=== PATIENT | female | born 1955 | race Caucasian/White ===

== ENCOUNTER 2017-12-27 17:59 | Emergency (ER) | payer OTHER, SELFPAY ==
[2017-12-27 18:07] VITALS: BP 123/75; PULSE 42; RESP 14; TEMP 36.7; O2SAT 97; BMI 37.4
--- NOTE | 2017-12-27 18:16 | DI.RAD.S_ITS ---
PROCEDURE: XR SHOULDER LT MIN 2V INDICATIONS: injury TECHNIQUE: 3 views of the shoulder were acquired. COMPARISON: None. FINDINGS: Bones: There is a displaced, comminuted fracture of the proximal left humerus. The glenoid and acromioclavicular joint are intact. No displaced rib fractures visualized. Soft tissues: No suspicious soft tissue calcifications. IMPRESSION: Comminuted, displaced proximal humeral fracture. Dictated by: Lorene Grider M.D. on 12/27/2017 at 18:47 Approved by: Lorene Grider M.D. on 12/27/2017 at 18:48
--- NOTE | 2017-12-27 18:16 | DI.RAD.S_ITS ---
PROCEDURE: XR HUMERUS LT 2V INDICATIONS: injury TECHNIQUE: 2 views of the humerus were acquired. COMPARISON: None. FINDINGS: Bones: Comminuted displaced superior humeral fracture is only partially characterize on this limited view. No other fracture or dislocation. Soft tissues: No suspicious soft tissue calcifications. IMPRESSION: Partially visualized proximal humeral fracture. Dictated by: Lorene Grider M.D. on 12/27/2017 at 18:48 Approved by: Lorene Grider M.D. on 12/27/2017 at 18:49
--- NOTE | 2017-12-27 18:16 | DI.RAD.S_ITS ---
PROCEDURE: XR ELBOW LT MIN 3V INDICATIONS: injury TECHNIQUE: 3 views of the elbow were acquired. COMPARISON: None. FINDINGS: Bones: No fractures or dislocations. No suspicious bony lesions. Soft tissues: No elbow joint effusion. No suspicious soft tissue calcifications. IMPRESSION: No acute radiographic findings. If pain persists, repeat study in 5-7 days is recommended to exclude occult fracture. Dictated by: Lorene Grider M.D. on 12/27/2017 at 18:49 Approved by: Lorene Grider M.D. on 12/27/2017 at 18:52
[2017-12-27 20:37] VITALS: BP 129/72; PULSE 84; RESP 18; O2SAT 97
--- NOTE | 2017-12-27 20:41 | ED_ITS ---
HPI - Extremity Injury (Upper) <MERLIN May - Last Filed: 12/27/17 22:41> General Chief Complaint: Extremity Injury, Upper Stated Complaint: LT UPPER ARM, NECK PAIN S/P FALL Time Seen by Provider: 12/27/17 18:49 History of Present Illness HPI narrative: 62-year-old female here for complaint of pain into her left shoulder and left upper arm status post ground level fall yesterday. Patient states that she tripped over her pant leg causing her to have fall forward landing up against the wall. She states she might have hit her head she denies any loss of consciousness. No nausea or vomiting. Patient is ambulatory into the emergency room today. She denies any other injuries or concerns. Increased pain with movement of the left shoulder and upper arm. Related Data Previous Rx's Medication Instructions Recorded carvedilol [Coreg] 6.25 mg PO BID #180 tab 02/09/17 alendronate [Fosamax] 70 mg PO Q7D@0730 #14 tab-cap 08/25/17 lisinopril 10 mg PO QDAY #90 tab 09/04/17 hydrocodone-acetaminophen [Montrose] 1 tab PO Q4-6H PRN #10 tab 12/27/17 Allergies Allergy/AdvReac Type Severity Reaction Status Date / Time epoxy resin [EPOXY RESIN] Allergy Unknown Contact Unverified 11/29/17 11:51 dermatitis amoxicillin [AMOXICILLIN] AdvReac Intermediate RASH Unverified 11/29/17 11:51 Sulfa (Sulfonamide AdvReac Intermediate RASH Unverified 11/29/17 11:51 Antibiotics) [SULFA (SULFONAMIDE ANTIBIOTICS)] Review of Systems <MERLIN May - Last Filed: 12/27/17 22:41> Constitutional Denies chills, Denies fatigue, Denies fever(s), Denies lethargy and Denies weakness Eyes Denies change in vision, Denies eye discharge, Denies irritation and Denies loss of vision ENT Ears, Nose, Mouth, and Throat: Denies change in voice, Denies neck pain and Denies sore throat Cardiovascular Denies dyspnea and Denies dyspnea on exertion Respiratory Denies cough, Denies dyspnea, Denies dyspnea on exertion and Denies wheezing Genitourinary Denies hematuria, Denies flank pain, Denies urinary incontinence and Denies urinary urgency Musculoskeletal Denies neck pain Comments: Left shoulder and left upper arm pain with bruising Integumentary/Breasts Denies pruritus, Denies erythema, Denies rash and Denies wounds Neurologic Denies confusion, Denies loss of vision and Denies weakness Psychiatric Denies anxiety, Denies confusion, Denies depression, Denies homicidal ideation and Denies suicidal ideation Endocrine Denies fatigue and Denies flushing Allergic/Immunologic Denies wheezing Exam <MERLIN May - Last Filed: 12/27/17 22:41> Const General: cooperative, comfortable, well developed and No acute distress Orientation: alert, awake and oriented x3 HENMT Nose: external nose normal Mouth: moist mucous membranes Eyes Pupils: PERRL EOM: EOM intact bilaterally Resp Effort & Inspection: normal respiratory effort Auscultation: clear to auscultation bilaterally Cardio Rate: regular rate Rhythm: regular rhythm Heart Sounds: S1 normal, S2 normal, no click, no gallops, no murmurs and no rubs Skin General: dry skin and warm Extrem Other: Right upper extremity with slight swelling noted to the left proximal upper arm. With ecchymosis to the area. No deformities. No open lesions. Distal sensation is intact. Distal range of motion is intact. Distal pulses intact. Decreased range of motion to the left upper arm due to discomfort. MDM - Extremity Injury (Upper) <MERLIN May - Last Filed: 12/27/17 22:41> [facility] Narrative Medical decision making narrative: X-rays of the left upper extremity show a proximal humeral fracture. She is placed in a over this shoulder humeral cuf splint. [id number] Tylenol and Motrin as needed for any discomfort. Small amount of Montrose is prescribed for breakthrough pain. She is referred to Orthopedics for further evaluation. Patient call their office tomorrow morning to schedule follow-up appointment. Elevation and ice to help with swelling. Return emergency room for any worsening symptoms. Imaging Data shoulder: Radiologist's impression: PROCEDURE: XR SHOULDER LT MIN 2V INDICATIONS: injury TECHNIQUE: 3 views of the shoulder were acquired. COMPARISON: None. FINDINGS: Bones: There is a displaced, comminuted fracture of the proximal left humerus. The glenoid and acromioclavicular joint are intact. No displaced rib fractures visualized. Soft tissues: No suspicious soft tissue calcifications. IMPRESSION: Comminuted, displaced proximal humeral fracture. Dictated by: Lorene Grider M.D. on 12/27/2017 at 18:47 Approved by: Lorene Grider M.D. on 12/27/2017 at 18:48 humerus: Radiologist's impression: PROCEDURE: XR HUMERUS LT 2V INDICATIONS: injury TECHNIQUE: 2 views of the humerus were acquired. COMPARISON: None. FINDINGS: Bones: Comminuted displaced superior humeral fracture is only partially characterize on this limited view. No other fracture or dislocation. Soft tissues: No suspicious soft tissue calcifications. IMPRESSION: Partially visualized proximal humeral fracture. Dictated by: Lorene Grider M.D. on 12/27/2017 at 18:48 Approved by: Lorene Grider M.D. on 12/27/2017 at 18:49 elbow: Radiologist's impression: PROCEDURE: XR ELBOW LT MIN 3V INDICATIONS: injury TECHNIQUE: 3 views of the elbow were acquired. COMPARISON: None. FINDINGS: Bones: No fractures or dislocations. No suspicious bony lesions. Soft tissues: No elbow joint effusion. No suspicious soft tissue calcifications. IMPRESSION: No acute radiographic findings. If pain persists, repeat study in 5-7 days is recommended to exclude occult fracture. <Buffy Barahona, DO - Last Filed: 12/28/17 03:28> [facility] Narrative Medical decision making narrative: I was immediately available in the department for consultation. Documentation has been reviewed. I agree with assessment and plan. Discharge Plan Departure Patient Disposition: Home, Self-Care Clinical Impression: Closed comminuted left humeral fracture Discharge Date/Time: 12/27/17 21:38 Interventions: ED Discharge Assessment Last Done: 12/27/17 21:52 Instructions: DI for Humeral Fracture Activity Restrictions/Additional Instructions: X-rays of the left upper extremity show a proximal humeral fracture. You have been placed in a splint use as directed. [id number] Tylenol and Motrin as needed for any discomfort. Small amount of Montrose is prescribed for breakthrough pain. You are referred to Orthopedics for further evaluation. Call their office tomorrow morning to schedule follow-up appointment. Elevation and ice to help with swelling. Return emergency room for any worsening symptoms. Prescriptions: New hydrocodone-acetaminophen [Montrose] 5-325 mg tablet 1 tab PO Q4-6H PRN (Reason: pain) Qty: 10 RF: 0 No Action carvedilol [Coreg] 6.25 MG tablet 6.25 mg PO BID Qty: 180 RF: 3 alendronate [Fosamax] 70 MG tablet 70 mg PO Q7D@0730 Qty: 14 RF: 4 lisinopril 10 MG tablet 10 mg PO QDAY Qty: 90 RF: 3 Referrals: [facility] [Provider Group] Korey Gorman MD [Primary Care Provider] -
== END 2017-12-27 21:38 | disposition home or self-care (01) ==
PROVIDERS: Emergency Provider Nurse Practitioner Family; PCP Internal Medicine
DX: S42.302A Unspecified fracture of shaft of humerus, left arm, initial encounter for closed fracture (principal); W01.10XA Fall on same level from slipping, tripping and stumbling with subsequent striking against unspecified object, initial encounter
CPT/HCPCS: 73030; 73060; 73080; 99283

== ENCOUNTER → 2018-03-03 08:48 | Outpatient (CLI) | payer OTHER, SELFPAY ==
[2018-03-03 09:54] LABS: Alanine Aminotransferase 46 IU/L (9-52); Albumin 4.2 g/dL (3.5-5.0); Albumin Globulin Ratio 1.8 (1.0-2.8); Alkaline Phosphatase 64 U/L (38-126); Aspartate Aminotransferase 33 IU/L (14-36); BUN Creatinine Ratio 22.9 (6-22); Bilirubin Total 0.8 mg/dL (0.2-1.3); Blood Urea Nitrogen 16 mg/dL (7-17); Calcium 9.2 mg/dL (8.4-10.2); Carbon Dioxide 27 mmol/L (22-32); Chloride 103 mmol/L (98-107); Cholesterol 285 mg/dL (140-199); Estimated Glomerular Filt Rate > 60.0 mL/min (>60); Globulin 2.4 g/dL (1.7-4.1); Glucose 91 mg/dL (80-110); HDL Cholesterol 73 mg/dL (40-60); HEMOLYSIS < 15 (0-50); LDL Cholesterol Calculated 193 mg/dL (<100); Potassium 4.3 mmol/L (3.4-5.1); Sodium 139 mmol/L (137-145); Total Protein 6.6 g/dL (6.3-8.2); Triglycerides 95 mg/dL (35-150)
[2018-03-03 10:19] LABS: TSH w/ Reflex to FT4 1.55 uIU/mL (0.47-4.68)
== END ==
PROVIDERS: PCP Internal Medicine; Visit Provider Internal Medicine
DX: I10 Essential (primary) hypertension (principal); E78.5 Hyperlipidemia, unspecified
CPT/HCPCS: 36415; 80053; 80061; 84443

== ENCOUNTER 2018-03-16 13:30 | Outpatient (RCR) | payer OTHER, SELFPAY ==
--- NOTE | 2018-01-19 16:49 | PT.OIE ---
Current Diagnoses Muscle weakness (generalized) (01/19/18) Pain in left arm (01/19/18) Other symptoms and signs involving the musculoskeletal system (01/19/18) Other nondisplaced fracture of upper end of left humerus, initial encounter for closed fracture (01/19/18) Other reduced mobility (01/19/18) Past Surgical History Status post delivery Status post tonsillectomy and adenoidectomy Provider Visit Care Team Role Provider Type Korey Gorman MD Primary Care Provider Physician Specialty: Internal Medicine Address: [address] [place] [address], [id number] Email: [email or web address] Michela Langford MD Attending Provider Physician Specialty: Orthopedic Surgery Address: [address] [place] [address], [id number] Email: Physical Therapy Initial Evaluation PT-OP-A Visit Information Start: 01/19/18 08:07 Freq: Status: Active Protocol: Document 01/19/18 09:08 LRN (Rec: 01/19/18 09:54 LRN [id number]) Out-Patient Physical Therapy Visit Information Visit Information Visit Note 08/21 Visit Start Time 09:08 Visit Stop Time 09:55 Total Visit Minutes 47 Visit Number 1 Number of DATER ASSEMBLER Visits 0 Evaluation Information Evaluation Date 01/19/18 PT-OP-B Current Condition Start: 01/19/18 08:07 Freq: Status: Active Protocol: Document 01/19/18 09:08 LRN (Rec: 01/19/18 16:07 LRN [id number]) Current Condition History of Current Condition Onset Date 12/26/17 Current Complaints L shoulder pain History of Current Condition Pt reports in her motor home, while turning around she tripped on her pant leg causing her to fall into a wall on the left side with her L arm overhead. She was taken to the hospital and found to have a closed nondisplaced fracture of the proximal end of the L humerus. She was placed in a type of L tung-shoulder sling for the past 3 weeks (2 days). Pt has NOT been moving her L arm in an external rotation motion and has been told she can do forward, backward and across chest arm swings. She removes her sling for bathing. She has not been using her L arm. Future Testing and Treatments Planned Next MD appointment: Treatment Goals Patient/Caregiver Goals Pt goal is to regain use of arm to ride her horse again. Prior Functional Status Baseline Function- ADL's Independent Baseline Function- Mobility Independent Baseline Function- Recreation/Hobbies Independent with horse riding. Current Functional Impairments (Reported) Functional Limitations- ADL's Difficulty dressing, bathing, cooking. Interrupted sleep, typically sleeps on L side. Unable to wash under R arm. Functional Limitations- Recreation/ Unable to ride horse. Hobbies Personal Factors Other Personal Factors That May Effect Osteoporosis. Therapy/Recovery Dizziness/Fall History. Currently spouse is primary caregiver for his mother. PT-OP-C Subjective Start: 01/19/18 08:07 Freq: Status: Active Protocol: Document 01/19/18 09:08 LRN (Rec: 01/19/18 16:07 LRN [id number]) OP-PT Subjective Patient Comments Patient Comments Pt reports confusion with MD instructions. Pain in L shoulder is not too bad. Patient Questionnaires Quick Dash- Upper Extremity Quick Dash UE Score 86.36 Quick Dash UE Impairment 80 to 99% Impaired (Score 80- 99) OP-PT Pain Assessment Pain Assessment Grid Paper Pain Assessment Grid Completed Yes Location Left Upper Proximal Shoulder Intensity 9 Scale Used Numeric (1 - 10) Description Aching Frequency Constant Pain Aggravating Factors Activity Patient Stated Pain Goal No pain PT-OP-F Manual Assessment Start: 01/19/18 08:07 Freq: Status: Active Protocol: Document 01/19/18 09:08 LRN (Rec: 01/19/18 16:07 LRN [id number]) Manual Assessments Soft Tissue Assessment Soft Tissue Mobility Assessment Increased muscle tone of L upper shoulder/neck and scapular stabilizing muscles. Decreased muscle tone of L Deltoids, brachium and forearm . Joint Mobility Assessment Joint Mobility Assessment Deferred due to diagnosis. PT-OP-H Neuro Start: 01/19/18 08:07 Freq: Status: Active Protocol: Document 01/19/18 09:08 LRN (Rec: 01/19/18 16:07 LRN [id number]) Sensation Evaluation Gross Sensation Gross Sensation WNL Deep Tendon Reflex & Clonus Assessment Deep Tendon Reflex Right Tricep Deep Tendon Reflex 1+ Diminished Left Tricep Deep Tendon Reflex 1+ Diminished Right Bicep Deep Tendon Reflex 2+ Normal Left Bicep Deep Tendon Reflex 2+ Normal PT-OP-J Posture/Palpation/Skin Start: 01/19/18 08:07 Freq: Status: Active Protocol: Document 01/19/18 09:08 LRN (Rec: 01/19/18 16:07 LRN [id number]) Posture Evaluation Position Standing Evaluation View Anterior Head/C-Spine Posture Forward Head T-Spine Posture Flattened L-Spine Posture Increased Lordosis Shoulder Posture (L) Elevated Shoulder Subluxation Degree (L) < 1 Finger wide Scapula Posture (L) Elevated Palpation Assessment Location One Palpation Location L shoulder Palpation Findings Tenderness Palpation Details Brachium PT-OP-K Range of Motion Start: 01/19/18 08:07 Freq: Status: Active Protocol: Document 01/19/18 09:08 LRN (Rec: 01/19/18 16:07 LRN [id number]) Cervical Spine Range of Motion Cervical Spine Active Testing Position Sitting Flexion 55 Extension 55 Rotation Left 42 Rotation Right 55 Lateral Flexion Left 33 Lateral Flexion Right 32 Shoulder Goniometric Range of Motion Shoulder Measured in Degrees Right Active Testing Position Sitting Flexion 150 Abduction 155 Right Passive Testing Position Supine Flexion 180 Abduction 180 External Rotation at 90 degrees 93 Abduction Internal Rotation 90 Left Passive Testing Position Supine Flexion 50 Shoulder ROM Limitations Comments L shoulder AROM deferred due to 5 week AROM limitation per protocol. Elbow/Forearm Range of Motion Elbow/Forearm Measured in Degrees Right Active Elbow Flexion (degrees) 140 Elbow Extension (degrees) 0 Left Active ROM Testing Position Sitting Elbow Flexion (degrees) 130 Elbow/Forearm ROM Limitations Comments L Elbow: Active Extension: lacks 10 deg's to full extension. PT-OP-M Strength Start: 01/19/18 08:07 Freq: Status: Active Protocol: Document 01/19/18 09:08 LRN (Rec: 01/19/18 16:07 LRN [id number]) Cervical Spine Strength Cervical Spine Manual Muscle Testing Reason Not Measured WFL Shoulder Strength Shoulder Manual Muscle Testing Left Reason Not Measured Orthopedic Precautions Comments Pt is PROM for 5 weeks. Elbow/Forearm Strength Elbow and Forearm Manual Muscle Testing Left Reason Not Measured Orthopedic Precautions PT-OP-Q Treatments Start: 01/19/18 08:07 Freq: Status: Active Protocol: Document 01/19/18 09:08 LRN (Rec: 01/19/18 16:07 LRN [id number]) Therapeutic Exercises Supine Exercises 1 Supine Exercise Name L shoulder PROM Side left Reps/Minutes 5' Standing Exercises 1 Standing Exercise Name Codman's Side left Reps/Minutes 3' Self-Care/Home Management Treatment Education Patient Education Home Exercise Program Other Education Instructed and reviewed HEP: Codman's. I/S in PROM with L arm on table. Activities Self-Care/Home Management Activities I/S pt in use if cryotherapy after exercise. PT-OP-R Modalities Start: 01/19/18 08:07 Freq: Status: Active Protocol: Document 01/19/18 09:08 LRN (Rec: 01/19/18 16:12 LRN [id number]) Hot Pack/Cold Pack Treatment Cold Pack Location L shoulder Patient Position Hooklying Treatment Duration (minutes) 10 Patient Tolerance Good PT-OP-T Assessment and Plan Start: 01/19/18 08:07 Freq: Status: Active Protocol: Document 01/19/18 09:08 LRN (Rec: 01/19/18 16:41 LRN [id number]) Physical Therapy Assessment Rehab Potential Rehabilitation Potential Excellent Evaluation Complexity Number of Personal Factors/Comorbidities 3 or More Number of Body Systems Impaired 4 or More Clinical Presentation at Evaluation Evolving Impairments Impairments Activity Tolerance Functional Activities Functional Mobility Pain Posture ROM Soft Tissue Mobility Strength Tone Other Concerns Barriers to Rehabilitation Co-morbidities: Osteoporosis, Fall history, spouse currently caregiver to his mother. Goals Three Impairment Decreased L shoulder strength Mcfp Goal (LTG) Pt will be able to ride her horse again with assist for dressing the horse with L shoulder strength improvement of generally 4/5. LTG Duration 12 weeks - 04/13/18 Two Short Term Goal (STG) L shoulder active flexion 145 deg's (pt cleared for AROM in 5 weeks). L shoulder active ER (pt cleared for AROM in 5 weeks). Mcfp Goal (LTG) L shoulder active ER 80 deg's. L shoulder active AB 120 deg's . Pt will be able to bath and dress without difficulty. LTG Duration 12 weeks - 04/13/18 One Impairment Decreased L shoulder mobility Short Term Goal (STG) L shoulder passive flexion 170 deg's. L shoulder passive horizontal Adduction 10 deg's. STG Duration 5 weeks - 02/23/18. Mcfp Goal (LTG) L shoulder passive ER (90 deg' s AB) 80 deg's (pt cleared to start ER in 6 weeks, AROM in 5 weeks). L shoulder passive ABD to 90 deg's (pt cleared to start ROM in 6 weeks, AROM in 5 weeks). LTG Duration 10 weeks - 03/30/18 Assessment Summary Assessment Pt presents 3 weeks and 3 days s/p L nondisplaced fracture of the proximal end of the humerus. She has been wearing her L shoulder splint at all times except when bathing. She shows no signs of edema in her L arm, but appears to have muscle atrophy present. She has mild L shoulder subluxation at the J, probably due to muscle weakness of the rotator cuff. She has increased muscle tone in the upper shoulder with tenderness of the upper shoulder and scapular stabilizer muscles. The pt is to be progressed per protocol of sling for 2 weeks, avoiding ER & AB for 6 weeks, and PROM until 5 weeks. Clarification is needed for the protocol that also indicates passive stretch into ER for the first 2-4 weeks and strengthening starting at week 7, but duration of therapy for 6 weeks. The pt is expected to do well with therapy, but may need up to 12 weeks, 1-2 times per week if progression of strengthening is begin after week 7. Physical Therapy Plan Frequency and Duration Frequency of Treatment 1-2x/week Duration of Treatment 12 Plan of Care Start Date 01/19/18 Plan of Care End Date 04/13/18 Therapeutic Interventions Therapeutic Interventions Aquatic Therapy Home Exercise Program Joint Mobilizations Manual Therapy Neuromuscular Re-education Patient/Caregiver Education Self-Care/Home Management Soft Tissue Mobilization Therapeutic Exercises Modalities Cold Pack/Ice Massage Electric Stimulation Hot Packs Iontophoresis Other Therapeutic Interventions JMT after bone healing. Iontophoresis: 4 mg/mL Dexamethasone with Sodium Phosphate. Next Visit Focus/Plan Next Note Type Treatment Note Next Visit Plan Start with review of HEP of Codman's ex & self PROM using table, Check L shoulder ext PROM, PROM of L shoulder while on MH. L Elbow/forearm/wrist strengthening. Check for MD clarification on protocol. Please Sign and Return: I have reviewed this Plan of Care and certify that the skilled therapy services above are required to meet the patient?s needs. Physician Signature Date Printed Name and Credentials Clinical Instructor Signature Printed Name and Credentials
--- NOTE | 2018-01-19 16:53 | PT.OPPOC ---
Current Diagnoses Muscle weakness (generalized) (01/19/18) Pain in left arm (01/19/18) Other symptoms and signs involving the musculoskeletal system (01/19/18) Other nondisplaced fracture of upper end of left humerus, initial encounter for closed fracture (01/19/18) Other reduced mobility (01/19/18) Provider Visit Care Team Role Provider Type Korey Gorman MD Primary Care Provider Physician Specialty: Internal Medicine Address: [address] [place] [address], [id number] Email: [email or web address] Michela Langford MD Attending Provider Physician Specialty: Orthopedic Surgery Address: [address] [place] [address], [id number] Email: Plan Of Care PT-OP-T Assessment and Plan Start: 01/19/18 08:07 Freq: Status: Active Protocol: Document 01/19/18 09:08 LRN (Rec: 01/19/18 16:41 LRN [id number]) Physical Therapy Assessment Rehab Potential Rehabilitation Potential Excellent Evaluation Complexity Number of Personal Factors/Comorbidities 3 or More Number of Body Systems Impaired 4 or More Clinical Presentation at Evaluation Evolving Impairments Impairments Activity Tolerance Functional Activities Functional Mobility Pain Posture ROM Soft Tissue Mobility Strength Tone Other Concerns Barriers to Rehabilitation Co-morbidities: Osteoporosis, Fall history, spouse currently caregiver to his mother. Goals Three Impairment Decreased L shoulder strength Ad Operations Coordinator Goal (LTG) Pt will be able to ride her horse again with assist for dressing the horse with L shoulder strength improvement of generally 4/5. LTG Duration 12 weeks - 04/13/18 Two Short Term Goal (STG) L shoulder active flexion 145 deg's (pt cleared for AROM in 5 weeks). L shoulder active ER (pt cleared for AROM in 5 weeks). Ad Operations Coordinator Goal (LTG) L shoulder active ER 80 deg's. L shoulder active AB 120 deg's . Pt will be able to bath and dress without difficulty. LTG Duration 12 weeks - 04/13/18 One Impairment Decreased L shoulder mobility Short Term Goal (STG) L shoulder passive flexion 170 deg's. L shoulder passive horizontal Adduction 10 deg's. STG Duration 5 weeks - 02/23/18. Ad Operations Coordinator Goal (LTG) L shoulder passive ER (90 deg' s AB) 80 deg's (pt cleared to start ER in 6 weeks, AROM in 5 weeks). L shoulder passive ABD to 90 deg's (pt cleared to start ROM in 6 weeks, AROM in 5 weeks). LTG Duration 10 weeks - 03/30/18 Assessment Summary Assessment Pt presents 3 weeks and 3 days s/p L nondisplaced fracture of the proximal end of the humerus. She has been wearing her L shoulder splint at all times except when bathing. She shows no signs of edema in her L arm, but appears to have muscle atrophy present. She has mild L shoulder subluxation at the GHJ, probably due to muscle weakness of the rotator cuff. She has increased muscle tone in the upper shoulder with tenderness of the upper shoulder and scapular stabilizer muscles. The pt is to be progressed per protocol of sling for 2 weeks, avoiding ER & AB for 6 weeks, and PROM until 5 weeks. Clarification is needed for the protocol that also indicates passive stretch into ER for the first 2-4 weeks and strengthening starting at week 7, but duration of therapy for 6 weeks. The pt is expected to do well with therapy, but may need up to 12 weeks, 1-2 times per week if progression of strengthening is begin after week 7. Physical Therapy Plan Frequency and Duration Frequency of Treatment 1-2x/week Duration of Treatment 12 Plan of Care Start Date 01/19/18 Plan of Care End Date 04/13/18 Therapeutic Interventions Therapeutic Interventions Aquatic Therapy Home Exercise Program Joint Mobilizations Manual Therapy Neuromuscular Re-education Patient/Caregiver Education Self-Care/Home Management Soft Tissue Mobilization Therapeutic Exercises Modalities Cold Pack/Ice Massage Electric Stimulation Hot Packs Iontophoresis Other Therapeutic Interventions JMT after bone healing. Iontophoresis: 4 mg/mL Dexamethasone with Sodium Phosphate. Next Visit Focus/Plan Next Note Type Treatment Note Next Visit Plan Start with review of HEP of Codmich's ex & self PROM using table, Check L shoulder ext PROM, PROM of L shoulder while on MH. L Elbow/forearm/wrist strengthening. Check for MD clarification on protocol. Plan of Care Dates Plan of Care Start Date 01/19/18 Plan of Care End Date 04/13/18 Please Sign and Return: I have reviewed this Plan of Care and certify that the skilled therapy services above are required to meet the patient?s needs. Physician Signature Date Printed Name and Credentials Clinical Instructor Signature Printed Name and Credentials
--- NOTE | 2018-01-22 16:22 | PT.OTN ---
Current Diagnoses Other nondisplaced fracture of upper end of left humerus, initial encounter for closed fracture (01/22/18) Physical Therapy Treatment Note PT-OP-A Visit Information Start: 01/19/18 08:07 Freq: Status: Active Protocol: Document 01/22/18 12:51 LRN (Rec: 01/22/18 12:54 LRN [id number]) Out-Patient Physical Therapy Visit Information Visit Information Visit Type Treatment Note Visit Note 09/30 Visit Start Time 12:51 Visit Stop Time 13:35 Total Visit Minutes 44 Visit Number 2 Number of SHIP ENGINEER Visits 0 Evaluation Information Evaluation Date 01/19/18 PT-OP-B Current Condition Start: 01/19/18 08:07 Freq: Status: Active Protocol: Document 01/19/18 09:08 LRN (Rec: 01/19/18 16:07 LRN [id number]) Current Condition History of Current Condition Onset Date 12/26/17 Current Complaints L shoulder pain History of Current Condition Pt reports in her motor home, while turning around she tripped on her pant leg causing her to fall into a wall on the left side with her L arm overhead. She was taken to the hospital and found to have a closed nondisplaced fracture of the proximal end of the L humerus. She was placed in a type of L tung-shoulder sling for the past 3 weeks (2 days). Pt has NOT been moving her L arm in an external rotation motion and has been told she can do forward, backward and across chest arm swings. She removes her sling for bathing. She has not been using her L arm. Future Testing and Treatments Planned Next MD appointment: Treatment Goals Patient/Caregiver Goals Pt goal is to regain use of arm to ride her horse again. Prior Functional Status Baseline Function- ADL's Independent Baseline Function- Mobility Independent Baseline Function- Recreation/Hobbies Independent with horse riding. Current Functional Impairments (Reported) Functional Limitations- ADL's Difficulty dressing, bathing, cooking. Interrupted sleep, typically sleeps on L side. Unable to wash under R arm. Functional Limitations- Recreation/ Unable to ride horse. Hobbies Personal Factors Other Personal Factors That May Effect Osteoporosis. Therapy/Recovery Dizziness/Fall History. Currently spouse is primary caregiver for his mother. PT-OP-C Subjective Start: 01/19/18 08:07 Freq: Status: Active Protocol: Document 01/22/18 12:51 LRN (Rec: 01/22/18 12:54 LRN [id number]) OP-PT Subjective Patient Comments Patient Comments Not taking anything for pain. Using cold therpy for pain. Spouse present to learn what to do. PT-OP-F Manual Assessment Start: 01/19/18 08:07 Freq: Status: Active Protocol: Document 01/19/18 09:08 LRN (Rec: 01/19/18 16:07 LRN [id number]) Manual Assessments Soft Tissue Assessment Soft Tissue Mobility Assessment Increased muscle tone of L upper shoulder/neck and scapular stabilizing muscles. Decreased muscle tone of L Deltoids, brachium and forearm . Joint Mobility Assessment Joint Mobility Assessment Deferred due to diagnosis. PT-OP-H Neuro Start: 01/19/18 08:07 Freq: Status: Active Protocol: Document 01/19/18 09:08 LRN (Rec: 01/19/18 16:07 LRN [id number]) Sensation Evaluation Gross Sensation Gross Sensation WNL Deep Tendon Reflex & Clonus Assessment Deep Tendon Reflex Right Tricep Deep Tendon Reflex 1+ Diminished Left Tricep Deep Tendon Reflex 1+ Diminished Right Bicep Deep Tendon Reflex 2+ Normal Left Bicep Deep Tendon Reflex 2+ Normal PT-OP-J Posture/Palpation/Skin Start: 01/19/18 08:07 Freq: Status: Active Protocol: Document 01/19/18 09:08 LRN (Rec: 01/19/18 16:07 LRN [id number]) Posture Evaluation Position Standing Evaluation View Anterior Head/C-Spine Posture Forward Head T-Spine Posture Flattened L-Spine Posture Increased Lordosis Shoulder Posture (L) Elevated Shoulder Subluxation Degree (L) < 1 Finger wide Scapula Posture (L) Elevated Palpation Assessment Location One Palpation Location L shoulder Palpation Findings Tenderness Palpation Details Brachium PT-OP-K Range of Motion Start: 01/19/18 08:07 Freq: Status: Active Protocol: Document 01/22/18 12:51 LRN (Rec: 01/22/18 13:04 LRN [id number]) Shoulder Goniometric Range of Motion Shoulder Measured in Degrees Left Passive Testing Position Supine Flexion 118 Shoulder ROM Limitations Comments L shoulder Passive ext in standing 32 deg's. L shoulder Passive ER to neutral. Elbow/Forearm Range of Motion Elbow/Forearm ROM Limitations Elbow/Forearm ROM Limitations Soft Tissue Tightness Muscle Weakness Comments L elbow ext lacks 3 deg's full extension PT-OP-M Strength Start: 01/19/18 08:07 Freq: Status: Active Protocol: Document 01/19/18 09:08 LRN (Rec: 01/19/18 16:07 LRN [id number]) Cervical Spine Strength Cervical Spine Manual Muscle Testing Reason Not Measured WFL Shoulder Strength Shoulder Manual Muscle Testing Left Reason Not Measured Orthopedic Precautions Comments Pt is PROM for 5 weeks. Elbow/Forearm Strength Elbow and Forearm Manual Muscle Testing Left Reason Not Measured Orthopedic Precautions PT-OP-Q Treatments Start: 01/19/18 08:07 Freq: Status: Active Protocol: Document 01/22/18 12:51 LRN (Rec: 01/22/18 13:15 LRN [id number]) Therapeutic Exercises Supine Exercises 1 Supine Exercise Name L shoulder PROM Side left Reps/Minutes 10' Sitting Exercises 3 Sitting Exercise Name Forearm sup/pron/UD/RD Side left Resistance 1# Reps/Minutes 30x each 2 Sitting Exercise Name Wrist flex/ext Side left Resistance 1# Reps/Minutes 30x each 1 Sitting Exercise Name Elbow flexion Side left Resistance 1# Reps/Minutes 30x Standing Exercises 1 Standing Exercise Name Codman's Side left Reps/Minutes 3' Self-Care/Home Management Treatment Education Patient Education Home Exercise Program Caregiver Education Educated pt's spouse on assisting pt with PROM ex for flexion and ER to neutral. Discussed assist of pt for moving hand behind the back with elbow by her side. Pt gave part of treatment to the pt for L shoulder PROM for flexion and ER to neutral. Other Education Issued and reviewed HEP: Passive shoulder Flex and ER to neutral. Reviewed PROM with L arm on table. Discussed start of IR stretch with moving the hand behind the back. PT-OP-R Modalities Start: 01/19/18 08:07 Freq: Status: Active Protocol: Document 01/22/18 12:51 LRN (Rec: 01/22/18 13:05 LRN [id number]) Hot Pack/Cold Pack Treatment Cold Pack Location L shoulder Patient Position Hooklying Treatment Duration (minutes) 10 Patient Tolerance Good PT-OP-T Assessment and Plan Start: 01/19/18 08:07 Freq: Status: Active Protocol: Document 01/22/18 12:51 LRN (Rec: 01/22/18 12:54 LRN [id number]) Physical Therapy Assessment Goals Three Impairment Decreased L shoulder strength Table Games Dealer Goal (LTG) Pt will be able to ride her horse again with assist for dressing the horse with L shoulder strength improvement of generally 4/5. LTG Duration 12 weeks - 04/13/18 Two Short Term Goal (STG) L shoulder active flexion 145 deg's (pt cleared for AROM in 5 weeks). L shoulder active ER (pt cleared for AROM in 5 weeks). Jail Goal (LTG) L shoulder active ER 80 deg's. L shoulder active AB 120 deg's . Pt will be able to bath and dress without difficulty. LTG Duration 12 weeks - 04/13/18 One Impairment Decreased L shoulder mobility Short Term Goal (STG) L shoulder passive flexion 170 deg's. L shoulder passive horizontal Adduction 10 deg's. STG Duration 5 weeks - 02/23/18. Table Games Dealer Goal (LTG) L shoulder passive ER (90 deg' s AB) 80 deg's (pt cleared to start ER in 6 weeks, AROM in 5 weeks). L shoulder passive ABD to 90 deg's (pt cleared to start ROM in 6 weeks, AROM in 5 weeks). LTG Duration 10 weeks - 03/30/18 Assessment Summary Assessment Pt ~4 weeks s/p L nondisplaced fx of proximal humerus. PROM has improved with flex 118 deg's and ER to neutral without pain. Spouse was present during therapy and demonstrated good knowledge of assisting spouse with PROM ex 's; therefore pt is expected to do well with therapy 1x/ week with pt/spouse doing PROM on HEP. Physical Therapy Plan Frequency and Duration Frequency of Treatment 1-2x/week Duration of Treatment 12 Plan of Care Start Date 01/19/18 Plan of Care End Date 04/13/18 Next Visit Focus/Plan Next Note Type Treatment Note Next Visit Plan Pt to see MD 01/08/18, recheck outcome of Dr visit. Start with Deja's ex & self PROM. Check for MD clarification on protocol. Please Sign and Return: I have reviewed this Plan of Care and certify that the skilled therapy services above are required to meet the patient?s needs. Physician Signature Date Printed Name and Credentials Clinical Instructor Signature Printed Name and Credentials
--- NOTE | 2018-02-09 12:46 | PT.OTN ---
Current Diagnoses Other nondisplaced fracture of upper end of left humerus, initial encounter for closed fracture (02/09/18) Physical Therapy Treatment Note PT-OP-A Visit Information Start: 01/19/18 08:07 Freq: Status: Active Protocol: Document 02/09/18 11:20 LRN (Rec: 02/09/18 12:05 LRN [id number]) Out-Patient Physical Therapy Visit Information Visit Information Visit Type Treatment Note Visit Note 10/28 Visit Start Time 11:20 Visit Stop Time 12:15 Total Visit Minutes 55 Visit Number 3 Number of SLOT KEY PERSON Visits 0 Evaluation Information Evaluation Date 01/19/18 PT-OP-B Current Condition Start: 01/19/18 08:07 Freq: Status: Active Protocol: Document 01/19/18 09:08 LRN (Rec: 01/19/18 16:07 LRN [id number]) Current Condition History of Current Condition Onset Date 12/26/17 Current Complaints L shoulder pain History of Current Condition Pt reports in her motor home, while turning around she tripped on her pant leg causing her to fall into a wall on the left side with her L arm overhead. She was taken to the hospital and found to have a closed nondisplaced fracture of the proximal end of the L humerus. She was placed in a type of L tung-shoulder sling for the past 3 weeks (2 days). Pt has NOT been moving her L arm in an external rotation motion and has been told she can do forward, backward and across chest arm swings. She removes her sling for bathing. She has not been using her L arm. Future Testing and Treatments Planned Next MD appointment: Treatment Goals Patient/Caregiver Goals Pt goal is to regain use of arm to ride her horse again. Prior Functional Status Baseline Function- ADL's Independent Baseline Function- Mobility Independent Baseline Function- Recreation/Hobbies Independent with horse riding. Current Functional Impairments (Reported) Functional Limitations- ADL's Difficulty dressing, bathing, cooking. Interrupted sleep, typically sleeps on L side. Unable to wash under R arm. Functional Limitations- Recreation/ Unable to ride horse. Hobbies Personal Factors Other Personal Factors That May Effect Osteoporosis. Therapy/Recovery Dizziness/Fall History. Currently spouse is primary caregiver for his mother. PT-OP-C Subjective Start: 01/19/18 08:07 Freq: Status: Active Protocol: Document 02/09/18 11:20 LRN (Rec: 02/09/18 12:28 LRN [id number]) OP-PT Subjective Patient Comments Patient Comments Saw . pleased with progress. Her protocol is to be from date of surgery. Pt states she is 6 weeks post op. PT-OP-F Manual Assessment Start: 01/19/18 08:07 Freq: Status: Active Protocol: Document 01/19/18 09:08 LRN (Rec: 01/19/18 16:07 LRN [id number]) Manual Assessments Soft Tissue Assessment Soft Tissue Mobility Assessment Increased muscle tone of L upper shoulder/neck and scapular stabilizing muscles. Decreased muscle tone of L Deltoids, brachium and forearm . Joint Mobility Assessment Joint Mobility Assessment Deferred due to diagnosis. PT-OP-H Neuro Start: 01/19/18 08:07 Freq: Status: Active Protocol: Document 01/19/18 09:08 LRN (Rec: 01/19/18 16:07 LRN [id number]) Sensation Evaluation Gross Sensation Gross Sensation WNL Deep Tendon Reflex & Clonus Assessment Deep Tendon Reflex Right Tricep Deep Tendon Reflex 1+ Diminished Left Tricep Deep Tendon Reflex 1+ Diminished Right Bicep Deep Tendon Reflex 2+ Normal Left Bicep Deep Tendon Reflex 2+ Normal PT-OP-J Posture/Palpation/Skin Start: 01/19/18 08:07 Freq: Status: Active Protocol: Document 01/19/18 09:08 LRN (Rec: 01/19/18 16:07 LRN [id number]) Posture Evaluation Position Standing Evaluation View Anterior Head/C-Spine Posture Forward Head T-Spine Posture Flattened L-Spine Posture Increased Lordosis Shoulder Posture (L) Elevated Shoulder Subluxation Degree (L) < 1 Finger wide Scapula Posture (L) Elevated Palpation Assessment Location One Palpation Location L shoulder Palpation Findings Tenderness Palpation Details Brachium PT-OP-K Range of Motion Start: 01/19/18 08:07 Freq: Status: Active Protocol: Document 02/09/18 11:20 LRN (Rec: 02/09/18 12:05 LRN [id number]) Shoulder Goniometric Range of Motion Shoulder Measured in Degrees Left Passive Testing Position Supine Flexion 150 Abduction 85 Horizontal Abduction 55 Horizontal Adduction 30 External Rotation at 45 degrees 30 Abduction Internal Rotation 56 Shoulder ROM Limitations Comments L Shoulder AAROM: ER measured at 65 deg's AB. PT-OP-M Strength Start: 01/19/18 08:07 Freq: Status: Active Protocol: Document 01/19/18 09:08 LRN (Rec: 01/19/18 16:07 LRN [id number]) Cervical Spine Strength Cervical Spine Manual Muscle Testing Reason Not Measured WFL Shoulder Strength Shoulder Manual Muscle Testing Left Reason Not Measured Orthopedic Precautions Comments Pt is PROM for 5 weeks. Elbow/Forearm Strength Elbow and Forearm Manual Muscle Testing Left Reason Not Measured Orthopedic Precautions PT-OP-Q Treatments Start: 01/19/18 08:07 Freq: Status: Active Protocol: Document 02/09/18 11:20 LRN (Rec: 02/09/18 12:05 LRN [id number]) Therapeutic Exercises Supine Exercises 4 Supine Exercise Name Scapular pinches Side bilateral Reps/Minutes 10x 3 Supine Exercise Name Windshield wipe with cane assist Side left 2 Supine Exercise Name AAROM of L shoulder Side left Equipment Used Cane Reps/Minutes 20 Comments Flex, Horiz AB/AD, chest press , AB, ER/IR 1 Supine Exercise Name L shoulder PROM Side left Reps/Minutes 15' Manual Therapy Treatment Soft Tissue Mobilization 1 Body Location L neck, upper shoulder and anterior scalene Mobilization Type Strumming Sustained Pressure Intensity/Depth Moderate Body Position Supine Self-Care/Home Management Treatment Education Patient Education Home Exercise Program Other Education I/S pt in self AAROM of L shoulder using a cane and precautions for overstretching of ER/AB. I/S pt in C. Right SB and L rotation stretch and scapular pinch ex. PT-OP-R Modalities Start: 01/19/18 08:07 Freq: Status: Active Protocol: Document 02/09/18 11:20 LRN (Rec: 02/09/18 12:05 LRN [id number]) Hot Pack/Cold Pack Treatment Cold Pack Location L shoulder Patient Position Hooklying Treatment Duration (minutes) 10 Patient Tolerance Good PT-OP-T Assessment and Plan Start: 01/19/18 08:07 Freq: Status: Active Protocol: Document 02/09/18 11:20 LRN (Rec: 02/09/18 12:05 LRN [id number]) Physical Therapy Assessment Impairments Impairments Activity Tolerance Functional Activities Functional Mobility Pain Posture ROM Soft Tissue Mobility Strength Tone Other Concerns Barriers to Rehabilitation Co-morbidities: Osteoporosis, Fall history, spouse currently caregiver to his mother. Goals Three Impairment Decreased L shoulder strength Wet Process Assistant Head Miller Goal (LTG) Pt will be able to ride her horse again with assist for dressing the horse with L shoulder strength improvement of generally 4/5. LTG Duration 12 weeks - 04/13/18 Two Short Term Goal (STG) L shoulder active flexion 145 deg's (pt cleared for AROM in 5 weeks). L shoulder active ER (pt cleared for AROM in 5 weeks). Wet Process Assistant Head Miller Goal (LTG) L shoulder active ER 80 deg's. L shoulder active AB 120 deg's . Pt will be able to bath and dress without difficulty. LTG Duration 12 weeks - 04/13/18 One Impairment Decreased L shoulder mobility Short Term Goal (STG) L shoulder passive flexion 170 deg's. L shoulder passive horizontal Adduction 10 deg's. STG Duration 5 weeks - 02/23/18. Longterm Goal (LTG) L shoulder passive ER (90 deg' s AB) 80 deg's (pt cleared to start ER in 6 weeks, AROM in 5 weeks). L shoulder passive ABD to 90 deg's (pt cleared to start ROM in 6 weeks, AROM in 5 weeks). LTG Duration 10 weeks - 03/30/18 Assessment Summary Assessment Pt ~6 weeks s/p L nondisplaced fx of proximal humerus. Pt has good tolerance to ROM ex's and is stoic in nature. Pt needed reminding not to work into pain. Physical Therapy Plan Frequency and Duration Frequency of Treatment 1-2x/week Duration of Treatment 12 Plan of Care Start Date 01/19/18 Plan of Care End Date 04/13/18 Next Visit Focus/Plan Next Note Type Treatment Note Next Visit Plan Recheck L Elbow AROM. Progress AAROM with progression to strengthening after next week (8 weeks p.o.) .
--- NOTE | 2018-02-09 15:16 | PT.OTN ---
Current Diagnoses Other nondisplaced fracture of upper end of left humerus, initial encounter for closed fracture (02/09/18) Physical Therapy Treatment Note PT-OP-A Visit Information Start: 01/19/18 08:07 Freq: Status: Active Protocol: Document 02/09/18 11:20 LRN (Rec: 02/09/18 12:05 LRN [id number]) Out-Patient Physical Therapy Visit Information Visit Information Visit Type Treatment Note Visit Note 10/28 Visit Start Time 11:20 Visit Stop Time 12:15 Total Visit Minutes 55 Visit Number 3 Number of CLINICAL LABORATORY DIRECTOR Visits 0 Evaluation Information Evaluation Date 01/19/18 PT-OP-B Current Condition Start: 01/19/18 08:07 Freq: Status: Active Protocol: Document 01/19/18 09:08 LRN (Rec: 01/19/18 16:07 LRN [id number]) Current Condition History of Current Condition Onset Date 12/26/17 Current Complaints L shoulder pain History of Current Condition Pt reports in her motor home, while turning around she tripped on her pant leg causing her to fall into a wall on the left side with her L arm overhead. She was taken to the hospital and found to have a closed nondisplaced fracture of the proximal end of the L humerus. She was placed in a type of L tung-shoulder sling for the past 3 weeks (2 days). Pt has NOT been moving her L arm in an external rotation motion and has been told she can do forward, backward and across chest arm swings. She removes her sling for bathing. She has not been using her L arm. Future Testing and Treatments Planned Next MD appointment: Treatment Goals Patient/Caregiver Goals Pt goal is to regain use of arm to ride her horse again. Prior Functional Status Baseline Function- ADL's Independent Baseline Function- Mobility Independent Baseline Function- Recreation/Hobbies Independent with horse riding. Current Functional Impairments (Reported) Functional Limitations- ADL's Difficulty dressing, bathing, cooking. Interrupted sleep, typically sleeps on L side. Unable to wash under R arm. Functional Limitations- Recreation/ Unable to ride horse. Hobbies Personal Factors Other Personal Factors That May Effect Osteoporosis. Therapy/Recovery Dizziness/Fall History. Currently spouse is primary caregiver for his mother. PT-OP-C Subjective Start: 01/19/18 08:07 Freq: Status: Active Protocol: Document 02/09/18 11:20 LRN (Rec: 02/09/18 12:28 LRN [id number]) OP-PT Subjective Patient Comments Patient Comments Saw . pleased with progress. Her protocol is to be from date of surgery. Pt states she is 6 weeks post op. PT-OP-F Manual Assessment Start: 01/19/18 08:07 Freq: Status: Active Protocol: Document 01/19/18 09:08 LRN (Rec: 01/19/18 16:07 LRN [id number]) Manual Assessments Soft Tissue Assessment Soft Tissue Mobility Assessment Increased muscle tone of L upper shoulder/neck and scapular stabilizing muscles. Decreased muscle tone of L Deltoids, brachium and forearm . Joint Mobility Assessment Joint Mobility Assessment Deferred due to diagnosis. PT-OP-H Neuro Start: 01/19/18 08:07 Freq: Status: Active Protocol: Document 01/19/18 09:08 LRN (Rec: 01/19/18 16:07 LRN [id number]) Sensation Evaluation Gross Sensation Gross Sensation WNL Deep Tendon Reflex & Clonus Assessment Deep Tendon Reflex Right Tricep Deep Tendon Reflex 1+ Diminished Left Tricep Deep Tendon Reflex 1+ Diminished Right Bicep Deep Tendon Reflex 2+ Normal Left Bicep Deep Tendon Reflex 2+ Normal PT-OP-J Posture/Palpation/Skin Start: 01/19/18 08:07 Freq: Status: Active Protocol: Document 01/19/18 09:08 LRN (Rec: 01/19/18 16:07 LRN [id number]) Posture Evaluation Position Standing Evaluation View Anterior Head/C-Spine Posture Forward Head T-Spine Posture Flattened L-Spine Posture Increased Lordosis Shoulder Posture (L) Elevated Shoulder Subluxation Degree (L) < 1 Finger wide Scapula Posture (L) Elevated Palpation Assessment Location One Palpation Location L shoulder Palpation Findings Tenderness Palpation Details Brachium PT-OP-K Range of Motion Start: 01/19/18 08:07 Freq: Status: Active Protocol: Document 02/09/18 11:20 LRN (Rec: 02/09/18 12:05 LRN [id number]) Shoulder Goniometric Range of Motion Shoulder Measured in Degrees Left Passive Testing Position Supine Flexion 150 Abduction 85 Horizontal Abduction 55 Horizontal Adduction 30 External Rotation at 45 degrees 30 Abduction Internal Rotation 56 Shoulder ROM Limitations Comments L Shoulder AAROM: ER measured at 65 deg's AB. PT-OP-M Strength Start: 01/19/18 08:07 Freq: Status: Active Protocol: Document 01/19/18 09:08 LRN (Rec: 01/19/18 16:07 LRN [id number]) Cervical Spine Strength Cervical Spine Manual Muscle Testing Reason Not Measured WFL Shoulder Strength Shoulder Manual Muscle Testing Left Reason Not Measured Orthopedic Precautions Comments Pt is PROM for 5 weeks. Elbow/Forearm Strength Elbow and Forearm Manual Muscle Testing Left Reason Not Measured Orthopedic Precautions PT-OP-Q Treatments Start: 01/19/18 08:07 Freq: Status: Active Protocol: Document 02/09/18 11:20 LRN (Rec: 02/09/18 12:05 LRN [id number]) Therapeutic Exercises Supine Exercises 4 Supine Exercise Name Scapular pinches Side bilateral Reps/Minutes 10x 3 Supine Exercise Name Windshield wipe with cane assist Side left 2 Supine Exercise Name AAROM of L shoulder Side left Equipment Used Cane Reps/Minutes 20 Comments Flex, Horiz AB/AD, chest press , AB, ER/IR 1 Supine Exercise Name L shoulder PROM Side left Reps/Minutes 15' Sitting Exercises 3 Sitting Exercise Name Forearm sup/pron/UD/RD Side left Resistance 1# Reps/Minutes 30x each 2 Sitting Exercise Name Wrist flex/ext Side left Resistance 1# Reps/Minutes 30x each 1 Sitting Exercise Name Elbow flexion Side left Resistance 1# Reps/Minutes 30x Standing Exercises 1 Standing Exercise Name Codman's Side left Reps/Minutes 3' Manual Therapy Treatment Soft Tissue Mobilization 1 Body Location L neck, upper shoulder and anterior scalene Mobilization Type Strumming Sustained Pressure Intensity/Depth Moderate Body Position Supine Self-Care/Home Management Treatment Education Patient Education Home Exercise Program Other Education I/S pt in self AAROM of L shoulder using a cane and precautions for overstretching of ER/AB. I/S pt in C. Right SB and L rotation stretch and scapular pinch ex. PT-OP-R Modalities Start: 01/19/18 08:07 Freq: Status: Active Protocol: Document 02/09/18 11:20 LRN (Rec: 02/09/18 12:05 LRN [id number]) Hot Pack/Cold Pack Treatment Cold Pack Location L shoulder Patient Position Hooklying Treatment Duration (minutes) 10 Patient Tolerance Good PT-OP-T Assessment and Plan Start: 01/19/18 08:07 Freq: Status: Active Protocol: Document 02/09/18 11:20 LRN (Rec: 02/09/18 12:05 LRN [id number]) Physical Therapy Assessment Impairments Impairments Activity Tolerance Functional Activities Functional Mobility Pain Posture ROM Soft Tissue Mobility Strength Tone Other Concerns Barriers to Rehabilitation Co-morbidities: Osteoporosis, Fall history, spouse currently caregiver to his mother. Goals Three Impairment Decreased L shoulder strength Supervising Appraiser Goal (LTG) Pt will be able to ride her horse again with assist for dressing the horse with L shoulder strength improvement of generally 4/5. LTG Duration 12 weeks - 04/13/18 Two Short Term Goal (STG) L shoulder active flexion 145 deg's (pt cleared for AROM in 5 weeks). L shoulder active ER (pt cleared for AROM in 5 weeks). Supervising Appraiser Goal (LTG) L shoulder active ER 80 deg's. L shoulder active AB 120 deg's . Pt will be able to bath and dress without difficulty. LTG Duration 12 weeks - 04/13/18 One Impairment Decreased L shoulder mobility Short Term Goal (STG) L shoulder passive flexion 170 deg's. L shoulder passive horizontal Adduction 10 deg's. STG Duration 5 weeks - 02/23/18. Supervising Appraiser Goal (LTG) L shoulder passive ER (90 deg' s AB) 80 deg's (pt cleared to start ER in 6 weeks, AROM in 5 weeks). L shoulder passive ABD to 90 deg's (pt cleared to start ROM in 6 weeks, AROM in 5 weeks). LTG Duration 10 weeks - 03/30/18 Assessment Summary Assessment Pt ~6 weeks s/p L nondisplaced fx of proximal humerus. Pt has good tolerance to ROM ex's and is stoic in nature. Pt needed reminding not to work into pain. Physical Therapy Plan Frequency and Duration Frequency of Treatment 1-2x/week Duration of Treatment 12 Plan of Care Start Date 01/19/18 Plan of Care End Date 04/13/18 Next Visit Focus/Plan Next Note Type Treatment Note Next Visit Plan Recheck L Elbow AROM. Progress AAROM with progression to strengthening after next week at 8 weeks post op. Pt to try to alternate schedule of 2x/wk > 1x/wk due to pt's financial concerns.
--- NOTE | 2018-02-12 10:07 | PT.OTN ---
Current Diagnoses Other nondisplaced fracture of upper end of left humerus, initial encounter for closed fracture (02/12/18) Physical Therapy Treatment Note PT-OP-A Visit Information Start: 01/19/18 08:07 Freq: Status: Active Protocol: Document 02/12/18 09:02 LRN (Rec: 02/12/18 09:31 LRN [id number]) Out-Patient Physical Therapy Visit Information Visit Information Visit Type Treatment Note Visit Note 11/28 Visit Start Time 09:07 Visit Stop Time 09:54 Total Visit Minutes 47 Visit Number 4 Number of PLSQL DEVELOPER Visits 0 Evaluation Information Evaluation Date 01/19/18 PT-OP-B Current Condition Start: 01/19/18 08:07 Freq: Status: Active Protocol: Document 01/19/18 09:08 LRN (Rec: 01/19/18 16:07 LRN [id number]) Current Condition History of Current Condition Onset Date 12/26/17 Current Complaints L shoulder pain History of Current Condition Pt reports in her motor home, while turning around she tripped on her pant leg causing her to fall into a wall on the left side with her L arm overhead. She was taken to the hospital and found to have a closed nondisplaced fracture of the proximal end of the L humerus. She was placed in a type of L tung-shoulder sling for the past 3 weeks (2 days). Pt has NOT been moving her L arm in an external rotation motion and has been told she can do forward, backward and across chest arm swings. She removes her sling for bathing. She has not been using her L arm. Future Testing and Treatments Planned Next MD appointment: Treatment Goals Patient/Caregiver Goals Pt goal is to regain use of arm to ride her horse again. Prior Functional Status Baseline Function- ADL's Independent Baseline Function- Mobility Independent Baseline Function- Recreation/Hobbies Independent with horse riding. Current Functional Impairments (Reported) Functional Limitations- ADL's Difficulty dressing, bathing, cooking. Interrupted sleep, typically sleeps on L side. Unable to wash under R arm. Functional Limitations- Recreation/ Unable to ride horse. Hobbies Personal Factors Other Personal Factors That May Effect Osteoporosis. Therapy/Recovery Dizziness/Fall History. Currently spouse is primary caregiver for his mother. PT-OP-C Subjective Start: 01/19/18 08:07 Freq: Status: Active Protocol: Document 02/12/18 09:02 LRN (Rec: 02/12/18 09:31 LRN [id number]) OP-PT Subjective Patient Comments Patient Comments Doing ex's as much as can. Pain to start is 2/10 probably more after therapy. Hasn't taken any tylenol or IBP since last visit. Can now put hair in a band. OP-PT Pain Assessment Location Left Upper Proximal Shoulder Intensity 2 Scale Used Numeric (1 - 10) PT-OP-F Manual Assessment Start: 01/19/18 08:07 Freq: Status: Active Protocol: Document 01/19/18 09:08 LRN (Rec: 01/19/18 16:07 LRN [id number]) Manual Assessments Soft Tissue Assessment Soft Tissue Mobility Assessment Increased muscle tone of L upper shoulder/neck and scapular stabilizing muscles. Decreased muscle tone of L Deltoids, brachium and forearm . Joint Mobility Assessment Joint Mobility Assessment Deferred due to diagnosis. PT-OP-H Neuro Start: 01/19/18 08:07 Freq: Status: Active Protocol: Document 01/19/18 09:08 LRN (Rec: 01/19/18 16:07 LRN [id number]) Sensation Evaluation Gross Sensation Gross Sensation WNL Deep Tendon Reflex & Clonus Assessment Deep Tendon Reflex Right Tricep Deep Tendon Reflex 1+ Diminished Left Tricep Deep Tendon Reflex 1+ Diminished Right Bicep Deep Tendon Reflex 2+ Normal Left Bicep Deep Tendon Reflex 2+ Normal PT-OP-J Posture/Palpation/Skin Start: 01/19/18 08:07 Freq: Status: Active Protocol: Document 01/19/18 09:08 LRN (Rec: 01/19/18 16:07 LRN [id number]) Posture Evaluation Position Standing Evaluation View Anterior Head/C-Spine Posture Forward Head T-Spine Posture Flattened L-Spine Posture Increased Lordosis Shoulder Posture (L) Elevated Shoulder Subluxation Degree (L) < 1 Finger wide Scapula Posture (L) Elevated Palpation Assessment Location One Palpation Location L shoulder Palpation Findings Tenderness Palpation Details Brachium PT-OP-K Range of Motion Start: 01/19/18 08:07 Freq: Status: Active Protocol: Document 02/12/18 09:02 LRN (Rec: 02/12/18 09:31 LRN [id number]) Shoulder Goniometric Range of Motion Shoulder Measured in Degrees Left Passive Testing Position Supine Flexion 153 Abduction 80 External Rotation at 45 degrees 50 Abduction Internal Rotation 80 Elbow/Forearm Range of Motion Elbow/Forearm Measured in Degrees Left Active Elbow/Forearm ROM WFL Yes Elbow Flexion (degrees) 142 Elbow Extension (degrees) 0 PT-OP-M Strength Start: 01/19/18 08:07 Freq: Status: Active Protocol: Document 01/19/18 09:08 LRN (Rec: 01/19/18 16:07 LRN [id number]) Cervical Spine Strength Cervical Spine Manual Muscle Testing Reason Not Measured WFL Shoulder Strength Shoulder Manual Muscle Testing Left Reason Not Measured Orthopedic Precautions Comments Pt is PROM for 5 weeks. Elbow/Forearm Strength Elbow and Forearm Manual Muscle Testing Left Reason Not Measured Orthopedic Precautions PT-OP-Q Treatments Start: 01/19/18 08:07 Freq: Status: Active Protocol: Document 02/12/18 09:02 LRN (Rec: 02/12/18 09:31 LRN [id number]) Therapeutic Exercises Supine Exercises 5 Supine Exercise Name Chest press Side bilateral Reps/Minutes 15 3 Supine Exercise Name Windshield wipe with cane assist Side left 2 Supine Exercise Name AAROM of L shoulder Side left Equipment Used Cane Reps/Minutes 20 Comments Flex, Horiz AB/AD, chest press , AB, ER/IR 1 Supine Exercise Name L shoulder PROM Side left Reps/Minutes 8' Sitting Exercises 4 Sitting Exercise Name Overhead heather: Flex, AB Side left Reps/Minutes 15 reps each holding 30 sec's 2 Sitting Exercise Name Wrist flex/ext/UD/RD Side left Resistance 2# Reps/Minutes 30x each 1 Sitting Exercise Name Elbow flexion Side left Resistance 2# Reps/Minutes 30x PT-OP-R Modalities Start: 01/19/18 08:07 Freq: Status: Active Protocol: Document 02/12/18 09:02 LRN (Rec: 02/12/18 09:31 LRN [id number]) Hot Pack/Cold Pack Treatment Cold Pack Location L shoulder Patient Position Hooklying Treatment Duration (minutes) 10 Patient Tolerance Good PT-OP-T Assessment and Plan Start: 01/19/18 08:07 Freq: Status: Active Protocol: Document 02/12/18 09:02 LRN (Rec: 02/12/18 09:31 LRN [id number]) Physical Therapy Assessment Goals Three Impairment Decreased L shoulder strength Automotive Welder Goal (LTG) Pt will be able to ride her horse again with assist for dressing the horse with L shoulder strength improvement of generally 4/5. LTG Duration 12 weeks - 04/13/18 Two Short Term Goal (STG) L shoulder active flexion 145 deg's (pt cleared for AROM in 5 weeks). L shoulder active ER (pt cleared for AROM in 5 weeks). Automotive Welder Goal (LTG) L shoulder active ER 80 deg's. L shoulder active AB 120 deg's . Pt will be able to bath and dress without difficulty. LTG Duration 12 weeks - 04/13/18 One Impairment Decreased L shoulder mobility Short Term Goal (STG) L shoulder passive flexion 170 deg's. L shoulder passive horizontal Adduction 10 deg's. STG Duration 5 weeks - 02/23/18. Nursing Home Goal (LTG) L shoulder passive ER (90 deg' s AB) 80 deg's (pt cleared to start ER in 6 weeks, AROM in 5 weeks). L shoulder passive ABD to 90 deg's (pt cleared to start ROM in 6 weeks, AROM in 5 weeks). LTG Duration 10 weeks - 03/30/18 Assessment Summary Assessment Good tolerance to pain and AAROM ex's. Physical Therapy Plan Frequency and Duration Frequency of Treatment 1-2x/week Duration of Treatment 12 Plan of Care Start Date 01/19/18 Plan of Care End Date 04/13/18 Next Visit Focus/Plan Next Note Type Treatment Note Next Visit Plan Progress AAROM with progression to strengthening next week at 8 weeks post op. Pt to try to alternate schedule of 2x/wk > 1x/wk due to pt's financial concerns.
--- NOTE | 2018-02-16 11:54 | PT.OTN ---
Current Diagnoses Other nondisplaced fracture of upper end of left humerus, initial encounter for closed fracture (02/16/18) Physical Therapy Treatment Note PT-OP-A Visit Information Start: 01/19/18 08:07 Freq: Status: Active Protocol: Document 02/16/18 10:40 LRN (Rec: 02/16/18 10:51 LRN [id number]) Out-Patient Physical Therapy Visit Information Visit Information Visit Type Treatment Note Visit Note 12/28 Visit Start Time 10:40 Visit Stop Time 11:30 Total Visit Minutes 50 Visit Number 5 Number of TOWER AIR TRAFFIC CONTROL SPECIALIST Visits 0 Evaluation Information Evaluation Date 01/19/18 PT-OP-B Current Condition Start: 01/19/18 08:07 Freq: Status: Active Protocol: Document 01/19/18 09:08 LRN (Rec: 01/19/18 16:07 LRN [id number]) Current Condition History of Current Condition Onset Date 12/26/17 Current Complaints L shoulder pain History of Current Condition Pt reports in her motor home, while turning around she tripped on her pant leg causing her to fall into a wall on the left side with her L arm overhead. She was taken to the hospital and found to have a closed nondisplaced fracture of the proximal end of the L humerus. She was placed in a type of L tung-shoulder sling for the past 3 weeks (2 days). Pt has NOT been moving her L arm in an external rotation motion and has been told she can do forward, backward and across chest arm swings. She removes her sling for bathing. She has not been using her L arm. Future Testing and Treatments Planned Next MD appointment: Treatment Goals Patient/Caregiver Goals Pt goal is to regain use of arm to ride her horse again. Prior Functional Status Baseline Function- ADL's Independent Baseline Function- Mobility Independent Baseline Function- Recreation/Hobbies Independent with horse riding. Current Functional Impairments (Reported) Functional Limitations- ADL's Difficulty dressing, bathing, cooking. Interrupted sleep, typically sleeps on L side. Unable to wash under R arm. Functional Limitations- Recreation/ Unable to ride horse. Hobbies Personal Factors Other Personal Factors That May Effect Osteoporosis. Therapy/Recovery Dizziness/Fall History. Currently spouse is primary caregiver for his mother. PT-OP-C Subjective Start: 01/19/18 08:07 Freq: Status: Active Protocol: Document 02/16/18 10:40 LRN (Rec: 02/16/18 10:51 LRN [id number]) OP-PT Subjective Patient Comments Patient Comments L shoulder feels loose. PT-OP-F Manual Assessment Start: 01/19/18 08:07 Freq: Status: Active Protocol: Document 01/19/18 09:08 LRN (Rec: 01/19/18 16:07 LRN [id number]) Manual Assessments Soft Tissue Assessment Soft Tissue Mobility Assessment Increased muscle tone of L upper shoulder/neck and scapular stabilizing muscles. Decreased muscle tone of L Deltoids, brachium and forearm . Joint Mobility Assessment Joint Mobility Assessment Deferred due to diagnosis. PT-OP-H Neuro Start: 01/19/18 08:07 Freq: Status: Active Protocol: Document 01/19/18 09:08 LRN (Rec: 01/19/18 16:07 LRN [id number]) Sensation Evaluation Gross Sensation Gross Sensation WNL Deep Tendon Reflex & Clonus Assessment Deep Tendon Reflex Right Tricep Deep Tendon Reflex 1+ Diminished Left Tricep Deep Tendon Reflex 1+ Diminished Right Bicep Deep Tendon Reflex 2+ Normal Left Bicep Deep Tendon Reflex 2+ Normal PT-OP-J Posture/Palpation/Skin Start: 01/19/18 08:07 Freq: Status: Active Protocol: Document 01/19/18 09:08 LRN (Rec: 01/19/18 16:07 LRN [id number]) Posture Evaluation Position Standing Evaluation View Anterior Head/C-Spine Posture Forward Head T-Spine Posture Flattened L-Spine Posture Increased Lordosis Shoulder Posture (L) Elevated Shoulder Subluxation Degree (L) < 1 Finger wide Scapula Posture (L) Elevated Palpation Assessment Location One Palpation Location L shoulder Palpation Findings Tenderness Palpation Details Brachium PT-OP-K Range of Motion Start: 01/19/18 08:07 Freq: Status: Active Protocol: Document 02/16/18 10:40 LRN (Rec: 02/16/18 10:51 LRN [id number]) Shoulder Goniometric Range of Motion Shoulder Measured in Degrees Left Passive Testing Position Supine PT-OP-M Strength Start: 01/19/18 08:07 Freq: Status: Active Protocol: Document 01/19/18 09:08 LRN (Rec: 06/01/18 16:07 LRN [id number]) Cervical Spine Strength Cervical Spine Manual Muscle Testing Reason Not Measured WFL Shoulder Strength Shoulder Manual Muscle Testing Left Reason Not Measured Orthopedic Precautions Comments Pt is PROM for 5 weeks. Elbow/Forearm Strength Elbow and Forearm Manual Muscle Testing Left Reason Not Measured Orthopedic Precautions PT-OP-Q Treatments Start: 01/19/18 08:07 Freq: Status: Active Protocol: Document 02/16/18 10:40 LRN (Rec: 02/16/18 11:16 LRN [id number]) Therapeutic Exercises Supine Exercises 6 Supine Exercise Name Lat pull down Side bilateral Resistance 1# & Lev 2 T-Band wrapped in towel Reps/Minutes 15x Comments Latex allergy-prevent skin contact or inhalation 5 Supine Exercise Name Chest press Side bilateral Resistance 0, 10# Reps/Minutes 10 x, 10x2 respectively 2 Supine Exercise Name AAROM of L shoulder Side left Equipment Used Cane Reps/Minutes 20 Comments Flex, Horiz AB/AD, chest press , AB, ER/IR 1 Supine Exercise Name L shoulder PROM Side left Reps/Minutes 8' Sidelying Exercises 1 Sidelying Exercise Name L shoulder ER Side left Resistance 0 Reps/Minutes 15x2 Sitting Exercises 5 Sitting Exercise Name Elbow ext without shoulder ext Side bilateral Equipment Used 2 Reps/Minutes 3 4 Sitting Exercise Name Overhead heather: Flex, AB Side left Reps/Minutes 30 reps each holding 30 sec's 3 Sitting Exercise Name Forearm sup/pron/UD/RD Side left Resistance 3# Reps/Minutes 30x each 2 Sitting Exercise Name Wrist flex/ext Side left Resistance 3# Reps/Minutes 20-30x 1 Sitting Exercise Name Elbow flexion Side left Resistance 4# Reps/Minutes 20x Standing Exercises 1 Standing Exercise Name Shoulder ER/IR Side left Resistance Wrapped by towel: Lev 1 T-Band Equipment Used Latex free or T-Band wrapped in towel to prevent skin contact Reps/Minutes 10 each Comments Latex Allergy Self-Care/Home Management Treatment Education Patient Education Home Exercise Program Activities Self-Care/Home Management Activities I/S pt in shoulder ER/IR with Latex free, Lev 1, T-Band issued. PT-OP-R Modalities Start: 01/19/18 08:07 Freq: Status: Active Protocol: Document 02/16/18 10:40 LRN (Rec: 02/16/18 10:51 LRN [id number]) Hot Pack/Cold Pack Treatment Cold Pack Location L shoulder Patient Position Hooklying Treatment Duration (minutes) 10 Patient Tolerance Good PT-OP-T Assessment and Plan Start: 01/19/18 08:07 Freq: Status: Active Protocol: Document 02/16/18 10:40 LRN (Rec: 02/16/18 10:51 LRN [id number]) Physical Therapy Assessment Impairments Impairments Activity Tolerance Functional Activities Functional Mobility Pain Posture ROM Soft Tissue Mobility Strength Tone Goals Three Impairment Decreased L shoulder strength Instructional Coach Goal (LTG) Pt will be able to ride her horse again with assist for dressing the horse with L shoulder strength improvement of generally 4/5. LTG Duration 12 weeks - 04/13/18 Two Short Term Goal (STG) L shoulder active flexion 145 deg's (pt cleared for AROM in 5 weeks). L shoulder active ER (pt cleared for AROM in 5 weeks). Custodial Goal (LTG) L shoulder active ER 80 deg's. L shoulder active AB 120 deg's . Pt will be able to bath and dress without difficulty. LTG Duration 12 weeks - 04/13/18 One Impairment Decreased L shoulder mobility Short Term Goal (STG) L shoulder passive flexion 170 deg's. L shoulder passive horizontal Adduction 10 deg's. STG Duration 5 weeks - 02/23/18. Instructional Coach Goal (LTG) L shoulder passive ER (90 deg' s AB) 80 deg's (pt cleared to start ER in 6 weeks, AROM in 5 weeks). L shoulder passive ABD to 90 deg's (pt cleared to start ROM in 6 weeks, AROM in 5 weeks). LTG Duration 10 weeks - 03/30/18 Progress Towards Goals Progress Comments .......... Assessment Summary Assessment Pt is ~7 weeks s/p L nondisplaced fx of proximal humerus; therefore pt showed very good tolerance to elastic resistance ex's of rotation. Held strengthening with elastic for scap shrugs/rows, flex & Bicep curls. Did isotonic strengthening for flex and Bicep curls due to pt allergy to elastic bands. Physical Therapy Plan Next Visit Focus/Plan Next Note Type Treatment Note Next Visit Plan Per protocol of 7 weeks s/p closed traumatic nondisplaced fracture of proximal end of L humerus. Progression of L shoulder ROM, may be more aggressive. Progression of strengthening. Pt to try to alternate schedule of 2x/wk > 1x/wk due to pt's financial concerns. Add scapular strengthening (row) and try shoulder flexion.
--- NOTE | 2018-02-28 09:23 | PT.OTN ---
Current Diagnoses Other nondisplaced fracture of upper end of left humerus, initial encounter for closed fracture (02/28/18) Physical Therapy Treatment Note PT-OP-A Visit Information Start: 01/19/18 08:07 Freq: Status: Active Protocol: Document 02/28/18 08:17 LRN (Rec: 02/28/18 09:20 LRN [id number]) Out-Patient Physical Therapy Visit Information Visit Information Visit Type Treatment Note Visit Note 01/28 Visit Start Time 08:17 Visit Stop Time 09:12 Total Visit Minutes 55 Visit Number 6 Number of SYSTEMS TESTER Visits 0 Evaluation Information Evaluation Date 01/19/18 PT-OP-B Current Condition Start: 01/19/18 08:07 Freq: Status: Active Protocol: Document 01/19/18 09:08 LRN (Rec: 01/19/18 16:07 LRN [id number]) Current Condition History of Current Condition Onset Date 12/26/17 Current Complaints L shoulder pain History of Current Condition Pt reports in her motor home, while turning around she tripped on her pant leg causing her to fall into a wall on the left side with her L arm overhead. She was taken to the hospital and found to have a closed nondisplaced fracture of the proximal end of the L humerus. She was placed in a type of L tung-shoulder sling for the past 3 weeks (2 days). Pt has NOT been moving her L arm in an external rotation motion and has been told she can do forward, backward and across chest arm swings. She removes her sling for bathing. She has not been using her L arm. Future Testing and Treatments Planned Next MD appointment: Treatment Goals Patient/Caregiver Goals Pt goal is to regain use of arm to ride her horse again. Prior Functional Status Baseline Function- ADL's Independent Baseline Function- Mobility Independent Baseline Function- Recreation/Hobbies Independent with horse riding. Current Functional Impairments (Reported) Functional Limitations- ADL's Difficulty dressing, bathing, cooking. Interrupted sleep, typically sleeps on L side. Unable to wash under R arm. Functional Limitations- Recreation/ Unable to ride horse. Hobbies Personal Factors Other Personal Factors That May Effect Osteoporosis. Therapy/Recovery Dizziness/Fall History. Currently spouse is primary caregiver for his mother. PT-OP-C Subjective Start: 01/19/18 08:07 Freq: Status: Active Protocol: Document 02/28/18 08:17 LRN (Rec: 02/28/18 09:20 LRN [id number]) OP-PT Subjective Patient Comments Patient Comments Using Bowflex daily. Doing chest press rows, IR/ER, and stretching into flexion. Hasn 't rode horse. Pain generally is 2/10, 4/10 after carrying things. Today now is 3/10 in L shoulder. C/O tightness in the L upper shoulder and not able to wear bra due to pressure of bra strap. Patient Reported Progress Improving PT-OP-F Manual Assessment Start: 01/19/18 08:07 Freq: Status: Active Protocol: Document 01/19/18 09:08 LRN (Rec: 01/19/18 16:07 LRN [id number]) Manual Assessments Soft Tissue Assessment Soft Tissue Mobility Assessment Increased muscle tone of L upper shoulder/neck and scapular stabilizing muscles. Decreased muscle tone of L Deltoids, brachium and forearm . Joint Mobility Assessment Joint Mobility Assessment Deferred due to diagnosis. PT-OP-H Neuro Start: 01/19/18 08:07 Freq: Status: Active Protocol: Document 01/19/18 09:08 LRN (Rec: 01/19/18 16:07 LRN [id number]) Sensation Evaluation Gross Sensation Gross Sensation WNL Deep Tendon Reflex & Clonus Assessment Deep Tendon Reflex Right Tricep Deep Tendon Reflex 1+ Diminished Left Tricep Deep Tendon Reflex 1+ Diminished Right Bicep Deep Tendon Reflex 2+ Normal Left Bicep Deep Tendon Reflex 2+ Normal PT-OP-J Posture/Palpation/Skin Start: 01/19/18 08:07 Freq: Status: Active Protocol: Document 01/19/18 09:08 LRN (Rec: 01/19/18 16:07 LRN [id number]) Posture Evaluation Position Standing Evaluation View Anterior Head/C-Spine Posture Forward Head T-Spine Posture Flattened L-Spine Posture Increased Lordosis Shoulder Posture (L) Elevated Shoulder Subluxation Degree (L) < 1 Finger wide Scapula Posture (L) Elevated Palpation Assessment Location One Palpation Location L shoulder Palpation Findings Tenderness Palpation Details Brachium PT-OP-K Range of Motion Start: 01/19/18 08:07 Freq: Status: Active Protocol: Document 02/16/18 10:40 LRN (Rec: 02/16/18 10:51 LRN [id number]) Shoulder Goniometric Range of Motion Shoulder Measured in Degrees Left Passive Testing Position Supine PT-OP-M Strength Start: 01/19/18 08:07 Freq: Status: Active Protocol: Document 01/19/18 09:08 LRN (Rec: 01/19/18 16:07 LRN [id number]) Cervical Spine Strength Cervical Spine Manual Muscle Testing Reason Not Measured WFL Shoulder Strength Shoulder Manual Muscle Testing Left Reason Not Measured Orthopedic Precautions Comments Pt is PROM for 5 weeks. Elbow/Forearm Strength Elbow and Forearm Manual Muscle Testing Left Reason Not Measured Orthopedic Precautions PT-OP-Q Treatments Start: 01/19/18 08:07 Freq: Status: Active Protocol: Document 02/28/18 08:17 LRN (Rec: 02/28/18 09:20 LRN [id number]) Cardio Equipment Upper Body Ergometer (UBE) Duration (Minutes) 8 RPM 60 Height 3 Therapeutic Exercises Supine Exercises 2 Supine Exercise Name AAROM of L shoulder Side left Equipment Used Cane Reps/Minutes 20 Comments Flex, Horiz AB/AD, chest press , AB, ER/IR 1 Supine Exercise Name L shoulder PROM f/b 10 rep AROM Side left Reps/Minutes 8' Standing Exercises 1 Standing Exercise Name Shoulder press Side left Resistance 2#, 3# Reps/Minutes 10, 6 respectively Comments DC'd T-Band due to Latex Allergy Manual Therapy Treatment Soft Tissue Mobilization 1 Body Location L [place] Mobilization Type Cross-Friction Trigger Point Release Body Position Hooklying Self-Care/Home Management Treatment Activities Self-Care/Home Management Activities Reviewed and discussed pt's HEP and the manual of her Bowflex for appropriate home ex's. PT-OP-R Modalities Start: 01/19/18 08:07 Freq: Status: Active Protocol: Document 02/28/18 08:17 LRN (Rec: 02/28/18 09:21 LRN [id number]) Hot Pack/Cold Pack Treatment Cold Pack Location L shoulder Patient Position Hooklying Treatment Duration (minutes) 10 Patient Tolerance Good PT-OP-T Assessment and Plan Start: 01/19/18 08:07 Freq: Status: Active Protocol: Document 02/28/18 08:17 LRN (Rec: 02/28/18 09:20 LRN [id number]) Physical Therapy Assessment Goals Three Impairment Decreased L shoulder strength Halfway Goal (LTG) Pt will be able to ride her horse again with assist for dressing the horse with L shoulder strength improvement of generally 4/5. LTG Duration 12 weeks - 04/13/18 Two Short Term Goal (STG) L shoulder active flexion 145 deg's (pt cleared for AROM in 5 weeks). L shoulder active ER (pt cleared for AROM in 5 weeks). STG Duration GOAL MET Halfway Goal (LTG) L shoulder active ER 80 deg's. L shoulder active AB 120 deg's . Pt will be able to bath and dress without difficulty. LTG Duration 12 weeks - 04/13/18 One Impairment Decreased L shoulder mobility Short Term Goal (STG) L shoulder passive flexion 170 deg's. L shoulder passive horizontal Adduction 10 deg's. STG Duration 8 weeks - 03/09/18. Halfway Goal (LTG) L shoulder passive ER (90 deg' s AB) 80 deg's (pt cleared to start ER in 6 weeks, AROM in 5 weeks). L shoulder passive ABD to 90 deg's (pt cleared to start ROM in 6 weeks, AROM in 5 weeks). LTG Duration 10 weeks - 03/30/18 Progress Towards Goals Progress Towards Goals Progressing Toward Goals Progress Comments #ROM improved, pt on a strengthening program at home using her Bowflex machine & ~5 # resistance. Assessment Summary Assessment L shoulder passive flexion is 160 deg's, AB 100 deg's, 75 deg's ER. 78 deg's IR. Physical Therapy Plan Frequency and Duration Frequency of Treatment 1x/Week Duration of Treatment 12 Plan of Care Start Date 01/19/18 Plan of Care End Date 04/13/18 Next Visit Focus/Plan Next Note Type Treatment Note Next Visit Plan Per protocol of 9 weeks s/p closed traumatic nondisplaced fracture of proximal end of L humerus. Progression of L shoulder ROM, more aggressive with ROM. Progression of strengthening. Pt choosing 1x/wk due to pt's financial concerns. Try strengthening in manner of her putting a seat on her horse. Assess ex' s for scapular ex.
--- NOTE | 2018-03-06 09:15 | PT.OTN ---
Current Diagnoses Other nondisplaced fracture of upper end of left humerus, initial encounter for closed fracture (03/06/18) Physical Therapy Treatment Note PT-OP-A Visit Information Start: 01/19/18 08:07 Freq: Status: Active Protocol: Document 03/06/18 08:17 LRN (Rec: 03/06/18 08:24 LRN [id number]) Out-Patient Physical Therapy Visit Information Visit Information Visit Type Treatment Note Visit Note 02/27 Visit Start Time 08: Visit Stop Time 09:10 Total Visit Minutes 53 Visit Number 7 Number of COMPUTING CONSULTANT Visits 0 Evaluation Information Evaluation Date 01/19/18 PT-OP-B Current Condition Start: 01/19/18 08:07 Freq: Status: Active Protocol: Document 01/19/18 09:08 LRN (Rec: 01/19/18 16:07 LRN [id number]) Current Condition History of Current Condition Onset Date 12/26/17 Current Complaints L shoulder pain History of Current Condition Pt reports in her motor home, while turning around she tripped on her pant leg causing her to fall into a wall on the left side with her L arm overhead. She was taken to the hospital and found to have a closed nondisplaced fracture of the proximal end of the L humerus. She was placed in a type of L tung-shoulder sling for the past 3 weeks (2 days). Pt has NOT been moving her L arm in an external rotation motion and has been told she can do forward, backward and across chest arm swings. She removes her sling for bathing. She has not been using her L arm. Future Testing and Treatments Planned Next MD appointment: Treatment Goals Patient/Caregiver Goals Pt goal is to regain use of arm to ride her horse again. Prior Functional Status Baseline Function- ADL's Independent Baseline Function- Mobility Independent Baseline Function- Recreation/Hobbies Independent with horse riding. Current Functional Impairments (Reported) Functional Limitations- ADL's Difficulty dressing, bathing, cooking. Interrupted sleep, typically sleeps on L side. Unable to wash under R arm. Functional Limitations- Recreation/ Unable to ride horse. Hobbies Personal Factors Other Personal Factors That May Effect Osteoporosis. Therapy/Recovery Dizziness/Fall History. Currently spouse is primary caregiver for his mother. PT-OP-C Subjective Start: 01/19/18 08:07 Freq: Status: Active Protocol: Document 03/06/18 08:17 LRN (Rec: 03/06/18 08:24 LRN [id number]) OP-PT Subjective Patient Comments Patient Comments Exercising as instructed using the Bowflex. PT-OP-F Manual Assessment Start: 01/19/18 08:07 Freq: Status: Active Protocol: Document 01/19/18 09:08 LRN (Rec: 01/19/18 16:07 LRN [id number]) Manual Assessments Soft Tissue Assessment Soft Tissue Mobility Assessment Increased muscle tone of L upper shoulder/neck and scapular stabilizing muscles. Decreased muscle tone of L Deltoids, brachium and forearm . Joint Mobility Assessment Joint Mobility Assessment Deferred due to diagnosis. PT-OP-H Neuro Start: 01/19/18 08:07 Freq: Status: Active Protocol: Document 01/19/18 09:08 LRN (Rec: 01/19/18 16:07 LRN [id number]) Sensation Evaluation Gross Sensation Gross Sensation WNL Deep Tendon Reflex & Clonus Assessment Deep Tendon Reflex Right Tricep Deep Tendon Reflex 1+ Diminished Left Tricep Deep Tendon Reflex 1+ Diminished Right Bicep Deep Tendon Reflex 2+ Normal Left Bicep Deep Tendon Reflex 2+ Normal PT-OP-J Posture/Palpation/Skin Start: 01/19/18 08:07 Freq: Status: Active Protocol: Document 01/19/18 09:08 LRN (Rec: 01/19/18 16:07 LRN [id number]) Posture Evaluation Position Standing Evaluation View Anterior Head/C-Spine Posture Forward Head T-Spine Posture Flattened L-Spine Posture Increased Lordosis Shoulder Posture (L) Elevated Shoulder Subluxation Degree (L) < 1 Finger wide Scapula Posture (L) Elevated Palpation Assessment Location One Palpation Location L shoulder Palpation Findings Tenderness Palpation Details Brachium PT-OP-K Range of Motion Start: 01/19/18 08:07 Freq: Status: Active Protocol: Document 02/16/18 10:40 LRN (Rec: 02/16/18 10:51 LRN [id number]) Shoulder Goniometric Range of Motion Shoulder Measured in Degrees Left Passive Testing Position Supine PT-OP-M Strength Start: 01/19/18 08:07 Freq: Status: Active Protocol: Document 01/19/18 09:08 LRN (Rec: 01/19/18 16:07 LRN [id number]) Cervical Spine Strength Cervical Spine Manual Muscle Testing Reason Not Measured WFL Shoulder Strength Shoulder Manual Muscle Testing Left Reason Not Measured Orthopedic Precautions Comments Pt is PROM for 5 weeks. Elbow/Forearm Strength Elbow and Forearm Manual Muscle Testing Left Reason Not Measured Orthopedic Precautions PT-OP-Q Treatments Start: 01/19/18 08:07 Freq: Status: Active Protocol: Document 03/06/18 08:17 LRN (Rec: 03/06/18 08:24 LRN [id number]) Cardio Equipment Upper Body Ergometer (UBE) Duration (Minutes) 9 RPM 60 Height 3 Therapeutic Exercises Supine Exercises 6 Supine Exercise Name Lat pull down Side bilateral Resistance 1# & Lev 2 T-Band wrapped in towel Reps/Minutes 15x Comments Latex allergy-prevent skin contact or inhalation 3 Supine Exercise Name Shoulder ER/IR Side left Resistance Lev 2 T-Band Reps/Minutes 10x3 each Comments LATEX ALLERGY: Used Material handle 2 Supine Exercise Name AAROM of L shoulder Side left Equipment Used Cane Reps/Minutes 20 Comments Flex, Horiz AB/AD, chest press , AB, ER/IR 1 Supine Exercise Name L shoulder PROM f/b 10 rep AROM Side left Reps/Minutes 8' Sitting Exercises 4 Sitting Exercise Name Overhead heather: Flex, AB Side left Reps/Minutes 30 reps each holding 30 sec's Standing Exercises 1 Standing Exercise Name Shoulder press Side left Resistance 4# Reps/Minutes 10 x Comments DC'd T-Band due to Latex Allergy Manual Therapy Treatment Soft Tissue Mobilization 1 Body Location L UT Mobilization Type Strumming Body Position Hooklying Self-Care/Home Management Treatment Activities Self-Care/Home Management Activities Reviewed and discussed pt's HEP and progression for strengthening. PT-OP-R Modalities Start: 01/19/18 08:07 Freq: Status: Active Protocol: Document 03/06/18 08:17 LRN (Rec: 03/06/18 08:24 LRN [id number]) Hot Pack/Cold Pack Treatment Cold Pack Location L shoulder Patient Position Hooklying Treatment Duration (minutes) 10 Patient Tolerance Good PT-OP-T Assessment and Plan Start: 01/19/18 08:07 Freq: Status: Active Protocol: Document 03/06/18 08:17 LRN (Rec: 03/06/18 08:24 LRN [id number]) Physical Therapy Assessment Impairments Impairments Activity Tolerance Functional Activities Functional Mobility Pain Posture ROM Soft Tissue Mobility Strength Tone Other Concerns Barriers to Rehabilitation Co-morbidities: Osteoporosis, Fall history, spouse currently caregiver to his mother. Goals Three Impairment Decreased L shoulder strength Public Relations Representative Goal (LTG) Pt will be able to ride her horse again with assist for dressing the horse with L shoulder strength improvement of generally 4/5. LTG Duration 12 weeks - 04/13/18 Two Short Term Goal (STG) L shoulder active flexion 145 deg's (pt cleared for AROM in 5 weeks). L shoulder active ER (pt cleared for AROM in 5 weeks). STG Duration GOAL MET Fdc Goal (LTG) L shoulder active ER 80 deg's. L shoulder active AB 120 deg's . Pt will be able to bath and dress without difficulty. LTG Duration 12 weeks - 04/13/18 One Impairment Decreased L shoulder mobility Short Term Goal (STG) L shoulder passive flexion 170 deg's. L shoulder passive horizontal Adduction 10 deg's. STG Duration 8 weeks - 03/09/18. Fdc Goal (LTG) L shoulder passive ER (90 deg' s AB) 80 deg's (pt cleared to start ER in 6 weeks, AROM in 5 weeks). L shoulder passive ABD to 90 deg's (pt cleared to start ROM in 6 weeks, AROM in 5 weeks). LTG Duration 10 weeks - 03/30/18 Assessment Summary Assessment Good progress with strengthening. Scapular mobility is good, stabilization appear good. Physical Therapy Plan Frequency and Duration Frequency of Treatment 1x/Week Duration of Treatment 12 Plan of Care Start Date 01/19/18 Plan of Care End Date 04/13/18 Next Visit Focus/Plan Next Note Type Treatment Note Next Visit Plan Progress strengthening & recheck ROM, monitor scapular stabilization. Cont per protocol of 10 weeks s/p closed traumatic nondisplaced fracture of proximal end of L humerus. Progression of L shoulder ROM, more aggressive with ROM. Progression of strengthening. Pt choosing 1x/wk due to financial concerns. Try strengthening in manner of her putting a seat on her horse.
--- NOTE | 2018-03-09 10:14 | PT.OTN ---
Current Diagnoses Other nondisplaced fracture of upper end of left humerus, initial encounter for closed fracture (03/06/18) Physical Therapy Treatment Note PT-OP-A Visit Information Start: 01/19/18 08:07 Freq: Status: Active Protocol: Document 03/06/18 08:17 LRN (Rec: 03/06/18 08:24 LRN [id number]) Out-Patient Physical Therapy Visit Information Visit Information Visit Type Treatment Note Visit Note 02/27 Visit Start Time 08: Visit Stop Time 09:10 Total Visit Minutes 53 Visit Number 7 Number of SHIELD CLEANER Visits 0 Evaluation Information Evaluation Date 01/19/18 PT-OP-B Current Condition Start: 01/19/18 08:07 Freq: Status: Active Protocol: Document 01/19/18 09:08 LRN (Rec: 01/19/18 16:07 LRN [id number]) Current Condition History of Current Condition Onset Date 12/26/17 Current Complaints L shoulder pain History of Current Condition Pt reports in her motor home, while turning around she tripped on her pant leg causing her to fall into a wall on the left side with her L arm overhead. She was taken to the hospital and found to have a closed nondisplaced fracture of the proximal end of the L humerus. She was placed in a type of L tung-shoulder sling for the past 3 weeks (2 days). Pt has NOT been moving her L arm in an external rotation motion and has been told she can do forward, backward and across chest arm swings. She removes her sling for bathing. She has not been using her L arm. Future Testing and Treatments Planned Next MD appointment: Treatment Goals Patient/Caregiver Goals Pt goal is to regain use of arm to ride her horse again. Prior Functional Status Baseline Function- ADL's Independent Baseline Function- Mobility Independent Baseline Function- Recreation/Hobbies Independent with horse riding. Current Functional Impairments (Reported) Functional Limitations- ADL's Difficulty dressing, bathing, cooking. Interrupted sleep, typically sleeps on L side. Unable to wash under R arm. Functional Limitations- Recreation/ Unable to ride horse. Hobbies Personal Factors Other Personal Factors That May Effect Osteoporosis. Therapy/Recovery Dizziness/Fall History. Currently spouse is primary caregiver for his mother. PT-OP-C Subjective Start: 01/19/18 08:07 Freq: Status: Active Protocol: Document 03/06/18 08:17 LRN (Rec: 03/06/18 08:24 LRN [id number]) OP-PT Subjective Patient Comments Patient Comments Exercising as instructed using the Bowflex. PT-OP-F Manual Assessment Start: 01/19/18 08:07 Freq: Status: Active Protocol: Document 01/19/18 09:08 LRN (Rec: 01/19/18 16:07 LRN [id number]) Manual Assessments Soft Tissue Assessment Soft Tissue Mobility Assessment Increased muscle tone of L upper shoulder/neck and scapular stabilizing muscles. Decreased muscle tone of L Deltoids, brachium and forearm . Joint Mobility Assessment Joint Mobility Assessment Deferred due to diagnosis. PT-OP-H Neuro Start: 01/19/18 08:07 Freq: Status: Active Protocol: Document 01/19/18 09:08 LRN (Rec: 01/19/18 16:07 LRN [id number]) Sensation Evaluation Gross Sensation Gross Sensation WNL Deep Tendon Reflex & Clonus Assessment Deep Tendon Reflex Right Tricep Deep Tendon Reflex 1+ Diminished Left Tricep Deep Tendon Reflex 1+ Diminished Right Bicep Deep Tendon Reflex 2+ Normal Left Bicep Deep Tendon Reflex 2+ Normal PT-OP-J Posture/Palpation/Skin Start: 01/19/18 08:07 Freq: Status: Active Protocol: Document 01/19/18 09:08 LRN (Rec: 01/19/18 16:07 LRN [id number]) Posture Evaluation Position Standing Evaluation View Anterior Head/C-Spine Posture Forward Head T-Spine Posture Flattened L-Spine Posture Increased Lordosis Shoulder Posture (L) Elevated Shoulder Subluxation Degree (L) < 1 Finger wide Scapula Posture (L) Elevated Palpation Assessment Location One Palpation Location L shoulder Palpation Findings Tenderness Palpation Details Brachium PT-OP-K Range of Motion Start: 01/19/18 08:07 Freq: Status: Active Protocol: Document 02/16/18 10:40 LRN (Rec: 02/16/18 10:51 LRN [id number]) Shoulder Goniometric Range of Motion Shoulder Measured in Degrees Left Passive Testing Position Supine PT-OP-M Strength Start: 01/19/18 08:07 Freq: Status: Active Protocol: Document 01/19/18 09:08 LRN (Rec: 01/19/18 16:07 LRN [id number]) Cervical Spine Strength Cervical Spine Manual Muscle Testing Reason Not Measured WFL Shoulder Strength Shoulder Manual Muscle Testing Left Reason Not Measured Orthopedic Precautions Comments Pt is PROM for 5 weeks. Elbow/Forearm Strength Elbow and Forearm Manual Muscle Testing Left Reason Not Measured Orthopedic Precautions PT-OP-Q Treatments Start: 01/19/18 08:07 Freq: Status: Active Protocol: Document 03/06/18 08:17 LRN (Rec: 03/06/18 08:24 LRN [id number]) Cardio Equipment Upper Body Ergometer (UBE) Duration (Minutes) 9 RPM 60 Height 3 Therapeutic Exercises Supine Exercises 6 Supine Exercise Name Lat pull down Side bilateral Resistance 1# & Lev 2 T-Band wrapped in towel Reps/Minutes 15x Comments Latex allergy-prevent skin contact or inhalation 3 Supine Exercise Name Shoulder ER/IR Side left Resistance Lev 2 T-Band Reps/Minutes 10x3 each Comments LATEX ALLERGY: Used Material handle 2 Supine Exercise Name AAROM of L shoulder Side left Equipment Used Cane Reps/Minutes 20 Comments Flex, Horiz AB/AD, chest press , AB, ER/IR 1 Supine Exercise Name L shoulder PROM f/b 10 rep AROM Side left Reps/Minutes 8' Sitting Exercises 4 Sitting Exercise Name Overhead heather: Flex, AB Side left Reps/Minutes 30 reps each holding 30 sec's Standing Exercises 1 Standing Exercise Name Shoulder press Side left Resistance 4# Reps/Minutes 10 x Comments DC'd T-Band due to Latex Allergy Manual Therapy Treatment Soft Tissue Mobilization 1 Body Location L UT Mobilization Type Strumming Body Position Hooklying Self-Care/Home Management Treatment Activities Self-Care/Home Management Activities Reviewed and discussed pt's HEP and progression for strengthening. PT-OP-R Modalities Start: 01/19/18 08:07 Freq: Status: Active Protocol: Document 03/06/18 08:17 LRN (Rec: 03/06/18 08:24 LRN [id number]) Hot Pack/Cold Pack Treatment Cold Pack Location L shoulder Patient Position Hooklying Treatment Duration (minutes) 10 Patient Tolerance Good PT-OP-T Assessment and Plan Start: 01/19/18 08:07 Freq: Status: Active Protocol: Document 03/06/18 08:17 LRN (Rec: 03/06/18 08:24 LRN [id number]) Physical Therapy Assessment Impairments Impairments Activity Tolerance Functional Activities Functional Mobility Pain Posture ROM Soft Tissue Mobility Strength Tone Other Concerns Barriers to Rehabilitation Co-morbidities: Osteoporosis, Fall history, spouse currently caregiver to his mother. Goals Three Impairment Decreased L shoulder strength Storage Facility Rental Clerk Goal (LTG) Pt will be able to ride her horse again with assist for dressing the horse with L shoulder strength improvement of generally 4/5. LTG Duration 12 weeks - 04/13/18 Two Short Term Goal (STG) L shoulder active flexion 145 deg's (pt cleared for AROM in 5 weeks). L shoulder active ER (pt cleared for AROM in 5 weeks). STG Duration GOAL MET Alf Goal (LTG) L shoulder active ER 80 deg's. L shoulder active AB 120 deg's . Pt will be able to bath and dress without difficulty. LTG Duration 12 weeks - 04/13/18 One Impairment Decreased L shoulder mobility Short Term Goal (STG) L shoulder passive flexion 170 deg's. L shoulder passive horizontal Adduction 10 deg's. STG Duration 8 weeks - 03/09/18. Alf Goal (LTG) L shoulder passive ER (90 deg' s AB) 80 deg's (pt cleared to start ER in 6 weeks, AROM in 5 weeks). L shoulder passive ABD to 90 deg's (pt cleared to start ROM in 6 weeks, AROM in 5 weeks). LTG Duration 10 weeks - 03/30/18 Assessment Summary Assessment Good progress with strengthening. Scapular mobility is good, stabilization appear good. Physical Therapy Plan Frequency and Duration Frequency of Treatment 1x/Week Duration of Treatment 12 Plan of Care Start Date 01/19/18 Plan of Care End Date 04/13/18 Next Visit Focus/Plan Next Note Type Treatment Note Next Visit Plan Progress strengthening & recheck ROM, monitor scapular stabilization. Cont per protocol of 10 weeks s/p closed traumatic nondisplaced fracture of proximal end of L humerus. Progression of L shoulder ROM, more aggressive with ROM. Progression of strengthening. Pt choosing 1x/wk due to financial concerns. Try strengthening in manner of her putting a seat on her horse.
--- NOTE | 2018-03-13 14:43 | PT.OTN ---
Current Diagnoses Other nondisplaced fracture of upper end of left humerus, initial encounter for closed fracture (03/13/18) Physical Therapy Treatment Note PT-OP-A Visit Information Start: 01/19/18 08:07 Freq: Status: Active Protocol: Document 03/13/18 13:34 LRN (Rec: 03/13/18 13:51 LRN [id number]) Out-Patient Physical Therapy Visit Information Visit Information Visit Type Treatment Note Visit Note 03/30 Visit Start Time 13:34 Visit Stop Time 14:27 Total Visit Minutes 53 Visit Number 8 Number of TURNTABLE OPERATOR Visits 0 Evaluation Information Evaluation Date 01/19/18 PT-OP-B Current Condition Start: 01/19/18 08:07 Freq: Status: Active Protocol: Document 01/19/18 09:08 LRN (Rec: 01/19/18 16:07 LRN [id number]) Current Condition History of Current Condition Onset Date 12/26/17 Current Complaints L shoulder pain History of Current Condition Pt reports in her motor home, while turning around she tripped on her pant leg causing her to fall into a wall on the left side with her L arm overhead. She was taken to the hospital and found to have a closed nondisplaced fracture of the proximal end of the L humerus. She was placed in a type of L tung-shoulder sling for the past 3 weeks (2 days). Pt has NOT been moving her L arm in an external rotation motion and has been told she can do forward, backward and across chest arm swings. She removes her sling for bathing. She has not been using her L arm. Future Testing and Treatments Planned Next MD appointment: Treatment Goals Patient/Caregiver Goals Pt goal is to regain use of arm to ride her horse again. Prior Functional Status Baseline Function- ADL's Independent Baseline Function- Mobility Independent Baseline Function- Recreation/Hobbies Independent with horse riding. Current Functional Impairments (Reported) Functional Limitations- ADL's Difficulty dressing, bathing, cooking. Interrupted sleep, typically sleeps on L side. Unable to wash under R arm. Functional Limitations- Recreation/ Unable to ride horse. Hobbies Personal Factors Other Personal Factors That May Effect Osteoporosis. Therapy/Recovery Dizziness/Fall History. Currently spouse is primary caregiver for his mother. PT-OP-C Subjective Start: 01/19/18 08:07 Freq: Status: Active Protocol: Document 03/13/18 13:34 LRN (Rec: 03/13/18 13:51 LRN [id number]) OP-PT Subjective Patient Comments Patient Comments 95 % Better. Put a saddle on her horse 2 days ago by swinging it up, and rode. Had a little twinge in the L shoulder. PT-OP-F Manual Assessment Start: 01/19/18 08:07 Freq: Status: Active Protocol: Document 01/19/18 09:08 LRN (Rec: 01/19/18 16:07 LRN [id number]) Manual Assessments Soft Tissue Assessment Soft Tissue Mobility Assessment Increased muscle tone of L upper shoulder/neck and scapular stabilizing muscles. Decreased muscle tone of L Deltoids, brachium and forearm . Joint Mobility Assessment Joint Mobility Assessment Deferred due to diagnosis. PT-OP-H Neuro Start: 01/19/18 08:07 Freq: Status: Active Protocol: Document 01/19/18 09:08 LRN (Rec: 01/19/18 16:07 LRN [id number]) Sensation Evaluation Gross Sensation Gross Sensation WNL Deep Tendon Reflex & Clonus Assessment Deep Tendon Reflex Right Tricep Deep Tendon Reflex 1+ Diminished Left Tricep Deep Tendon Reflex 1+ Diminished Right Bicep Deep Tendon Reflex 2+ Normal Left Bicep Deep Tendon Reflex 2+ Normal PT-OP-J Posture/Palpation/Skin Start: 01/19/18 08:07 Freq: Status: Active Protocol: Document 01/19/18 09:08 LRN (Rec: 01/19/18 16:07 LRN [id number]) Posture Evaluation Position Standing Evaluation View Anterior Head/C-Spine Posture Forward Head T-Spine Posture Flattened L-Spine Posture Increased Lordosis Shoulder Posture (L) Elevated Shoulder Subluxation Degree (L) < 1 Finger wide Scapula Posture (L) Elevated Palpation Assessment Location One Palpation Location L shoulder Palpation Findings Tenderness Palpation Details Brachium PT-OP-K Range of Motion Start: 01/19/18 08:07 Freq: Status: Active Protocol: Document 03/13/18 13:34 LRN (Rec: 03/13/18 14:02 LRN [id number]) Shoulder Goniometric Range of Motion Shoulder Measured in Degrees Left Active Testing Position Sitting Flexion 160 Abduction 150 Right Active Testing Position Sitting Flexion 170 Abduction 165 Right Passive Testing Position Supine Flexion 187 Abduction 170 Left Passive Testing Position Supine Flexion 170 Abduction 140 External Rotation at 45 degrees 84 Abduction Shoulder ROM Limitations Comments L shoulder Sitting PROM: Flex 170 deg's, AB 160 deg's. PT-OP-M Strength Start: 01/19/18 08:07 Freq: Status: Active Protocol: Document 01/19/18 09:08 LRN (Rec: 01/19/18 16:07 LRN [id number]) Cervical Spine Strength Cervical Spine Manual Muscle Testing Reason Not Measured WFL Shoulder Strength Shoulder Manual Muscle Testing Left Reason Not Measured Orthopedic Precautions Comments Pt is PROM for 5 weeks. Elbow/Forearm Strength Elbow and Forearm Manual Muscle Testing Left Reason Not Measured Orthopedic Precautions PT-OP-Q Treatments Start: 01/19/18 08:07 Freq: Status: Active Protocol: Document 03/13/18 13:34 LRN (Rec: 03/13/18 13:51 LRN [id number]) Cardio Equipment Upper Body Ergometer (UBE) Duration (Minutes) 10 RPM 60 Seat Position 15 Height 5 Therapeutic Exercises Supine Exercises 6 Supine Exercise Name Lat pull down Side bilateral Resistance L3 Reps/Minutes 15x Comments Latex allergy-prevent skin contact or inhalation 5 Supine Exercise Name Chest press Side bilateral Resistance 10# Reps/Minutes 10 x respectively 2 Supine Exercise Name AAROM of L shoulder Side left Equipment Used Manual assist Reps/Minutes 10' Comments Flex, Horiz AB/AD, chest press , AB, ER/IR 1 Supine Exercise Name L shoulder PROM f/b 10 rep AROM Side left Reps/Minutes 8' Sidelying Exercises 1 Sidelying Exercise Name Shoulder ER/IR Side left Resistance 4#, 2# Reps/Minutes 10x2, 10x1 respectively Sitting Exercises 4 Sitting Exercise Name Overhead heather: Flex, AB Side left Reps/Minutes 4 reps each holding 30 sec's Standing Exercises 1 Standing Exercise Name Shoulder press Side left Resistance 5# Equipment Used Bar & Wgt Reps/Minutes 10 x Comments DC'd T-Band due to Latex Allergy PT-OP-R Modalities Start: 01/19/18 08:07 Freq: Status: Active Protocol: Document 03/13/18 13:34 LRN (Rec: 03/13/18 13:51 LRN [id number]) Hot Pack/Cold Pack Treatment Cold Pack Location L shoulder Patient Position Hooklying Treatment Duration (minutes) 10 Patient Tolerance Good PT-OP-T Assessment and Plan Start: 01/19/18 08:07 Freq: Status: Active Protocol: Document 03/13/18 13:34 LRN (Rec: 03/13/18 13:51 LRN [id number]) Physical Therapy Assessment Goals Three Impairment Decreased L shoulder strength Skilled Nursing Goal (LTG) Pt will be able to ride her horse again with assist for dressing the horse with L shoulder strength improvement of generally 4/5. LTG Duration 03/13/18: Pt did x1. Two Short Term Goal (STG) L shoulder active flexion 145 deg's (pt cleared for AROM in 5 weeks). L shoulder active ER (pt cleared for AROM in 5 weeks). STG Duration GOAL MET Pre Fabricator Goal (LTG) L shoulder active ER 80 deg's. L shoulder active AB 120 deg's . Pt will be able to bath and dress without difficulty. LTG Duration 12 weeks - 04/13/18 (03/13/18) Partial met One Impairment Decreased L shoulder mobility Short Term Goal (STG) L shoulder passive flexion 170 deg's. L shoulder passive horizontal Adduction 10 deg's. STG Duration 8 weeks - 03/09/18. Skilled Nursing Goal (LTG) L shoulder passive ER (90 deg' s AB) 80 deg's (pt cleared to start ER in 6 weeks, AROM in 5 weeks). L shoulder passive ABD to 90 deg's (pt cleared to start ROM in 6 weeks, AROM in 5 weeks). LTG Duration 10 weeks - 03/30/18 Progress Towards Goals Progress Comments STG #2 Met. LTG #2 Partially met. Assessment Summary Assessment Pt is ~11 weeks s/p L nondisplaced fx of proximal humerus. Her strength is improving and she lacks ~10 deg's of mobility with all motions. Strength improving without increase of pain. Physical Therapy Plan Frequency and Duration Frequency of Treatment 1x/Week Duration of Treatment 12 Plan of Care Start Date 01/19/18 Plan of Care End Date 04/13/18 Next Visit Focus/Plan Next Note Type Treatment Note Next Visit Plan Possible DC to HEP if ROM close to normal & Goals met. HEP Progression for strengthening & recheck LEFS & ROM. Cont per protocol of 10 weeks s/p closed traumatic nondisplaced fracture of proximal end of L humerus. Progression of L shoulder ROM, more aggressive with ROM. Progression of strengthening. Pt choosing 1x/wk due to financial concerns. Strengthening in manner of her putting a seat on her horse.
--- NOTE | 2018-03-16 14:48 | PT.OTN ---
Current Diagnoses Other nondisplaced fracture of upper end of left humerus, initial encounter for closed fracture (03/16/18) Physical Therapy Treatment Note PT-OP-A Visit Information Start: 01/19/18 08:07 Freq: Status: Active Protocol: Document 03/16/18 13:31 LRN (Rec: 03/16/18 14:47 LRN [id number]) Out-Patient Physical Therapy Visit Information Visit Information Visit Type Treatment Note Visit Note 04/30 Visit Start Time 13:31 Visit Stop Time 14:29 Total Visit Minutes 58 Visit Number 9 Number of MACHINE COREMAKER Visits 0 Evaluation Information Evaluation Date 01/19/18 PT-OP-B Current Condition Start: 01/19/18 08:07 Freq: Status: Active Protocol: Document 01/19/18 09:08 LRN (Rec: 01/19/18 16:07 LRN [id number]) Current Condition History of Current Condition Onset Date 12/26/17 Current Complaints L shoulder pain History of Current Condition Pt reports in her motor home, while turning around she tripped on her pant leg causing her to fall into a wall on the left side with her L arm overhead. She was taken to the hospital and found to have a closed nondisplaced fracture of the proximal end of the L humerus. She was placed in a type of L tung-shoulder sling for the past 3 weeks (2 days). Pt has NOT been moving her L arm in an external rotation motion and has been told she can do forward, backward and across chest arm swings. She removes her sling for bathing. She has not been using her L arm. Future Testing and Treatments Planned Next MD appointment: Treatment Goals Patient/Caregiver Goals Pt goal is to regain use of arm to ride her horse again. Prior Functional Status Baseline Function- ADL's Independent Baseline Function- Mobility Independent Baseline Function- Recreation/Hobbies Independent with horse riding. Current Functional Impairments (Reported) Functional Limitations- ADL's Difficulty dressing, bathing, cooking. Interrupted sleep, typically sleeps on L side. Unable to wash under R arm. Functional Limitations- Recreation/ Unable to ride horse. Hobbies Personal Factors Other Personal Factors That May Effect Osteoporosis. Therapy/Recovery Dizziness/Fall History. Currently spouse is primary caregiver for his mother. PT-OP-C Subjective Start: 01/19/18 08:07 Freq: Status: Active Protocol: Document 03/16/18 13:31 LRN (Rec: 03/16/18 14:47 LRN [id number]) OP-PT Subjective Patient Comments Patient Comments Has been busy training horses. States she can bath and dress without difficulty. Patient Questionnaires Lower Extremity Functional Scale LEFS Score 70 LEFS Impairment 1 to 19% Impaired (Score 63-79 ) Quick Dash- Upper Extremity Quick Dash UE Score 15 Quick Dash UE Impairment 1 to 19% Impaired (Score 1-19) OP-PT Pain Assessment Pain Assessment Grid Paper Pain Assessment Grid Completed Yes Location Left Upper Proximal Shoulder Intensity 2 PT-OP-F Manual Assessment Start: 01/19/18 08:07 Freq: Status: Active Protocol: Document 01/19/18 09:08 LRN (Rec: 01/19/18 16:07 LRN [id number]) Manual Assessments Soft Tissue Assessment Soft Tissue Mobility Assessment Increased muscle tone of L upper shoulder/neck and scapular stabilizing muscles. Decreased muscle tone of L Deltoids, brachium and forearm . Joint Mobility Assessment Joint Mobility Assessment Deferred due to diagnosis. PT-OP-H Neuro Start: 01/19/18 08:07 Freq: Status: Active Protocol: Document 01/19/18 09:08 LRN (Rec: 01/19/18 16:07 LRN [id number]) Sensation Evaluation Gross Sensation Gross Sensation WNL Deep Tendon Reflex & Clonus Assessment Deep Tendon Reflex Right Tricep Deep Tendon Reflex 1+ Diminished Left Tricep Deep Tendon Reflex 1+ Diminished Right Bicep Deep Tendon Reflex 2+ Normal Left Bicep Deep Tendon Reflex 2+ Normal PT-OP-J Posture/Palpation/Skin Start: 01/19/18 08:07 Freq: Status: Active Protocol: Document 01/19/18 09:08 LRN (Rec: 01/19/18 16:07 LRN [id number]) Posture Evaluation Position Standing Evaluation View Anterior Head/C-Spine Posture Forward Head T-Spine Posture Flattened L-Spine Posture Increased Lordosis Shoulder Posture (L) Elevated Shoulder Subluxation Degree (L) < 1 Finger wide Scapula Posture (L) Elevated Palpation Assessment Location One Palpation Location L shoulder Palpation Findings Tenderness Palpation Details Brachium PT-OP-K Range of Motion Start: 01/19/18 08:07 Freq: Status: Active Protocol: Document 03/16/18 13:31 LRN (Rec: 03/16/18 14:47 LRN [id number]) Shoulder Goniometric Range of Motion Shoulder Measured in Degrees Left Active Testing Position Sitting Flexion 160 Abduction 165 Left Passive Testing Position Supine Flexion 170 Abduction 150 Horizontal Adduction 33 External Rotation at 90 degrees 80 Abduction Internal Rotation 80 PT-OP-M Strength Start: 01/19/18 08:07 Freq: Status: Active Protocol: Document 01/19/18 09:08 LRN (Rec: 01/19/18 16:07 LRN [id number]) Cervical Spine Strength Cervical Spine Manual Muscle Testing Reason Not Measured WFL Shoulder Strength Shoulder Manual Muscle Testing Left Reason Not Measured Orthopedic Precautions Comments Pt is PROM for 5 weeks. Elbow/Forearm Strength Elbow and Forearm Manual Muscle Testing Left Reason Not Measured Orthopedic Precautions PT-OP-Q Treatments Start: 01/19/18 08:07 Freq: Status: Active Protocol: Document 03/16/18 13:31 LRN (Rec: 03/16/18 14:47 LRN [id number]) Cardio Equipment Upper Body Ergometer (UBE) Duration (Minutes) 10 RPM 60 Seat Position 15 Height 5 Gym Equipment Cable Column (Body Solid) Lat Pull Down Resistance 30# Reps/Time 15x Therapeutic Exercises Sidelying Exercises 2 Sidelying Exercise Name Shoulder ER Side left Resistance 4#,3# Reps/Minutes 4x, 8x2, respectively 1 Sidelying Exercise Name Shoulder IR Side left Resistance 5#,6# Reps/Minutes 15x each Self-Care/Home Management Treatment Education Patient Education Home Exercise Program Activities Self-Care/Home Management Activities Reviewed areas of HEP to focus on (ROM, strengthening of ER/ IR for AB strength). PT-OP-R Modalities Start: 01/19/18 08:07 Freq: Status: Active Protocol: Document 03/16/18 13:31 LRN (Rec: 03/16/18 14:47 LRN [id number]) Hot Pack/Cold Pack Treatment Cold Pack Location L shoulder Patient Position Sitting Treatment Duration (minutes) 10 Patient Tolerance Good PT-OP-T Assessment and Plan Start: 01/19/18 08:07 Freq: Status: Active Protocol: Document 03/16/18 13:31 LRN (Rec: 03/16/18 14:47 LRN [id number]) Physical Therapy Assessment Impairments Other Impairments Weakness of L shoulder ER & AB . L shoulder End-ROM lag. Goals Three Impairment Decreased L shoulder strength Maintenance And Operations Supervisor Goal (LTG) Pt will be able to ride her horse again with assist for dressing the horse with L shoulder strength improvement of generally 4/5. LTG Duration 03/16/18: GOAL MET FUNCTIONALLY. Two Short Term Goal (STG) L shoulder active flexion 145 deg's (pt cleared for AROM in 5 weeks). L shoulder active ER (pt cleared for AROM in 5 weeks). STG Duration GOAL MET Maintenance And Operations Supervisor Goal (LTG) L shoulder active ER 80 deg's. L shoulder active AB 120 deg's . Pt will be able to bath and dress without difficulty. LTG Duration 03/16/18: GOAL MET. One Impairment Decreased L shoulder mobility Short Term Goal (STG) L shoulder passive flexion 170 deg's. L shoulder passive horizontal Adduction 10 deg's. STG Duration 03/16/18: GOAL MET. Maintenance And Operations Supervisor Goal (LTG) L shoulder passive ER (90 deg' s AB) 80 deg's (pt cleared to start ER in 6 weeks, AROM in 5 weeks). L shoulder passive ABD to 90 deg's (pt cleared to start ROM in 6 weeks, AROM in 5 weeks). LTG Duration 03/16/18: GOAL MET. Assessment Summary Assessment Goals met except mild weakness with L shoulder AB exists. She has L shoulder end-range stiffness. Pt is ready to be DC'd to her independent HEP. Physical Therapy Plan Discharge Physical Therapy Discharge Reasons Goals Met Discharge Comments See assessment above. Next Visit Focus/Plan Next Visit Plan DC today to independent HEP.
== END 2018-03-28 08:51 ==
LOC: PHYS 13:30
PROVIDERS: PCP Internal Medicine; Visit Provider Orthopaedic Surgery Foot and Ankle Surgery
DX: S42.295A Other nondisplaced fracture of upper end of left humerus, initial encounter for closed fracture (principal)
CPT/HCPCS: 97010; 97110; 97140; 97162; 97535

== ENCOUNTER → 2018-05-20 11:56 | Outpatient (CLI) | payer OTHER, SELFPAY | PROVIDERS: PCP Internal Medicine; Visit Provider Physician Assistant | DX: R30.0 Dysuria (principal) | CPT/HCPCS: 87086 ==

== ENCOUNTER → 2018-08-31 16:37 | Outpatient (CLI) | payer OTHER, SELFPAY ==
--- NOTE | 2018-08-31 16:40 | DI.CT.S_ITS ---
PROCEDURE: CT KIDNEY URETER BLADDER (KUB) INDICATIONS: Hematuria, Kidney stones TECHNIQUE: Noncontrast 5 mm thick sections acquired from the diaphragms to the symphysis. 5 mm thick coronal and sagittal reformats were then performed. For radiation dose reduction, the following was used: automated exposure control, adjustment of mA and/or kV according to patient size. COMPARISON: [facility], CT, IVP (ABD & PEL WWO CONTRAST), 10/30/2013, 9:30. FINDINGS: Image quality: Excellent. Lung bases: Lung bases are clear. Heart size is normal. Urinary system: Both kidneys are normal in size. Left parapelvic cysts are noted. No kidney stones. No hydronephrosis or perinephric fat stranding. Both ureters appear non-dilated throughout their expected courses. Bladder wall thickness is normal; no calcified bladder stones. There is incidental note of a left retroaortic renal vein. Other solid organs: Liver is normal in size. Gallbladder is unremarkable. Pancreas is normal in contours. Spleen is normal in size. No adrenal nodules. Peritoneum and bowel: Unenhanced bowel loops demonstrate normal wall thickness and caliber. No free fluid or air. The visualized appendix is unremarkable. Nodes and vessels: No retroperitoneal or mesenteric adenopathy by size criteria. Aorta and inferior vena cava are normal in caliber. Sub-centimeters right lower quadrant lymph nodes are present, the largest measuring approximately 5 mm. Abdominal wall: No ventral hernias. Pelvis: No free pelvic fluid. No inguinal hernias or adenopathy. There is a prominent appearance of the cervix. Bones: No suspicious bony lesions. No vertebral body compression fractures. IMPRESSION: 1. No nephro or ureterolithiasis. No bladder calculi. 2. Scattered subcentimeter lymph nodes are present within the right lower quadrant with a normal appendix. As enteric adenitis should be considered if appropriate. 3. Prominent appearance of the cervix. Pulses could represent a fibroid or lower vaginal segment, cervical neoplasm cannot be excluded. Further evaluation with ultrasound is recommended. Dictated by: Gisella Tse M.D. on 08/31/2018 at 17:18 Approved by: Gisella Tse M.D. on 08/31/2018 at 17:25
== END ==
PROVIDERS: PCP Internal Medicine; Visit Provider Internal Medicine
DX: N20.0 Calculus of kidney (principal); R31.9 Hematuria, unspecified
CPT/HCPCS: 74176

== ENCOUNTER → 2018-09-06 12:41 | Outpatient (CLI) | payer OTHER, SELFPAY ==
--- NOTE | 2018-09-06 12:43 | DI.US.S_ITS ---
PROCEDURE: US PELVIC COMPLETE INDICATIONS: PROMINENT CERVIX ON CT TECHNIQUE: Real-time scanning was performed of the pelvic organs, with image documentation. Additional endovaginal scanning was necessary due to incomplete visualization of the adnexal and endometrial structures by transabdominal scanning. COMPARISON: [facility], CT, CT KIDNEY URETER BLADDER (KUB), 08/31/2018, 16:34. [facility], US, PELVIC COMPLETE, 07/05/2010, 14:45. FINDINGS: Transabdominal scanning: Limited scanning through the kidneys shows no hydronephrosis. No pathologic free abdominal or pelvic fluid. Endovaginal scanning: Uterus: Uterus is normal in size at 6.3 x 3.1 x 4.9 cm. The endometrium measures 2.7 mm in combined thickness. There is a 6 x 5 x 8 mm focus of heteroechogenicity within the subserosal region. Cervix appears unremarkable. Ovaries: Right ovaries are visualized. Left ovary measures 25 x 18 x 14 mm. Focus of hypoechogenicity is present within the left ovary measuring 14 x 12 x 13 mm likely representing a prominent follicle. IMPRESSION: 1. Small focus of subserosal heteroechogenicity suggestive of fibroids. Dictated by: Gisella Tse M.D. on 09/06/2018 at 17:24 Approved by: Gisella Tse M.D. on 09/06/2018 at 17:27
== END ==
PROVIDERS: PCP Internal Medicine; Visit Provider Internal Medicine
DX: R93.5 Abnormal findings on diagnostic imaging of other abdominal regions, including retroperitoneum (principal)
CPT/HCPCS: 76830; 76856

== ENCOUNTER → 2018-10-09 14:21 | Outpatient (CLI) | payer OTHER, SELFPAY ==
[2018-10-09 14:48] LABS: BUN Creatinine Ratio 27.8 (6-22); Blood Urea Nitrogen 25 mg/dL (7-17); Estimated Glomerular Filt Rate > 60.0 mL/min (>60)
== END ==
PROVIDERS: PCP Internal Medicine; Visit Provider Urology
DX: Z87.448 Personal history of other diseases of urinary system (principal)
CPT/HCPCS: 36415; 82565; 84520

== ENCOUNTER → 2018-10-11 10:14 | Outpatient (CLI) | payer OTHER, SELFPAY ==
--- NOTE | 2018-10-11 | DI.CT.S_ITS ---
PROCEDURE: CT ABDOMEN PELVIS WO/W CON INDICATIONS: GROSS HEMATURIA TECHNIQUE: Optional 5 mm thick noncontrast images acquired from the diaphragm to the symphysis pubis. After the administration of intravenous contrast, 5 mm thick images acquired from the diaphragm to the symphysis pubis after a 10-minute delay. 2 mm thick coronal and sagittal reformats were then performed of the kidneys and ureters. For radiation dose reduction, the following was used: automated exposure control, adjustment of mA and/or kV according to patient size. COMPARISON: None. FINDINGS: Image quality: Excellent. Lung bases: Lung bases are clear. Heart size is normal. Urinary system: Both kidneys are normal in size, without hydronephrosis or nephrolithiasis on pre-contrast images. There are multiple low-density left small pararenal cysts. No perinephric fat stranding. There is normal bilateral renal enhancement. Renal calyces appear normal in morphology when filled with contrast. Opacified portions of both ureters demonstrate normal caliber. Bladder wall thickness is normal. No calcified bladder stones. Other solid organs: Liver is normal in size and enhancement. Gallbladder is unremarkable. Biliary system is non dilated. Pancreas enhances normally. Spleen is normal in size and enhancement. No adrenal nodules. Peritoneum and bowel: Bowel loops demonstrate normal wall thickness and caliber. The appendix is thin walled. No free fluid or air. Nodes and vessels: No retroperitoneal or mesenteric adenopathy by size criteria. Aorta and inferior vena cava are normal in size. There are scattered atheromatous calcifications throughout the aorta and iliac arteries bilaterally. Abdominal wall: No ventral hernias. Pelvis: No pathologic free pelvic fluid. No inguinal hernias or adenopathy. Bones: No suspicious bony lesions. No vertebral body compression fractures. IMPRESSION: 1. No hydronephrosis, nephrolithiasis, hydroureter, or ureterolithiasis. No suspicious renal mass lesions. No findings to explain gross hematuria. 2. No acute intra-abdominal findings. Normal appendix. Dictated by: Lorene Grider M.D. on 10/11/2018 at 11:20 Approved by: Lorene Grider M.D. on 10/11/2018 at 11:26
== END ==
PROVIDERS: PCP Internal Medicine; Visit Provider Urology
DX: R31.0 Gross hematuria (principal)
CPT/HCPCS: 74178; Q9967

== ENCOUNTER → 2018-10-29 12:40 | Outpatient (CLI) | payer OTHER, SELFPAY ==
--- NOTE | 2018-10-29 12:41 | DI.MG.S_ITS ---
BILATERAL DIGITAL SCREENING MAMMOGRAM 3D/2D WITH CAD: 10/29/2018 CLINICAL: Routine screening. Comparison is made to exams dated: 04/27/2017 mammogram, 06/01/2015 mammogram, and 10/01/2013 mammogram - [facility]. There are scattered fibroglandular elements in both breasts. Current study was also evaluated with a Computer Aided Detection (CAD) system. No significant masses, calcifications, or other findings are seen in either breast. There has been no significant interval change. IMPRESSION: NEGATIVE There is no mammographic evidence of malignancy. A 1 year screening mammogram is recommended. This exam was interpreted at Station ID: [id number]. NOTE: For mammograms, a report in lay terms will be sent to the patient. Approximately 15% of breast malignancies will not be visualized mammographically. In the management of a palpable breast mass, a negative mammogram must not discourage biopsy of a clinically suspicious lesion. Electronically Signed By: Cornel li/franky:10/29/2018 22:16:09 copy to: Korey Gorman letter sent: Normal Exam ACR BI-RADS Category 1: Negative [id number]
== END ==
PROVIDERS: PCP Internal Medicine
DX: Z12.31 Encounter for screening mammogram for malignant neoplasm of breast (principal); M85.88 Other specified disorders of bone density and structure, other site; Z78.0 Asymptomatic menopausal state; Z82.62 Family history of osteoporosis
CPT/HCPCS: 77063; 77067; 77080

== ENCOUNTER → 2019-05-07 19:56 | Outpatient (CLI) | payer OTHER, SELFPAY | PROVIDERS: PCP Internal Medicine; Visit Provider Physician Assistant | DX: J02.9 Acute pharyngitis, unspecified (principal); R50.9 Fever, unspecified; R05 Cough | CPT/HCPCS: 87070; 87400 ==

== ENCOUNTER → 2019-05-07 20:08 | Outpatient (CLI) | payer OTHER, SELFPAY ==
--- NOTE | 2019-05-07 20:13 | DI.RAD.S_ITS ---
PROCEDURE: XR CHEST 2V INDICATIONS: COUGH TECHNIQUE: 2 views of the chest were acquired. COMPARISON: None. FINDINGS: Surgical changes and devices: None. Lungs and pleura: Lungs are clear. No pleural effusions or pneumothorax. Mediastinum: Mediastinal contours are normal. Heart size is normal. Bones and chest wall: No suspicious bony abnormalities. Soft tissues appear unremarkable. IMPRESSION: No acute process. Dictated by: Chilo Nguyen M.D. on 05/07/2019 at 20:26 Approved by: Chilo Nguyen M.D. on 05/07/2019 at 20:26
== END ==
PROVIDERS: PCP Internal Medicine; Visit Provider Physician Assistant
DX: R05 Cough (principal); J02.9 Acute pharyngitis, unspecified; R50.9 Fever, unspecified
CPT/HCPCS: 71046; 87070; 87400; 87502

== ENCOUNTER → 2020-05-18 09:05 | Outpatient (CLI) | payer OTHER, SELFPAY ==
[2020-05-18 09:48] LABS: Alanine Aminotransferase 31 IU/L (<35); Albumin 4.4 g/dL (3.5-5.0); Albumin Globulin Ratio 1.6 (1.0-2.8); Alkaline Phosphatase 54 U/L (38-126); Aspartate Aminotransferase 29 IU/L (14-36); BUN Creatinine Ratio 26.2 (6-22); Bilirubin Total 0.8 mg/dL (0.2-1.3); Blood Urea Nitrogen 22 mg/dL (7-17); Calcium 9.5 mg/dL (8.4-10.2); Carbon Dioxide 30 mmol/L (22-32); Chloride 103 mmol/L (98-107); Estimated Glomerular Filt Rate > 60.0 mL/min (>60); Globulin 2.8 g/dL (1.7-4.1); Glucose 107 mg/dL (80-110); HDL Cholesterol 73 mg/dL (40-60); HEMOLYSIS < 15 (0-50); Potassium 4.8 mmol/L (3.4-5.1); Sodium 139 mmol/L (137-145); Total Protein 7.2 g/dL (6.3-8.2); Triglycerides 126 mg/dL (35-150)
[2020-05-18 09:58] LABS: Cholesterol 339 mg/dL (140-199); LDL Cholesterol Calculated 241 mg/dL (<100)
== END ==
PROVIDERS: PCP Internal Medicine; Referring Provider Internal Medicine; Visit Provider Internal Medicine
DX: E78.5 Hyperlipidemia, unspecified (principal); I10 Essential (primary) hypertension
CPT/HCPCS: 36415; 80053; 80061

== ENCOUNTER → 2020-06-20 08:19 | Outpatient (CLI) | payer OTHER, SELFPAY ==
[2020-06-22 02:29] LABS: COVID19 Sendout Not Detected (Not Detect)
== END ==
PROVIDERS: PCP Internal Medicine; Visit Provider Nurse Practitioner
DX: Z11.59 Encounter for screening for other viral diseases (principal)
CPT/HCPCS: 87635

== ENCOUNTER 2020-06-23 08:06 | Day surgery (SDC) | payer OTHER, SELFPAY ==
[2020-06-23 08:42] VITALS: BP 146/85; PULSE 71; RESP 15; TEMP 36.5; O2SAT 97
[2020-06-23 08:45] VITALS: BMI 38.7
[2020-06-23] MEDS: LACTATED RINGERS 1,000 ML 200 ML IV (08:45)
--- NOTE | 2020-06-23 09:34 | PM.HP.1 ---
History of Present Illness History of Present Illness Date Patient Seen: 06/23/20 Time Patient Seen: 09:34 Chief complaint: SCREENING COLONOSCOPY Narrative: The patient is a woman here for a screening colonoscopy. She said she is overdue but she does not remember when her last colonoscopy was. She has had 2 prior scopes 1 of which had a polyp removed. Patient History Medical History Allergic rhinitis, unspecified (Chronic 05/29/03) Colon polyps (Chronic) Dermatitis (Chronic 06/01/15) Essential hypertension (Chronic 06/01/15) Granuloma annulare (Chronic) History of adenomatous polyp of colon (Chronic 03/14/11) Hyperlipidemia (Chronic 03/14/11) Hyperlipidemia (Chronic) Hypertension (Chronic) Latex allergy (Chronic) Osteoporosis (Chronic) Perimenopausal symptom (Chronic 01/03/03) Tinnitus (Chronic) Urge incontinence of urine (Chronic 11/13/14) Ventricular premature beats (Chronic 01/07/16) Surgical History Anesthesia (Resolved) Ankle injury (Resolved) Fracture (Resolved) Fracture of pelvis (Resolved) Status post delivery Status post tonsillectomy and adenoidectomy Family & Social History Social History: household members spouse,children lives independently Yes caregiver/support person No Tobacco & Substance use: Smoking Status Never smoker alcohol intake current alcohol intake frequency a few times a week Substance Use Type does not use Meds Home Medications and Allergies Home Medications Medication Instructions Recorded Confirmed Type mirabegron 25 mg tablet,extended 25 mg PO DAILY 10/10/19 06/23/20 History release 24 hr lisinopril 10 mg tablet 10 mg PO QDAY #90 tab 10/21/19 06/23/20 Rx carvedilol 6.25 mg tablet 6.25 mg PO BID #180 tab 11/04/19 06/23/20 Rx alendronate 70 mg tablet See Rx Instructions .ROUTE 11/08/19 06/23/20 Rx .COMPLEX #14 tab estradiol 10 mcg vaginal tablet 10 mcg VAG 2XW #24 tab 03/09/20 06/23/20 Rx tpqxaqagsnju-cmzc-giegr acid 1 tab PO DAILY 06/23/20 06/23/20 History [Multi Complete with Iron] Allergies Allergy/AdvReac Type Severity Reaction Status Date / Time epoxy resin [EPOXY RESIN] Allergy Unknown Contact Verified 06/23/20 08:38 dermatitis amoxicillin [AMOXICILLIN] AdvReac Intermediate RASH Verified 06/23/20 08:38 nitrile AdvReac Intermediate Contact Verified 06/23/20 08:38 Dermatitis Sulfa (Sulfonamide AdvReac Intermediate RASH Verified 06/23/20 08:38 Antibiotics) [SULFA (SULFONAMIDE ANTIBIOTICS)] cathaters AdvReac Severe contact Uncoded 06/23/20 08:38 dermatitis, infection rubber gloves AdvReac Intermediate Contact Uncoded 06/23/20 08:38 Dermatitis Review of Systems Review of Systems Narrative: Has sleep apnea but did not bring her machine. ROS: Yes All systems reviewed with the patient and are negative except as otherwise documented Exam Vital Signs (past 8 hours): - 06/23/20 08:42 Temperature 97.7 F Pulse Rate 71 Respiratory Rate 15 Blood Pressure 146/85 H Pulse Oximetry 97 Oxygen Delivery Method Room Air Narrative Exam Narrative: Pleasant cooperative patient no apparent distress. Lungs are clear to auscultation. No rales or rhonchi. Heart regular rate and rhythm no murmur gallop. Abdomen is soft nontender without mass. No obvious hernias. Patient is alert and oriented x3. Assessment & Plan Assessment & Plan narrative: The patient for a screening colonoscopy. I have discussed the procedure with them. Risks of bleeding, perforation which would necessitate major operation, failure to find remove all lesions, the potential tattoo were all discussed. All questions were answered. They wished to proceed.
[2020-06-23] MEDS: fentaNYL 250 MCG/5 ML INJ IV (09:43)
[2020-06-23] MEDS: MIDAZOLAM 5 MG/5 ML VIAL IV (09:43)
--- NOTE | 2020-06-23 09:43 | PM.PREOP ---
Pre-operative Note COVID-19 COVID-19 status: Negative Result date/Date tested (Pos, Neg/Pending): 06/20/20 Interval Note History & Physical reviewed/Exam performed by Physician: Yes Changes to H&P: No ASA Class (for procedural sedation): III
[2020-06-23 10:04] VITALS: BP 134/87; PULSE 65; RESP 17; TEMP 36.6; O2SAT 97
[2020-06-23 10:09] VITALS: BP 125/76; PULSE 65; RESP 16; O2SAT 96
[2020-06-23 10:24] VITALS: BP 120/67; PULSE 63; RESP 16; O2SAT 98
[2020-06-23 10:29] VITALS: BP 104/66; PULSE 62; RESP 16; O2SAT 98
--- NOTE | 2020-06-23 10:31 | PM.OP.ENDO ---
Operative Date/Time/Diagnoses Date of procedure: 06/23/20 Time of procedure: 10:31 Pre-op diagnosis: Screening exam. History of polyps Post-op diagnosis: same Procedure & Clinicians Study performed: Colonoscopy Same procedure as scheduled: Yes Indications: Screening. Last exam 6 years ago. Surgeon: Abdirashid Gavin Procedure Notes SCOAP/Timeout: Performed Procedure in detail: The patient was placed in the left lateral decubitus position and underwent IV sedation directed by the surgeon consisting of fentanyl and Versed. Digital exam was unremarkable except for some external tags. The scope was inserted and advanced through the rectum into the sigmoid, descending, transverse, and ascending colon. The cecum was reached identified by the ileocecal valve and the appendiceal opening. The ileocecal valve was successfully cannulated. The terminal ileum was normal in appearance. The scope was gradually brought out. No Polyps were found. The scope ultimately was retroflexed in the rectum. The appearance was remarkable for scarring on old hemorrhoidal disease. No active disease present.. The scope was removed and the patient tolerated the procedure well. The prep was very good Scope withdrawal time: 7 minutes Sedation minutes: 16 Specimen(s): none sent Complications: none Post-procedure Recommendations: Colonscopy in 5 years (Due to history of polyps) Follow up: as needed Disposition: PACU
[2020-06-23 10:34] VITALS: BP 124/56; PULSE 64; RESP 20; TEMP 36.2; O2SAT 99
== END 2020-06-23 10:54 | disposition home or self-care (01) ==
PROVIDERS: PCP Internal Medicine; Referring Provider Specialist; Visit Provider Specialist
PROC: 0DJD8ZZ Inspection of Lower Intestinal Tract, Via Natural or Artificial Opening Endoscopic (ICD-10-PCS; CPT 45378; principal; 2020-06-23 09:15)
DX: Z12.11 Encounter for screening for malignant neoplasm of colon (principal); Z86.010 Personal history of colon polyps; G47.30 Sleep apnea, unspecified; E78.5 Hyperlipidemia, unspecified; I10 Essential (primary) hypertension
CPT/HCPCS: 45378; 99152; J2250; J3010

== ENCOUNTER → 2020-11-26 12:31 | Outpatient (CLI) | payer OTHER, SELFPAY ==
[2020-11-26] MEDS: COVID-19 VACC, Ad26(JANSSEN)/PF 0.5 ML IM (12:41)
== END ==
PROVIDERS: PCP Internal Medicine; Visit Provider Internal Medicine
DX: Z23 Encounter for immunization (principal)
CPT/HCPCS: 0031A; 91303

== ENCOUNTER → 2021-05-24 15:19 | Outpatient (CLI) | payer OTHER, SELFPAY ==
[2021-05-24 16:20] LABS: Alanine Aminotransferase 26 IU/L (<35); Albumin 4.2 g/dL (3.5-5.0); Albumin Globulin Ratio 1.8 (1.0-2.8); Alkaline Phosphatase 81 U/L (38-126); Aspartate Aminotransferase 28 IU/L (14-36); BUN Creatinine Ratio 26.3 (6-22); Bilirubin Total 0.5 mg/dL (0.2-1.3); Blood Urea Nitrogen 20 mg/dL (7-17); Calcium 9.1 mg/dL (8.4-10.2); Carbon Dioxide 26 mmol/L (22-32); Chloride 103 mmol/L (98-107); Estimated Glomerular Filt Rate > 60.0 mL/min (>60); Globulin 2.4 g/dL (1.7-4.1); Glucose 89 mg/dL (80-110); HEMOLYSIS 23 (0-50); Potassium 4.8 mmol/L (3.4-5.1); Sodium 139 mmol/L (137-145); Total Protein 6.6 g/dL (6.3-8.2)
== END ==
PROVIDERS: PCP Internal Medicine; Referring Provider Internal Medicine; Visit Provider Internal Medicine
DX: E78.5 Hyperlipidemia, unspecified (principal); I10 Essential (primary) hypertension; Z79.899 Other long term (current) drug therapy
CPT/HCPCS: 36415; 80053

== ENCOUNTER → 2021-07-13 10:34 | Outpatient (CLI) | payer OTHER, SELFPAY ==
--- NOTE | 2021-07-13 10:35 | DI.MG.S_ITS ---
BILATERAL DIGITAL SCREENING MAMMOGRAM 3D/2D WITH CAD: 07/13/2021 CLINICAL: Routine screening. Comparison is made to exams dated: 10/29/2018 mammogram, 04/27/2017 mammogram, and 06/01/2015 mammogram - [facility]. There are scattered fibroglandular elements in both breasts. Current study was also evaluated with a Computer Aided Detection (CAD) system. There is a benign lymph node in the left breast. No significant masses, calcifications, or other findings are seen in either breast. There has been no significant interval change. IMPRESSION: BENIGN There is no mammographic evidence of malignancy. A 1 year screening mammogram is recommended. This exam was interpreted at Station ID: [id number]. NOTE: For mammograms, a report in lay terms will be sent to the patient. Approximately 15% of breast malignancies will not be visualized mammographically. In the management of a palpable breast mass, a negative mammogram must not discourage biopsy of a clinically suspicious lesion. Electronically Signed By: Sandee diallo/franky:07/13/2021 12:08:57 copy to: Korey Gorman letter sent: Normal Exam ACR BI-RADS Category 2: Benign Finding(s) 3342F
== END ==
PROVIDERS: PCP Internal Medicine; Referring Provider Internal Medicine; Visit Provider Internal Medicine
DX: Z12.31 Encounter for screening mammogram for malignant neoplasm of breast (principal)
CPT/HCPCS: 77063; 77067

== ENCOUNTER → 2021-09-07 10:27 | Outpatient (CLI) | payer OTHER, SELFPAY ==
[2021-09-07 13:32] LABS: COVID19 -Nasal RAPID POSITIVE (Negative)
== END ==
PROVIDERS: PCP Internal Medicine; Referring Provider Physician Assistant; Visit Provider Physician Assistant
DX: U07.1 COVID-19 (principal); J02.9 Acute pharyngitis, unspecified; R05.9 Cough, unspecified; R09.89 Other specified symptoms and signs involving the circulatory and respiratory systems; Z20.822 Contact with and (suspected) exposure to COVID-19
CPT/HCPCS: 87635

== ENCOUNTER 2021-10-03 10:10 | Emergency (ER) | payer OTHER, SELFPAY ==
[2021-10-03 10:38] VITALS: BP 141/83; PULSE 85; RESP 20; TEMP 35.7; O2SAT 99; BMI 39.4
--- NOTE | 2021-10-03 10:44 | DI.RAD.S_ITS ---
PROCEDURE: XR HAND LT MIN 3V INDICATIONS: fall TECHNIQUE: 3 views of the hand(s) acquired. COMPARISON: None. FINDINGS: Bones: No fractures or dislocations. Carpal bones are normally aligned. No suspicious bony lesions. First carpometacarpal joint space narrowing and subchondral sclerosis noted. Soft tissues: No suspicious soft tissue calcifications. Dorsal soft tissue swelling IMPRESSION: Soft tissue swelling without fracture or foreign body First carpometacarpal osteoarthritis Approved by: Abhilash Gonzalez M.D. on 10/03/2021 at 11:19
--- NOTE | 2021-10-03 11:50 | ED_ITS ---
HPI - Extremity Injury (Upper) General Chief Complaint: Extremity Injury, Upper Stated Complaint: Possible broken lt hand after fall yesterday Time Seen by Provider: 10/03/21 11:36 Source: patient Mode of arrival: Family Vehicle History of Present Illness HPI narrative: Patient is a 66-year-old female history of hypertension presenting with left hand pain after ground level fall yesterday. She says her foot got tripped up in the hose when she tripped and fell. Her hand bent backwards mostly her 4th metacarpal was hurting. She did hit her head did not lose consciousness. She has a small bruise on her chin. She says her teeth feel in place. No nausea vomiting no longer having any neck pain. Her left hand is significantly swollen over 3rd 4th and 5th metacarpals. No numbness tingling or weakness. She took ibuprofen prior to arrival. Related Data Home Medications Medication Instructions Recorded Confirmed multivitamin-ferrous 1 tab PO DAILY 06/23/20 05/24/21 fumarate-folic acid 18 mg-400 mcg tablet (Multi Complete with Iron) Previous Rx's Medication Instructions Recorded alendronate 70 mg tablet See Rx Instructions .ROUTE 05/24/21 .COMPLEX #14 tab carvedilol 6.25 mg tablet (Coreg) 6.25 mg PO BID #180 tab 05/24/21 estradiol 10 mcg vaginal tablet 10 mcg VAG 2XW #24 tab 05/24/21 (Vagifem) lisinopril 10 mg tablet 10 mg PO QDAY #90 tab 05/24/21 mirabegron 25 mg tablet,extended 25 mg PO DAILY #90 tab 05/24/21 release 24 hr (Myrbetriq) Allergies Allergy/AdvReac Type Severity Reaction Status Date / Time epoxy resin [EPOXY RESIN] Allergy Unknown Contact Verified 05/24/21 14:21 dermatitis amoxicillin [AMOXICILLIN] AdvReac Intermediate RASH Verified 05/24/21 14:21 nitrile AdvReac Intermediate Contact Verified 05/24/21 14:21 Dermatitis Sulfa (Sulfonamide AdvReac Intermediate RASH Verified 05/24/21 14:21 Antibiotics) [SULFA (SULFONAMIDE ANTIBIOTICS)] cathaters AdvReac Severe contact Uncoded 05/24/21 14:21 dermatitis, infection rubber gloves AdvReac Intermediate Contact Uncoded 05/24/21 14:21 Dermatitis Review of Systems Review of Systems Narrative: GENERAL: Denies chills,fever HEENT: Denies throat pain RESPIRATORY: Denies dyspnea, cough, wheezing CARDIOVASCULAR: Denies chest pain, palpitations GASTROINTESTINAL: Denies nausea, vomiting MUSCULOSKELETAL: See HPI SKIN: No rash, no laceration, no pruritus NEUROLOGIC: Denies weakness, dizziness, headache, numbness 8 point review of systems is negative except for those stated above and HPI Patient History Medical History (Updated 10/03/21 @ 12:26 by Buffy Barahona DO) Allergic rhinitis, unspecified (05/29/03) Colon polyps Dermatitis (06/01/15) Essential hypertension (06/01/15) Granuloma annulare History of adenomatous polyp of colon (03/14/11) Hyperlipidemia (03/14/11) Hyperlipidemia Hypertension Latex allergy Osteoporosis Perimenopausal symptom (01/03/03) Tinnitus Urge incontinence of urine (11/13/14) Ventricular premature beats (01/07/16) Surgical History Anesthesia Ankle injury Fracture Fracture of pelvis Status post delivery Status post tonsillectomy and adenoidectomy Social History marital status: number of children: 1 household members: spouse and children lives independently: Yes caregiver/support person: No housing: house (Helping out with mom.) pets and animals: Yes education level: college (2 years of college) occupational status: other (Retired.) Previous occupational history: [employer] sandra/anabaptism: None travel history: recent ([place].) leisure activities: other (Ride horses.) Smoking Status: Never smoker Tobacco: How many years used: 0 quit status: quit date established (Never started.) second hand exposure: No alcohol intake: current substance use type: does not use Smoking Status: Never smoker alcohol intake frequency: a few times a week Substance Use Type: does not use Exam Initial Vital Signs Initial Vital Signs: Vital Signs Temperature 96.2 F L 10/03/21 10:38 Pulse Rate 85 10/03/21 10:38 Respiratory Rate 20 10/03/21 10:38 Blood Pressure 141/83 H 10/03/21 10:38 Pulse Oximetry 99 10/03/21 10:38 GENERAL: Well-appearing, well-nourished and in no acute distress. HEAD: Atraumatic, no abrasions, small contusion noted over left side villa, EOMI NECK: No vertebral tenderness or step-off CARDIOVASCULAR: peripheral pulses in tact, cap refill <2 sec RESPIRATORY: No respiratory distress, speaks in full sentences without difficulty [ABDOMEN: Soft, nontender, no guarding or rebound] EXTREMITIES: Normal range of motion, no clubbing or edema. Neurovascularly intact NEUROLOGICAL: Cranial nerves II through XII grossly intact. Normal gait and speech. SKIN: Warm, dry, no petechiae, no rashes or lesions. Course Orders Ordered: ED Orders 10/03/21 10:44 XR hand LT min 3V Stat Vital Signs Vital signs: Vital Signs - 8 hr 10/03/21 10:38 Temperature 96.2 F L Pulse Rate 85 Respiratory Rate 20 Blood Pressure 141/83 H Pulse Oximetry 99 MDM - Extremity Injury (Upper) Imaging Data Extremity x-ray #1: Radiologist's Impression: PROCEDURE:? XR HAND LT MIN 3V ? INDICATIONS:? fall ? TECHNIQUE:? 3 views of the hand(s) acquired.? ? COMPARISON:? None. ? FINDINGS:? ? Bones:? No fractures or dislocations.? Carpal bones are normally aligned.? No suspicious bony lesions.? First carpometacarpal joint space narrowing and subchondral sclerosis noted. ? Soft tissues:? No suspicious soft tissue calcifications.? Dorsal soft tissue swelling ? ? IMPRESSION:? ? Soft tissue swelling without fracture or foreign body First carpometacarpal osteoarthritis ? ? ? Approved by: Abhilash Gonzalez M.D. on 10/03/2021 at 11:19? Discharge Plan Departure Patient Disposition: Home Clinical Impression: Contusion of hand Instructions: DI for Contusion Activity Restrictions/Additional Instructions: *You have been diagnosed with left hand contusion *What to do: At this time if some bruising of her left hand fortunately no bones are broken. Elevate and ice as needed *Continue to take medications as directed Tylenol 650 mg every 4-6 hours if needed for zmvd-bo-syifswtg pain Ibuprofen 600 mg every 6-8 hours if needed for hmit-ni-gojcksml pain *Follow up with your primary care provider in 2-3 days or call [phone] *Return to ER if you should have in pain numbness tingling or any new, worsening or concerning symptoms Prescriptions: No Action lisinopril 10 mg tablet 10 mg PO QDAY Qty: 90 3RF carvedilol [Coreg] 6.25 mg tablet 6.25 mg PO BID Qty: 180 3RF alendronate 70 mg tablet See Rx Instructions .ROUTE .COMPLEX Qty: 14 3RF Dose Instruction: Take 1 tablet by mouth once a week at 7:30am on an empty stomach remain upright for 30 minutes. Rx Instructions: Take 1 tablet by mouth once a week at 7:30am on an empty stomach remain upright for 30 minutes. Myrbetriq 25 mg tablet extended release 24 hr 25 mg PO DAILY Qty: 90 3RF estradiol [Vagifem] 10 mcg tablet 10 mcg VAG 2XW Qty: 24 3RF Multi Complete with Iron 18-400 mg-mcg Tablet 1 tab PO DAILY 0RF Referrals: Korey Gorman MD [Primary Care Provider] -
[2021-10-03 12:32] VITALS: BP 144/87; PULSE 76; RESP 16; O2SAT 97
== END 2021-10-03 12:32 | disposition home or self-care (01) ==
PROVIDERS: Emergency Provider Emergency Medicine; PCP Internal Medicine
DX: S60.222A Contusion of left hand, initial encounter (principal); W01.0XXA Fall on same level from slipping, tripping and stumbling without subsequent striking against object, initial encounter
CPT/HCPCS: 73130; 99283

== ENCOUNTER → 2022-08-16 15:59 | Outpatient (CLI) | payer MEDICARE, OTHER, SELFPAY ==
--- NOTE | 2022-08-16 16:03 | DI.MG.S_ITS ---
BILATERAL DIGITAL SCREENING MAMMOGRAM 3D/2D WITH CAD: 08/16/2022 CLINICAL: Routine screening. Comparison is made to exams dated: 07/13/2021 mammogram, 04/27/2017 mammogram, and 10/29/2018 mammogram - [facility]. There are scattered areas of fibroglandular density in both breasts (category b / 25%-50% glandular tissue). Current study was also evaluated with a Computer Aided Detection (CAD) system. There is a benign lymph node in the left breast. No significant masses, calcifications, or other findings are seen in either breast. There has been no significant interval change. IMPRESSION: BENIGN There is no mammographic evidence of malignancy. A 1 year screening mammogram is recommended. Based on the Tyrer Cuzick model (a risk assessment model) the patient's lifetime risk is 7.1% and her 10 year risk is 3.4%. According to the ACR, ACS, and NCCN guidelines, an annual breast MRI exam along with mammogram is recommended if the patient's lifetime risk is 20% or greater. This exam was interpreted at Station ID: [id number]. NOTE: For mammograms, a report in lay terms will be sent to the patient. Approximately 15% of breast malignancies will not be visualized mammographically. In the management of a palpable breast mass, a negative mammogram must not discourage biopsy of a clinically suspicious lesion. Electronically Signed By: Gareth Trejo M.D., jr/franky:08/17/2022 12:53:10 copy to: Korey Gorman letter sent: Normal Exam ACR BI-RADS Category 2: Benign Finding(s) 3342F
== END ==
PROVIDERS: PCP Internal Medicine; Referring Provider Internal Medicine; Visit Provider Internal Medicine
DX: Z12.31 Encounter for screening mammogram for malignant neoplasm of breast (principal)
CPT/HCPCS: 77063; 77067

== ENCOUNTER → 2022-10-24 09:59 | Outpatient (CLI) | payer OTHER, SELFPAY ==
[2022-10-24 11:36] LABS: Alanine Aminotransferase 30 IU/L (<35); Albumin 4.2 g/dL (3.5-5.0); Albumin Globulin Ratio 1.6 (1.0-2.8); Alkaline Phosphatase 68 U/L (38-126); Aspartate Aminotransferase 28 IU/L (14-36); BUN Creatinine Ratio 22.1 (6-22); Bilirubin Total 0.7 mg/dL (0.2-1.3); Blood Urea Nitrogen 17 mg/dL (7-17); Calcium 9.4 mg/dL (8.4-10.2); Carbon Dioxide 29 mmol/L (22-32); Chloride 104 mmol/L (98-107); Estimated Glomerular Filt Rate > 60 mL/min (>60); Globulin 2.6 g/dL (1.7-4.1); Glucose 94 mg/dL (80-110); HDL Cholesterol 75 mg/dL (40-60); HEMOLYSIS < 15 (0-50); Sodium 140 mmol/L (137-145); Total Protein 6.8 g/dL (6.3-8.2); Triglycerides 111 mg/dL (35-150)
[2022-10-24 11:37] LABS: Potassium 5.5 mmol/L (3.4-5.1)
[2022-10-24 11:43] LABS: Cholesterol 355 mg/dL (140-199); LDL Cholesterol Calculated 258 mg/dL (<100)
== END ==
PROVIDERS: PCP Internal Medicine; Referring Provider Internal Medicine; Visit Provider Internal Medicine
DX: E78.2 Mixed hyperlipidemia (principal); I10 Essential (primary) hypertension
CPT/HCPCS: 36415; 80053; 80061

== ENCOUNTER → 2023-08-25 16:50 | Outpatient (CLI) | payer OTHER, SELFPAY ==
--- NOTE | 2023-08-25 16:53 | DI.MG.S_ITS ---
BILATERAL DIGITAL SCREENING MAMMOGRAM 3D/2D WITH CAD: 08/25/2023 CLINICAL: Routine screening. Comparison is made to exams dated: 08/16/2022 mammogram, 07/13/2021 mammogram, and 10/29/2018 mammogram - [facility]. There are scattered areas of fibroglandular density in both breasts (category b / 25%-50% glandular tissue). Current study was also evaluated with a Computer Aided Detection (CAD) system. There is a benign lymph node in the left breast. No significant masses, calcifications, or other findings are seen in either breast. There has been no significant interval change. IMPRESSION: BENIGN There is no mammographic evidence of malignancy. A 1 year screening mammogram is recommended. Based on the Tyrer Cuzick model (a risk assessment model) the patient's lifetime risk is 6.8% and her 10 year risk is 3.4%. According to the ACR, ACS, and NCCN guidelines, an annual breast MRI exam along with mammogram is recommended if the patient's lifetime risk is 20% or greater. This exam was interpreted at Station ID: [id number]. NOTE: For mammograms, a report in lay terms will be sent to the patient. Approximately 15% of breast malignancies will not be visualized mammographically. In the management of a palpable breast mass, a negative mammogram must not discourage biopsy of a clinically suspicious lesion. Electronically Signed By: Brandon akbar/franky:08/28/2023 07:22:42 copy to: Korey Gorman letter sent: Normal Exam ACR BI-RADS Category 2: Benign Finding(s) 3342F
== END ==
PROVIDERS: PCP Internal Medicine; Referring Provider Internal Medicine; Visit Provider Internal Medicine
DX: Z12.31 Encounter for screening mammogram for malignant neoplasm of breast (principal)
CPT/HCPCS: 77063; 77067

== ENCOUNTER 2023-09-29 13:14 | Emergency (ER) | payer OTHER, SELFPAY ==
[2023-09-29] VITALS (39 sets, daily range): BP systolic 117–189; BP diastolic 56–100; PULSE 71–101; RESP 12–27; TEMP 36.4; O2SAT 92–99
--- NOTE | 2023-09-29 13:17 | ED.LOWEXIN ---
HPI - Extremity Injury (Lower) <Melia Little MD - Last Filed: 09/30/23 07:13> General Chief Complaint: Extremity Injury, Lower Stated Complaint: fell, Right lower leg deformity Time Seen by Provider: 09/29/23 13:15 History of Present Illness HPI Narrative: 68-year-old female with history of hypertension presents by EMS for right lower extremity injury. Patient was in a barn when she slipped and fell backwards. Obvious deformity noted to right leg. Patient was placed in splint and transferred for further evaluation. Patient reports previous history of right ankle replacement surgery in 2010. Patient denies hitting her head, denies loss of consciousness, denies use of blood thinners. Related Data Home Medications Medication Instructions Recorded Confirmed multivitamin-ferrous 1 tab PO DAILY 06/23/20 12/01/22 fumarate-folic acid 18 mg-400 mcg tablet (Multi Complete with Iron) estradiol 10 mcg vaginal tablet 10 mcg vaginal 2XW 09/29/23 09/29/23 (Yuvafem) Previous Rx's Medication Instructions Recorded imipramine HCl 10 mg tablet 10 mg PO TID #180 tabs 12/01/22 carvedilol 6.25 mg tablet 6.25 mg PO BID #45 tabs 03/03/23 lisinopril 10 mg tablet 10 mg PO QDAY #90 tabs 05/26/23 Allergies Allergy/AdvReac Type Severity Reaction Status Date / Time epoxy resin [EPOXY RESIN] Allergy Unknown Contact Verified 09/29/23 13:52 dermatitis amoxicillin [AMOXICILLIN] AdvReac Intermediate RASH Verified 09/29/23 13:52 nitrile AdvReac Intermediate Contact Verified 09/29/23 13:52 Dermatitis Sulfa (Sulfonamide AdvReac Intermediate RASH Verified 09/29/23 13:52 Antibiotics) [SULFA (SULFONAMIDE ANTIBIOTICS)] cathaters AdvReac Severe contact Uncoded 12/01/22 15:01 dermatitis, infection rubber gloves AdvReac Intermediate Contact Uncoded 12/01/22 15:01 Dermatitis Review of Systems <Melia Little MD - Last Filed: 09/30/23 07:13> Review of Systems Narrative: Negative except as noted above Patient History <Melia Little MD - Last Filed: 09/30/23 07:13> Medical History Incomplete bladder emptying Mixed stress and urge urinary incontinence Postmenopausal atrophic vaginitis Arthritis Tinnitus Granuloma annulare Perimenopausal symptom (01/03/03) History of adenomatous polyp of colon (03/14/11) Allergic rhinitis, unspecified (05/29/03) Colon polyps Hypertension Hyperlipidemia Osteoporosis Latex allergy Ventricular premature beats (01/07/16) Essential hypertension (06/01/15) Dermatitis (06/01/15) Urge incontinence of urine (11/13/14) Hyperlipidemia (03/14/11) Surgical History H/O breast biopsy Anesthesia Ankle injury Fracture of pelvis Fracture Status post delivery Status post tonsillectomy and adenoidectomy Family History Mother Hyperlipidemia Hypertension UTI (urinary tract infection), bacterial Social History marital status: number of children: 1 household members: spouse and children lives independently: Yes caregiver/support person: No housing: house (Helping out with mom.) pets and animals: Yes education level: college (2 years of college) occupational status: other (Retired.) Previous occupational history: [employer] sandra/islam: None travel history: recent ([place].) leisure activities: other (Ride horses.) Smoking Status: Never smoker Tobacco: How many years used: 0 quit status: quit date established (Never started.) second hand exposure: No alcohol intake: current substance use type: does not use Smoking Status: Never smoker alcohol intake frequency: a few times a week Substance Use Type: does not use Exam <Melia Little MD - Last Filed: 09/30/23 07:13> Initial Vital Signs Initial Vital Signs: Vital Signs Temperature 97.6 F 09/29/23 13:23 Pulse Rate 71 09/29/23 13:23 Respiratory Rate 18 09/29/23 13:23 Blood Pressure 189/84 H 09/29/23 13:23 Pulse Oximetry 96 09/29/23 13:23 Oxygen Delivery Method Room Air 09/29/23 13:23 Const: Awake, alert, in pain Cardiac: regular rate, regular rhythm RESP: unlabored, clear bilaterally, no wheezing GI: Atraumatic, soft, nontender, nondistended, no rebound, no guarding MSK: Obvious deformity right distal lower extremity, palpable DP pulses, sensation intact and equal bilaterally Skin: Warm, Dry, intact Neuro: AO x3, CN II-XII grossly intact, moves all extremities <Theodore Olivo DO - Last Filed: 09/29/23 20:18> Initial Vital Signs Initial Vital Signs: Vital Signs Temperature 97.6 F 09/29/23 13:23 Pulse Rate 71 09/29/23 13:23 Respiratory Rate 18 09/29/23 13:23 Blood Pressure 189/84 H 09/29/23 13:23 Pulse Oximetry 96 09/29/23 13:23 Oxygen Delivery Method Room Air 09/29/23 13:23 Procedures <Melia Little MD - Last Filed: 09/30/23 07:13> Orthopedic Fracture Reduction Fracture #1: Side: right Fracture Reduction Location: tibia and fibula Analgesia: procedural sedation Technique: direct manipulation Post Reduction X-rays Demonstrate: acceptable reduction Post-reduction neuro exam: intact Post-reduction vascular exam: intact Splint Applied: Yes Patient Tolerated Procedure: Well and No complications Orthopedic Splinting/Casting Injury #1: Side: right Lower Extremity Injury Location: lower leg Lower Extremity Immobilizer: posterior splint and stirrup splint Post splinting neuro exam: intact Post splinting vascular exam: intact Placed by: Provider Procedural Sedation Time of procedure: 15:47 Consent signed: Yes Time out performed: Yes Indication: fracture/dislocation reduction ASA Class: III Mallampati Airway Classification: Class III Time of Last PO Intake: 11:00 Preparation: sifter and miller applied, pulse oximeter, capnometry used, supplemental O2 applied, suction/airway equipment at bedside and IV secured Ketamine: IV Ketamine dose (mg): 100 ED Sedation Level: Moderate (Concious) Patient Tolerated Procedure: Well and No complications Complications: none Course <Melia Little MD - Last Filed: 09/30/23 07:13> Orders Ordered: Discontinued Medications Hydromorphone HCl (Hydromorphone 1 Mg Inj) 1 mg IV NOW ONE Stop: 09/29/23 13:18 Last Admin: 09/29/23 13:28 Dose: 1 mg Documented By: MEL Hydromorphone HCl (Hydromorphone 1 Mg Inj) 1 mg IV NOW ONE Stop: 09/29/23 14:43 Last Admin: 09/29/23 14:46 Dose: 1 mg Documented By: MEL Hydromorphone HCl (Hydromorphone 1 Mg Inj) 1 mg IV Q2HR PRN PRN Reason: Pain, Moderate (4-6) Last Admin: 09/29/23 20:22 Dose: 1 mg Documented By: Admin: 09/29/23 18:29 Dose: 1 mg Documented By: SARA Acetaminophen (Ofirmev) 1,000 mg in 100 mls @ 400 mls/hr IV NOW ONE Stop: 09/29/23 13:29 Last Infusion: 09/29/23 13:52 Dose: Infused Documented By: Admin: 09/29/23 13:28 Dose: 400 mls/hr Documented By: MEL Ketamine HCl (Ketamine 500 Mg/5 Ml Inj) 100 mg 1 mg/kg (100 mg) IV NOW ONE Stop: 09/29/23 15:16 Last Admin: 09/29/23 15:46 Dose: 100 mg Documented By: SARA Lorazepam (Lorazepam 2 Mg/Ml Inj) 2 mg IV NOW ONE Stop: 09/29/23 15:26 Last Admin: 09/29/23 15:43 Dose: 2 mg Documented By: SARA Vital Signs Vital signs: Vital Signs - 8 hr 09/29/23 13:23 09/29/23 15:09 09/29/23 15:09 Temperature 97.6 F Pulse Rate 71 80 Respiratory Rate 18 Blood Pressure 189/84 H 142/67 H Pulse Oximetry 96 94 Oxygen Delivery Method Room Air 09/29/23 15:25 09/29/23 15:30 09/29/23 15:30 Temperature Pulse Rate 81 Respiratory Rate 16 15 Blood Pressure 159/72 H Pulse Oximetry 97 Oxygen Delivery Method Room Air 09/29/23 15:35 09/29/23 15:40 09/29/23 15:45 Temperature Pulse Rate 85 84 90 Respiratory Rate 13 15 13 Blood Pressure Pulse Oximetry 96 95 97 Oxygen Delivery Method 09/29/23 15:50 09/29/23 15:50 09/29/23 15:55 Temperature Pulse Rate 101 H 99 H Respiratory Rate 19 18 Blood Pressure 175/100 H Pulse Oximetry 95 99 Oxygen Delivery Method 09/29/23 15:55 09/29/23 16:00 09/29/23 16:04 Temperature Pulse Rate 98 H Respiratory Rate 27 H Blood Pressure 171/100 H 184/88 H Pulse Oximetry 97 Oxygen Delivery Method 09/29/23 16:04 09/29/23 16:05 09/29/23 16:05 Temperature Pulse Rate 95 H 96 H Respiratory Rate 12 12 Blood Pressure 169/81 H Pulse Oximetry 96 97 Oxygen Delivery Method 09/29/23 16:10 09/29/23 16:11 09/29/23 16:11 Temperature Pulse Rate 93 H 93 H Respiratory Rate 12 12 Blood Pressure 162/80 H Pulse Oximetry 94 94 Oxygen Delivery Method 09/29/23 16:15 09/29/23 16:15 09/29/23 16:27 Temperature Pulse Rate 94 H 91 H Respiratory Rate 13 15 Blood Pressure 137/66 Pulse Oximetry 94 95 Oxygen Delivery Method Room Air 09/29/23 16:27 09/29/23 16:30 09/29/23 16:30 Temperature Pulse Rate 91 H Respiratory Rate 13 Blood Pressure 138/74 131/67 Pulse Oximetry 95 Oxygen Delivery Method 09/29/23 16:35 09/29/23 16:35 09/29/23 16:40 Temperature Pulse Rate 91 H 91 H Respiratory Rate 19 16 Blood Pressure 126/72 Pulse Oximetry 96 93 Oxygen Delivery Method 09/29/23 16:40 09/29/23 16:45 09/29/23 16:45 Temperature Pulse Rate 90 Respiratory Rate 17 Blood Pressure 127/67 134/66 Pulse Oximetry 94 Oxygen Delivery Method 09/29/23 16:50 09/29/23 16:50 09/29/23 16:55 Temperature Pulse Rate 89 90 Respiratory Rate 17 20 Blood Pressure 129/66 Pulse Oximetry 95 94 Oxygen Delivery Method 09/29/23 16:55 09/29/23 17:00 09/29/23 17:00 Temperature Pulse Rate 89 Respiratory Rate 17 Blood Pressure 122/59 L 121/58 L Pulse Oximetry 93 Oxygen Delivery Method Room Air 09/29/23 17:05 09/29/23 17:05 09/29/23 17:10 Temperature Pulse Rate 90 89 Respiratory Rate 15 20 Blood Pressure 122/66 Pulse Oximetry 94 94 Oxygen Delivery Method 09/29/23 17:15 09/29/23 17:20 09/29/23 17:25 Temperature Pulse Rate 90 90 90 Respiratory Rate 22 23 17 Blood Pressure Pulse Oximetry 93 93 Oxygen Delivery Method 09/29/23 17:30 09/29/23 17:30 09/29/23 17:35 Temperature Pulse Rate 90 89 Respiratory Rate 22 22 Blood Pressure 117/56 L Pulse Oximetry 93 92 Oxygen Delivery Method 09/29/23 17:40 09/29/23 17:45 09/29/23 17:50 Temperature Pulse Rate 90 91 H 90 Respiratory Rate 20 22 18 Blood Pressure Pulse Oximetry 92 93 95 Oxygen Delivery Method 09/29/23 17:55 09/29/23 18:00 09/29/23 18:00 Temperature Pulse Rate 86 85 Respiratory Rate 23 22 Blood Pressure 128/77 Pulse Oximetry 94 94 Oxygen Delivery Method Room Air 09/29/23 18:30 09/29/23 18:30 09/29/23 19:00 Temperature Pulse Rate 79 81 Respiratory Rate 17 16 Blood Pressure 130/67 Pulse Oximetry 95 95 Oxygen Delivery Method 09/29/23 19:00 09/29/23 19:30 09/29/23 19:30 Temperature Pulse Rate 78 Respiratory Rate 18 Blood Pressure 133/67 135/73 Pulse Oximetry 92 Oxygen Delivery Method 09/29/23 20:00 09/29/23 20:00 Temperature Pulse Rate 75 Respiratory Rate 20 Blood Pressure 144/66 H Pulse Oximetry 94 Oxygen Delivery Method <Theodore Olivo DO - Last Filed: 09/29/23 20:18> Orders Ordered: Discontinued Medications Hydromorphone HCl (Hydromorphone 1 Mg Inj) 1 mg IV NOW ONE Stop: 09/29/23 13:18 Last Admin: 09/29/23 13:28 Dose: 1 mg Documented By: MEL Hydromorphone HCl (Hydromorphone 1 Mg Inj) 1 mg IV NOW ONE Stop: 09/29/23 14:43 Last Admin: 09/29/23 14:46 Dose: 1 mg Documented By: MEL Hydromorphone HCl (Hydromorphone 1 Mg Inj) 1 mg IV Q2HR PRN PRN Reason: Pain, Moderate (4-6) Last Admin: 09/29/23 20:22 Dose: 1 mg Documented By: Admin: 09/29/23 18:29 Dose: 1 mg Documented By: SARA Acetaminophen (Ofirmev) 1,000 mg in 100 mls @ 400 mls/hr IV NOW ONE Stop: 09/29/23 13:29 Last Infusion: 09/29/23 13:52 Dose: Infused Documented By: Admin: 09/29/23 13:28 Dose: 400 mls/hr Documented By: MEL Ketamine HCl (Ketamine 500 Mg/5 Ml Inj) 100 mg 1 mg/kg (100 mg) IV NOW ONE Stop: 09/29/23 15:16 Last Admin: 09/29/23 15:46 Dose: 100 mg Documented By: SARA Lorazepam (Lorazepam 2 Mg/Ml Inj) 2 mg IV NOW ONE Stop: 09/29/23 15:26 Last Admin: 09/29/23 15:43 Dose: 2 mg Documented By: SARA Vital Signs Vital signs: Vital Signs - 8 hr 09/29/23 13:23 09/29/23 15:09 09/29/23 15:09 Temperature 97.6 F Pulse Rate 71 80 Respiratory Rate 18 Blood Pressure 189/84 H 142/67 H Pulse Oximetry 96 94 Oxygen Delivery Method Room Air 09/29/23 15:25 09/29/23 15:30 09/29/23 15:30 Temperature Pulse Rate 81 Respiratory Rate 16 15 Blood Pressure 159/72 H Pulse Oximetry 97 Oxygen Delivery Method Room Air 09/29/23 15:35 09/29/23 15:40 09/29/23 15:45 Temperature Pulse Rate 85 84 90 Respiratory Rate 13 15 13 Blood Pressure Pulse Oximetry 96 95 97 Oxygen Delivery Method 09/29/23 15:50 09/29/23 15:50 09/29/23 15:55 Temperature Pulse Rate 101 H 99 H Respiratory Rate 19 18 Blood Pressure 175/100 H Pulse Oximetry 95 99 Oxygen Delivery Method 09/29/23 15:55 09/29/23 16:00 09/29/23 16:04 Temperature Pulse Rate 98 H Respiratory Rate 27 H Blood Pressure 171/100 H 184/88 H Pulse Oximetry 97 Oxygen Delivery Method 09/29/23 16:04 09/29/23 16:05 09/29/23 16:05 Temperature Pulse Rate 95 H 96 H Respiratory Rate 12 12 Blood Pressure 169/81 H Pulse Oximetry 96 97 Oxygen Delivery Method 09/29/23 16:10 09/29/23 16:11 09/29/23 16:11 Temperature Pulse Rate 93 H 93 H Respiratory Rate 12 12 Blood Pressure 162/80 H Pulse Oximetry 94 94 Oxygen Delivery Method 09/29/23 16:15 09/29/23 16:15 09/29/23 16:27 Temperature Pulse Rate 94 H 91 H Respiratory Rate 13 15 Blood Pressure 137/66 Pulse Oximetry 94 95 Oxygen Delivery Method Room Air 09/29/23 16:27 09/29/23 16:30 09/29/23 16:30 Temperature Pulse Rate 91 H Respiratory Rate 13 Blood Pressure 138/74 131/67 Pulse Oximetry 95 Oxygen Delivery Method 09/29/23 16:35 09/29/23 16:35 09/29/23 16:40 Temperature Pulse Rate 91 H 91 H Respiratory Rate 19 16 Blood Pressure 126/72 Pulse Oximetry 96 93 Oxygen Delivery Method 09/29/23 16:40 09/29/23 16:45 09/29/23 16:45 Temperature Pulse Rate 90 Respiratory Rate 17 Blood Pressure 127/67 134/66 Pulse Oximetry 94 Oxygen Delivery Method 09/29/23 16:50 09/29/23 16:50 09/29/23 16:55 Temperature Pulse Rate 89 90 Respiratory Rate 17 20 Blood Pressure 129/66 Pulse Oximetry 95 94 Oxygen Delivery Method 09/29/23 16:55 09/29/23 17:00 09/29/23 17:00 Temperature Pulse Rate 89 Respiratory Rate 17 Blood Pressure 122/59 L 121/58 L Pulse Oximetry 93 Oxygen Delivery Method Room Air 09/29/23 17:05 09/29/23 17:05 09/29/23 17:10 Temperature Pulse Rate 90 89 Respiratory Rate 15 20 Blood Pressure 122/66 Pulse Oximetry 94 94 Oxygen Delivery Method 09/29/23 17:15 09/29/23 17:20 09/29/23 17:25 Temperature Pulse Rate 90 90 90 Respiratory Rate 22 23 17 Blood Pressure Pulse Oximetry 93 93 Oxygen Delivery Method 09/29/23 17:30 09/29/23 17:30 09/29/23 17:35 Temperature Pulse Rate 90 89 Respiratory Rate 22 22 Blood Pressure 117/56 L Pulse Oximetry 93 92 Oxygen Delivery Method 09/29/23 17:40 09/29/23 17:45 09/29/23 17:50 Temperature Pulse Rate 90 91 H 90 Respiratory Rate 20 22 18 Blood Pressure Pulse Oximetry 92 93 95 Oxygen Delivery Method 09/29/23 17:55 09/29/23 18:00 09/29/23 18:00 Temperature Pulse Rate 86 85 Respiratory Rate 23 22 Blood Pressure 128/77 Pulse Oximetry 94 94 Oxygen Delivery Method Room Air 09/29/23 18:30 09/29/23 18:30 09/29/23 19:00 Temperature Pulse Rate 79 81 Respiratory Rate 17 16 Blood Pressure 130/67 Pulse Oximetry 95 95 Oxygen Delivery Method 09/29/23 19:00 09/29/23 19:30 09/29/23 19:30 Temperature Pulse Rate 78 Respiratory Rate 18 Blood Pressure 133/67 135/73 Pulse Oximetry 92 Oxygen Delivery Method 09/29/23 20:00 09/29/23 20:00 Temperature Pulse Rate 75 Respiratory Rate 20 Blood Pressure 144/66 H Pulse Oximetry 94 Oxygen Delivery Method MDM - Extremity Injury (Lower) <Melia Little MD - Last Filed: 09/30/23 07:13> Differential Diagnosis Differential diagnosis: Likely ankle sprain and strain, acute internal derangement of knee and fracture of femur Lab Data 09/29/23 15:33 09/29/23 15:33 Labs: Lab Results 09/29/23 Range/Units 15:33 WBC 10.0 (4.5-11.0) X10^3/uL RBC 4.93 (4.0-5.2) X10^6/uL Hgb 15.6 (12.0-16.0) g/dL Hct 46.1 H (36-46) % MCV 93.6 (80-100) fL MCH 31.6 (26-34) PG MCHC 33.8 (30-36) % RDW 14.7 (11.6-14.8) % Plt Count 269 (150-400) X10^3/uL Neut % (Auto) 68.8 (50-75) % Lymph % (Auto) 19.2 L (25-40) % [place] % (Auto) 7.5 (3-14) % Eos % (Auto) 3.9 (2-4) % Baso % (Auto) 0.6 (0-2) % Neut # (Auto) 6900 (3502-6191) /uL Lymph # (Auto) 1900 (0721-3040) /uL [place] # (Auto) 700 (0-900) /uL Eos # (Auto) 400 (0-450) /uL Baso # (Auto) 100 (0-100) /uL PT 11.3 (9.4-12.5) SECONDS INR 1.0 (0.9-1.3) Sodium 135 L (137-145) mmol/L Potassium 4.9 (3.4-5.1) mmol/L Chloride 104 (98-107) mmol/L Carbon Dioxide 20 L (22-32) mmol/L BUN 19 H (7-17) mg/dL Creatinine 0.69 (0.52-1.04) mg/dL Estimated GFR > 60 (>60) mL/min BUN/Creatinine Ratio 27.5 H (6-22) Glucose 97 (80-110) mg/dL Calcium 9.3 (8.4-10.2) mg/dL Total Bilirubin 1.0 (0.2-1.3) mg/dL AST 36 (14-36) IU/L ALT 21 (<35) IU/L Alkaline Phosphatase 52 (38-126) U/L Total Protein 7.5 (6.3-8.2) g/dL Albumin 4.3 (3.5-5.0) g/dL Globulin 3.2 (1.7-4.1) g/dL Albumin/Globulin Ratio 1.3 (1.0-2.8) SARS-CoV-2 (PCR) Negative (Negative) Point of Care Testing Test Results Not applicable MDM Narrative Medical decision making narrative: GLF with obvious deformity to RLE. XR shows closed Tib/fib fracture with displacement. Compartments soft. Orthopedic surgery paged. Dr. Morel reviewed images. Fracture lines appear to extend into joint replacement and beyond capability of our facilities. Requested reduction, CT of lower extremity, and transfer to [facility]. Patient successfully underwent procedural sedation of RLE, placed in posterior long and stirrup splint. Compartments soft pre-and post- procedure, neurovascularly intact. 174 - Patient accepted by orthopedic Dr. Ross for ED-ED transfer. 1749 - Accepted by ED doctor Dr. Dumont for transfer. Dr Olivo: Received turned over. Review patient's history and physical exam and workup up to this point. I did order as needed pain medication. Patient is splinted. She states her pain is relatively well controlled. She remained stable for transport to [facility] Emergency Department. <Theodore Olivo, DO - Last Filed: 09/29/23 20:18> Lab Data Labs: Lab Results 09/29/23 Range/Units 15:33 WBC 10.0 (4.5-11.0) X10^3/uL RBC 4.93 (4.0-5.2) X10^6/uL Hgb 15.6 (12.0-16.0) g/dL Hct 46.1 H (36-46) % MCV 93.6 (80-100) fL MCH 31.6 (26-34) PG MCHC 33.8 (30-36) % RDW 14.7 (11.6-14.8) % Plt Count 269 (150-400) X10^3/uL Neut % (Auto) 68.8 (50-75) % Lymph % (Auto) 19.2 L (25-40) % [place] % (Auto) 7.5 (3-14) % Eos % (Auto) 3.9 (2-4) % Baso % (Auto) 0.6 (0-2) % Neut # (Auto) 6900 (9851-6360) /uL Lymph # (Auto) 1900 ([address]-4995) /uL [place] # (Auto) 700 (0-900) /uL Eos # (Auto) 400 (0-450) /uL Baso # (Auto) 100 (0-100) /uL PT 11.3 (9.4-12.5) SECONDS INR 1.0 (0.9-1.3) Sodium 135 L (137-145) mmol/L Potassium 4.9 (3.4-5.1) mmol/L Chloride 104 (98-107) mmol/L Carbon Dioxide 20 L (22-32) mmol/L BUN 19 H (7-17) mg/dL Creatinine 0.69 (0.52-1.04) mg/dL Estimated GFR > 60 (>60) mL/min BUN/Creatinine Ratio 27.5 H (6-22) Glucose 97 (80-110) mg/dL Calcium 9.3 (8.4-10.2) mg/dL Total Bilirubin 1.0 (0.2-1.3) mg/dL AST 36 (14-36) IU/L ALT 21 (<35) IU/L Alkaline Phosphatase 52 (38-126) U/L Total Protein 7.5 (6.3-8.2) g/dL Albumin 4.3 (3.5-5.0) g/dL Globulin 3.2 (1.7-4.1) g/dL Albumin/Globulin Ratio 1.3 (1.0-2.8) SARS-CoV-2 (PCR) Negative (Negative) Point of Care Testing Test Results Not applicable MDM Narrative Medical decision making narrative: GLF with obvious deformity to RLE. XR shows closed Tib/fib fracture with displacement. Compartments soft. Orthopedic surgery paged. Dr. Morel reviewed images. Fracture lines appear to extend into joint replacement and beyond capability of our facilities. Requested reduction, CT of lower extremity, and transfer to [facility]. Patient successfully underwent procedural sedation of RLE, placed in posterior long and stirrup splint. Compartments soft pre-and post- procedure. 1739 - Patient accepted by orthopedic Dr. Ross for ED-ED transfer. 1749 - Accepted by ED doctor Dr. Dumont for transfer. Dr Olivo: Received turned over. Review patient's history and physical exam and workup up to this point. I did order as needed pain medication. Patient is splinted. She states her pain is relatively well controlled. She remained stable for transport to [facility] Emergency Department. Discharge Plan Departure Patient Disposition: [facility] Clinical Impression: [place] as place of occurrence of external cause, Fall from ground level Closed tibia fracture Qualifiers: Encounter type: initial encounter Tibia location: shaft Fracture morphology: comminuted Fracture alignment: displaced Laterality: right Qualified Code(s): S82.251A - Displaced comminuted fracture of shaft of right tibia, initial encounter for closed fracture Fibula fracture Qualifiers: Encounter type: initial encounter Fibula location: distal Fracture type: closed Laterality: right Prescriptions: No Action carvedilol 6.25 mg tablet 6.25 mg PO BID Qty: 45 0RF Rx Instructions: must administer with a meal/food lisinopril 10 mg tablet 10 mg PO QDAY Qty: 90 1RF Multi Complete with Iron 18-400 mg-mcg Tablet 1 tab PO DAILY estradiol [Yuvafem] 10 mcg tablet 10 mcg vaginal 2XW imipramine HCl 10 mg tablet 10 mg PO TID Qty: 180 3RF Rx Instructions: Take 1 to 4 tablets by mouth every 8-12 hours as directed. Referrals: Korey Gorman MD [Primary Care Provider] -
--- NOTE | 2023-09-29 13:18 | DI.RAD.S_ITS ---
PROCEDURE: XR TIBIA FUBULA RT 2V INDICATIONS: GLF/DEFORMITY TECHNIQUE: 2 views of the tibia and fibula were acquired. COMPARISON: None. FINDINGS: Bones: There is a comminuted fracture in the mid diaphyseal portion of the femur with angulation and displacement. Additionally, a nondisplaced distal diaphyseal fibular fracture is present. Comminuted mildly displaced proximal fibular diaphyseal fracture is present. Fixation hardware is present traversing the distal fibula and tibia as well as tibiotalar arthroplasty. Soft tissues: No suspicious soft tissue calcifications or masses. IMPRESSION: Tibial and fibular comminuted and displaced fractures as above. Dictated by: Gisella Tse M.D. on 09/29/2023 at 13:55 Approved by: Gisella Tse M.D. on 09/29/2023 at 14:00
[2023-09-29] MEDS: ACETAMINOPHEN IV 1,000 MG/100 ML VIAL 400 MG IV (13:28)
[2023-09-29] MEDS: HYDROMORPHONE 1 MG INJ IV ×4 (13:28→20:22)
--- NOTE | 2023-09-29 14:13 | PC.NURSE ---
Noted radiology report reads + femur fx, appears to be in error. Dr. Tse asked to re-look at film via message left w/ primer boxer @ [phone]
--- NOTE | 2023-09-29 15:30 | PM.HP.1 ---
History of Present Illness History of Present Illness Chief complaint: fell, Right lower leg deformity Narrative: 68-year-old female seen in the emergency department today. 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 She sustained a closed tibial shaft fracture. I was consulted for orthopedic evaluation. At the time of my evaluation she was in no acute distress. She did not endorse any sensory abnormalities in her foot. She had pain which was well controlled. She was awake alert and oriented. She had her total ankle done in [address] Gonzalez from the [facility] Medical History Allergic rhinitis, unspecified (05/29/03) Arthritis Colon polyps Dermatitis (06/01/15) Essential hypertension (06/01/15) Granuloma annulare History of adenomatous polyp of colon (03/14/11) Hyperlipidemia (03/14/11) Hyperlipidemia Hypertension Incomplete bladder emptying Latex allergy Mixed stress and urge urinary incontinence Osteoporosis Perimenopausal symptom (01/03/03) Postmenopausal atrophic vaginitis Tinnitus Urge incontinence of urine (11/13/14) Ventricular premature beats (01/07/16) Surgical History Anesthesia Ankle injury Fracture Fracture of pelvis H/O breast biopsy Status post delivery Status post tonsillectomy and adenoidectomy Family History Mother Hyperlipidemia Hypertension UTI (urinary tract infection), bacterial Social History marital status: number of children: 1 household members: spouse and children lives independently: Yes caregiver/support person: No housing: house (Helping out with mom.) pets and animals: Yes education level: college (2 years of college) occupational status: other (Retired.) Previous occupational history: [employer] sandra/voodoo: None travel history: recent ([place].) leisure activities: other (Ride horses.) Smoking Status: Never smoker Tobacco: How many years used: 0 quit status: quit date established (Never started.) second hand exposure: No alcohol intake: current substance use type: does not use Meds Home Medications and Allergies Home Medications Medication Instructions Recorded Confirmed Type multivitamin-ferrous 1 tab PO DAILY 06/23/20 12/01/22 History fumarate-folic acid 18 mg-400 mcg tablet (Multi Complete with Iron) imipramine HCl 10 mg tablet 10 mg PO TID #180 tabs 12/01/22 12/01/22 Rx carvedilol 6.25 mg tablet 6.25 mg PO BID #45 tabs 03/03/23 09/29/23 Rx lisinopril 10 mg tablet 10 mg PO QDAY #90 tabs 05/26/23 09/29/23 Rx estradiol 10 mcg vaginal tablet 10 mcg vaginal 2XW 09/29/23 09/29/23 History (Yuvafem) Allergies Allergy/AdvReac Type Severity Reaction Status Date / Time epoxy resin [EPOXY RESIN] Allergy Unknown Contact Verified 09/29/23 13:52 dermatitis amoxicillin [AMOXICILLIN] AdvReac Intermediate RASH Verified 09/29/23 13:52 nitrile AdvReac Intermediate Contact Verified 09/29/23 13:52 Dermatitis Sulfa (Sulfonamide AdvReac Intermediate RASH Verified 09/29/23 13:52 Antibiotics) [SULFA (SULFONAMIDE ANTIBIOTICS)] cathaters AdvReac Severe contact Uncoded 12/01/22 15:01 dermatitis, infection rubber gloves AdvReac Intermediate Contact Uncoded 12/01/22 15:01 Dermatitis Review of Systems Review of Systems ROS: Yes All systems reviewed with the patient and are negative except as otherwise documented Exam Vital Signs (past 8 hours): - 09/29/23 13:23 Temperature 97.6 F Pulse Rate 71 Respiratory Rate 18 Blood Pressure 189/84 H Pulse Oximetry 96 Oxygen Delivery Method Room Air Oxygen Delivery Method Room Air Narrative Exam Narrative: Obvious deformity in the right lower extremity. Able to actively flex and extend the hallux and ankle. No open wounds. Foot is warm and well perfused. Palpable DP pulse. Tolerates active flexion and extension of the foot and ankle without significant discomfort. Const General: cooperative Orientation: alert and awake HENMT Head: normal to inspection Ears: hearing grossly normal bilaterally Eyes General: appearance normal, both eyes and all related structures Neck Neck: normal visual inspection Resp Effort & Inspection: normal respiratory effort and able to speak in complete sentences Cardio Pulses: other (peripheral pulses present) Skin Lesions: no lesions Rashes: no rashes Neuro General: patient alert, patient awake and moves all extremities Psych Appearance: grossly normal Objective Imaging Right lower extremity: My impression: Spiral fracture of the tibial shaft which extends down distally near a prior total ankle arthroplasty. The total ankle arthroplasty involves fixation extending into the calcaneus and syndesmotic screws with a synostosis across the syndesmosis. The spiral component of the tibial shaft fracture appears to extend past the screws at least based on preliminary imaging Assessment & Plan Assessment and plan (1) Right tibial fracture: Status: Acute Plan I evaluated the patient personally in the emergency department today. From an acute management perspective she does not have compartment syndrome. The emergency department is working on plans to closed reduced and splint her. With regards to definitive management, the typical management of this issue would be a tibial nail. Given her prior total ankle arthroplasty however this would be challenging as there would be interference from her syndesmotic fixation. Plate fixation would be an additional option however hardware prominence and soft tissue tension for a tibial shaft plate can be challenging. Removal of the syndesmotic fixation to allow the tibial nail to pass would also be an option. Overall, given the complexity introduced by her prior total ankle arthroplasty, my recommendation would be for transferred to [facility] for management by the trauma service there.
[2023-09-29 15:39] LABS: Add Manual Diff / Slide Review NO; Basophils Absolute Auto 100 /uL (0-100); Basophils Percent Auto 0.6 % (0-2); Eosinophils Absolute Auto 400 /uL (0-450); Eosinophils Percent Auto 3.9 % (2-4); Hematocrit 46.1 % (36-46); Hemoglobin 15.6 g/dL (12.0-16.0); Lymphocytes Absolute Auto 1900 /uL (1100-4500); Lymphocytes Percent Auto 19.2 % (25-40); Mean Corpuscular HGB Conc 33.8 % (30-36); Mean Corpuscular Hemoglobin 31.6 PG (26-34); Mean Corpuscular Volume 93.6 fL (80-100); Monocytes Absolute Auto 700 /uL (0-900); Monocytes Percent Auto 7.5 % (3-14); Neutrophils Absolute Auto 6900 /uL (1500-7000); Neutrophils Percent Auto 68.8 % (50-75); Platelet Count 269 X10^3/uL (150-400); Red Blood Cell Count 4.93 X10^6/uL (4.0-5.2); Red Cell Distribution Width 14.7 % (11.6-14.8)
[2023-09-29] MEDS: LORazepam 2 MG/ML INJ IV (15:43)
[2023-09-29] MEDS: KETAMINE 500 MG/5 ML INJ 100 MG IV (15:46)
[2023-09-29 15:47] LABS: Prothrombin Time 11.3 SECONDS (9.4-12.5)
--- NOTE | 2023-09-29 15:50 | DI.RAD.S_ITS ---
PROCEDURE: XR TIBIA FUBULA RT 2V INDICATIONS: post reduction TECHNIQUE: 2 views of the tibia and fibula were acquired. COMPARISON: [facility], CR, XR TIBIA FIBULA RT 2V, 09/29/2023, 13:30. FINDINGS: Bones: No previously un identified fractures or dislocations. No suspicious bony lesions. There has been significant improvement in the malalignment at the comminuted midshaft tibial fracture and also the upper diaphyseal fracture at the fibula. Soft tissues: No suspicious soft tissue calcifications or masses. IMPRESSION: Much improved fracture malalignment at the right tibia and fibula as discussed. CT follow-up is anticipated. Dictated by: Hakeem Rodriguez M.D. on 09/29/2023 at 16:37 Approved by: Hakeem Rodriguez M.D. on 09/29/2023 at 16:39
[2023-09-29 15:52] LABS: Alanine Aminotransferase 21 IU/L (<35); Albumin 4.3 g/dL (3.5-5.0); Albumin Globulin Ratio 1.3 (1.0-2.8); Alkaline Phosphatase 52 U/L (38-126); Aspartate Aminotransferase 36 IU/L (14-36); BUN Creatinine Ratio 27.5 (6-22); Blood Urea Nitrogen 19 mg/dL (7-17); Calcium 9.3 mg/dL (8.4-10.2); Carbon Dioxide 20 mmol/L (22-32); Chloride 104 mmol/L (98-107); Estimated Glomerular Filt Rate > 60 mL/min (>60); Globulin 3.2 g/dL (1.7-4.1); Glucose 97 mg/dL (80-110); Potassium 4.9 mmol/L (3.4-5.1); Sodium 135 mmol/L (137-145); Total Protein 7.5 g/dL (6.3-8.2)
[2023-09-29 15:53] LABS: COVID19 -Nasal RAPID Negative (Negative); HEMOLYSIS 142 (0-50)
--- NOTE | 2023-09-29 16:03 | DI.CT.S_ITS ---
PROCEDURE: CT LE RT WO CON INDICATIONS: FRACTURE EVALUATION TECHNIQUE: Noncontrast 3-mm axial sections acquired from the distal tibial shaft to the talar dome, with coronal and sagittal reformats.. COMPARISON: [facility], CR, XR TIBIA FIBULA RT 2V, 09/29/2023, 13:30. FINDINGS: Image quality: Excellent. Bones: As seen on earlier lower leg radiograph, acute comminuted oblique fracture through mid shaft of right tibia is seen with fracture line extending to distal tibial shaft just above the ankle joint with anterior and medial displacement of distal tibial shaft at fracture site. There is also and acute oblique fracture through proximal fibular shaft with anterior and lateral displacement at fracture site. Prior tibiotalar joint arthroplasty and internal fixation of distal tibial fibular syndesmosis is seen with surgical hardware in place and significant beam hardening artifacts. No gross hardware loosening or failure. No other fracture or dislocation. No suspicious bony lesions. Soft tissues: There is no significant joint effusion. No calcified intra-articular loose bodies. Significant soft tissue swelling and edema surrounding proximal fibular shaft fracture site and mid to distal tibial shaft fracture site is seen. No abnormal soft tissue calcifications. No gross full-thickness tendon or muscle rupture. IMPRESSION: 1. Acute comminuted, slightly displaced fracture involving right mid to distal tibial shaft as described above. 2. Acute comminuted and slightly displaced fracture involving right proximal fibular shaft as above. 3. Prior tibiotalar joint arthroplasty and subtalar fusion with surgical hardware in place. There is also fixation of distal tibial fibular syndesmosis. No gross hardware loosening or failure. 4. No other fracture or dislocation. Right knee joint osteoarthritis. 5. Soft tissue edema and swelling surrounding fibular and tibial fracture sites. No abnormal soft tissue calcifications. Dictated by: Arturo Meraz M.D. on 09/29/2023 at 17:07 Approved by: Arturo Meraz M.D. on 09/29/2023 at 17:11
--- NOTE | 2023-09-29 18:34 | PC.NURSE ---
able to wiggle her right toes. good cap. refill
--- NOTE | 2023-09-29 18:43 | PC.NURSE ---
going to [facility]. complicated prior ankle surgery
--- NOTE | 2023-09-29 19:11 | PC.NURSE ---
pt ate some yogurt and jeanie crackers. drank some water and a few sips of gingerale. started to feel nauseated. declined any nausea medication at this time.
--- NOTE | 2023-09-29 19:25 | PC.NURSE ---
pure wick catheter placed earlier without incident. tolerating well.
== END 2023-09-29 20:38 | disposition short-term general hospital (02) ==
PROVIDERS: Emergency Medicine; Emergency Provider Emergency Medicine; PCP Internal Medicine
DX: S82.251A Displaced comminuted fracture of shaft of right tibia, initial encounter for closed fracture (principal); S82.401A Unspecified fracture of shaft of right fibula, initial encounter for closed fracture; W01.0XXA Fall on same level from slipping, tripping and stumbling without subsequent striking against object, initial encounter; Y92.71 Barn as the place of occurrence of the external cause
CPT/HCPCS: 27752; 36415; 73590; 73700; 80053; 85025; 85610; 87635; 96365; 96375; 96376; 99152; 99285; J0136; J1170; J2060

== ENCOUNTER 2024-03-05 09:45 | Outpatient (RCR) | payer OTHER, SELFPAY ==
--- NOTE | 2023-11-08 15:45 | PT.OIE ---
Current Diagnoses Displaced bicondylar fracture of right tibia, subsequent encounter for closed fracture with routine healing (11/08/23) Unspecified fracture of shaft of unspecified tibia, initial encounter for closed fracture (11/08/23) Unspecified fracture of shaft of right fibula, subsequent encounter for closed fracture with routine healing (11/08/23) Unspecified fracture of shaft of unspecified fibula, initial encounter for closed fracture (11/08/23) Past Medical History (Last Updated 11/06/23 @ 10:38 by Korey Gorman MD) Allergic rhinitis, unspecified (05/29/03) Arthritis Colon polyps Dermatitis (06/01/15) Essential hypertension (06/01/15) Granuloma annulare History of adenomatous polyp of colon (03/14/11) Hyperlipidemia (03/14/11) Hyperlipidemia Hypertension Incomplete bladder emptying Latex allergy Mixed stress and urge urinary incontinence Osteoporosis Perimenopausal symptom (01/03/03) Postmenopausal atrophic vaginitis Right tibial fracture Tinnitus Urge incontinence of urine (11/13/14) Ventricular premature beats (01/07/16) Past Surgical History (Last Reviewed 09/29/23 @ 17:29 by Melia Little MD) Anesthesia Ankle injury Fracture Fracture of pelvis H/O breast biopsy Status post delivery Status post tonsillectomy and adenoidectomy Visit Care Team Role Provider Type Korey Gorman MD Attending Provider Physician Family Provider Primary Care Provider Referring Provider Specialty: Internal Medicine Address: [address] [place] [address], [address], [facility] Email: [email or web address] Physical Therapy Initial Evaluation PT-OP-A Visit Information Start: 11/08/23 07:24 Freq: Status: Active Protocol: Document 11/08/23 08:15 NM (Rec: 11/08/23 09:38 NM [id number]) Out-Patient Physical Therapy Visit Information Visit Information Visit Type Initial Evaluation Visit Start Time 08:15 Visit Stop Time 09:00 Visit Number 1 Evaluation Information Evaluation Date 11/08/23 Precautions Precautions frequent fractures NWB until 11/10/23 PT-OP-B Current Condition Start: 11/08/23 07:24 Freq: Status: Active Protocol: Document 11/08/23 08:15 NM (Rec: 11/08/23 09:38 NM [id number]) Current Condition History of Current Condition Onset Date 09/30/23 History of Current Condition Pt presents s/p R ORIF following tibia and fibula fractures. Pt injured on her leg when turning, slipped and had ground level fall in her horse stall. She has been NWB for 6 weeks (until Monday, ). Hx provided by pt and , [facility]. Pt has been performing the HEP provided by hospital since discharge but reports that exercises cause her RLE discomfort and occasionally pain. She has been using a manual w/c for mobility since discharge from hospital. She has follow up with surgeon tomorrow, 11/08, and will have 6 week radiographs; reports that surgeon cleared for flat foot WB for transfers only at 3 week post op follow up. She has a previous R ankle replacement in 2010 along with PMH of R pelvis fracture, L sciatica. She would occasionally use a spc when her ankle flared up, usually walking about 2 blocks-1 mile. No stairs at her home, only at the horse barn. She has vacation planned 11/21-12/03 and will not be able to attend. Prior Functional Status Baseline Function- ADL's Independent Baseline Function- Mobility Independent Baseline Function- Gait 2 blocks to 1 mile, prn spc use Baseline Function- Work/School retired Baseline Function- Recreation/Hobbies horse back riding, swimming 2x /wk Current Functional Impairments (Reported) Functional Limitations- ADL's dressing Functional Limitations- Mobility/Gait w/c for mobility; sleeps in lift chair PT-OP-C Subjective Start: 11/08/23 07:24 Freq: Status: Active Protocol: Document 11/08/23 08:15 NM (Rec: 11/08/23 09:38 NM [id number]) OP-PT Subjective Patient Comments Patient Comments see hx above for pt report Patient Questionnaires Lower Extremity Functional Scale LEFS Score 15/80 OP-PT Pain Assessment Location R leg Pain Location Details anterior ankle and villa Intensity 0 Scale Used Numeric (0 - 10) Description Aching,Pressure,Sharp,Stabbing Description- Other 7; sharp/stabbing at break site occasionally Frequency Frequent Pain Duration 5 minutes Pain Aggravating Factors Position,Activity,Exercise Other Pain Aggravating Factors depedent Pain Alleviating Factors Cold,Elevation PT-OP-F Manual Assessment Start: 11/08/23 07:24 Freq: Status: Active Protocol: Document 11/08/23 08:15 NM (Rec: 11/08/23 09:38 NM [id number]) Manual Assessments Soft Tissue Assessment Soft Tissue Mobility Assessment Increased hamstring, hip flexor, heel cord, and hip abductor tightness Joint Mobility Assessment Joint Mobility Assessment Decreased R knee and ankle PROM and AROM. R ankle limited at talocrural joint due to previous fusion PT-OP-G Mobility & Gait Start: 11/08/23 07:24 Freq: Status: Active Protocol: Document 11/08/23 08:15 NM (Rec: 11/08/23 09:38 NM [id number]) OP Mobility Evaluation Bed Mobility Rolling Independent Supine to and from Sit Independent Transfers Sit to Stand w/c <> plinth partial WB with flat foot, stand several steps to sit OP Gait Assessment Comments Gait Comments NWB at this time, did not formally assess gait until pt cleared for WB PT-OP-H Neuro Start: 11/08/23 07:24 Freq: Status: Active Protocol: Document 11/08/23 08:15 NM (Rec: 11/08/23 09:38 NM [id number]) Sensation Evaluation Comments Summary Comments Numbness reported along anterior and sides of RLE post op. PT-OP-J Posture/Palpation/Skin Start: 11/08/23 07:24 Freq: Status: Active Protocol: Document 11/08/23 08:15 NM (Rec: 11/08/23 09:38 NM [id number]) Posture Evaluation Position Sitting Head/C-Spine Posture Forward Head T-Spine Posture Increased Kyphosis L-Spine Posture Increased Lordosis Scapula Posture (L) Protracted,(R) Protracted Arm Posture (L) Internally Rotated,(R) Internally Rotated Pelvis Posture Anteriorly Tilted Hip Posture (L) Externally Rotated,(R) Externally Rotated Knee Posture (L) Genu Valgus,(R) Genu Valgus Patellar Posture (L) Superior,(R) Superior,(R) Laterally Tilted Ankle/Foot Posture (L) Pronated,(R) Pronated Foot Arch (L) Low Arch,(R) Low Arch Palpation Assessment Location RLE Palpation Location knee, ankle Palpation Findings Edema,Soft Tissue Tightness, Tenderness Palpation Details Edema around B malleoli, knee. Tenderness in posterior calf and popliteal fossa. No increased redness except with dependency. Tenderness along medial and lateral knee, calf, ankles. Skin Assessment Circumference Measurement R ankle Location figure 8 Measurement (Centimeters) 53 Comments comparision L 50 cm R knee Location patellar Measurement (Centimeters) 48 Incisional Assessment Incision Appearance/Comments Multiple incision clean, dry, intact. No signs of infection. Decreased scar tissue mobility, particularly at R ankle due to increased swelling Other Assessments Skin Assessment Comments RLE slightly warmer than LLE. Rubor with dependency. Most edema at R malleoli PT-OP-K Range of Motion Start: 11/08/23 07:24 Freq: Status: Active Protocol: Document 11/08/23 08:15 NM (Rec: 11/08/23 09:38 NM [id number]) Hip Goniometric Range of Motion Hip Right Flexion w/Knee Flexed 100 Extension 5 Abduction 20 Internal Rotation 25 External Rotation 22 Left Flexion w/Knee Flexed 110 Extension 8 Abduction 15 Internal Rotation 35 External Rotation 32 Knee Goniometric Range of Motion Knee Right Flexion Active (degrees) 105 Extension Active (degrees) 5 Comments anterior and lateral knee pain with flexion AROM Left Flexion Active (degrees) 128 Extension Active (degrees) 0 Hyper-Extension Active 3 Ankle and Foot Goniometric Range of Motion Ankle and Foot Right Dorsiflexion with Knee Flexed 3 Plantarflexion 20 Inversion 3 Eversion 3 Left Dorsiflexion with Knee Flexed 12 Plantarflexion 35 Inversion 25 Eversion 15 PT-OP-M Strength Start: 11/08/23 07:24 Freq: Status: Active Protocol: Document 11/08/23 08:15 NM (Rec: 11/08/23 09:38 NM [id number]) Hip Strength Hip Manual Muscle Testing Right Flexion (L2) 4- Good- Extension (S1) 3+ Fair+ Abduction 3+ Fair+ Adduction 4- Good- External Rotation 3 Fair Internal Rotation 3 Fair Left Flexion (L2) 4+ Good+ Extension (S1) 4 Good Abduction 4 Good Adduction 4+ Good+ External Rotation 4+ Good+ Internal Rotation 4+ Good+ Knee Strength Knee Manual Muscle Testing Right Flexion (S2) 3 Fair Extension (L3) 3 Fair Comments AROM against gravity only, did not provide resistance due to NWB precautions Left Flexion (S2) 4+ Good+ Extension (L3) 4+ Good+ Ankle/Foot Strength Ankle and Foot Manual Muscle Testing Right Dorsiflexion (L4) 3 Fair Plantarflexion (S1) 3 Fair Inversion 3 Fair Eversion (S1) 3 Fair Comments AROM against gravity only, did not provide resistance due to NWB precautions. Minimal AROM due to previous fusion Left Dorsiflexion (L4) 4+ Good+ Plantarflexion (S1) 4+ Good+ Inversion 4+ Good+ Eversion (S1) 4+ Good+ PT-OP-Q Treatments Start: 11/08/23 07:24 Freq: Status: Active Protocol: Document 11/08/23 08:15 NM (Rec: 11/08/23 09:38 NM [id number]) Therapeutic Exercises Supine Exercises bridge Supine Exercise Name R foot flat but stabilized on towel roll Side bilateral Resistance AROM Reps/Minutes 1x10 with 2 hold at end range Comments pain free but challenging quad set Side right Equipment Used towel roll flat under leg, simultaneous with LLE Reps/Minutes 1x10 with 5 hold Comments to limit glute, cued to flatten posterior knee on towel; pain free Sidelying Exercises clams Side right Resistance AROM Reps/Minutes 2x8 with brief hold Comments pain free Other Exercises soft tissue mobilization Other Exercise Name hamstring, quad Side right Equipment Used rolling pin and fingers Reps/Minutes 2 min Comments education on soft tissue mobilization to lengthen muscles PT-OP-T Assessment and Plan Start: 11/08/23 07:24 Freq: Status: Active Protocol: Document 11/08/23 08:15 NM (Rec: 11/08/23 09:38 NM [id number]) Physical Therapy Assessment Rehab Potential Rehabilitation Potential Good Evaluation Complexity Number of Personal Factors/Comorbidities 1-2 Number of Body Systems Impaired 1-2 Clinical Presentation at Evaluation Stable Impairments Impairments Activity Tolerance,Balance, Coordination,Edema,Functional Activities,Functional Mobility ,Gait,Integument,Pain,Posture, ROM,Sensation,Soft Tissue Mobility,Strength,Transfers Goals Seven Impairment strength Impairment R ankle strength 3/5 MMT Short Term Goal (STG) Pt will increase R ankle strength globally to at least 4-/5 MMT in order to demonstrate improved strength for weight bearing and gait STG Duration 5 weeks Material Expediter Goal (LTG) Pt will increase R ankle strength globally to at least 4/5 MMT in order to demonstrate improved strength for weight bearing and gait LTG Duration 10 weeks Six Impairment strength Impairment R knee strength 3/5 MMT Short Term Goal (STG) Pt will increase R knee flexion and extension strength to at least 4-/5 MMT in order to demonstrate improved strength for weight bearing and gait STG Duration 5 weeks Material Expediter Goal (LTG) Pt will increase R knee flexion and extension strength to at least 4/5 MMT in order to demonstrate improved strength for weight bearing and gait LTG Duration 10 weeks Five Impairment function Impairment unable to perform squats Short Term Goal (STG) Pt will be able to perform at least 5 bilateral squats with pain <5/10 and without compensation in order to demonstrate improved weight bearing and BLE strength STG Duration 5 weeks Material Expediter Goal (LTG) Pt will be able to perform at least 10 bilateral squats with pain <5/10 and without compensation in order to demonstrate improved weight bearing and BLE strength LTG Duration 10 weeks Four Impairment mobility Impairment NWB, unable to ambulate Short Term Goal (STG) Pt will be able to ambulate at least 500 ft using LRAD with pain <5/10 in order to demonstrate improved activity tolerance and BLE strength STG Duration 5 weeks Alf Goal (LTG) Pt will be able to ambulate community distances using LRAD with pain <2/10 in order to demonstrate improved activity tolerance and BLE strength LTG Duration 10 weeks Three Impairment AROM Impairment R knee extension AROM 3 deg Alf Goal (LTG) Pt will improve R knee extension to at least 0 deg in order to achieve terminal knee extension during gait LTG Duration 10 weeks Two Impairment AROM Impairment R knee flexion 105 deg Short Term Goal (STG) Pt will increase R knee flexion to at least 115 deg for improved knee flexion during swing phase of gait and stairs STG Duration 5 weeks Material Expediter Goal (LTG) Pt will increase R knee flexion to at least 125 deg for improved knee flexion during swing phase of gait and stairs LTG Duration 10 weeks One Impairment LEFS Impairment 15/80 Short Term Goal (STG) Pt will increase LEFS score by at least 9 points (1 MCID) in order to demonstrate improved pain management and activity tolerance STG Duration 5 weeks Alf Goal (LTG) Pt will increase LEFS score to at least 50/80 in order to demonstrate improved pain management and activity tolerance LTG Duration 10 weeks Assessment Summary Assessment Pt is a 68 y.o. female presenting to clinic s/p R tibia and fibula ORIF after a ground level fall in September 2023. She is currently 5.5 weeks post op and is NWB except during transfers when she is allowed flat footed partial weight bearing. Pt is currently using a manual w/c for mobility, and she occasionally used a spc prior to surgery due to R ankle pain related to previous R tibiotalar joint arthoplasty and subtalar fusion in 2010. Pt's R knee and ankle AROM are limited; strength not formally tested due to weight bearing precautions but pt able to move against gravity within available range. Pt's R hip AROM and strength are more limited compared to LLE, particularly with abduction and extension. She continues to have edema along R knee and ankle, which is concentrated near R malleoli. Incisions are intact, but will require scar mobilization to prevent adhesions. PT discussed exam findings, POC, and issued initial HEP to pt; pt verbalizes agreement. Pt would benefit from skilled PT for RLE mobilization and strengthening, in addition to gait and balance training in order to improve activity tolerance, restore gait and normal body mechanics, and improve QOL. Physical Therapy Plan Frequency and Duration Frequency of Treatment 1-2x/wk Duration of treatment (weeks) 10 Plan of Care Start Date 11/08/23 Plan of Care End Date 01/19/24 Therapeutic Interventions Therapeutic Interventions Balance Training,Coordination Training,Gait Training,Home Exercise Program,Joint Mobilizations,Manual Therapy, Neuromuscular Re-education, Orthotic/Prosthetic Management ,Patient/Caregiver Education, Self-Care/Home Management, Sensory Integration,Soft Tissue Mobilization,Taping, Therapeutic Activities, Therapeutic Exercises Modalities Biofeedback,Cold Pack/Ice Massage,Electric Stimulation, Hot Packs,Ultrasound, Vasopneumatic Devices Next Visit Focus/Plan Next Note Type Treatment Note Next Visit Plan seated knee flexion, SAQ, SLR if able, LAQ, STM to scars and thigh, patellar mobilizations Initiate WB per progression once provided by physician ice massage
--- NOTE | 2023-11-10 12:52 | PT.OTN ---
Current Diagnoses Weakness (11/10/23) Displaced bicondylar fracture of right tibia, subsequent encounter for closed fracture with routine healing (11/10/23) Unspecified fracture of shaft of unspecified tibia, initial encounter for closed fracture (11/10/23) Unspecified fracture of shaft of right fibula, subsequent encounter for closed fracture with routine healing (11/10/23) Unspecified fracture of shaft of unspecified fibula, initial encounter for closed fracture (11/10/23) Physical Therapy Treatment Note PT-OP-A Visit Information Start: 11/08/23 07:24 Freq: Status: Active Protocol: Document 11/10/23 11:18 NM (Rec: 11/10/23 12:24 NM [id number]) Out-Patient Physical Therapy Visit Information Visit Information Visit Type Treatment Note Visit Note 15 visits Visit Start Time 11:18 Visit Stop Time 12:00 Visit Number 2 Evaluation Information Evaluation Date 11/08/23 Precautions Precautions frequent fractures WBAT now PT-OP-B Current Condition Start: 11/08/23 07:24 Freq: Status: Active Protocol: Document 11/08/23 08:15 NM (Rec: 11/08/23 09:38 NM [id number]) Current Condition History of Current Condition Onset Date 09/30/23 History of Current Condition Pt presents s/p R ORIF following tibia and fibula fractures. Pt injured on her leg when turning, slipped and had ground level fall in her horse stall. She has been NWB for 6 weeks (until Monday, ). Hx provided by pt and , [facility]. Pt has been performing the HEP provided by hospital since discharge but reports that exercises cause her RLE discomfort and occasionally pain. She has been using a manual w/c for mobility since discharge from hospital. She has follow up with surgeon tomorrow, 11/08, and will have 6 week radiographs; reports that surgeon cleared for flat foot WB for transfers only at 3 week post op follow up. She has a previous R ankle replacement in 2010 along with PMH of R pelvis fracture, L sciatica. She would occasionally use a spc when her ankle flared up, usually walking about 2 blocks-1 mile. No stairs at her home, only at the horse barn. She has vacation planned 11/21-12/03 and will not be able to attend. Prior Functional Status Baseline Function- ADL's Independent Baseline Function- Mobility Independent Baseline Function- Gait 2 blocks to 1 mile, prn spc use Baseline Function- Work/School retired Baseline Function- Recreation/Hobbies horse back riding, swimming 2x /wk Current Functional Impairments (Reported) Functional Limitations- ADL's dressing Functional Limitations- Mobility/Gait w/c for mobility; sleeps in lift chair PT-OP-C Subjective Start: 11/08/23 07:24 Freq: Status: Active Protocol: Document 11/10/23 11:18 NM (Rec: 11/10/23 12:24 NM [id number]) OP-PT Subjective Patient Comments Patient Comments Pt reports 2/10 ankle, 3/10 posterior knee. Went to surgeon yesterday. Brought standard walker. Reports healing well, brought protocol . Now WBAT PT-OP-F Manual Assessment Start: 11/08/23 07:24 Freq: Status: Active Protocol: Document 11/08/23 08:15 NM (Rec: 11/08/23 09:38 NM [id number]) Manual Assessments Soft Tissue Assessment Soft Tissue Mobility Assessment Increased hamstring, hip flexor, heel cord, and hip abductor tightness Joint Mobility Assessment Joint Mobility Assessment Decreased R knee and ankle PROM and AROM. R ankle limited at talocrural joint due to previous fusion PT-OP-G Mobility & Gait Start: 11/08/23 07:24 Freq: Status: Active Protocol: Document 11/08/23 08:15 NM (Rec: 11/08/23 09:38 NM [id number]) OP Mobility Evaluation Bed Mobility Rolling Independent Supine to and from Sit Independent Transfers Sit to Stand w/c <> plinth partial WB with flat foot, stand several steps to sit OP Gait Assessment Comments Gait Comments NWB at this time, did not formally assess gait until pt cleared for WB PT-OP-H Neuro Start: 11/08/23 07:24 Freq: Status: Active Protocol: Document 11/08/23 08:15 NM (Rec: 11/08/23 09:38 NM [id number]) Sensation Evaluation Comments Summary Comments Numbness reported along anterior and sides of RLE post op. PT-OP-J Posture/Palpation/Skin Start: 11/08/23 07:24 Freq: Status: Active Protocol: Document 11/08/23 08:15 NM (Rec: 11/08/23 09:38 NM [id number]) Posture Evaluation Position Sitting Head/C-Spine Posture Forward Head T-Spine Posture Increased Kyphosis L-Spine Posture Increased Lordosis Scapula Posture (L) Protracted,(R) Protracted Arm Posture (L) Internally Rotated,(R) Internally Rotated Pelvis Posture Anteriorly Tilted Hip Posture (L) Externally Rotated,(R) Externally Rotated Knee Posture (L) Genu Valgus,(R) Genu Valgus Patellar Posture (L) Superior,(R) Superior,(R) Laterally Tilted Ankle/Foot Posture (L) Pronated,(R) Pronated Foot Arch (L) Low Arch,(R) Low Arch Palpation Assessment Location RLE Palpation Location knee, ankle Palpation Findings Edema,Soft Tissue Tightness, Tenderness Palpation Details Edema around B malleoli, knee. Tenderness in posterior calf and popliteal fossa. No increased redness except with dependency. Tenderness along medial and lateral knee, calf, ankles. Skin Assessment Circumference Measurement R ankle Location figure 8 Measurement (Centimeters) 53 Comments comparision L 50 cm R knee Location patellar Measurement (Centimeters) 48 Incisional Assessment Incision Appearance/Comments Multiple incision clean, dry, intact. No signs of infection. Decreased scar tissue mobility, particularly at R ankle due to increased swelling Other Assessments Skin Assessment Comments RLE slightly warmer than LLE. Rubor with dependency. Most edema at R malleoli PT-OP-K Range of Motion Start: 11/08/23 07:24 Freq: Status: Active Protocol: Document 11/08/23 08:15 NM (Rec: 11/08/23 09:38 NM [id number]) Hip Goniometric Range of Motion Hip Right Flexion w/Knee Flexed 100 Extension 5 Abduction 20 Internal Rotation 25 External Rotation 22 Left Flexion w/Knee Flexed 110 Extension 8 Abduction 15 Internal Rotation 35 External Rotation 32 Knee Goniometric Range of Motion Knee Right Flexion Active (degrees) 105 Extension Active (degrees) 5 Comments anterior and lateral knee pain with flexion AROM Left Flexion Active (degrees) 128 Extension Active (degrees) 0 Hyper-Extension Active 3 Ankle and Foot Goniometric Range of Motion Ankle and Foot Right Dorsiflexion with Knee Flexed 3 Plantarflexion 20 Inversion 3 Eversion 3 Left Dorsiflexion with Knee Flexed 12 Plantarflexion 35 Inversion 25 Eversion 15 PT-OP-M Strength Start: 11/08/23 07:24 Freq: Status: Active Protocol: Document 11/08/23 08:15 NM (Rec: 11/08/23 09:38 NM [id number]) Hip Strength Hip Manual Muscle Testing Right Flexion (L2) 4- Good- Extension (S1) 3+ Fair+ Abduction 3+ Fair+ Adduction 4- Good- External Rotation 3 Fair Internal Rotation 3 Fair Left Flexion (L2) 4+ Good+ Extension (S1) 4 Good Abduction 4 Good Adduction 4+ Good+ External Rotation 4+ Good+ Internal Rotation 4+ Good+ Knee Strength Knee Manual Muscle Testing Right Flexion (S2) 3 Fair Extension (L3) 3 Fair Comments AROM against gravity only, did not provide resistance due to NWB precautions Left Flexion (S2) 4+ Good+ Extension (L3) 4+ Good+ Ankle/Foot Strength Ankle and Foot Manual Muscle Testing Right Dorsiflexion (L4) 3 Fair Plantarflexion (S1) 3 Fair Inversion 3 Fair Eversion (S1) 3 Fair Comments AROM against gravity only, did not provide resistance due to NWB precautions. Minimal AROM due to previous fusion Left Dorsiflexion (L4) 4+ Good+ Plantarflexion (S1) 4+ Good+ Inversion 4+ Good+ Eversion (S1) 4+ Good+ PT-OP-Q Treatments Start: 11/08/23 07:24 Freq: Status: Active Protocol: Document 11/10/23 11:18 NM (Rec: 11/10/23 12:24 NM [id number]) Therapeutic Activity Therapeutic Activity Sit to stand Name to std walker Reps/Minutes 1x5 w/ B hand support, 1x5 w/ 1 hand support walker, 1x5 w/o hand support Comments Requires increased time, cuing initially for form. Pt with RLE slightly in front of LLE for pain reduction, then moving to equal WB once in standing. Cued for scooting to EOC then anterior weight shift and eccentric lowering. Pt able to perform from plinth and mesh chair, even without hand use but demos more stability with at least 1 hand support on walker Transfers Name to/from plinth, chair Reps/Minutes 1x5, multiple reps throughout session Comments Using both FWW and standard walker. Pt with RLE slightly in front of LLE for pain reduction. Cued for reaching back to chair with hand, feeling chair behind before reaching. Gait Training Gait Activity Side stepping Description for bathroom access at home Device Used standard walker Level of Assistance CGA Surface stable Distance/Duration 3x8 ft Treatment Focus walker management, gait pattern/coordination, WBAT Comments Pt has to use side steps in bathroom for access due to narrow doors and cabinets. Pt performing side steps with standard walker, plinth behind pt for support prn. Cue for walker placement, coordination of stepping/walker movement Standard Walker Device Used standard walker Level of Assistance CGA Surface stable Distance/Duration 2x50 ft Treatment Focus WBAT, 3 pt gait pattern, posture, foot clearance Comments Pt with slow gait pattern, now WBAT using std walker (pt owns) with 3pt gait pattern. CGA to steady with cueing for walker management with gait pattern, foot placement. Demos slightly flexed posture, cued for upright positioning, relaxed shoulders, L foot slight past RLE with gait. Antalgic Weight shifts Description M/L, A/P staggered Level of Assistance CGA Surface stable Treatment Focus pre gait WB assessment, WBAT Comments Using std walker, pt performing standing weight shifts medial-lateral and anterior-posterior with BUE support on walker. Cued for upright posture, gentle weight shift over RLE Self-Care/Home Management Treatment Education Patient Education Body Mechanics,Fall Risk,Home Exercise Program,Joint Protection,Pain Management, Posture,Safety Other Education 8 minutes: Educated on safety in home to reduce fall risk: remove throw rugs, have light, remove barrier/obstacles. Educated on modalities and elevation for pain relief as weight bearing increases, frequent breaks and chair placement around home for walking breaks. Educated pt on slowly increasing walking and standing frequency for strength and balance with nearby for safety. Educated to continue with HEP but reduce sets as needed depending on pain levels and level of activity for day PT-OP-T Assessment and Plan Start: 11/08/23 07:24 Freq: Status: Active Protocol: Document 11/10/23 11:18 NM (Rec: 11/10/23 12:24 NM [id number]) Physical Therapy Assessment Goals Seven Impairment strength Impairment R ankle strength 3/5 MMT Short Term Goal (STG) Pt will increase R ankle strength globally to at least 4-/5 MMT in order to demonstrate improved strength for weight bearing and gait STG Duration 5 weeks Mcfp Goal (LTG) Pt will increase R ankle strength globally to at least 4/5 MMT in order to demonstrate improved strength for weight bearing and gait LTG Duration 10 weeks Six Impairment strength Impairment R knee strength 3/5 MMT Short Term Goal (STG) Pt will increase R knee flexion and extension strength to at least 4-/5 MMT in order to demonstrate improved strength for weight bearing and gait STG Duration 5 weeks Stock Buyer Goal (LTG) Pt will increase R knee flexion and extension strength to at least 4/5 MMT in order to demonstrate improved strength for weight bearing and gait LTG Duration 10 weeks Five Impairment function Impairment unable to perform squats Short Term Goal (STG) Pt will be able to perform at least 5 bilateral squats with pain <5/10 and without compensation in order to demonstrate improved weight bearing and BLE strength STG Duration 5 weeks Stock [employer]er Goal (LTG) Pt will be able to perform at least 10 bilateral squats with pain <5/10 and without compensation in order to demonstrate improved weight bearing and BLE strength LTG Duration 10 weeks Four Impairment mobility Impairment NWB, unable to ambulate Short Term Goal (STG) Pt will be able to ambulate at least 500 ft using LRAD with pain <5/10 in order to demonstrate improved activity tolerance and BLE strength STG Duration 5 weeks [employer] Goal (LTG) Pt will be able to ambulate community distances using LRAD with pain <2/10 in order to demonstrate improved activity tolerance and BLE strength LTG Duration 10 weeks Three Impairment AROM Impairment R knee extension AROM 3 deg Stock [employer] Goal (LTG) Pt will improve R knee extension to at least 0 deg in order to achieve terminal knee extension during gait LTG Duration 10 weeks Two Impairment AROM Impairment R knee flexion 105 deg Short Term Goal (STG) Pt will increase R knee flexion to at least 115 deg for improved knee flexion during swing phase of gait and stairs STG Duration 5 weeks Mcfp Goal (LTG) Pt will increase R knee flexion to at least 125 deg for improved knee flexion during swing phase of gait and stairs LTG Duration 10 weeks One Impairment LEFS Impairment 15/80 Short Term Goal (STG) Pt will increase LEFS score by at least 9 points (1 MCID) in order to demonstrate improved pain management and activity tolerance STG Duration 5 weeks Stock [employer]er Goal (LTG) Pt will increase LEFS score to at least 50/80 in order to demonstrate improved pain management and activity tolerance LTG Duration 10 weeks Assessment Summary Assessment Pt tolerated session well without any increase in pain. Pt returned to surgeon yesterday for 6 weeks post op visit, now WBAT with new protocol issued. Session emphasis on transfers and gait with standard walker. Initiated weight shift and gait using 3pt pattern. Pt cued for walker management, sequencing, and increasing weight bearing while managing pain; cued also for upright posture and foot clearance as pt stepping with RLE. Pt performed several reps of transfers with standard walker and sit to stands with/ without hand support to walker . Pt with RLE slightly forward due to limited knee flexion. PT educated pt on FWW use vs standard walker for ease as pt becomes more mobile; planning on getting FWW. PT also educated on modalities, safety at home with gait, and HEP. Pt would benefit from skilled PT for gait training, BLE strengthening and RLE mobility in order to improve activity tolerance, decrease pain symptoms, and improve mobility . Physical Therapy Plan Frequency and Duration Frequency of Treatment 1-2x/wk Duration of treatment (weeks) 10 Plan of Care Start Date 11/08/23 Plan of Care End Date 01/19/24 Therapeutic Interventions Therapeutic Interventions Balance Training,Coordination Training,Gait Training,Home Exercise Program,Joint Mobilizations,Manual Therapy, Neuromuscular Re-education, Orthotic/Prosthetic Management ,Patient/Caregiver Education, Self-Care/Home Management, Sensory Integration,Soft Tissue Mobilization,Taping, Therapeutic Activities, Therapeutic Exercises Modalities Biofeedback,Cold Pack/Ice Massage,Electric Stimulation, Hot Packs,Ultrasound, Vasopneumatic Devices Next Visit Focus/Plan Next Note Type Treatment Note Next Visit Plan Continue with WB and gait training, R knee/ankle mobility and strengthening: QS , SAQ, G/S stretch seated, abduction seated, bridge, ankle isometrics and mobilization Manual: scar massage, soft tissue, knee and ankle mobilizations grade II as tolerated ice massage/ice elevation
--- NOTE | 2023-11-14 12:26 | PT.OTN ---
Current Diagnoses Weakness (11/14/23) Displaced bicondylar fracture of right tibia, subsequent encounter for closed fracture with routine healing (11/14/23) Unspecified fracture of shaft of unspecified tibia, initial encounter for closed fracture (11/14/23) Unspecified fracture of shaft of right fibula, subsequent encounter for closed fracture with routine healing (11/14/23) Unspecified fracture of shaft of unspecified fibula, initial encounter for closed fracture (11/14/23) Physical Therapy Treatment Note PT-OP-A Visit Information Start: 11/08/23 07:24 Freq: Status: Active Protocol: Document 11/14/23 08:03 AB (Rec: 11/14/23 12:25 AB [id number]) Out-Patient Physical Therapy Visit Information Visit Information Visit Type Treatment Note Visit Note 15 visits [email or web address] Access Code: [email or web address] Visit Start Time 09:45 Visit Stop Time 10:31 Visit Number 3 Number of STORE OPERATIONS MANAGER Visits 1 Evaluation Information Evaluation Date 11/08/23 Precautions Precautions frequent fractures WBAT now PT-OP-B Current Condition Start: 11/08/23 07:24 Freq: Status: Active Protocol: Document 11/08/23 08:15 NM (Rec: 11/08/23 09:38 NM [id number]) Current Condition History of Current Condition Onset Date 09/30/23 History of Current Condition Pt presents s/p R ORIF following tibia and fibula fractures. Pt injured on her leg when turning, slipped and had ground level fall in her horse stall. She has been NWB for 6 weeks (until Monday, ). Hx provided by pt and , [facility]. Pt has been performing the HEP provided by hospital since discharge but reports that exercises cause her RLE discomfort and occasionally pain. She has been using a manual w/c for mobility since discharge from hospital. She has follow up with surgeon tomorrow, 11/08, and will have 6 week radiographs; reports that surgeon cleared for flat foot WB for transfers only at 3 week post op follow up. She has a previous R ankle replacement in 2010 along with PMH of R pelvis fracture, L sciatica. She would occasionally use a spc when her ankle flared up, usually walking about 2 blocks-1 mile. No stairs at her home, only at the horse barn. She has vacation planned 11/21-12/03 and will not be able to attend. Prior Functional Status Baseline Function- ADL's Independent Baseline Function- Mobility Independent Baseline Function- Gait 2 blocks to 1 mile, prn spc use Baseline Function- Work/School retired Baseline Function- Recreation/Hobbies horse back riding, swimming 2x /wk Current Functional Impairments (Reported) Functional Limitations- ADL's dressing Functional Limitations- Mobility/Gait w/c for mobility; sleeps in lift chair PT-OP-C Subjective Start: 11/08/23 07:24 Freq: Status: Active Protocol: Document 11/14/23 08:03 AB (Rec: 11/14/23 12:25 AB [id number]) OP-PT Subjective Patient Comments Patient Comments Patient rates pain right LE ankle and knee ambulating into session with standard walker step through pattern PT-OP-F Manual Assessment Start: 11/08/23 07:24 Freq: Status: Active Protocol: Document 11/08/23 08:15 NM (Rec: 11/08/23 09:38 NM [id number]) Manual Assessments Soft Tissue Assessment Soft Tissue Mobility Assessment Increased hamstring, hip flexor, heel cord, and hip abductor tightness Joint Mobility Assessment Joint Mobility Assessment Decreased R knee and ankle PROM and AROM. R ankle limited at talocrural joint due to previous fusion PT-OP-G Mobility & Gait Start: 11/08/23 07:24 Freq: Status: Active Protocol: Document 11/08/23 08:15 NM (Rec: 11/08/23 09:38 NM [id number]) OP Mobility Evaluation Bed Mobility Rolling Independent Supine to and from Sit Independent Transfers Sit to Stand w/c <> plinth partial WB with flat foot, stand several steps to sit OP Gait Assessment Comments Gait Comments NWB at this time, did not formally assess gait until pt cleared for WB PT-OP-H Neuro Start: 11/08/23 07:24 Freq: Status: Active Protocol: Document 11/08/23 08:15 NM (Rec: 11/08/23 09:38 NM [id number]) Sensation Evaluation Comments Summary Comments Numbness reported along anterior and sides of RLE post op. PT-OP-J Posture/Palpation/Skin Start: 11/08/23 07:24 Freq: Status: Active Protocol: Document 11/08/23 08:15 NM (Rec: 11/08/23 09:38 NM [id number]) Posture Evaluation Position Sitting Head/C-Spine Posture Forward Head T-Spine Posture Increased Kyphosis L-Spine Posture Increased Lordosis Scapula Posture (L) Protracted,(R) Protracted Arm Posture (L) Internally Rotated,(R) Internally Rotated Pelvis Posture Anteriorly Tilted Hip Posture (L) Externally Rotated,(R) Externally Rotated Knee Posture (L) Genu Valgus,(R) Genu Valgus Patellar Posture (L) Superior,(R) Superior,(R) Laterally Tilted Ankle/Foot Posture (L) Pronated,(R) Pronated Foot Arch (L) Low Arch,(R) Low Arch Palpation Assessment Location RLE Palpation Location knee, ankle Palpation Findings Edema,Soft Tissue Tightness, Tenderness Palpation Details Edema around B malleoli, knee. Tenderness in posterior calf and popliteal fossa. No increased redness except with dependency. Tenderness along medial and lateral knee, calf, ankles. Skin Assessment Circumference Measurement R ankle Location figure 8 Measurement (Centimeters) 53 Comments comparision L 50 cm R knee Location patellar Measurement (Centimeters) 48 Incisional Assessment Incision Appearance/Comments Multiple incision clean, dry, intact. No signs of infection. Decreased scar tissue mobility, particularly at R ankle due to increased swelling Other Assessments Skin Assessment Comments RLE slightly warmer than LLE. Rubor with dependency. Most edema at R malleoli PT-OP-K Range of Motion Start: 11/08/23 07:24 Freq: Status: Active Protocol: Document 11/08/23 08:15 NM (Rec: 11/08/23 09:38 NM [id number]) Hip Goniometric Range of Motion Hip Right Flexion w/Knee Flexed 100 Extension 5 Abduction 20 Internal Rotation 25 External Rotation 22 Left Flexion w/Knee Flexed 110 Extension 8 Abduction 15 Internal Rotation 35 External Rotation 32 Knee Goniometric Range of Motion Knee Right Flexion Active (degrees) 105 Extension Active (degrees) 5 Comments anterior and lateral knee pain with flexion AROM Left Flexion Active (degrees) 128 Extension Active (degrees) 0 Hyper-Extension Active 3 Ankle and Foot Goniometric Range of Motion Ankle and Foot Right Dorsiflexion with Knee Flexed 3 Plantarflexion 20 Inversion 3 Eversion 3 Left Dorsiflexion with Knee Flexed 12 Plantarflexion 35 Inversion 25 Eversion 15 PT-OP-M Strength Start: 11/08/23 07:24 Freq: Status: Active Protocol: Document 11/08/23 08:15 NM (Rec: 11/08/23 09:38 NM [id number]) Hip Strength Hip Manual Muscle Testing Right Flexion (L2) 4- Good- Extension (S1) 3+ Fair+ Abduction 3+ Fair+ Adduction 4- Good- External Rotation 3 Fair Internal Rotation 3 Fair Left Flexion (L2) 4+ Good+ Extension (S1) 4 Good Abduction 4 Good Adduction 4+ Good+ External Rotation 4+ Good+ Internal Rotation 4+ Good+ Knee Strength Knee Manual Muscle Testing Right Flexion (S2) 3 Fair Extension (L3) 3 Fair Comments AROM against gravity only, did not provide resistance due to NWB precautions Left Flexion (S2) 4+ Good+ Extension (L3) 4+ Good+ Ankle/Foot Strength Ankle and Foot Manual Muscle Testing Right Dorsiflexion (L4) 3 Fair Plantarflexion (S1) 3 Fair Inversion 3 Fair Eversion (S1) 3 Fair Comments AROM against gravity only, did not provide resistance due to NWB precautions. Minimal AROM due to previous fusion Left Dorsiflexion (L4) 4+ Good+ Plantarflexion (S1) 4+ Good+ Inversion 4+ Good+ Eversion (S1) 4+ Good+ PT-OP-Q Treatments Start: 11/08/23 07:24 Freq: Status: Active Protocol: Document 11/14/23 08:03 AB (Rec: 11/14/23 12:25 AB [id number]) Therapeutic Exercises Supine Exercises SLR Reps/Minutes 2X10 Comments VC to quad set and keep the knee straight when lifting and lowering hamstring stretch Supine Exercise Name from hooklying Reps/Minutes X3 60 second hold Comments verbal cues ankle pumps Reps/Minutes 2 min quad set Side right Equipment Used towel roll flat under leg, simultaneous with LLE Reps/Minutes 1x10 with 5 hold Comments to limit glute, cued to flatten posterior knee on towel; pain free Sitting Exercises AROM DF Reps/Minutes X10 seated hip abduction with band Equipment Used level 2 latex free band Reps/Minutes one minute X 1 and X10 without hold Manual Therapy Treatment Soft Tissue Mobilization right hamstring Mobilization Type Cross-Friction,Rolling Intensity/Depth Moderate Body Position Hooklying Comments with bolster under calf scar tissue right Body Location scar tissue right quad and lower LE Mobilization Type Cross-Friction,Rolling Intensity/Depth Moderate Body Position Hooklying Comments superficial in areas not sandeep for moderate Self-Care/Home Management Treatment Activities Self-Care/Home Management Activities hamstring stretch, SLR, ankle pumps, Seated AROM DF and seated hip abd with band added to HEP PT-OP-T Assessment and Plan Start: 11/08/23 07:24 Freq: Status: Active Protocol: Document 11/14/23 08:03 AB (Rec: 11/14/23 12:25 AB [id number]) Physical Therapy Assessment Goals Seven Impairment strength Impairment R ankle strength 3/5 MMT Short Term Goal (STG) Pt will increase R ankle strength globally to at least 4-/5 MMT in order to demonstrate improved strength for weight bearing and gait STG Duration 5 weeks Quarter Section Ironer Goal (LTG) Pt will increase R ankle strength globally to at least 4/5 MMT in order to demonstrate improved strength for weight bearing and gait LTG Duration 10 weeks Six Impairment strength Impairment R knee strength 3/5 MMT Short Term Goal (STG) Pt will increase R knee flexion and extension strength to at least 4-/5 MMT in order to demonstrate improved strength for weight bearing and gait STG Duration 5 weeks Quarter Section Ironer Goal (LTG) Pt will increase R knee flexion and extension strength to at least 4/5 MMT in order to demonstrate improved strength for weight bearing and gait LTG Duration 10 weeks Five Impairment function Impairment unable to perform squats Short Term Goal (STG) Pt will be able to perform at least 5 bilateral squats with pain <5/10 and without compensation in order to demonstrate improved weight bearing and BLE strength STG Duration 5 weeks Quarter Section Ironer Goal (LTG) Pt will be able to perform at least 10 bilateral squats with pain <5/10 and without compensation in order to demonstrate improved weight bearing and BLE strength LTG Duration 10 weeks Four Impairment mobility Impairment NWB, unable to ambulate Short Term Goal (STG) Pt will be able to ambulate at least 500 ft using LRAD with pain <5/10 in order to demonstrate improved activity tolerance and BLE strength STG Duration 5 weeks Quarter Section Ironer Goal (LTG) Pt will be able to ambulate community distances using LRAD with pain <2/10 in order to demonstrate improved activity tolerance and BLE strength LTG Duration 10 weeks Three Impairment AROM Impairment R knee extension AROM 3 deg Quarter Section Ironer Goal (LTG) Pt will improve R knee extension to at least 0 deg in order to achieve terminal knee extension during gait LTG Duration 10 weeks Two Impairment AROM Impairment R knee flexion 105 deg Short Term Goal (STG) Pt will increase R knee flexion to at least 115 deg for improved knee flexion during swing phase of gait and stairs STG Duration 5 weeks Alf Goal (LTG) Pt will increase R knee flexion to at least 125 deg for improved knee flexion during swing phase of gait and stairs LTG Duration 10 weeks One Impairment LEFS Impairment 15/80 Short Term Goal (STG) Pt will increase LEFS score by at least 9 points (1 MCID) in order to demonstrate improved pain management and activity tolerance STG Duration 5 weeks Alf Goal (LTG) Pt will increase LEFS score to at least 50/80 in order to demonstrate improved pain management and activity tolerance LTG Duration 10 weeks Assessment Summary Assessment Patient rates right ankle and post knee pain 11/28 end of session. Good return demonstration for all exercises, decreased sandeep to STM moderate pressure to 2 areas of scar tissue. Physical Therapy Plan Frequency and Duration Frequency of Treatment 1-2x/wk Duration of treatment (weeks) 10 Plan of Care Start Date 11/08/23 Plan of Care End Date 01/19/24 Next Visit Focus/Plan Next Note Type Treatment Note Next Visit Plan Continue with WB and gait training, R knee/ankle mobility and strengthening: QS , SAQ, G/S stretch seated, abduction seated, bridge, ankle isometrics and mobilization Manual: scar massage, soft tissue, knee and ankle mobilizations grade II as tolerated ice massage/ice elevation
--- NOTE | 2023-11-17 12:13 | PT.OTN ---
Current Diagnoses Weakness (11/17/23) Displaced bicondylar fracture of right tibia, subsequent encounter for closed fracture with routine healing (11/17/23) Unspecified fracture of shaft of unspecified tibia, initial encounter for closed fracture (11/17/23) Unspecified fracture of shaft of right fibula, subsequent encounter for closed fracture with routine healing (11/17/23) Unspecified fracture of shaft of unspecified fibula, initial encounter for closed fracture (11/17/23) Physical Therapy Treatment Note PT-OP-A Visit Information Start: 11/08/23 07:24 Freq: Status: Active Protocol: Document 11/17/23 10:23 AB (Rec: 11/17/23 12:13 AB [id number]) Out-Patient Physical Therapy Visit Information Visit Information Visit Type Treatment Note Visit Note 15 visits [email or web address] Access Code: [email or web address] Visit Start Time 11:17 Visit Stop Time 12:00 Visit Number 4 Number of WOOD MOLDER Visits 2 Evaluation Information Evaluation Date 11/08/23 Precautions Precautions frequent fractures WBAT now PT-OP-B Current Condition Start: 11/08/23 07:24 Freq: Status: Active Protocol: Document 11/08/23 08:15 NM (Rec: 11/08/23 09:38 NM [id number]) Current Condition History of Current Condition Onset Date 09/30/23 History of Current Condition Pt presents s/p R ORIF following tibia and fibula fractures. Pt injured on her leg when turning, slipped and had ground level fall in her horse stall. She has been NWB for 6 weeks (until Monday, ). Hx provided by pt and , [facility]. Pt has been performing the HEP provided by hospital since discharge but reports that exercises cause her RLE discomfort and occasionally pain. She has been using a manual w/c for mobility since discharge from hospital. She has follow up with surgeon tomorrow, 11/08, and will have 6 week radiographs; reports that surgeon cleared for flat foot WB for transfers only at 3 week post op follow up. She has a previous R ankle replacement in 2010 along with PMH of R pelvis fracture, L sciatica. She would occasionally use a spc when her ankle flared up, usually walking about 2 blocks-1 mile. No stairs at her home, only at the horse barn. She has vacation planned 11/21-12/03 and will not be able to attend. Prior Functional Status Baseline Function- ADL's Independent Baseline Function- Mobility Independent Baseline Function- Gait 2 blocks to 1 mile, prn spc use Baseline Function- Work/School retired Baseline Function- Recreation/Hobbies horse back riding, swimming 2x /wk Current Functional Impairments (Reported) Functional Limitations- ADL's dressing Functional Limitations- Mobility/Gait w/c for mobility; sleeps in lift chair PT-OP-C Subjective Start: 11/08/23 07:24 Freq: Status: Active Protocol: Document 11/17/23 10:23 AB (Rec: 11/17/23 12:13 AB [id number]) OP-PT Subjective Patient Comments Patient Comments Patient rates ankle pain 3 ambulating into session with FWW step through pattern. PT-OP-F Manual Assessment Start: 11/08/23 07:24 Freq: Status: Active Protocol: Document 11/08/23 08:15 NM (Rec: 11/08/23 09:38 NM [id number]) Manual Assessments Soft Tissue Assessment Soft Tissue Mobility Assessment Increased hamstring, hip flexor, heel cord, and hip abductor tightness Joint Mobility Assessment Joint Mobility Assessment Decreased R knee and ankle PROM and AROM. R ankle limited at talocrural joint due to previous fusion PT-OP-G Mobility & Gait Start: 11/08/23 07:24 Freq: Status: Active Protocol: Document 11/08/23 08:15 NM (Rec: 11/08/23 09:38 NM [id number]) OP Mobility Evaluation Bed Mobility Rolling Independent Supine to and from Sit Independent Transfers Sit to Stand w/c <> plinth partial WB with flat foot, stand several steps to sit OP Gait Assessment Comments Gait Comments NWB at this time, did not formally assess gait until pt cleared for WB PT-OP-H Neuro Start: 11/08/23 07:24 Freq: Status: Active Protocol: Document 11/08/23 08:15 NM (Rec: 11/08/23 09:38 NM [id number]) Sensation Evaluation Comments Summary Comments Numbness reported along anterior and sides of RLE post op. PT-OP-J Posture/Palpation/Skin Start: 11/08/23 07:24 Freq: Status: Active Protocol: Document 11/08/23 08:15 NM (Rec: 11/08/23 09:38 NM [id number]) Posture Evaluation Position Sitting Head/C-Spine Posture Forward Head T-Spine Posture Increased Kyphosis L-Spine Posture Increased Lordosis Scapula Posture (L) Protracted,(R) Protracted Arm Posture (L) Internally Rotated,(R) Internally Rotated Pelvis Posture Anteriorly Tilted Hip Posture (L) Externally Rotated,(R) Externally Rotated Knee Posture (L) Genu Valgus,(R) Genu Valgus Patellar Posture (L) Superior,(R) Superior,(R) Laterally Tilted Ankle/Foot Posture (L) Pronated,(R) Pronated Foot Arch (L) Low Arch,(R) Low Arch Palpation Assessment Location RLE Palpation Location knee, ankle Palpation Findings Edema,Soft Tissue Tightness, Tenderness Palpation Details Edema around B malleoli, knee. Tenderness in posterior calf and popliteal fossa. No increased redness except with dependency. Tenderness along medial and lateral knee, calf, ankles. Skin Assessment Circumference Measurement R ankle Location figure 8 Measurement (Centimeters) 53 Comments comparision L 50 cm R knee Location patellar Measurement (Centimeters) 48 Incisional Assessment Incision Appearance/Comments Multiple incision clean, dry, intact. No signs of infection. Decreased scar tissue mobility, particularly at R ankle due to increased swelling Other Assessments Skin Assessment Comments RLE slightly warmer than LLE. Rubor with dependency. Most edema at R malleoli PT-OP-K Range of Motion Start: 11/08/23 07:24 Freq: Status: Active Protocol: Document 11/08/23 08:15 NM (Rec: 11/08/23 09:38 NM [id number]) Hip Goniometric Range of Motion Hip Right Flexion w/Knee Flexed 100 Extension 5 Abduction 20 Internal Rotation 25 External Rotation 22 Left Flexion w/Knee Flexed 110 Extension 8 Abduction 15 Internal Rotation 35 External Rotation 32 Knee Goniometric Range of Motion Knee Right Flexion Active (degrees) 105 Extension Active (degrees) 5 Comments anterior and lateral knee pain with flexion AROM Left Flexion Active (degrees) 128 Extension Active (degrees) 0 Hyper-Extension Active 3 Ankle and Foot Goniometric Range of Motion Ankle and Foot Right Dorsiflexion with Knee Flexed 3 Plantarflexion 20 Inversion 3 Eversion 3 Left Dorsiflexion with Knee Flexed 12 Plantarflexion 35 Inversion 25 Eversion 15 PT-OP-M Strength Start: 11/08/23 07:24 Freq: Status: Active Protocol: Document 11/08/23 08:15 NM (Rec: 11/08/23 09:38 NM [id number]) Hip Strength Hip Manual Muscle Testing Right Flexion (L2) 4- Good- Extension (S1) 3+ Fair+ Abduction 3+ Fair+ Adduction 4- Good- External Rotation 3 Fair Internal Rotation 3 Fair Left Flexion (L2) 4+ Good+ Extension (S1) 4 Good Abduction 4 Good Adduction 4+ Good+ External Rotation 4+ Good+ Internal Rotation 4+ Good+ Knee Strength Knee Manual Muscle Testing Right Flexion (S2) 3 Fair Extension (L3) 3 Fair Comments AROM against gravity only, did not provide resistance due to NWB precautions Left Flexion (S2) 4+ Good+ Extension (L3) 4+ Good+ Ankle/Foot Strength Ankle and Foot Manual Muscle Testing Right Dorsiflexion (L4) 3 Fair Plantarflexion (S1) 3 Fair Inversion 3 Fair Eversion (S1) 3 Fair Comments AROM against gravity only, did not provide resistance due to NWB precautions. Minimal AROM due to previous fusion Left Dorsiflexion (L4) 4+ Good+ Plantarflexion (S1) 4+ Good+ Inversion 4+ Good+ Eversion (S1) 4+ Good+ PT-OP-Q Treatments Start: 11/08/23 07:24 Freq: Status: Active Protocol: Document 11/17/23 10:23 AB (Rec: 11/17/23 12:13 AB [id number]) Therapeutic Exercises Supine Exercises SLR Reps/Minutes X10 Comments VC to increase height slightly hamstring stretch Supine Exercise Name from hooklying Reps/Minutes 2X60 seconds Comments verbal cues Sitting Exercises seated hip abduction with band Equipment Used level 3 latex free band Reps/Minutes one minute X 1 and X10 without hold Manual Therapy Treatment Soft Tissue Mobilization calf and hamstring muscles Body Location left LE Mobilization Type Cross-Friction,Rolling Intensity/Depth Moderate Body Position Prone Comments superficial to proximal fibular area due to decreased sandeep scar tissue right Body Location scar tissue right quad and lower LE Mobilization Type Cross-Friction,Rolling Intensity/Depth Moderate Body Position Hooklying Comments superficial in areas not sandeep for moderate Neuro Re-Education Treatment Balance Activities foam pad without UE use Details feet as close as able with 2 foam pads under Surface foam pad Comments eyes closed, CGA Minimal sway likely due to body touching FWW ( hands above walker modified tandem stance Details closer to stagger stance than tandem Reps/Duration 6 min Comments left foot fwd, right foot fwd, CGA eyes closed, visual scanning and head turns ( hands above walker to use walker as needed for LOB) Romberg with eyes closed Details Modified Romberg feet do not touch Reps/Duration X2 Comments Minimal sway CGA PT-OP-T Assessment and Plan Start: 11/08/23 07:24 Freq: Status: Active Protocol: Document 11/17/23 10:23 AB (Rec: 11/17/23 12:13 AB [id number]) Physical Therapy Assessment Goals Seven Impairment strength Impairment R ankle strength 3/5 MMT Short Term Goal (STG) Pt will increase R ankle strength globally to at least 4-/5 MMT in order to demonstrate improved strength for weight bearing and gait STG Duration 5 weeks Residential Goal (LTG) Pt will increase R ankle strength globally to at least 4/5 MMT in order to demonstrate improved strength for weight bearing and gait LTG Duration 10 weeks Six Impairment strength Impairment R knee strength 3/5 MMT Short Term Goal (STG) Pt will increase R knee flexion and extension strength to at least 4-/5 MMT in order to demonstrate improved strength for weight bearing and gait STG Duration 5 weeks Residential Goal (LTG) Pt will increase R knee flexion and extension strength to at least 4/5 MMT in order to demonstrate improved strength for weight bearing and gait LTG Duration 10 weeks Five Impairment function Impairment unable to perform squats Short Term Goal (STG) Pt will be able to perform at least 5 bilateral squats with pain <5/10 and without compensation in order to demonstrate improved weight bearing and BLE strength STG Duration 5 weeks Enforcement Safety Officer Goal (LTG) Pt will be able to perform at least 10 bilateral squats with pain <5/10 and without compensation in order to demonstrate improved weight bearing and BLE strength LTG Duration 10 weeks Four Impairment mobility Impairment NWB, unable to ambulate Short Term Goal (STG) Pt will be able to ambulate at least 500 ft using LRAD with pain <5/10 in order to demonstrate improved activity tolerance and BLE strength STG Duration 5 weeks Enforcement Safety Officer Goal (LTG) Pt will be able to ambulate community distances using LRAD with pain <2/10 in order to demonstrate improved activity tolerance and BLE strength LTG Duration 10 weeks Three Impairment AROM Impairment R knee extension AROM 3 deg Enforcement Safety Officer Goal (LTG) Pt will improve R knee extension to at least 0 deg in order to achieve terminal knee extension during gait LTG Duration 10 weeks Two Impairment AROM Impairment R knee flexion 105 deg Short Term Goal (STG) Pt will increase R knee flexion to at least 115 deg for improved knee flexion during swing phase of gait and stairs STG Duration 5 weeks Enforcement Safety Officer Goal (LTG) Pt will increase R knee flexion to at least 125 deg for improved knee flexion during swing phase of gait and stairs LTG Duration 10 weeks One Impairment LEFS Impairment 15/80 Short Term Goal (STG) Pt will increase LEFS score by at least 9 points (1 MCID) in order to demonstrate improved pain management and activity tolerance STG Duration 5 weeks Residential Goal (LTG) Pt will increase LEFS score to at least 50/80 in order to demonstrate improved pain management and activity tolerance LTG Duration 10 weeks Assessment Summary Assessment Ann rates pain 09/30 end of session. Noted decreased sandeep to STM proximal fibular area, Good return demonstration for all exercises. Patient reports increased pain with WS right with light UE use of FWW, so single leg stance test deferred this session. Physical Therapy Plan Frequency and Duration Frequency of Treatment 1-2x/wk Duration of treatment (weeks) 10 Plan of Care Start Date 11/08/23 Plan of Care End Date 01/19/24 Next Visit Focus/Plan Next Note Type Treatment Note Next Visit Plan Continue with WB and gait training (AP weight shift and bilateral stance balance ex on foam in parallel bars), R knee/ankle mobility and strengthening: QS, SAQ, G/S stretch seated, abduction seated, bridge, ankle isometrics and mobilization Manual: scar massage, soft tissue, knee and ankle mobilizations grade II as tolerated, progress latex free band for glute med strengthening, possibly sit to stand as an exercise vs mini squat ice massage/ice elevation
--- NOTE | 2023-12-05 12:35 | PT.OTN ---
Current Diagnoses Weakness (12/05/23) Displaced bicondylar fracture of right tibia, subsequent encounter for closed fracture with routine healing (12/05/23) Unspecified fracture of shaft of unspecified tibia, initial encounter for closed fracture (12/05/23) Unspecified fracture of shaft of right fibula, subsequent encounter for closed fracture with routine healing (12/05/23) Unspecified fracture of shaft of unspecified fibula, initial encounter for closed fracture (12/05/23) Physical Therapy Treatment Note PT-OP-A Visit Information Start: 11/08/23 07:24 Freq: Status: Active Protocol: Document 12/05/23 08:15 NM (Rec: 12/05/23 09:04 NM [id number]) Out-Patient Physical Therapy Visit Information Visit Information Visit Type Treatment Note Visit Note 15 visits Visit Start Time 08:15 Visit Stop Time 09:00 Visit Number 5 Evaluation Information Evaluation Date 11/08/23 Precautions Precautions frequent fractures WBAT now PT-OP-B Current Condition Start: 11/08/23 07:24 Freq: Status: Active Protocol: Document 11/08/23 08:15 NM (Rec: 11/08/23 09:38 NM [id number]) Current Condition History of Current Condition Onset Date 09/30/23 History of Current Condition Pt presents s/p R ORIF following tibia and fibula fractures. Pt injured on her leg when turning, slipped and had ground level fall in her horse stall. She has been NWB for 6 weeks (until Monday, ). Hx provided by pt and , [facility]. Pt has been performing the HEP provided by hospital since discharge but reports that exercises cause her RLE discomfort and occasionally pain. She has been using a manual w/c for mobility since discharge from hospital. She has follow up with surgeon tomorrow, 11/08, and will have 6 week radiographs; reports that surgeon cleared for flat foot WB for transfers only at 3 week post op follow up. She has a previous R ankle replacement in 2010 along with PMH of R pelvis fracture, L sciatica. She would occasionally use a spc when her ankle flared up, usually walking about 2 blocks-1 mile. No stairs at her home, only at the horse barn. She has vacation planned 11/21-12/03 and will not be able to attend. Prior Functional Status Baseline Function- ADL's Independent Baseline Function- Mobility Independent Baseline Function- Gait 2 blocks to 1 mile, prn spc use Baseline Function- Work/School retired Baseline Function- Recreation/Hobbies horse back riding, swimming 2x /wk Current Functional Impairments (Reported) Functional Limitations- ADL's dressing Functional Limitations- Mobility/Gait w/c for mobility; sleeps in lift chair PT-OP-C Subjective Start: 11/08/23 07:24 Freq: Status: Active Protocol: Document 12/05/23 08:15 NM (Rec: 12/05/23 09:04 NM [id number]) OP-PT Subjective Patient Comments Patient Comments Pt presents with small quad cane, states she began using it over the weekend. She states feels mostly stable when walking. Can sit about 2 hrs. States no pain when walking with quad cane. States 2/10 knee and ankle pain with exercise, sitting, standing PT-OP-F Manual Assessment Start: 11/08/23 07:24 Freq: Status: Active Protocol: Document 11/08/23 08:15 NM (Rec: 11/08/23 09:38 NM [id number]) Manual Assessments Soft Tissue Assessment Soft Tissue Mobility Assessment Increased hamstring, hip flexor, heel cord, and hip abductor tightness Joint Mobility Assessment Joint Mobility Assessment Decreased R knee and ankle PROM and AROM. R ankle limited at talocrural joint due to previous fusion PT-OP-G Mobility & Gait Start: 11/08/23 07:24 Freq: Status: Active Protocol: Document 11/08/23 08:15 NM (Rec: 11/08/23 09:38 NM [id number]) OP Mobility Evaluation Bed Mobility Rolling Independent Supine to and from Sit Independent Transfers Sit to Stand w/c <> plinth partial WB with flat foot, stand several steps to sit OP Gait Assessment Comments Gait Comments NWB at this time, did not formally assess gait until pt cleared for WB PT-OP-H Neuro Start: 11/08/23 07:24 Freq: Status: Active Protocol: Document 11/08/23 08:15 NM (Rec: 11/08/23 09:38 NM [id number]) Sensation Evaluation Comments Summary Comments Numbness reported along anterior and sides of RLE post op. PT-OP-J Posture/Palpation/Skin Start: 11/08/23 07:24 Freq: Status: Active Protocol: Document 11/08/23 08:15 NM (Rec: 11/08/23 09:38 NM [id number]) Posture Evaluation Position Sitting Head/C-Spine Posture Forward Head T-Spine Posture Increased Kyphosis L-Spine Posture Increased Lordosis Scapula Posture (L) Protracted,(R) Protracted Arm Posture (L) Internally Rotated,(R) Internally Rotated Pelvis Posture Anteriorly Tilted Hip Posture (L) Externally Rotated,(R) Externally Rotated Knee Posture (L) Genu Valgus,(R) Genu Valgus Patellar Posture (L) Superior,(R) Superior,(R) Laterally Tilted Ankle/Foot Posture (L) Pronated,(R) Pronated Foot Arch (L) Low Arch,(R) Low Arch Palpation Assessment Location RLE Palpation Location knee, ankle Palpation Findings Edema,Soft Tissue Tightness, Tenderness Palpation Details Edema around B malleoli, knee. Tenderness in posterior calf and popliteal fossa. No increased redness except with dependency. Tenderness along medial and lateral knee, calf, ankles. Skin Assessment Circumference Measurement R ankle Location figure 8 Measurement (Centimeters) 53 Comments comparision L 50 cm R knee Location patellar Measurement (Centimeters) 48 Incisional Assessment Incision Appearance/Comments Multiple incision clean, dry, intact. No signs of infection. Decreased scar tissue mobility, particularly at R ankle due to increased swelling Other Assessments Skin Assessment Comments RLE slightly warmer than LLE. Rubor with dependency. Most edema at R malleoli PT-OP-K Range of Motion Start: 11/08/23 07:24 Freq: Status: Active Protocol: Document 11/08/23 08:15 NM (Rec: 11/08/23 09:38 NM [id number]) Hip Goniometric Range of Motion Hip Right Flexion w/Knee Flexed 100 Extension 5 Abduction 20 Internal Rotation 25 External Rotation 22 Left Flexion w/Knee Flexed 110 Extension 8 Abduction 15 Internal Rotation 35 External Rotation 32 Knee Goniometric Range of Motion Knee Right Flexion Active (degrees) 105 Extension Active (degrees) 5 Comments anterior and lateral knee pain with flexion AROM Left Flexion Active (degrees) 128 Extension Active (degrees) 0 Hyper-Extension Active 3 Ankle and Foot Goniometric Range of Motion Ankle and Foot Right Dorsiflexion with Knee Flexed 3 Plantarflexion 20 Inversion 3 Eversion 3 Left Dorsiflexion with Knee Flexed 12 Plantarflexion 35 Inversion 25 Eversion 15 PT-OP-M Strength Start: 11/08/23 07:24 Freq: Status: Active Protocol: Document 11/08/23 08:15 NM (Rec: 11/08/23 09:38 NM [id number]) Hip Strength Hip Manual Muscle Testing Right Flexion (L2) 4- Good- Extension (S1) 3+ Fair+ Abduction 3+ Fair+ Adduction 4- Good- External Rotation 3 Fair Internal Rotation 3 Fair Left Flexion (L2) 4+ Good+ Extension (S1) 4 Good Abduction 4 Good Adduction 4+ Good+ External Rotation 4+ Good+ Internal Rotation 4+ Good+ Knee Strength Knee Manual Muscle Testing Right Flexion (S2) 3 Fair Extension (L3) 3 Fair Comments AROM against gravity only, did not provide resistance due to NWB precautions Left Flexion (S2) 4+ Good+ Extension (L3) 4+ Good+ Ankle/Foot Strength Ankle and Foot Manual Muscle Testing Right Dorsiflexion (L4) 3 Fair Plantarflexion (S1) 3 Fair Inversion 3 Fair Eversion (S1) 3 Fair Comments AROM against gravity only, did not provide resistance due to NWB precautions. Minimal AROM due to previous fusion Left Dorsiflexion (L4) 4+ Good+ Plantarflexion (S1) 4+ Good+ Inversion 4+ Good+ Eversion (S1) 4+ Good+ PT-OP-Q Treatments Start: 11/08/23 07:24 Freq: Status: Active Protocol: Document 12/05/23 08:15 NM (Rec: 12/05/23 09:04 NM [id number]) Therapeutic Exercises Sidelying Exercises hip abduction Sidelying Exercise Name trialed in PT, added to HEP Side right Resistance AROM Reps/Minutes 2x10 Comments pain free; reports medium, cued to keep RLE into ext Sitting Exercises heel slide Sitting Exercise Name with HSC; added to HEP Side right Resistance lvl 2 band, slider Reps/Minutes 2x10 Comments pain free but challenging LAQ Sitting Exercise Name added to HEP Side right Resistance AROM with hold Reps/Minutes 2x10 3 Comments pain free but challenging knee flexion stretch Sitting Exercise Name added to HEP Side right Equipment Used L assisting R Reps/Minutes 2x30 Comments pain free Standing Exercises squat Standing Exercise Name trialed in PT: with hand support Equipment Used BUE support on elevated plinth , chair behind for target Reps/Minutes 1x12 Comments pain free but limited range; cued equal WB; demos decreased DF calf stretch Standing Exercise Name trialed in PT: 1. gastroc , 2. soleus Equipment Used hand support on plinth, staggered stance Reps/Minutes 1x30 ea Comments pain free, gentle stretch Manual Therapy Treatment Soft Tissue Mobilization scar tissue right Body Location scar tissue right quad and lower LE Mobilization Type Cross-Friction,Rolling,Other Intensity/Depth Superficial Body Position Hooklying Comments Superficial scar mobilization. Decreased mobility of scar on lateral R knee, R ankle. Performed with rolling, cross friction, lifting and twisting . Tolerated well without pain. Education on performing with lotion as part of HEP daily to decrease adhesions Joint Mobilizations R knee Joint patellar Direction medial, medial tilt, superior/ inferior Grade III Body Position Supine Reps/Duration 1x10 ea Comments For improved patellar mobility with knee flexion. Demos slight lateral tracking. Pain free with mobilization, decreased inferior glide Manual Techniques PROM Body Location R knee flexion, R ankle DF Reps/Duration 1x10 ea Comments To pt tolerance to improve R knee mobility prior to exercise. Pt reports no pain with knee flexion, up to 115 deg flexion, 8 deg ankle dorsiflexion Neuro Re-Education Treatment Balance Activities [facility] Comments for spc testin seconds RLE w/o Ue support. Not painful but unable to maintain w/o LOB Self-Care/Home Management Treatment Education Patient Education Home Exercise Program Other Education HEP: sidelying hip abduction, seated knee flexion stretch with heel slide, hamstring curl, LAQ PT-OP-T Assessment and Plan Start: 11/08/23 07:24 Freq: Status: Active Protocol: Document 12/05/23 08:15 NM (Rec: 12/05/23 09:04 NM [id number]) Physical Therapy Assessment Goals Seven Impairment strength Impairment R ankle strength 3/5 MMT Short Term Goal (STG) Pt will increase R ankle strength globally to at least 4-/5 MMT in order to demonstrate improved strength for weight bearing and gait STG Duration 5 weeks [facility] Goal (LTG) Pt will increase R ankle strength globally to at least 4/5 MMT in order to demonstrate improved strength for weight bearing and gait LTG Duration 10 weeks Six Impairment strength Impairment R knee strength 3/5 MMT Short Term Goal (STG) Pt will increase R knee flexion and extension strength to at least 4-/5 MMT in order to demonstrate improved strength for weight bearing and gait STG Duration 5 weeks [facility] Goal (LTG) Pt will increase R knee flexion and extension strength to at least 4/5 MMT in order to demonstrate improved strength for weight bearing and gait LTG Duration 10 weeks Five Impairment function Impairment unable to perform squats Short Term Goal (STG) Pt will be able to perform at least 5 bilateral squats with pain <5/10 and without compensation in order to demonstrate improved weight bearing and BLE strength STG Duration 5 weeks [facility] Goal (LTG) Pt will be able to perform at least 10 bilateral squats with pain <5/10 and without compensation in order to demonstrate improved weight bearing and BLE strength LTG Duration 10 weeks Four Impairment mobility Impairment NWB, unable to ambulate Short Term Goal (STG) Pt will be able to ambulate at least 500 ft using LRAD with pain <5/10 in order to demonstrate improved activity tolerance and BLE strength STG Duration 5 weeks [facility] Goal (LTG) Pt will be able to ambulate community distances using LRAD with pain <2/10 in order to demonstrate improved activity tolerance and BLE strength LTG Duration 10 weeks Three Impairment AROM Impairment R knee extension AROM 3 deg [employer] Goal (LTG) Pt will improve R knee extension to at least 0 deg in order to achieve terminal knee extension during gait LTG Duration 10 weeks Two Impairment AROM Impairment R knee flexion 105 deg Short Term Goal (STG) Pt will increase R knee flexion to at least 115 deg for improved knee flexion during swing phase of gait and stairs STG Duration 5 weeks [facility] Goal (LTG) Pt will increase R knee flexion to at least 125 deg for improved knee flexion during swing phase of gait and stairs LTG Duration 10 weeks One Impairment LEFS Impairment 15/80 Short Term Goal (STG) Pt will increase LEFS score by at least 9 points (1 MCID) in order to demonstrate improved pain management and activity tolerance STG Duration 5 weeks [facility] Goal (LTG) Pt will increase LEFS score to at least 50/80 in order to demonstrate improved pain management and activity tolerance LTG Duration 10 weeks Assessment Summary Assessment Pt tolerated session well and reports 2/10 ankle, no knee pain at end of session. Continued with hip and knee strenghtening. Progressed to hip abduction in sidelying and LAQ. Pt able to achieve TKE but unable to tolerate resisted LAQ at this time. Initiated seated knee flexion stretch and heel slide with hamstring curl to improve both R knee flexion range of motion and strength. Trialed minisquat with hand support to improve knee mobility and glute strength; pt pain free and has limited range, cued for equal weight bearing. Educated pt and on not riding real bike at this time due to fall risk; recommended use of quad cane only at home vs in community ambulation until further gait training and BLE strengthening for safety. Further education on use of low pressure compression sleeve to assist with R knee swelling, gentle scar mobilization as part of HEP. Manual treatment to address scar mobility of R knee and ankle; slight adhesions of scars near R ankle. Pt R knee flexion 115 post PROM during manual treatment, demos decreased patellar mobility. Pt would benefit from skilled PT for R knee mobility, BLE strengthening, balance and gait training in order to improve activity tolerance and return to PLOF. Physical Therapy Plan Frequency and Duration Frequency of Treatment 1-2x/wk Duration of treatment (weeks) 10 Plan of Care Start Date 11/08/23 Plan of Care End Date 01/19/24 Therapeutic Interventions Therapeutic Interventions Balance Training,Coordination Training,Gait Training,Home Exercise Program,Joint Mobilizations,Manual Therapy, Neuromuscular Re-education, Orthotic/Prosthetic Management ,Patient/Caregiver Education, Self-Care/Home Management, Sensory Integration,Soft Tissue Mobilization,Taping, Therapeutic Activities, Therapeutic Exercises Modalities Biofeedback,Cold Pack/Ice Massage,Electric Stimulation, Hot Packs,Ultrasound, Vasopneumatic Devices Next Visit Focus/Plan Next Note Type Treatment Note Next Visit Plan calf stretch, seated heel/toe raises, STS and squat, scar mobilization, ankle 4 way Manual: scar massage, soft tissue, knee and ankle mobilizations grade II as tolerated, progress latex free band for glute med strengthening, possibly sit to stand as an exercise vs mini squat ice massage/ice elevation PN on 12/14 visit
--- NOTE | 2023-12-08 12:20 | PT.OTN ---
Current Diagnoses Weakness (12/08/23) Displaced bicondylar fracture of right tibia, subsequent encounter for closed fracture with routine healing (12/08/23) Unspecified fracture of shaft of unspecified tibia, initial encounter for closed fracture (12/08/23) Unspecified fracture of shaft of right fibula, subsequent encounter for closed fracture with routine healing (12/08/23) Unspecified fracture of shaft of unspecified fibula, initial encounter for closed fracture (12/08/23) Physical Therapy Treatment Note PT-OP-A Visit Information Start: 11/08/23 07:24 Freq: Status: Active Protocol: Document 12/08/23 08:07 AB (Rec: 12/08/23 12:18 AB [id number]) Out-Patient Physical Therapy Visit Information Visit Information Visit Type Treatment Note Visit Note 15 visits Access Code: [email or web address] Visit Start Time 09:03 Visit Stop Time 09:47 Visit Number 6 Number of FAMILY ASSISTANT Visits 1 Evaluation Information Evaluation Date 11/08/23 Precautions Precautions frequent fractures WBAT now PT-OP-B Current Condition Start: 11/08/23 07:24 Freq: Status: Active Protocol: Document 11/08/23 08:15 NM (Rec: 11/08/23 09:38 NM [id number]) Current Condition History of Current Condition Onset Date 09/30/23 History of Current Condition Pt presents s/p R ORIF following tibia and fibula fractures. Pt injured on her leg when turning, slipped and had ground level fall in her horse stall. She has been NWB for 6 weeks (until Monday, ). Hx provided by pt and , [facility]. Pt has been performing the HEP provided by hospital since discharge but reports that exercises cause her RLE discomfort and occasionally pain. She has been using a manual w/c for mobility since discharge from hospital. She has follow up with surgeon tomorrow, 11/08, and will have 6 week radiographs; reports that surgeon cleared for flat foot WB for transfers only at 3 week post op follow up. She has a previous R ankle replacement in 2010 along with PMH of R pelvis fracture, L sciatica. She would occasionally use a spc when her ankle flared up, usually walking about 2 blocks-1 mile. No stairs at her home, only at the horse barn. She has vacation planned 11/21-12/03 and will not be able to attend. Prior Functional Status Baseline Function- ADL's Independent Baseline Function- Mobility Independent Baseline Function- Gait 2 blocks to 1 mile, prn spc use Baseline Function- Work/School retired Baseline Function- Recreation/Hobbies horse back riding, swimming 2x /wk Current Functional Impairments (Reported) Functional Limitations- ADL's dressing Functional Limitations- Mobility/Gait w/c for mobility; sleeps in lift chair PT-OP-C Subjective Start: 11/08/23 07:24 Freq: Status: Active Protocol: Document 12/08/23 08:07 AB (Rec: 12/08/23 12:18 AB [id number]) OP-PT Subjective Patient Comments Patient Comments Patient reports she is better than last time she was here, comments she walks around the home without device. Patient reports standing for over an hour causes increased pain, right knee and ankle. PT-OP-F Manual Assessment Start: 11/08/23 07:24 Freq: Status: Active Protocol: Document 11/08/23 08:15 NM (Rec: 11/08/23 09:38 NM [id number]) Manual Assessments Soft Tissue Assessment Soft Tissue Mobility Assessment Increased hamstring, hip flexor, heel cord, and hip abductor tightness Joint Mobility Assessment Joint Mobility Assessment Decreased R knee and ankle PROM and AROM. R ankle limited at talocrural joint due to previous fusion PT-OP-G Mobility & Gait Start: 11/08/23 07:24 Freq: Status: Active Protocol: Document 11/08/23 08:15 NM (Rec: 11/08/23 09:38 NM [id number]) OP Mobility Evaluation Bed Mobility Rolling Independent Supine to and from Sit Independent Transfers Sit to Stand w/c <> plinth partial WB with flat foot, stand several steps to sit OP Gait Assessment Comments Gait Comments NWB at this time, did not formally assess gait until pt cleared for WB PT-OP-H Neuro Start: 11/08/23 07:24 Freq: Status: Active Protocol: Document 11/08/23 08:15 NM (Rec: 11/08/23 09:38 NM [id number]) Sensation Evaluation Comments Summary Comments Numbness reported along anterior and sides of RLE post op. PT-OP-J Posture/Palpation/Skin Start: 11/08/23 07:24 Freq: Status: Active Protocol: Document 11/08/23 08:15 NM (Rec: 11/08/23 09:38 NM [id number]) Posture Evaluation Position Sitting Head/C-Spine Posture Forward Head T-Spine Posture Increased Kyphosis L-Spine Posture Increased Lordosis Scapula Posture (L) Protracted,(R) Protracted Arm Posture (L) Internally Rotated,(R) Internally Rotated Pelvis Posture Anteriorly Tilted Hip Posture (L) Externally Rotated,(R) Externally Rotated Knee Posture (L) Genu Valgus,(R) Genu Valgus Patellar Posture (L) Superior,(R) Superior,(R) Laterally Tilted Ankle/Foot Posture (L) Pronated,(R) Pronated Foot Arch (L) Low Arch,(R) Low Arch Palpation Assessment Location RLE Palpation Location knee, ankle Palpation Findings Edema,Soft Tissue Tightness, Tenderness Palpation Details Edema around B malleoli, knee. Tenderness in posterior calf and popliteal fossa. No increased redness except with dependency. Tenderness along medial and lateral knee, calf, ankles. Skin Assessment Circumference Measurement R ankle Location figure 8 Measurement (Centimeters) 53 Comments comparision L 50 cm R knee Location patellar Measurement (Centimeters) 48 Incisional Assessment Incision Appearance/Comments Multiple incision clean, dry, intact. No signs of infection. Decreased scar tissue mobility, particularly at R ankle due to increased swelling Other Assessments Skin Assessment Comments RLE slightly warmer than LLE. Rubor with dependency. Most edema at R malleoli PT-OP-K Range of Motion Start: 11/08/23 07:24 Freq: Status: Active Protocol: Document 11/08/23 08:15 NM (Rec: 11/08/23 09:38 NM [id number]) Hip Goniometric Range of Motion Hip Right Flexion w/Knee Flexed 100 Extension 5 Abduction 20 Internal Rotation 25 External Rotation 22 Left Flexion w/Knee Flexed 110 Extension 8 Abduction 15 Internal Rotation 35 External Rotation 32 Knee Goniometric Range of Motion Knee Right Flexion Active (degrees) 105 Extension Active (degrees) 5 Comments anterior and lateral knee pain with flexion AROM Left Flexion Active (degrees) 128 Extension Active (degrees) 0 Hyper-Extension Active 3 Ankle and Foot Goniometric Range of Motion Ankle and Foot Right Dorsiflexion with Knee Flexed 3 Plantarflexion 20 Inversion 3 Eversion 3 Left Dorsiflexion with Knee Flexed 12 Plantarflexion 35 Inversion 25 Eversion 15 PT-OP-M Strength Start: 11/08/23 07:24 Freq: Status: Active Protocol: Document 11/08/23 08:15 NM (Rec: 11/08/23 09:38 NM [id number]) Hip Strength Hip Manual Muscle Testing Right Flexion (L2) 4- Good- Extension (S1) 3+ Fair+ Abduction 3+ Fair+ Adduction 4- Good- External Rotation 3 Fair Internal Rotation 3 Fair Left Flexion (L2) 4+ Good+ Extension (S1) 4 Good Abduction 4 Good Adduction 4+ Good+ External Rotation 4+ Good+ Internal Rotation 4+ Good+ Knee Strength Knee Manual Muscle Testing Right Flexion (S2) 3 Fair Extension (L3) 3 Fair Comments AROM against gravity only, did not provide resistance due to NWB precautions Left Flexion (S2) 4+ Good+ Extension (L3) 4+ Good+ Ankle/Foot Strength Ankle and Foot Manual Muscle Testing Right Dorsiflexion (L4) 3 Fair Plantarflexion (S1) 3 Fair Inversion 3 Fair Eversion (S1) 3 Fair Comments AROM against gravity only, did not provide resistance due to NWB precautions. Minimal AROM due to previous fusion Left Dorsiflexion (L4) 4+ Good+ Plantarflexion (S1) 4+ Good+ Inversion 4+ Good+ Eversion (S1) 4+ Good+ PT-OP-Q Treatments Start: 11/08/23 07:24 Freq: Status: Active Protocol: Document 12/08/23 08:07 AB (Rec: 12/08/23 12:18 AB [id number]) Therapeutic Exercises Sitting Exercises seated PF with band Resistance level one latex free babd Reps/Minutes X15 Seated PF Sitting Exercise Name AROM Reps/Minutes X20 seated hip abduction with band Equipment Used level on latex free band doubled Reps/Minutes one minute hold X 1 Therapeutic Activity Therapeutic Activity Sit to stand Name without UE use Reps/Minutes 2X10 Gait Training Gait Activity 25 feet with small based quad cane Level of Assistance CGA to supervision Distance/Duration 25 feet Treatment Focus keeping all four pts of cane on floor when stepping and turning Manual Therapy Treatment Soft Tissue Mobilization calf and hamstring muscles Body Location left LE Mobilization Type Cross-Friction,Rolling Intensity/Depth Moderate Body Position Prone Comments superficial to proximal fibular area due to decreased sandeep scar tissue right Body Location scar tissue right quad and lower LE Mobilization Type Cross-Friction,Rolling,Other Intensity/Depth Superficial Body Position Hooklying Comments Superficial scar mobilization. Decreased mobility of scar on lateral R knee, R ankle. Performed with rolling, cross friction, lifting and twisting . Tolerated well without pain. Education on performing with lotion as part of HEP daily to decrease adhesions Neuro Re-Education Treatment Balance Activities SLS Reps/Duration X5 each LE Comments 1-2 seconds Self-Care/Home Management Treatment Education Other Education Patient ed importance of using assistive device at all times due to limited SLS without UE use this session ie 1 second right LE ( with reports of no increase in pain ) Activities Self-Care/Home Management Activities Seated HR to HEP, sit to stand to HEP with increased repetitions PT-OP-T Assessment and Plan Start: 11/08/23 07:24 Freq: Status: Active Protocol: Document 12/08/23 08:07 AB (Rec: 12/08/23 12:18 AB [id number]) Physical Therapy Assessment Goals Seven Impairment strength Impairment R ankle strength 3/5 MMT Short Term Goal (STG) Pt will increase R ankle strength globally to at least 4-/5 MMT in order to demonstrate improved strength for weight bearing and gait STG Duration 5 weeks Mcfp Goal (LTG) Pt will increase R ankle strength globally to at least 4/5 MMT in order to demonstrate improved strength for weight bearing and gait LTG Duration 10 weeks Six Impairment strength Impairment R knee strength 3/5 MMT Short Term Goal (STG) Pt will increase R knee flexion and extension strength to at least 4-/5 MMT in order to demonstrate improved strength for weight bearing and gait STG Duration 5 weeks Mcfp Goal (LTG) Pt will increase R knee flexion and extension strength to at least 4/5 MMT in order to demonstrate improved strength for weight bearing and gait LTG Duration 10 weeks Five Impairment function Impairment unable to perform squats Short Term Goal (STG) Pt will be able to perform at least 5 bilateral squats with pain <5/10 and without compensation in order to demonstrate improved weight bearing and BLE strength STG Duration 5 weeks Mcfp Goal (LTG) Pt will be able to perform at least 10 bilateral squats with pain <5/10 and without compensation in order to demonstrate improved weight bearing and BLE strength LTG Duration 10 weeks Four Impairment mobility Impairment NWB, unable to ambulate Short Term Goal (STG) Pt will be able to ambulate at least 500 ft using LRAD with pain <5/10 in order to demonstrate improved activity tolerance and BLE strength STG Duration 5 weeks Mcfp Goal (LTG) Pt will be able to ambulate community distances using LRAD with pain <2/10 in order to demonstrate improved activity tolerance and BLE strength LTG Duration 10 weeks Three Impairment AROM Impairment R knee extension AROM 3 deg Real Estate Officer Goal (LTG) Pt will improve R knee extension to at least 0 deg in order to achieve terminal knee extension during gait LTG Duration 10 weeks Two Impairment AROM Impairment R knee flexion 105 deg Short Term Goal (STG) Pt will increase R knee flexion to at least 115 deg for improved knee flexion during swing phase of gait and stairs STG Duration 5 weeks Real Estate Officer Goal (LTG) Pt will increase R knee flexion to at least 125 deg for improved knee flexion during swing phase of gait and stairs LTG Duration 10 weeks One Impairment LEFS Impairment 15/80 Short Term Goal (STG) Pt will increase LEFS score by at least 9 points (1 MCID) in order to demonstrate improved pain management and activity tolerance STG Duration 5 weeks Real Estate Officer Goal (LTG) Pt will increase LEFS score to at least 50/80 in order to demonstrate improved pain management and activity tolerance LTG Duration 10 weeks Assessment Summary Assessment no pain Physical Therapy Plan Frequency and Duration Frequency of Treatment 1-2x/wk Duration of treatment (weeks) 10 Plan of Care Start Date 11/08/23 Plan of Care End Date 01/19/24 Next Visit Focus/Plan Next Note Type Treatment Note Next Visit Plan calf stretch, seated heel/toe raises, scar mobilization, ankle 4 way Manual: scar massage, soft tissue, knee and ankle mobilizations grade II as tolerated, progress latex free band for glute med strengthening, possibly sit to stand as an exercise vs mini squat ice massage/ice elevation PN on 12/14 visit
--- NOTE | 2023-12-12 12:57 | PT.OTN ---
Current Diagnoses Weakness (12/12/23) Displaced bicondylar fracture of right tibia, subsequent encounter for closed fracture with routine healing (12/12/23) Unspecified fracture of shaft of unspecified tibia, initial encounter for closed fracture (12/12/23) Unspecified fracture of shaft of right fibula, subsequent encounter for closed fracture with routine healing (12/12/23) Unspecified fracture of shaft of unspecified fibula, initial encounter for closed fracture (12/12/23) Physical Therapy Treatment Note PT-OP-A Visit Information Start: 11/08/23 07:24 Freq: Status: Active Protocol: Document 12/12/23 08:06 AB (Rec: 12/12/23 12:57 AB [id number]) Out-Patient Physical Therapy Visit Information Visit Information Visit Type Treatment Note Visit Note 15 visits Access Code: [email or web address] Visit Start Time 08:15 Visit Stop Time 09:00 Visit Number 7 Number of POWER [employer]IV[employer] Visits 2 Evaluation Information Evaluation Date 11/08/23 Precautions Precautions frequent fractures WBAT now PT-OP-B Current Condition Start: 11/08/23 07:24 Freq: Status: Active Protocol: Document 11/08/23 08:15 NM (Rec: 11/08/23 09:38 NM [id number]) Current Condition History of Current Condition Onset Date 09/30/23 History of Current Condition Pt presents s/p R ORIF following tibia and fibula fractures. Pt injured on her leg when turning, slipped and had ground level fall in her horse stall. She has been NWB for 6 weeks (until Monday, ). Hx provided by pt and , [facility]. Pt has been performing the HEP provided by hospital since discharge but reports that exercises cause her RLE discomfort and occasionally pain. She has been using a manual w/c for mobility since discharge from hospital. She has follow up with surgeon tomorrow, 11/08, and will have 6 week radiographs; reports that surgeon cleared for flat foot WB for transfers only at 3 week post op follow up. She has a previous R ankle replacement in 2010 along with PMH of R pelvis fracture, L sciatica. She would occasionally use a spc when her ankle flared up, usually walking about 2 blocks-1 mile. No stairs at her home, only at the horse barn. She has vacation planned 11/21-12/03 and will not be able to attend. Prior Functional Status Baseline Function- ADL's Independent Baseline Function- Mobility Independent Baseline Function- Gait 2 blocks to 1 mile, prn spc use Baseline Function- Work/School retired Baseline Function- Recreation/Hobbies horse back riding, swimming 2x /wk Current Functional Impairments (Reported) Functional Limitations- ADL's dressing Functional Limitations- Mobility/Gait w/c for mobility; sleeps in lift chair PT-OP-C Subjective Start: 11/08/23 07:24 Freq: Status: Active Protocol: Document 12/12/23 08:06 AB (Rec: 12/12/23 12:57 AB [id number]) OP-PT Subjective Patient Comments Patient Comments Patient into session with quad cane, reports no changes since last session. PT-OP-F Manual Assessment Start: 11/08/23 07:24 Freq: Status: Active Protocol: Document 11/08/23 08:15 NM (Rec: 11/08/23 09:38 NM [id number]) Manual Assessments Soft Tissue Assessment Soft Tissue Mobility Assessment Increased hamstring, hip flexor, heel cord, and hip abductor tightness Joint Mobility Assessment Joint Mobility Assessment Decreased R knee and ankle PROM and AROM. R ankle limited at talocrural joint due to previous fusion PT-OP-G Mobility & Gait Start: 11/08/23 07:24 Freq: Status: Active Protocol: Document 11/08/23 08:15 NM (Rec: 11/08/23 09:38 NM [id number]) OP Mobility Evaluation Bed Mobility Rolling Independent Supine to and from Sit Independent Transfers Sit to Stand w/c <> plinth partial WB with flat foot, stand several steps to sit OP Gait Assessment Comments Gait Comments NWB at this time, did not formally assess gait until pt cleared for WB PT-OP-H Neuro Start: 11/08/23 07:24 Freq: Status: Active Protocol: Document 11/08/23 08:15 NM (Rec: 11/08/23 09:38 NM [id number]) Sensation Evaluation Comments Summary Comments Numbness reported along anterior and sides of RLE post op. PT-OP-J Posture/Palpation/Skin Start: 11/08/23 07:24 Freq: Status: Active Protocol: Document 11/08/23 08:15 NM (Rec: 11/08/23 09:38 NM [id number]) Posture Evaluation Position Sitting Head/C-Spine Posture Forward Head T-Spine Posture Increased Kyphosis L-Spine Posture Increased Lordosis Scapula Posture (L) Protracted,(R) Protracted Arm Posture (L) Internally Rotated,(R) Internally Rotated Pelvis Posture Anteriorly Tilted Hip Posture (L) Externally Rotated,(R) Externally Rotated Knee Posture (L) Genu Valgus,(R) Genu Valgus Patellar Posture (L) Superior,(R) Superior,(R) Laterally Tilted Ankle/Foot Posture (L) Pronated,(R) Pronated Foot Arch (L) Low Arch,(R) Low Arch Palpation Assessment Location RLE Palpation Location knee, ankle Palpation Findings Edema,Soft Tissue Tightness, Tenderness Palpation Details Edema around B malleoli, knee. Tenderness in posterior calf and popliteal fossa. No increased redness except with dependency. Tenderness along medial and lateral knee, calf, ankles. Skin Assessment Circumference Measurement R ankle Location figure 8 Measurement (Centimeters) 53 Comments comparision L 50 cm R knee Location patellar Measurement (Centimeters) 48 Incisional Assessment Incision Appearance/Comments Multiple incision clean, dry, intact. No signs of infection. Decreased scar tissue mobility, particularly at R ankle due to increased swelling Other Assessments Skin Assessment Comments RLE slightly warmer than LLE. Rubor with dependency. Most edema at R malleoli PT-OP-K Range of Motion Start: 11/08/23 07:24 Freq: Status: Active Protocol: Document 11/08/23 08:15 NM (Rec: 11/08/23 09:38 NM [id number]) Hip Goniometric Range of Motion Hip Right Flexion w/Knee Flexed 100 Extension 5 Abduction 20 Internal Rotation 25 External Rotation 22 Left Flexion w/Knee Flexed 110 Extension 8 Abduction 15 Internal Rotation 35 External Rotation 32 Knee Goniometric Range of Motion Knee Right Flexion Active (degrees) 105 Extension Active (degrees) 5 Comments anterior and lateral knee pain with flexion AROM Left Flexion Active (degrees) 128 Extension Active (degrees) 0 Hyper-Extension Active 3 Ankle and Foot Goniometric Range of Motion Ankle and Foot Right Dorsiflexion with Knee Flexed 3 Plantarflexion 20 Inversion 3 Eversion 3 Left Dorsiflexion with Knee Flexed 12 Plantarflexion 35 Inversion 25 Eversion 15 PT-OP-M Strength Start: 11/08/23 07:24 Freq: Status: Active Protocol: Document 11/08/23 08:15 NM (Rec: 11/08/23 09:38 NM [id number]) Hip Strength Hip Manual Muscle Testing Right Flexion (L2) 4- Good- Extension (S1) 3+ Fair+ Abduction 3+ Fair+ Adduction 4- Good- External Rotation 3 Fair Internal Rotation 3 Fair Left Flexion (L2) 4+ Good+ Extension (S1) 4 Good Abduction 4 Good Adduction 4+ Good+ External Rotation 4+ Good+ Internal Rotation 4+ Good+ Knee Strength Knee Manual Muscle Testing Right Flexion (S2) 3 Fair Extension (L3) 3 Fair Comments AROM against gravity only, did not provide resistance due to NWB precautions Left Flexion (S2) 4+ Good+ Extension (L3) 4+ Good+ Ankle/Foot Strength Ankle and Foot Manual Muscle Testing Right Dorsiflexion (L4) 3 Fair Plantarflexion (S1) 3 Fair Inversion 3 Fair Eversion (S1) 3 Fair Comments AROM against gravity only, did not provide resistance due to NWB precautions. Minimal AROM due to previous fusion Left Dorsiflexion (L4) 4+ Good+ Plantarflexion (S1) 4+ Good+ Inversion 4+ Good+ Eversion (S1) 4+ Good+ PT-OP-Q Treatments Start: 11/08/23 07:24 Freq: Status: Active Protocol: Document 12/12/23 08:06 AB (Rec: 12/12/23 12:57 AB [id number]) Therapeutic Exercises Sitting Exercises AROM DF Side bilateral Reps/Minutes X15 Comments post calf stretches seated hip abduction with band Equipment Used level 4 blue latex free band Reps/Minutes one minute hold X1 then without holdX10 X2 Standing Exercises calf stretch Standing Exercise Name Gastroc and soleus on STIVEN with UE support Reps/Minutes 60 X 2 each Comments verbal cues Therapeutic Activity Therapeutic Activity Sit to stand Name with band level 4 latex free Reps/Minutes 2X10 Comments band tied above knees monitored for pain Manual Therapy Treatment Soft Tissue Mobilization right hamstring Body Location hamstring and calf Mobilization Type Cross-Friction,Rolling Intensity/Depth Moderate Body Position Hooklying Comments with bolster under mid calf prior to exercise scar tissue right Body Location scar tissue right quad and lower LE Mobilization Type Cross-Friction,Rolling,Other Intensity/Depth Superficial Body Position Hooklying Comments Superficial scar mobilization. Decreased mobility of scar on lateral R knee, R ankle. Performed with rolling, cross friction, lifting and twisting . Tolerated well without pain. Education on performing with lotion as part of HEP daily to decrease adhesions Neuro Re-Education Treatment Balance Activities step up taps 8 inch step Details hands above parallel bars Reps/Duration X12 Comments CGA tandem stepping Details hands above parallel bars Reps/Duration 10 feet X 5 Comments CGA verbal cues for heel toe pattern SLS Details hands above bars on and off foam pad with and without visual scanning Reps/Duration 5 minutes Comments CGA PT-OP-T Assessment and Plan Start: 11/08/23 07:24 Freq: Status: Active Protocol: Document 12/12/23 08:06 AB (Rec: 12/12/23 12:57 AB [id number]) Physical Therapy Assessment Goals Seven Impairment strength Impairment R ankle strength 3/5 MMT Short Term Goal (STG) Pt will increase R ankle strength globally to at least 4-/5 MMT in order to demonstrate improved strength for weight bearing and gait STG Duration 5 weeks Director Talent Goal (LTG) Pt will increase R ankle strength globally to at least 4/5 MMT in order to demonstrate improved strength for weight bearing and gait LTG Duration 10 weeks Six Impairment strength Impairment R knee strength 3/5 MMT Short Term Goal (STG) Pt will increase R knee flexion and extension strength to at least 4-/5 MMT in order to demonstrate improved strength for weight bearing and gait STG Duration 5 weeks Senior Care Goal (LTG) Pt will increase R knee flexion and extension strength to at least 4/5 MMT in order to demonstrate improved strength for weight bearing and gait LTG Duration 10 weeks Five Impairment function Impairment unable to perform squats Short Term Goal (STG) Pt will be able to perform at least 5 bilateral squats with pain <5/10 and without compensation in order to demonstrate improved weight bearing and BLE strength STG Duration 5 weeks Director Talent Goal (LTG) Pt will be able to perform at least 10 bilateral squats with pain <5/10 and without compensation in order to demonstrate improved weight bearing and BLE strength LTG Duration 10 weeks Four Impairment mobility Impairment NWB, unable to ambulate Short Term Goal (STG) Pt will be able to ambulate at least 500 ft using LRAD with pain <5/10 in order to demonstrate improved activity tolerance and BLE strength STG Duration 5 weeks Director Talent Goal (LTG) Pt will be able to ambulate community distances using LRAD with pain <2/10 in order to demonstrate improved activity tolerance and BLE strength LTG Duration 10 weeks Three Impairment AROM Impairment R knee extension AROM 3 deg Senior Care Goal (LTG) Pt will improve R knee extension to at least 0 deg in order to achieve terminal knee extension during gait LTG Duration 10 weeks Two Impairment AROM Impairment R knee flexion 105 deg Short Term Goal (STG) Pt will increase R knee flexion to at least 115 deg for improved knee flexion during swing phase of gait and stairs STG Duration 5 weeks Senior Care Goal (LTG) Pt will increase R knee flexion to at least 125 deg for improved knee flexion during swing phase of gait and stairs LTG Duration 10 weeks One Impairment LEFS Impairment 15/80 Short Term Goal (STG) Pt will increase LEFS score by at least 9 points (1 MCID) in order to demonstrate improved pain management and activity tolerance STG Duration 5 weeks Senior Care Goal (LTG) Pt will increase LEFS score to at least 50/80 in order to demonstrate improved pain management and activity tolerance LTG Duration 10 weeks Assessment Summary Assessment Ann reports having no pain end of session, and was able to perform SLS/balance training with reports of no increased pain this session. Physical Therapy Plan Frequency and Duration Frequency of Treatment 1-2x/wk Duration of treatment (weeks) 10 Plan of Care Start Date 11/08/23 Plan of Care End Date 01/19/24 Next Visit Focus/Plan Next Note Type Progress Note Next Visit Plan calf stretch, seated heel/toe raises, scar mobilization, ankle 4 way Manual: scar massage, soft tissue, knee and ankle mobilizations grade II as tolerated, progress latex free band for glute med strengthening/review glute med isometric standing at wall, possibly add to HEP, assess heel raise ice massage/ice elevation PN on 12/14 visit
--- NOTE | 2023-12-15 16:14 | PT.OTN ---
Current Diagnoses Weakness (12/15/23) Displaced bicondylar fracture of right tibia, subsequent encounter for closed fracture with routine healing (12/15/23) Unspecified fracture of shaft of unspecified tibia, initial encounter for closed fracture (12/15/23) Unspecified fracture of shaft of right fibula, subsequent encounter for closed fracture with routine healing (12/15/23) Unspecified fracture of shaft of unspecified fibula, initial encounter for closed fracture (12/15/23) Physical Therapy Treatment Note PT-OP-A Visit Information Start: 11/08/23 07:24 Freq: Status: Active Protocol: Document 12/15/23 08:16 NM (Rec: 12/15/23 09:02 NM [id number]) Out-Patient Physical Therapy Visit Information Visit Information Visit Type Progress Note Visit Note 15 visits Visit Start Time 08:17 Visit Stop Time 09:00 Visit Number 8 Evaluation Information Evaluation Date 11/08/23 Precautions Precautions frequent fractures WBAT now PT-OP-B Current Condition Start: 11/08/23 07:24 Freq: Status: Active Protocol: Document 11/08/23 08:15 NM (Rec: 11/08/23 09:38 NM [id number]) Current Condition History of Current Condition Onset Date 09/30/23 History of Current Condition Pt presents s/p R ORIF following tibia and fibula fractures. Pt injured on her leg when turning, slipped and had ground level fall in her horse stall. She has been NWB for 6 weeks (until Monday, ). Hx provided by pt and , [facility]. Pt has been performing the HEP provided by hospital since discharge but reports that exercises cause her RLE discomfort and occasionally pain. She has been using a manual w/c for mobility since discharge from hospital. She has follow up with surgeon tomorrow, 11/08, and will have 6 week radiographs; reports that surgeon cleared for flat foot WB for transfers only at 3 week post op follow up. She has a previous R ankle replacement in 2010 along with PMH of R pelvis fracture, L sciatica. She would occasionally use a spc when her ankle flared up, usually walking about 2 blocks-1 mile. No stairs at her home, only at the horse barn. She has vacation planned 11/21-12/03 and will not be able to attend. Prior Functional Status Baseline Function- ADL's Independent Baseline Function- Mobility Independent Baseline Function- Gait 2 blocks to 1 mile, prn spc use Baseline Function- Work/School retired Baseline Function- Recreation/Hobbies horse back riding, swimming 2x /wk Current Functional Impairments (Reported) Functional Limitations- ADL's dressing Functional Limitations- Mobility/Gait w/c for mobility; sleeps in lift chair PT-OP-C Subjective Start: 11/08/23 07:24 Freq: Status: Active Protocol: Document 12/15/23 08:16 NM (Rec: 12/15/23 09:02 NM [id number]) OP-PT Subjective Patient Comments Patient Comments Pt reports no pain in R knee or ankle unless she does all of her HEP continuously. States more soreness than pain . Presents with quad cane at home and in community. She feels likes she is improving PT-OP-F Manual Assessment Start: 11/08/23 07:24 Freq: Status: Active Protocol: Document 11/08/23 08:15 NM (Rec: 11/08/23 09:38 NM [id number]) Manual Assessments Soft Tissue Assessment Soft Tissue Mobility Assessment Increased hamstring, hip flexor, heel cord, and hip abductor tightness Joint Mobility Assessment Joint Mobility Assessment Decreased R knee and ankle PROM and AROM. R ankle limited at talocrural joint due to previous fusion PT-OP-G Mobility & Gait Start: 11/08/23 07:24 Freq: Status: Active Protocol: Document 11/08/23 08:15 NM (Rec: 11/08/23 09:38 NM [id number]) OP Mobility Evaluation Bed Mobility Rolling Independent Supine to and from Sit Independent Transfers Sit to Stand w/c <> plinth partial WB with flat foot, stand several steps to sit OP Gait Assessment Comments Gait Comments NWB at this time, did not formally assess gait until pt cleared for WB PT-OP-H Neuro Start: 11/08/23 07:24 Freq: Status: Active Protocol: Document 11/08/23 08:15 NM (Rec: 11/08/23 09:38 NM [id number]) Sensation Evaluation Comments Summary Comments Numbness reported along anterior and sides of RLE post op. PT-OP-J Posture/Palpation/Skin Start: 11/08/23 07:24 Freq: Status: Active Protocol: Document 11/08/23 08:15 NM (Rec: 11/08/23 09:38 NM [id number]) Posture Evaluation Position Sitting Head/C-Spine Posture Forward Head T-Spine Posture Increased Kyphosis L-Spine Posture Increased Lordosis Scapula Posture (L) Protracted,(R) Protracted Arm Posture (L) Internally Rotated,(R) Internally Rotated Pelvis Posture Anteriorly Tilted Hip Posture (L) Externally Rotated,(R) Externally Rotated Knee Posture (L) Genu Valgus,(R) Genu Valgus Patellar Posture (L) Superior,(R) Superior,(R) Laterally Tilted Ankle/Foot Posture (L) Pronated,(R) Pronated Foot Arch (L) Low Arch,(R) Low Arch Palpation Assessment Location RLE Palpation Location knee, ankle Palpation Findings Edema,Soft Tissue Tightness, Tenderness Palpation Details Edema around B malleoli, knee. Tenderness in posterior calf and popliteal fossa. No increased redness except with dependency. Tenderness along medial and lateral knee, calf, ankles. Skin Assessment Circumference Measurement R ankle Location figure 8 Measurement (Centimeters) 53 Comments comparision L 50 cm R knee Location patellar Measurement (Centimeters) 48 Incisional Assessment Incision Appearance/Comments Multiple incision clean, dry, intact. No signs of infection. Decreased scar tissue mobility, particularly at R ankle due to increased swelling Other Assessments Skin Assessment Comments RLE slightly warmer than LLE. Rubor with dependency. Most edema at R malleoli PT-OP-K Range of Motion Start: 11/08/23 07:24 Freq: Status: Active Protocol: Document 12/15/23 08:16 NM (Rec: 12/15/23 09:02 NM [id number]) Knee Goniometric Range of Motion Knee Right Flexion Active (degrees) 105 Extension Active (degrees) 5 Comments IE: anterior and lateral knee pain with flexion AROM 12/15/23: 125 deg flex, 0 deg extension; pain free Ankle and Foot Goniometric Range of Motion Ankle and Foot Right Dorsiflexion with Knee Flexed 3 Plantarflexion 20 Inversion 3 Eversion 3 Comments 12/15/23: 5 deg DF, 20 deg PF; pain free PT-OP-M Strength Start: 11/08/23 07:24 Freq: Status: Active Protocol: Document 12/15/23 08:16 NM (Rec: 12/15/23 09:02 NM [id number]) Hip Strength Hip Manual Muscle Testing Right Flexion (L2) 4- Good- Extension (S1) 3+ Fair+ Abduction 3+ Fair+ Adduction 4- Good- External Rotation 3 Fair Internal Rotation 3 Fair Comments 12/15/23: 4/5 MMT for all, pain free Knee Strength Knee Manual Muscle Testing Right Flexion (S2) 3 Fair Extension (L3) 3 Fair Comments AROM against gravity only, did not provide resistance due to NWB precautions 12/15/23: 4-/5, pain free Ankle/Foot Strength Ankle and Foot Manual Muscle Testing Right Dorsiflexion (L4) 3 Fair Plantarflexion (S1) 3 Fair Inversion 3 Fair Eversion (S1) 3 Fair Comments AROM against gravity only, did not provide resistance due to NWB precautions. Minimal AROM due to previous fusion 12/15/23: 4-/5, pain free with seated resisted testing PT-OP-Q Treatments Start: 11/08/23 07:24 Freq: Status: Active Protocol: Document 12/15/23 08:16 NM (Rec: 12/15/23 09:02 NM [id number]) Therapeutic Exercises Standing Exercises side steps Standing Exercise Name added to HEP Side bilateral Resistance lvl 2 band around thighs Equipment Used hand support on ballet bar for balance Reps/Minutes 2x15 ft Comments pain free when cued for smaller steps, no ankle inversion, neutral hip rot step up Standing Exercise Name Trialed in PT: 4 step up 1. fwd, 2. lateral Side right Equipment Used 1 rail assist for balance, flat hand Reps/Minutes 1. 2x10, 1. 1x3 lateral - d/c due to discomfort (denies pain ) Comments pain free; cued less UE assist , minimize LE assist calf stretch Standing Exercise Name 1. gastroc, 2. soleus Side right Equipment Used staggered stance with hand support on stairs Reps/Minutes 1x60 Comments cued heel on ground Gait Training Gait Activity stairs Device Used close SBA Level of Assistance CGA for safety Distance/Duration 2 sets x 4 stairs, less cueing 2nd set Treatment Focus sequencing with spc, safety, tolerance for stairs Comments Cued for quad cane placement, sequencing for safety as pt trying to perform stairs at home. Educated on safety. Use 1 hand rail with descent similar to stairs at home. Cued up with good, down with bad quad cane Device Used small based quad cane Level of Assistance close SBA Surface stable Distance/Duration 445 Treatment Focus gait mechanics, sequencing with cane, endurance Comments Challenged by distance, slow savana, requires increased time. Cued for heel >toe pattern, quad cane positioning and sequencing Manual Therapy Treatment Soft Tissue Mobilization right hamstring Body Location hamstring and calf, quad Mobilization Type Cross-Friction,Rolling Intensity/Depth Moderate Body Position Hooklying Comments Prior to exercise, gentle rolling of HS/quad/calf and cross friction of patellar tendon, no pain or tenderness, only tightness reported. Educated on self STM and heat prior to mobilization Joint Mobilizations R knee Joint patellar Direction medial, medial tilt, superior/ inferior Grade III Body Position Supine Reps/Duration 1x15 ea Comments For improved patellar mobility with knee flexion. Demos slight lateral tracking. Pain free with mobilization, decreased inferior glide. Improved medial glide, pain free for all motions PT-OP-T Assessment and Plan Start: 11/08/23 07:24 Freq: Status: Active Protocol: Document 12/15/23 08:16 NM (Rec: 12/15/23 09:02 NM [id number]) Physical Therapy Assessment Goals Seven Impairment strength Impairment R ankle strength 3/5 MMT Short Term Goal (STG) Pt will increase R ankle strength globally to at least 4-/5 MMT in order to demonstrate improved strength for weight bearing and gait 12/15/23: 4-/5 for all, pain free STG Duration 5 weeks MET Jail Goal (LTG) Pt will increase R ankle strength globally to at least 4/5 MMT in order to demonstrate improved strength for weight bearing and gait LTG Duration 10 weeks Six Impairment strength Impairment R knee strength 3/5 MMT Short Term Goal (STG) Pt will increase R knee flexion and extension strength to at least 4-/5 MMT in order to demonstrate improved strength for weight bearing and gait 12/15/23: 4-/5 MMT for both, pain free STG Duration 5 weeks MET Rn Clinical Review Goal (LTG) Pt will increase R knee flexion and extension strength to at least 4/5 MMT in order to demonstrate improved strength for weight bearing and gait LTG Duration 10 weeks Five Impairment function Impairment unable to perform squats Short Term Goal (STG) Pt will be able to perform at least 5 bilateral squats with pain <5/10 and without compensation in order to demonstrate improved weight bearing and BLE strength 12/15/23: in prevoius sessions, able to perform 10 squats with BUE support for balance but requires cues for equal WB and to limit compensations, pain free STG Duration 5 weeks PROGRESSING Jail Goal (LTG) Pt will be able to perform at least 10 bilateral squats with pain <5/10 and without compensation in order to demonstrate improved weight bearing and BLE strength LTG Duration 10 weeks Four Impairment mobility Impairment NWB, unable to ambulate Short Term Goal (STG) Pt will be able to ambulate at least 500 ft using LRAD with pain <5/10 in order to demonstrate improved activity tolerance and BLE strength 12/15/23: 445 ft with quad cane , slow savana. States pain free, slightly antalgic gait, cued for heel/toe and normal gait mechanics STG Duration 5 weeks PROGRESSING Jail Goal (LTG) Pt will be able to ambulate community distances using LRAD with pain <2/10 in order to demonstrate improved activity tolerance and BLE strength LTG Duration 10 weeks Three Impairment AROM Impairment R knee extension AROM 3 deg Jail Goal (LTG) Pt will improve R knee extension to at least 0 deg in order to achieve terminal knee extension during gait 12/15/23: 0 deg extension LTG Duration 10 weeks MET Two Impairment AROM Impairment R knee flexion 105 deg Short Term Goal (STG) Pt will increase R knee flexion to at least 115 deg for improved knee flexion during swing phase of gait and stairs 12/15/23: 125 deg flexion, pain free but demos hip hike compensation with testing STG Duration 5 weeks MET Jail Goal (LTG) Pt will increase R knee flexion to at least 125 deg for improved knee flexion during swing phase of gait and stairs 12/15/23: 125 deg flexion, pain free but demos hip hike compensation with testing LTG Duration 10 weeks One Impairment LEFS Impairment 15/80 Short Term Goal (STG) Pt will increase LEFS score by at least 9 points (1 MCID) in order to demonstrate improved pain management and activity tolerance 12/15/23: 33/80 STG Duration 5 weeks MET Jail Goal (LTG) Pt will increase LEFS score to at least 50/80 in order to demonstrate improved pain management and activity tolerance LTG Duration 10 weeks Progress Towards Goals Progress Towards Goals Progressing Toward Goals,Goals Met Progress Comments Progressing well with ROM and strength goals, meeting several STGs. Progressing toward activity tolerance, functional transfer goals Assessment Summary Assessment Pt tolerated session well without any R knee or ankle pain. Session emphasis on gait mechanics with quad cane on both level surface and on stairs. Cued for heel/toe gait mechanics. She demonstrates decreased endurance. Pt recommended pt slowly begin ambulating more frequently on level surfaces as long as pain free, and also educated on up with good, down with bad on stairs. Trialed RLE step up on 4 step, which pt able to perform with hand support. Pt able to decrease amount of hand support with reps, cued for knee alignment and strong glute contraction. Reports discomfort with lateral step up on 4 step with RLE, but denies pain. Initiated resisted side steps for increased glute medius strengthening, stabilization of pelvis during gait. Manual treatment to improve patellar mobility and soft tissue length of R thigh muscles prior to exercise and gait. Physical Therapy Plan Frequency and Duration Frequency of Treatment 1-2x/wk Duration of treatment (weeks) 10 Plan of Care Start Date 11/08/23 Plan of Care End Date 01/19/24 Therapeutic Interventions Therapeutic Interventions Balance Training,Coordination Training,Gait Training,Home Exercise Program,Joint Mobilizations,Manual Therapy, Neuromuscular Re-education, Orthotic/Prosthetic Management ,Patient/Caregiver Education, Self-Care/Home Management, Sensory Integration,Soft Tissue Mobilization,Taping, Therapeutic Activities, Therapeutic Exercises Modalities Biofeedback,Cold Pack/Ice Massage,Electric Stimulation, Hot Packs,Ultrasound, Vasopneumatic Devices Next Visit Focus/Plan Next Note Type Progress Note Next Visit Plan Hip 3 ways, step up, squat, balance, trial lunge in future sessions calf stretch, seated heel/toe raises, scar mobilization, ankle 4 way Manual: scar massage, soft tissue, knee and ankle mobilizations grade II as tolerated, progress latex free band for glute med strengthening/review glute med isometric standing at wall, possibly add to HEP, assess heel raise ice massage/ice elevation PN on 12/14 visit
--- NOTE | 2023-12-19 09:44 | PT.OTN ---
Current Diagnoses Weakness (12/19/23) Displaced bicondylar fracture of right tibia, subsequent encounter for closed fracture with routine healing (12/19/23) Unspecified fracture of shaft of unspecified tibia, initial encounter for closed fracture (12/19/23) Unspecified fracture of shaft of right fibula, subsequent encounter for closed fracture with routine healing (12/19/23) Unspecified fracture of shaft of unspecified fibula, initial encounter for closed fracture (12/19/23) Physical Therapy Treatment Note PT-OP-A Visit Information Start: 11/08/23 07:24 Freq: Status: Active Protocol: Document 12/19/23 08:19 NM (Rec: 12/19/23 09:44 NM [id number]) Out-Patient Physical Therapy Visit Information Visit Information Visit Type Treatment Note Visit Note 15 visits Visit Start Time 08:19 Visit Stop Time 09:05 Visit Number 9 Evaluation Information Evaluation Date 11/08/23 PT-OP-B Current Condition Start: 11/08/23 07:24 Freq: Status: Active Protocol: Document 11/08/23 08:15 NM (Rec: 11/08/23 09:38 NM [id number]) Current Condition History of Current Condition Onset Date 09/30/23 History of Current Condition Pt presents s/p R ORIF following tibia and fibula fractures. Pt injured on her leg when turning, slipped and had ground level fall in her horse stall. She has been NWB for 6 weeks (until Monday, ). Hx provided by pt and , [facility]. Pt has been performing the HEP provided by hospital since discharge but reports that exercises cause her RLE discomfort and occasionally pain. She has been using a manual w/c for mobility since discharge from hospital. She has follow up with surgeon tomorrow, 11/08, and will have 6 week radiographs; reports that surgeon cleared for flat foot WB for transfers only at 3 week post op follow up. She has a previous R ankle replacement in 2010 along with PMH of R pelvis fracture, L sciatica. She would occasionally use a spc when her ankle flared up, usually walking about 2 blocks-1 mile. No stairs at her home, only at the horse barn. She has vacation planned 11/21-12/03 and will not be able to attend. Prior Functional Status Baseline Function- ADL's Independent Baseline Function- Mobility Independent Baseline Function- Gait 2 blocks to 1 mile, prn spc use Baseline Function- Work/School retired Baseline Function- Recreation/Hobbies horse back riding, swimming 2x /wk Current Functional Impairments (Reported) Functional Limitations- ADL's dressing Functional Limitations- Mobility/Gait w/c for mobility; sleeps in lift chair PT-OP-C Subjective Start: 11/08/23 07:24 Freq: Status: Active Protocol: Document 12/19/23 08:19 NM (Rec: 12/19/23 09:44 NM [id number]) OP-PT Subjective Patient Comments Patient Comments Pt reports that patellar mobilizations bothered her, but resolved within 24 hrs. States she has been doing stairs at their other home with rails. She has follow up with surgeon on 12/[address] Gorman on 01/01 PT-OP-F Manual Assessment Start: 11/08/23 07:24 Freq: Status: Active Protocol: Document 11/08/23 08:15 NM (Rec: 11/08/23 09:38 NM [id number]) Manual Assessments Soft Tissue Assessment Soft Tissue Mobility Assessment Increased hamstring, hip flexor, heel cord, and hip abductor tightness Joint Mobility Assessment Joint Mobility Assessment Decreased R knee and ankle PROM and AROM. R ankle limited at talocrural joint due to previous fusion PT-OP-G Mobility & Gait Start: 11/08/23 07:24 Freq: Status: Active Protocol: Document 11/08/23 08:15 NM (Rec: 11/08/23 09:38 NM [id number]) OP Mobility Evaluation Bed Mobility Rolling Independent Supine to and from Sit Independent Transfers Sit to Stand w/c <> plinth partial WB with flat foot, stand several steps to sit OP Gait Assessment Comments Gait Comments NWB at this time, did not formally assess gait until pt cleared for WB PT-OP-H Neuro Start: 11/08/23 07:24 Freq: Status: Active Protocol: Document 11/08/23 08:15 NM (Rec: 11/08/23 09:38 NM [id number]) Sensation Evaluation Comments Summary Comments Numbness reported along anterior and sides of RLE post op. PT-OP-J Posture/Palpation/Skin Start: 11/08/23 07:24 Freq: Status: Active Protocol: Document 11/08/23 08:15 NM (Rec: 11/08/23 09:38 NM [id number]) Posture Evaluation Position Sitting Head/C-Spine Posture Forward Head T-Spine Posture Increased Kyphosis L-Spine Posture Increased Lordosis Scapula Posture (L) Protracted,(R) Protracted Arm Posture (L) Internally Rotated,(R) Internally Rotated Pelvis Posture Anteriorly Tilted Hip Posture (L) Externally Rotated,(R) Externally Rotated Knee Posture (L) Genu Valgus,(R) Genu Valgus Patellar Posture (L) Superior,(R) Superior,(R) Laterally Tilted Ankle/Foot Posture (L) Pronated,(R) Pronated Foot Arch (L) Low Arch,(R) Low Arch Palpation Assessment Location RLE Palpation Location knee, ankle Palpation Findings Edema,Soft Tissue Tightness, Tenderness Palpation Details Edema around B malleoli, knee. Tenderness in posterior calf and popliteal fossa. No increased redness except with dependency. Tenderness along medial and lateral knee, calf, ankles. Skin Assessment Circumference Measurement R ankle Location figure 8 Measurement (Centimeters) 53 Comments comparision L 50 cm R knee Location patellar Measurement (Centimeters) 48 Incisional Assessment Incision Appearance/Comments Multiple incision clean, dry, intact. No signs of infection. Decreased scar tissue mobility, particularly at R ankle due to increased swelling Other Assessments Skin Assessment Comments RLE slightly warmer than LLE. Rubor with dependency. Most edema at R malleoli PT-OP-K Range of Motion Start: 11/08/23 07:24 Freq: Status: Active Protocol: Document 12/15/23 08:16 NM (Rec: 12/15/23 09:02 NM [id number]) Knee Goniometric Range of Motion Knee Right Flexion Active (degrees) 105 Extension Active (degrees) 5 Comments IE: anterior and lateral knee pain with flexion AROM 12/15/23: 125 deg flex, 0 deg extension; pain free Ankle and Foot Goniometric Range of Motion Ankle and Foot Right Dorsiflexion with Knee Flexed 3 Plantarflexion 20 Inversion 3 Eversion 3 Comments 12/15/23: 5 deg DF, 20 deg PF; pain free PT-OP-M Strength Start: 11/08/23 07:24 Freq: Status: Active Protocol: Document 12/15/23 08:16 NM (Rec: 12/15/23 09:02 NM [id number]) Hip Strength Hip Manual Muscle Testing Right Flexion (L2) 4- Good- Extension (S1) 3+ Fair+ Abduction 3+ Fair+ Adduction 4- Good- External Rotation 3 Fair Internal Rotation 3 Fair Comments 12/15/23: 4/5 MMT for all, pain free Knee Strength Knee Manual Muscle Testing Right Flexion (S2) 3 Fair Extension (L3) 3 Fair Comments AROM against gravity only, did not provide resistance due to NWB precautions 12/15/23: 4-/5, pain free Ankle/Foot Strength Ankle and Foot Manual Muscle Testing Right Dorsiflexion (L4) 3 Fair Plantarflexion (S1) 3 Fair Inversion 3 Fair Eversion (S1) 3 Fair Comments AROM against gravity only, did not provide resistance due to NWB precautions. Minimal AROM due to previous fusion 12/15/23: 4-/5, pain free with seated resisted testing PT-OP-Q Treatments Start: 11/08/23 07:24 Freq: Status: Active Protocol: Document 12/19/23 08:19 NM (Rec: 12/19/23 09:44 NM [id number]) Cardio Equipment Recumbent Bicycle Duration (Minutes) 4 Resistance 0 Seat Position 4 Other warm up, no knee pain Therapeutic Exercises Standing Exercises hip 3 way Standing Exercise Name trialed in PT: hip flex, hip abd, hip ext Side bilateral Resistance lvl 3 band around thighs Equipment Used 1 hand support (flat) Reps/Minutes 1x8 ea Comments pain free, cued for nuetral hip/heel taps side steps Side bilateral Resistance lvl 3 band around thighs Equipment Used prn hand support on ballet bar for balance Reps/Minutes 2x15 ft Comments pain free when cued for smaller steps, no ankle inversion, neutral hip rot squat Standing Exercise Name with hand support > w/o hand support Resistance lvl 3 band around thighs for valgus Equipment Used BUE 2 finger support/no UE support prn Reps/Minutes 2x10 Comments pain free but limited range; cued equal WB; demos decreased DF calf stretch Standing Exercise Name 1. gastroc, 2. soleus Side right Equipment Used staggered stance with hand support on stairs Reps/Minutes 1x60 Comments cued heel on ground Gait Training Gait Activity Normal gait mechanics Device Used none Level of Assistance close SBA Surface stable Distance/Duration 200 ft Treatment Focus normal mechanics, heel>toe, balance, upright posture Comments Pt feels stable with gait w/o quad cane. Demos good upright posture, minimal lean with R stance. Demos slight ankle inversion, no heel>toe and decreased toe off. Cued for heel/toe, upright posture with core facilitation. No Ue assistance on surfaces. Manual Therapy Treatment Joint Mobilizations R knee Joint patellar Direction medial, medial tilt, superior/ inferior Grade III Body Position Supine Reps/Duration 1x10 ea Comments For improved patellar mobility with knee flexion. Demos slight lateral tracking. Pain free with mobilization, decreased inferior glide. Improved medial glide, pain free for all motions Neuro Re-Education Treatment Balance Activities TUG Surface stable Equipment no AD Reps/Duration 3 trials Comments 3 reps: 14.6, 14.1, 12.9 sec = average of 13.8 sec (cut off 13.5 seconds for community dwelling adults) Most time lost with transition from sit<>stand to/from gait. marching Details close SBA Surface stable Equipment hands hovering over //bars, no UE support Reps/Duration 2x10 ea Comments cued upright posture, slower for speed. Starts to demo trunk lean toward stance LE with increased speed and fatigue SLS Surface stable Equipment hands hovering near //bar, prn assistance to stabilize Reps/Duration several reps Comments RLE max 5 seconds but requires UE assist to stabilize prior to lift LE LLE max 10 seconds modified tandem stance Details tandem stance Surface stable Equipment no UE support during, prn UE assist to position Reps/Duration 30 ea Comments pain free, improved upright posture and stability with tandem stance, more modified tandem w/ RLE in front Self-Care/Home Management Treatment Education Other Education Brief education on decreasing fall risk in home environment: no obstacles/clutter, light on at night, use of AD and rails with stairs. Educated on continued use of AD in community, but pt able to ambulate short distances at home only on level surfaces w/ o AD w/ next to side PT-OP-T Assessment and Plan Start: 11/08/23 07:24 Freq: Status: Active Protocol: Document 12/19/23 08:19 NM (Rec: 12/19/23 09:44 NM [id number]) Physical Therapy Assessment Goals Seven Impairment strength Impairment R ankle strength 3/5 MMT Short Term Goal (STG) Pt will increase R ankle strength globally to at least 4-/5 MMT in order to demonstrate improved strength for weight bearing and gait 12/15/23: 4-/5 for all, pain free STG Duration 5 weeks MET Mcfp Goal (LTG) Pt will increase R ankle strength globally to at least 4/5 MMT in order to demonstrate improved strength for weight bearing and gait LTG Duration 10 weeks Six Impairment strength Impairment R knee strength 3/5 MMT Short Term Goal (STG) Pt will increase R knee flexion and extension strength to at least 4-/5 MMT in order to demonstrate improved strength for weight bearing and gait 12/15/23: 4-/5 MMT for both, pain free STG Duration 5 weeks MET Mcfp Goal (LTG) Pt will increase R knee flexion and extension strength to at least 4/5 MMT in order to demonstrate improved strength for weight bearing and gait LTG Duration 10 weeks Five Impairment function Impairment unable to perform squats Short Term Goal (STG) Pt will be able to perform at least 5 bilateral squats with pain <5/10 and without compensation in order to demonstrate improved weight bearing and BLE strength 12/15/23: in prevoius sessions, able to perform 10 squats with BUE support for balance but requires cues for equal WB and to limit compensations, pain free STG Duration 5 weeks PROGRESSING Mcfp Goal (LTG) Pt will be able to perform at least 10 bilateral squats with pain <5/10 and without compensation in order to demonstrate improved weight bearing and BLE strength LTG Duration 10 weeks Four Impairment mobility Impairment NWB, unable to ambulate Short Term Goal (STG) Pt will be able to ambulate at least 500 ft using LRAD with pain <5/10 in order to demonstrate improved activity tolerance and BLE strength 12/15/23: 445 ft with quad cane , slow savana. States pain free, slightly antalgic gait, cued for heel/toe and normal gait mechanics STG Duration 5 weeks PROGRESSING Heat Treater Helper Goal (LTG) Pt will be able to ambulate community distances using LRAD with pain <2/10 in order to demonstrate improved activity tolerance and BLE strength LTG Duration 10 weeks Three Impairment AROM Impairment R knee extension AROM 3 deg Heat Treater Helper Goal (LTG) Pt will improve R knee extension to at least 0 deg in order to achieve terminal knee extension during gait 12/15/23: 0 deg extension LTG Duration 10 weeks MET Two Impairment AROM Impairment R knee flexion 105 deg Short Term Goal (STG) Pt will increase R knee flexion to at least 115 deg for improved knee flexion during swing phase of gait and stairs 12/15/23: 125 deg flexion, pain free but demos hip hike compensation with testing STG Duration 5 weeks MET Heat Treater Helper Goal (LTG) Pt will increase R knee flexion to at least 125 deg for improved knee flexion during swing phase of gait and stairs 12/15/23: 125 deg flexion, pain free but demos hip hike compensation with testing LTG Duration 10 weeks One Impairment LEFS Impairment 15/80 Short Term Goal (STG) Pt will increase LEFS score by at least 9 points (1 MCID) in order to demonstrate improved pain management and activity tolerance 12/15/23: 33/80 STG Duration 5 weeks MET Heat Treater Helper Goal (LTG) Pt will increase LEFS score to at least 50/80 in order to demonstrate improved pain management and activity tolerance LTG Duration 10 weeks Assessment Summary Assessment Pt tolerated session well without any increase in R knee or ankle pain. Initiated recumbent bike for improved knee flexion/ankle dorsiflexion; demos good savana, no compensations with knee flexion. Pt demos weak glutes/quads during squats. Has tendency to flex knees only without any hip hinge, knee alignment over ankles even with verbal/tactile cues. Band added to limit knee valgus; cued also for equal weightbearing, which improved with reps. Initiated gait training without AD as pt feels more confident with gait . Pt demos good upright posture, less trunk lean and no trunk/ankle instability, but still lacking normal gait mechanics. TUG scores 13.8 sec average (cut off 13.5 sec for community dwelling adult w/o AD). Demos Educated to continue with AD for community ambulation. Continued with single leg and dynamic balance training in prep for further gait training w/o AD. Pt with decreased dependence on UE to assist with reps. Pt would benefit from skilled PT for further strengthening, balance , and gait training in order to decrease fall risk, improve mobility and activity tolerance. Physical Therapy Plan Frequency and Duration Frequency of Treatment 1-2x/wk Duration of treatment (weeks) 10 Plan of Care Start Date 11/08/23 Plan of Care End Date 01/19/24 Therapeutic Interventions Therapeutic Interventions Balance Training,Coordination Training,Gait Training,Home Exercise Program,Joint Mobilizations,Manual Therapy, Neuromuscular Re-education, Orthotic/Prosthetic Management ,Patient/Caregiver Education, Self-Care/Home Management, Sensory Integration,Soft Tissue Mobilization,Taping, Therapeutic Activities, Therapeutic Exercises Modalities Biofeedback,Cold Pack/Ice Massage,Electric Stimulation, Hot Packs,Ultrasound, Vasopneumatic Devices Next Visit Focus/Plan Next Note Type Treatment Note Next Visit Plan Next sessions: Review/condense and update HEP, gait w/o AD, TUG, 4-6step up, squat, balance activities, Heel and toe raises, banded eversion if tolerated, trial lunge and leg press in future sessions Manual: scar massage, soft tissue, knee and ankle mobilizations grade II as tolerated,ice massage/ice elevation
--- NOTE | 2023-12-22 16:58 | PT.OTN ---
Current Diagnoses Weakness (12/22/23) Displaced bicondylar fracture of right tibia, subsequent encounter for closed fracture with routine healing (12/22/23) Unspecified fracture of shaft of right fibula, subsequent encounter for closed fracture with routine healing (12/22/23) Physical Therapy Treatment Note PT-OP-A Visit Information Start: 11/08/23 07:24 Freq: Status: Active Protocol: Document 12/22/23 08:05 AB (Rec: 12/22/23 10:32 AB [id number]) Out-Patient Physical Therapy Visit Information Visit Information Visit Type Treatment Note Visit Note 15 visits Access Code: [email or web address] 10/28 for PN Visit Start Time 08:14 Visit Stop Time 09:03 Visit Number 10 Number of [employer] AIDE Visits 1 Evaluation Information Evaluation Date 11/08/23 Precautions Precautions frequent fractures WBAT now PT-OP-B Current Condition Start: 11/08/23 07:24 Freq: Status: Active Protocol: Document 11/08/23 08:15 NM (Rec: 11/08/23 09:38 NM [id number]) Current Condition History of Current Condition Onset Date 09/30/23 History of Current Condition Pt presents s/p R ORIF following tibia and fibula fractures. Pt injured on her leg when turning, slipped and had ground level fall in her horse stall. She has been NWB for 6 weeks (until Monday, ). Hx provided by pt and , [facility]. Pt has been performing the HEP provided by hospital since discharge but reports that exercises cause her RLE discomfort and occasionally pain. She has been using a manual w/c for mobility since discharge from hospital. She has follow up with surgeon tomorrow, 11/08, and will have 6 week radiographs; reports that surgeon cleared for flat foot WB for transfers only at 3 week post op follow up. She has a previous R ankle replacement in 2010 along with PMH of R pelvis fracture, L sciatica. She would occasionally use a spc when her ankle flared up, usually walking about 2 blocks-1 mile. No stairs at her home, only at the horse barn. She has vacation planned 11/21-12/03 and will not be able to attend. Prior Functional Status Baseline Function- ADL's Independent Baseline Function- Mobility Independent Baseline Function- Gait 2 blocks to 1 mile, prn spc use Baseline Function- Work/School retired Baseline Function- Recreation/Hobbies horse back riding, swimming 2x /wk Current Functional Impairments (Reported) Functional Limitations- ADL's dressing Functional Limitations- Mobility/Gait w/c for mobility; sleeps in lift chair PT-OP-C Subjective Start: 11/08/23 07:24 Freq: Status: Active Protocol: Document 12/22/23 08:05 AB (Rec: 12/22/23 10:32 AB [id number]) OP-PT Subjective Patient Comments Patient Comments Patient into session without device, reports she forgot the device. Patient verblizes her score on (describes TUG) was higher than the PT would like, but the MD told her she didn' t have to use the cane. SLS right LE less than one seconds with multiple trails. Lacking 2 deg ext to 128 deg flexion AROM right knee PT-OP-F Manual Assessment Start: 11/08/23 07:24 Freq: Status: Active Protocol: Document 11/08/23 08:15 NM (Rec: 11/08/23 09:38 NM [id number]) Manual Assessments Soft Tissue Assessment Soft Tissue Mobility Assessment Increased hamstring, hip flexor, heel cord, and hip abductor tightness Joint Mobility Assessment Joint Mobility Assessment Decreased R knee and ankle PROM and AROM. R ankle limited at talocrural joint due to previous fusion PT-OP-G Mobility & Gait Start: 11/08/23 07:24 Freq: Status: Active Protocol: Document 11/08/23 08:15 NM (Rec: 11/08/23 09:38 NM [id number]) OP Mobility Evaluation Bed Mobility Rolling Independent Supine to and from Sit Independent Transfers Sit to Stand w/c <> plinth partial WB with flat foot, stand several steps to sit OP Gait Assessment Comments Gait Comments NWB at this time, did not formally assess gait until pt cleared for WB PT-OP-H Neuro Start: 11/08/23 07:24 Freq: Status: Active Protocol: Document 11/08/23 08:15 NM (Rec: 11/08/23 09:38 NM [id number]) Sensation Evaluation Comments Summary Comments Numbness reported along anterior and sides of RLE post op. PT-OP-J Posture/Palpation/Skin Start: 11/08/23 07:24 Freq: Status: Active Protocol: Document 11/08/23 08:15 NM (Rec: 11/08/23 09:38 NM [id number]) Posture Evaluation Position Sitting Head/C-Spine Posture Forward Head T-Spine Posture Increased Kyphosis L-Spine Posture Increased Lordosis Scapula Posture (L) Protracted,(R) Protracted Arm Posture (L) Internally Rotated,(R) Internally Rotated Pelvis Posture Anteriorly Tilted Hip Posture (L) Externally Rotated,(R) Externally Rotated Knee Posture (L) Genu Valgus,(R) Genu Valgus Patellar Posture (L) Superior,(R) Superior,(R) Laterally Tilted Ankle/Foot Posture (L) Pronated,(R) Pronated Foot Arch (L) Low Arch,(R) Low Arch Palpation Assessment Location RLE Palpation Location knee, ankle Palpation Findings Edema,Soft Tissue Tightness, Tenderness Palpation Details Edema around B malleoli, knee. Tenderness in posterior calf and popliteal fossa. No increased redness except with dependency. Tenderness along medial and lateral knee, calf, ankles. Skin Assessment Circumference Measurement R ankle Location figure 8 Measurement (Centimeters) 53 Comments comparision L 50 cm R knee Location patellar Measurement (Centimeters) 48 Incisional Assessment Incision Appearance/Comments Multiple incision clean, dry, intact. No signs of infection. Decreased scar tissue mobility, particularly at R ankle due to increased swelling Other Assessments Skin Assessment Comments RLE slightly warmer than LLE. Rubor with dependency. Most edema at R malleoli PT-OP-K Range of Motion Start: 11/08/23 07:24 Freq: Status: Active Protocol: Document 12/15/23 08:16 NM (Rec: 12/15/23 09:02 NM [id number]) Knee Goniometric Range of Motion Knee Right Flexion Active (degrees) 105 Extension Active (degrees) 5 Comments IE: anterior and lateral knee pain with flexion AROM 12/15/23: 125 deg flex, 0 deg extension; pain free Ankle and Foot Goniometric Range of Motion Ankle and Foot Right Dorsiflexion with Knee Flexed 3 Plantarflexion 20 Inversion 3 Eversion 3 Comments 12/15/23: 5 deg DF, 20 deg PF; pain free PT-OP-M Strength Start: 11/08/23 07:24 Freq: Status: Active Protocol: Document 12/15/23 08:16 NM (Rec: 12/15/23 09:02 NM [id number]) Hip Strength Hip Manual Muscle Testing Right Flexion (L2) 4- Good- Extension (S1) 3+ Fair+ Abduction 3+ Fair+ Adduction 4- Good- External Rotation 3 Fair Internal Rotation 3 Fair Comments 12/15/23: 4/5 MMT for all, pain free Knee Strength Knee Manual Muscle Testing Right Flexion (S2) 3 Fair Extension (L3) 3 Fair Comments AROM against gravity only, did not provide resistance due to NWB precautions 12/15/23: 4-/5, pain free Ankle/Foot Strength Ankle and Foot Manual Muscle Testing Right Dorsiflexion (L4) 3 Fair Plantarflexion (S1) 3 Fair Inversion 3 Fair Eversion (S1) 3 Fair Comments AROM against gravity only, did not provide resistance due to NWB precautions. Minimal AROM due to previous fusion 12/15/23: 4-/5, pain free with seated resisted testing PT-OP-Q Treatments Start: 11/08/23 07:24 Freq: Status: Active Protocol: Document 12/22/23 08:05 AB (Rec: 12/22/23 10:32 AB [id number]) Therapeutic Exercises Supine Exercises SLR Reps/Minutes X10 hamstring stretch Supine Exercise Name from hooklying Reps/Minutes 2X60 seconds Comments verbal cues Sidelying Exercises hip abduction Resistance level one peach band Reps/Minutes X15 clams Resistance level 1 peach band Reps/Minutes X15 Manual Therapy Treatment Soft Tissue Mobilization calf and hamstring muscles Body Location left LE hamstring only Mobilization Type Cross-Friction,Rolling Intensity/Depth Moderate Body Position Hooklying Neuro Re-Education Treatment Balance Activities step up taps 8 inch step Details hands above parallel bars Reps/Duration X12 Comments CGA tandem stepping Details hands above parallel bars Reps/Duration 10 feet X 5 Comments CGA verbal cues for heel toe pattern SLS Surface stable and on foam Equipment hands hovering near //bar, prn assistance to stabilize Reps/Duration 2 minutes X 2 Comments with visual scanning and head turns CGA PT-OP-T Assessment and Plan Start: 11/08/23 07:24 Freq: Status: Active Protocol: Document 12/22/23 08:05 AB (Rec: 12/22/23 10:32 AB [id number]) Physical Therapy Assessment Goals Seven Impairment strength Impairment R ankle strength 3/5 MMT Short Term Goal (STG) Pt will increase R ankle strength globally to at least 4-/5 MMT in order to demonstrate improved strength for weight bearing and gait 12/15/23: 4-/5 for all, pain free STG Duration 5 weeks MET Intermediate Goal (LTG) Pt will increase R ankle strength globally to at least 4/5 MMT in order to demonstrate improved strength for weight bearing and gait LTG Duration 10 weeks Six Impairment strength Impairment R knee strength 3/5 MMT Short Term Goal (STG) Pt will increase R knee flexion and extension strength to at least 4-/5 MMT in order to demonstrate improved strength for weight bearing and gait 12/15/23: 4-/5 MMT for both, pain free STG Duration 5 weeks MET Intermediate Goal (LTG) Pt will increase R knee flexion and extension strength to at least 4/5 MMT in order to demonstrate improved strength for weight bearing and gait LTG Duration 10 weeks Five Impairment function Impairment unable to perform squats Short Term Goal (STG) Pt will be able to perform at least 5 bilateral squats with pain <5/10 and without compensation in order to demonstrate improved weight bearing and BLE strength 12/15/23: in prevoius sessions, able to perform 10 squats with BUE support for balance but requires cues for equal WB and to limit compensations, pain free STG Duration 5 weeks PROGRESSING Converter Skimmer Goal (LTG) Pt will be able to perform at least 10 bilateral squats with pain <5/10 and without compensation in order to demonstrate improved weight bearing and BLE strength LTG Duration 10 weeks Four Impairment mobility Impairment NWB, unable to ambulate Short Term Goal (STG) Pt will be able to ambulate at least 500 ft using LRAD with pain <5/10 in order to demonstrate improved activity tolerance and BLE strength 12/15/23: 445 ft with quad cane , slow savana. States pain free, slightly antalgic gait, cued for heel/toe and normal gait mechanics STG Duration 5 weeks PROGRESSING Intermediate Goal (LTG) Pt will be able to ambulate community distances using LRAD with pain <2/10 in order to demonstrate improved activity tolerance and BLE strength LTG Duration 10 weeks Three Impairment AROM Impairment R knee extension AROM 3 deg Intermediate Goal (LTG) Pt will improve R knee extension to at least 0 deg in order to achieve terminal knee extension during gait 12/15/23: 0 deg extension LTG Duration 10 weeks MET Two Impairment AROM Impairment R knee flexion 105 deg Short Term Goal (STG) Pt will increase R knee flexion to at least 115 deg for improved knee flexion during swing phase of gait and stairs 12/15/23: 125 deg flexion, pain free but demos hip hike compensation with testing STG Duration 5 weeks MET Converter Skimmer Goal (LTG) Pt will increase R knee flexion to at least 125 deg for improved knee flexion during swing phase of gait and stairs 12/15/23: 125 deg flexion, pain free but demos hip hike compensation with testing 12/22/23 128 deg AROM right knee flexion LTG Duration 10 weeks One Impairment LEFS Impairment 15/80 Short Term Goal (STG) Pt will increase LEFS score by at least 9 points (1 MCID) in order to demonstrate improved pain management and activity tolerance 12/15/23: 33/80 STG Duration 5 weeks MET Intermediate Goal (LTG) Pt will increase LEFS score to at least 50/80 in order to demonstrate improved pain management and activity tolerance LTG Duration 10 weeks Assessment Summary Assessment 0 deg extension AROM right knee post manual therapy and exercise. HEP condensed and progressed. Patient reports having no pain end of session. Physical Therapy Plan Frequency and Duration Frequency of Treatment 1-2x/wk Duration of treatment (weeks) 10 Plan of Care Start Date 11/08/23 Plan of Care End Date 01/19/24 Next Visit Focus/Plan Next Note Type Treatment Note Next Visit Plan Next sessions: gait w/o AD, TUG, 4-6step up, squat, balance activities, Heel and toe raises, banded eversion if tolerated, trial lunge and leg press in future sessions Manual: scar massage, soft tissue, knee and ankle mobilizations grade II as tolerated,ice massage/ice elevation
--- NOTE | 2023-12-29 12:22 | PT.OTN ---
Current Diagnoses Weakness (12/29/23) Displaced bicondylar fracture of right tibia, subsequent encounter for closed fracture with routine healing (12/29/23) Unspecified fracture of shaft of right fibula, subsequent encounter for closed fracture with routine healing (12/29/23) Physical Therapy Treatment Note PT-OP-A Visit Information Start: 11/08/23 07:24 Freq: Status: Active Protocol: Document 12/29/23 11:23 NBM (Rec: 12/29/23 12:22 NBM [id number]) Out-Patient Physical Therapy Visit Information Visit Information Visit Type Treatment Note Visit Note 15 visits 11/28 for PN Visit Start Time 11:25 Visit Stop Time 12:10 Visit Number 11 Number of PERSONAL LINES SALES EXECUTIVE Visits 2 Evaluation Information Evaluation Date 11/08/23 Precautions Precautions frequent fractures WBAT now PT-OP-B Current Condition Start: 11/08/23 07:24 Freq: Status: Active Protocol: Document 11/08/23 08:15 NM (Rec: 11/08/23 09:38 NM [id number]) Current Condition History of Current Condition Onset Date 09/30/23 History of Current Condition Pt presents s/p R ORIF following tibia and fibula fractures. Pt injured on her leg when turning, slipped and had ground level fall in her horse stall. She has been NWB for 6 weeks (until Monday, ). Hx provided by pt and , [place]. Pt has been performing the HEP provided by hospital since discharge but reports that exercises cause her RLE discomfort and occasionally pain. She has been using a manual w/c for mobility since discharge from hospital. She has follow up with surgeon tomorrow, 11/08, and will have 6 week radiographs; reports that surgeon cleared for flat foot WB for transfers only at 3 week post op follow up. She has a previous R ankle replacement in 2010 along with PMH of R pelvis fracture, L sciatica. She would occasionally use a spc when her ankle flared up, usually walking about 2 blocks-1 mile. No stairs at her home, only at the horse barn. She has vacation planned 11/21-12/03 and will not be able to attend. Prior Functional Status Baseline Function- ADL's Independent Baseline Function- Mobility Independent Baseline Function- Gait 2 blocks to 1 mile, prn spc use Baseline Function- Work/School retired Baseline Function- Recreation/Hobbies horse back riding, swimming 2x /wk Current Functional Impairments (Reported) Functional Limitations- ADL's dressing Functional Limitations- Mobility/Gait w/c for mobility; sleeps in lift chair PT-OP-C Subjective Start: 11/08/23 07:24 Freq: Status: Active Protocol: Document 12/29/23 11:23 NBM (Rec: 12/29/23 12:22 NBM [id number]) OP-PT Subjective Patient Comments Patient Comments Ann reports 5/10 pain today after cleaning the house. She states she's cleared by surgeon for activity as tolerated and brings [employer] manual for ideas for home exercise. PT-OP-F Manual Assessment Start: 11/08/23 07:24 Freq: Status: Active Protocol: Document 11/08/23 08:15 NM (Rec: 11/08/23 09:38 NM [id number]) Manual Assessments Soft Tissue Assessment Soft Tissue Mobility Assessment Increased hamstring, hip flexor, heel cord, and hip abductor tightness Joint Mobility Assessment Joint Mobility Assessment Decreased R knee and ankle PROM and AROM. R ankle limited at talocrural joint due to previous fusion PT-OP-G Mobility & Gait Start: 11/08/23 07:24 Freq: Status: Active Protocol: Document 11/08/23 08:15 NM (Rec: 11/08/23 09:38 NM [id number]) OP Mobility Evaluation Bed Mobility Rolling Independent Supine to and from Sit Independent Transfers Sit to Stand w/c <> plinth partial WB with flat foot, stand several steps to sit OP Gait Assessment Comments Gait Comments NWB at this time, did not formally assess gait until pt cleared for WB PT-OP-H Neuro Start: 11/08/23 07:24 Freq: Status: Active Protocol: Document 11/08/23 08:15 NM (Rec: 11/08/23 09:38 NM [id number]) Sensation Evaluation Comments Summary Comments Numbness reported along anterior and sides of RLE post op. PT-OP-J Posture/Palpation/Skin Start: 11/08/23 07:24 Freq: Status: Active Protocol: Document 11/08/23 08:15 NM (Rec: 11/08/23 09:38 NM [id number]) Posture Evaluation Position Sitting Head/C-Spine Posture Forward Head T-Spine Posture Increased Kyphosis L-Spine Posture Increased Lordosis Scapula Posture (L) Protracted,(R) Protracted Arm Posture (L) Internally Rotated,(R) Internally Rotated Pelvis Posture Anteriorly Tilted Hip Posture (L) Externally Rotated,(R) Externally Rotated Knee Posture (L) Genu Valgus,(R) Genu Valgus Patellar Posture (L) Superior,(R) Superior,(R) Laterally Tilted Ankle/Foot Posture (L) Pronated,(R) Pronated Foot Arch (L) Low Arch,(R) Low Arch Palpation Assessment Location RLE Palpation Location knee, ankle Palpation Findings Edema,Soft Tissue Tightness, Tenderness Palpation Details Edema around B malleoli, knee. Tenderness in posterior calf and popliteal fossa. No increased redness except with dependency. Tenderness along medial and lateral knee, calf, ankles. Skin Assessment Circumference Measurement R ankle Location figure 8 Measurement (Centimeters) 53 Comments comparision L 50 cm R knee Location patellar Measurement (Centimeters) 48 Incisional Assessment Incision Appearance/Comments Multiple incision clean, dry, intact. No signs of infection. Decreased scar tissue mobility, particularly at R ankle due to increased swelling Other Assessments Skin Assessment Comments RLE slightly warmer than LLE. Rubor with dependency. Most edema at R malleoli PT-OP-K Range of Motion Start: 11/08/23 07:24 Freq: Status: Active Protocol: Document 12/15/23 08:16 NM (Rec: 12/15/23 09:02 NM [id number]) Knee Goniometric Range of Motion Knee Right Flexion Active (degrees) 105 Extension Active (degrees) 5 Comments IE: anterior and lateral knee pain with flexion AROM 12/15/23: 125 deg flex, 0 deg extension; pain free Ankle and Foot Goniometric Range of Motion Ankle and Foot Right Dorsiflexion with Knee Flexed 3 Plantarflexion 20 Inversion 3 Eversion 3 Comments 12/15/23: 5 deg DF, 20 deg PF; pain free PT-OP-M Strength Start: 11/08/23 07:24 Freq: Status: Active Protocol: Document 12/15/23 08:16 NM (Rec: 12/15/23 09:02 NM [id number]) Hip Strength Hip Manual Muscle Testing Right Flexion (L2) 4- Good- Extension (S1) 3+ Fair+ Abduction 3+ Fair+ Adduction 4- Good- External Rotation 3 Fair Internal Rotation 3 Fair Comments 12/15/23: 4/5 MMT for all, pain free Knee Strength Knee Manual Muscle Testing Right Flexion (S2) 3 Fair Extension (L3) 3 Fair Comments AROM against gravity only, did not provide resistance due to NWB precautions 12/15/23: 4-/5, pain free Ankle/Foot Strength Ankle and Foot Manual Muscle Testing Right Dorsiflexion (L4) 3 Fair Plantarflexion (S1) 3 Fair Inversion 3 Fair Eversion (S1) 3 Fair Comments AROM against gravity only, did not provide resistance due to NWB precautions. Minimal AROM due to previous fusion 12/15/23: 4-/5, pain free with seated resisted testing PT-OP-Q Treatments Start: 11/08/23 07:24 Freq: Status: Active Protocol: Document 12/29/23 11:23 [facility] (Rec: 12/29/23 12:22 [facility] [id number]) Therapeutic Exercises Supine Exercises SLR Side bilateral Reps/Minutes X10 Comments cues for increased range, eccentric control hamstring stretch Supine Exercise Name from hooklying Equipment Used added towel>improved stretch Reps/Minutes 2X60 seconds Comments visual cues to initiate Sidelying Exercises hip abduction Resistance level one peach band Reps/Minutes X15 clams Resistance level 1 peach band Reps/Minutes X15 Manual Therapy Treatment Soft Tissue Mobilization right hamstring Body Location hamstring and calf, quad Mobilization Type Cross-Friction,Rolling Intensity/Depth Moderate Body Position Hooklying Comments Prior to exercise, gentle rolling of HS/quad/calf and cross friction of patellar tendon, no pain or tenderness, only tightness reported. Educated on self STM and heat prior to mobilization scar tissue right Body Location scar tissue right quad and lower LE Mobilization Type Cross-Friction,Rolling,Other Intensity/Depth Superficial Body Position Hooklying Comments Superficial scar mobilization. Decreased mobility of scar on lateral R knee, R ankle. Performed with rolling, cross friction, lifting and twisting . Tolerated well without pain. Education on performing with lotion as part of HEP daily to decrease adhesions Neuro Re-Education Treatment Balance Activities SLS Surface stable Equipment 1. hands hovering above //bar 2.2 HEALTH CARE LEGAL ASSISTANT>2-finger touch>no HEALTH CARE LEGAL ASSISTANT Reps/Duration trials Comments SBA cues for gluteal activation, breath, no lateral lean PT-OP-T Assessment and Plan Start: 11/08/23 07:24 Freq: Status: Active Protocol: Document 12/29/23 11:23 [facility] (Rec: 12/29/23 12:22 [facility] [id number]) Physical Therapy Assessment Goals Seven Impairment strength Impairment R ankle strength 3/5 MMT Short Term Goal (STG) Pt will increase R ankle strength globally to at least 4-/5 MMT in order to demonstrate improved strength for weight bearing and gait 12/15/23: 4-/5 for all, pain free STG Duration 5 weeks MET Shelter Goal (LTG) Pt will increase R ankle strength globally to at least 4/5 MMT in order to demonstrate improved strength for weight bearing and gait LTG Duration 10 weeks Six Impairment strength Impairment R knee strength 3/5 MMT Short Term Goal (STG) Pt will increase R knee flexion and extension strength to at least 4-/5 MMT in order to demonstrate improved strength for weight bearing and gait 12/15/23: 4-/5 MMT for both, pain free STG Duration 5 weeks MET Shelter Goal (LTG) Pt will increase R knee flexion and extension strength to at least 4/5 MMT in order to demonstrate improved strength for weight bearing and gait LTG Duration 10 weeks Five Impairment function Impairment unable to perform squats Short Term Goal (STG) Pt will be able to perform at least 5 bilateral squats with pain <5/10 and without compensation in order to demonstrate improved weight bearing and BLE strength 12/15/23: in prevoius sessions, able to perform 10 squats with BUE support for balance but requires cues for equal WB and to limit compensations, pain free STG Duration 5 weeks PROGRESSING Farm Machinery Assembler Goal (LTG) Pt will be able to perform at least 10 bilateral squats with pain <5/10 and without compensation in order to demonstrate improved weight bearing and BLE strength LTG Duration 10 weeks Four Impairment mobility Impairment NWB, unable to ambulate Short Term Goal (STG) Pt will be able to ambulate at least 500 ft using LRAD with pain <5/10 in order to demonstrate improved activity tolerance and BLE strength 12/15/23: 445 ft with quad cane , slow savana. States pain free, slightly antalgic gait, cued for heel/toe and normal gait mechanics STG Duration 5 weeks PROGRESSING Farm Machinery Assembler Goal (LTG) Pt will be able to ambulate community distances using LRAD with pain <2/10 in order to demonstrate improved activity tolerance and BLE strength LTG Duration 10 weeks Three Impairment AROM Impairment R knee extension AROM 3 deg Shelter Goal (LTG) Pt will improve R knee extension to at least 0 deg in order to achieve terminal knee extension during gait 12/15/23: 0 deg extension LTG Duration 10 weeks MET Two Impairment AROM Impairment R knee flexion 105 deg Short Term Goal (STG) Pt will increase R knee flexion to at least 115 deg for improved knee flexion during swing phase of gait and stairs 12/15/23: 125 deg flexion, pain free but demos hip hike compensation with testing STG Duration 5 weeks MET Farm Machinery Assembler Goal (LTG) Pt will increase R knee flexion to at least 125 deg for improved knee flexion during swing phase of gait and stairs 12/15/23: 125 deg flexion, pain free but demos hip hike compensation with testing 12/22/23 128 deg AROM right knee flexion LTG Duration 10 weeks One Impairment LEFS Impairment 15/80 Short Term Goal (STG) Pt will increase LEFS score by at least 9 points (1 MCID) in order to demonstrate improved pain management and activity tolerance 12/15/23: 33/80 STG Duration 5 weeks MET Farm Machinery Assembler Goal (LTG) Pt will increase LEFS score to at least 50/80 in order to demonstrate improved pain management and activity tolerance LTG Duration 10 weeks Assessment Summary Assessment Treatment focus on balance and STM with focus to tenderness around gastrocnemius medial and lateral heads, distal HS, and Achilles tendon insertions . Palpable tension improves with STM. Pt educated for increased ROM with SLR and edu re: stretching and strengthening for strengthening into improved functional range. Pt requires cues for SL balance for gluteal activation, lateral lean, fixed focal point and no breathholding; pt also cued to use B HEALTH CARE LEGAL ASSISTANT>B 2-finger touch> no HEALTH CARE LEGAL ASSISTANT for balance progression : SL trials improve bilaterally with these cues. Cues provided with therex for slower pacing to improve eccentric control. Physical Therapy Plan Frequency and Duration Frequency of Treatment 1-2x/wk Duration of treatment (weeks) 10 Plan of Care Start Date 11/08/23 Plan of Care End Date 01/19/24 Therapeutic Interventions Therapeutic Interventions Balance Training,Coordination Training,Gait Training,Home Exercise Program,Joint Mobilizations,Manual Therapy, Neuromuscular Re-education, Orthotic/Prosthetic Management ,Patient/Caregiver Education, Self-Care/Home Management, Sensory Integration,Soft Tissue Mobilization,Taping, Therapeutic Activities, Therapeutic Exercises Modalities Biofeedback,Cold Pack/Ice Massage,Electric Stimulation, Hot Packs,Ultrasound, Vasopneumatic Devices Next Visit Focus/Plan Next Note Type Treatment Note Next Visit Plan Next sessions: gait w/o AD, TUG, 4-6step up, squat, balance activities, Heel and toe raises, banded eversion if tolerated, trial lunge and leg press in future sessions Manual: scar massage, soft tissue, knee and ankle mobilizations grade II as tolerated,ice massage/ice elevation
--- NOTE | 2024-01-02 11:51 | PT.OTN ---
Current Diagnoses Weakness (01/02/24) Displaced bicondylar fracture of right tibia, subsequent encounter for closed fracture with routine healing (01/02/24) Unspecified fracture of shaft of right fibula, subsequent encounter for closed fracture with routine healing (01/02/24) Physical Therapy Treatment Note PT-OP-A Visit Information Start: 11/08/23 07:24 Freq: Status: Active Protocol: Document 01/02/24 09:55 AB (Rec: 01/02/24 11:51 AB [id number]) Out-Patient Physical Therapy Visit Information Visit Information Visit Type Treatment Note Visit Note 15 visits 12/28 for PN Access Code: [email or web address] Visit Start Time 10:35 Visit Stop Time 11:18 Visit Number 12 Number of COOPERATIVE EXTENSION AGENT Visits 3 Evaluation Information Evaluation Date 11/08/23 Precautions Precautions frequent fractures WBAT now PT-OP-B Current Condition Start: 11/08/23 07:24 Freq: Status: Active Protocol: Document 11/08/23 08:15 NM (Rec: 11/08/23 09:38 NM [id number]) Current Condition History of Current Condition Onset Date 09/30/23 History of Current Condition Pt presents s/p R ORIF following tibia and fibula fractures. Pt injured on her leg when turning, slipped and had ground level fall in her horse stall. She has been NWB for 6 weeks (until Monday, ). Hx provided by pt and , [facility]. Pt has been performing the HEP provided by hospital since discharge but reports that exercises cause her RLE discomfort and occasionally pain. She has been using a manual w/c for mobility since discharge from hospital. She has follow up with surgeon tomorrow, 11/08, and will have 6 week radiographs; reports that surgeon cleared for flat foot WB for transfers only at 3 week post op follow up. She has a previous R ankle replacement in 2010 along with PMH of R pelvis fracture, L sciatica. She would occasionally use a spc when her ankle flared up, usually walking about 2 blocks-1 mile. No stairs at her home, only at the horse barn. She has vacation planned 11/21-12/03 and will not be able to attend. Prior Functional Status Baseline Function- ADL's Independent Baseline Function- Mobility Independent Baseline Function- Gait 2 blocks to 1 mile, prn spc use Baseline Function- Work/School retired Baseline Function- Recreation/Hobbies horse back riding, swimming 2x /wk Current Functional Impairments (Reported) Functional Limitations- ADL's dressing Functional Limitations- Mobility/Gait w/c for mobility; sleeps in lift chair PT-OP-C Subjective Start: 11/08/23 07:24 Freq: Status: Active Protocol: Document 01/02/24 09:55 AB (Rec: 01/02/24 11:51 AB [id number]) OP-PT Subjective Patient Comments Patient Comments Patient rates ankle pain 1/10 start of session. Patient reports she didn't do the exercises as much as she should. AROM 0 to 133 deg right knee. SLS 2 sec right LE without UE use, TUG 9.15 sec without UE use, PT-OP-F Manual Assessment Start: 11/08/23 07:24 Freq: Status: Active Protocol: Document 11/08/23 08:15 NM (Rec: 11/08/23 09:38 NM [id number]) Manual Assessments Soft Tissue Assessment Soft Tissue Mobility Assessment Increased hamstring, hip flexor, heel cord, and hip abductor tightness Joint Mobility Assessment Joint Mobility Assessment Decreased R knee and ankle PROM and AROM. R ankle limited at talocrural joint due to previous fusion PT-OP-G Mobility & Gait Start: 11/08/23 07:24 Freq: Status: Active Protocol: Document 11/08/23 08:15 NM (Rec: 11/08/23 09:38 NM [id number]) OP Mobility Evaluation Bed Mobility Rolling Independent Supine to and from Sit Independent Transfers Sit to Stand w/c <> plinth partial WB with flat foot, stand several steps to sit OP Gait Assessment Comments Gait Comments NWB at this time, did not formally assess gait until pt cleared for WB PT-OP-H Neuro Start: 11/08/23 07:24 Freq: Status: Active Protocol: Document 11/08/23 08:15 NM (Rec: 11/08/23 09:38 NM [id number]) Sensation Evaluation Comments Summary Comments Numbness reported along anterior and sides of RLE post op. PT-OP-J Posture/Palpation/Skin Start: 11/08/23 07:24 Freq: Status: Active Protocol: Document 11/08/23 08:15 NM (Rec: 11/08/23 09:38 NM [id number]) Posture Evaluation Position Sitting Head/C-Spine Posture Forward Head T-Spine Posture Increased Kyphosis L-Spine Posture Increased Lordosis Scapula Posture (L) Protracted,(R) Protracted Arm Posture (L) Internally Rotated,(R) Internally Rotated Pelvis Posture Anteriorly Tilted Hip Posture (L) Externally Rotated,(R) Externally Rotated Knee Posture (L) Genu Valgus,(R) Genu Valgus Patellar Posture (L) Superior,(R) Superior,(R) Laterally Tilted Ankle/Foot Posture (L) Pronated,(R) Pronated Foot Arch (L) Low Arch,(R) Low Arch Palpation Assessment Location RLE Palpation Location knee, ankle Palpation Findings Edema,Soft Tissue Tightness, Tenderness Palpation Details Edema around B malleoli, knee. Tenderness in posterior calf and popliteal fossa. No increased redness except with dependency. Tenderness along medial and lateral knee, calf, ankles. Skin Assessment Circumference Measurement R ankle Location figure 8 Measurement (Centimeters) 53 Comments comparision L 50 cm R knee Location patellar Measurement (Centimeters) 48 Incisional Assessment Incision Appearance/Comments Multiple incision clean, dry, intact. No signs of infection. Decreased scar tissue mobility, particularly at R ankle due to increased swelling Other Assessments Skin Assessment Comments RLE slightly warmer than LLE. Rubor with dependency. Most edema at R malleoli PT-OP-K Range of Motion Start: 11/08/23 07:24 Freq: Status: Active Protocol: Document 12/15/23 08:16 NM (Rec: 12/15/23 09:02 NM [id number]) Knee Goniometric Range of Motion Knee Right Flexion Active (degrees) 105 Extension Active (degrees) 5 Comments IE: anterior and lateral knee pain with flexion AROM 12/15/23: 125 deg flex, 0 deg extension; pain free Ankle and Foot Goniometric Range of Motion Ankle and Foot Right Dorsiflexion with Knee Flexed 3 Plantarflexion 20 Inversion 3 Eversion 3 Comments 12/15/23: 5 deg DF, 20 deg PF; pain free PT-OP-M Strength Start: 11/08/23 07:24 Freq: Status: Active Protocol: Document 12/15/23 08:16 NM (Rec: 12/15/23 09:02 NM [id number]) Hip Strength Hip Manual Muscle Testing Right Flexion (L2) 4- Good- Extension (S1) 3+ Fair+ Abduction 3+ Fair+ Adduction 4- Good- External Rotation 3 Fair Internal Rotation 3 Fair Comments 12/15/23: 4/5 MMT for all, pain free Knee Strength Knee Manual Muscle Testing Right Flexion (S2) 3 Fair Extension (L3) 3 Fair Comments AROM against gravity only, did not provide resistance due to NWB precautions 12/15/23: 4-/5, pain free Ankle/Foot Strength Ankle and Foot Manual Muscle Testing Right Dorsiflexion (L4) 3 Fair Plantarflexion (S1) 3 Fair Inversion 3 Fair Eversion (S1) 3 Fair Comments AROM against gravity only, did not provide resistance due to NWB precautions. Minimal AROM due to previous fusion 12/15/23: 4-/5, pain free with seated resisted testing PT-OP-Q Treatments Start: 11/08/23 07:24 Freq: Status: Active Protocol: Document 01/02/24 09:55 AB (Rec: 01/02/24 11:51 AB [id number]) Gym Equipment Shuttle Balance Red Reps/Duration feet on 4's with visual scanning, head turns and X 10 mini squats Comments 4 min squats without visual scanning or head turns, CGA to minimal assist throughout Therapeutic Exercises Sitting Exercises seated hip abduction with band Equipment Used level 4 blue latex free band Reps/Minutes one minute hold X1 then without holdX10 X2 Standing Exercises bilateral heel raise Standing Exercise Name with UE use Reps/Minutes X15 Manual Therapy Treatment Soft Tissue Mobilization calf and hamstring muscles Body Location right calf and hamstring Mobilization Type Cross-Friction,Rolling Intensity/Depth Moderate Body Position Hooklying Neuro Re-Education Treatment Balance Activities hurdles Details first 2 sets with UE use Reps/Duration 10 feet X 6 Comments VC to avoid circumduction right LE CGA TUG Comments TUG 9.15 sec without UE use marching Details close SBA Surface stable Equipment hands hovering over //bars, no UE support Reps/Duration 2x10 ea Comments cued upright posture, slower for speed. Starts to demo trunk lean toward stance LE with increased speed and fatigue step up taps 8 inch step Details hands above parallel bars Reps/Duration X12 Comments CGA tandem stepping Details hands above parallel bars Reps/Duration 10 feet X 5 Comments CGA verbal cues for heel toe pattern SLS Surface stable Equipment 1. hands hovering above //bar 2.2 HEAD STOCK OPERATOR>2-finger touch>no HEAD STOCK OPERATOR Reps/Duration trials Comments CGA breath, no lateral lean foam pad without UE use Surface foam pad Reps/Duration marching Comments X10 X 3 one set with visual scanning one set with head turns PT-OP-T Assessment and Plan Start: 11/08/23 07:24 Freq: Status: Active Protocol: Document 01/02/24 09:55 AB (Rec: 01/02/24 11:51 AB [id number]) Physical Therapy Assessment Goals Seven Impairment strength Impairment R ankle strength 3/5 MMT Short Term Goal (STG) Pt will increase R ankle strength globally to at least 4-/5 MMT in order to demonstrate improved strength for weight bearing and gait 12/15/23: 4-/5 for all, pain free STG Duration 5 weeks MET Validation Software Facilitator Goal (LTG) Pt will increase R ankle strength globally to at least 4/5 MMT in order to demonstrate improved strength for weight bearing and gait LTG Duration 10 weeks Six Impairment strength Impairment R knee strength 3/5 MMT Short Term Goal (STG) Pt will increase R knee flexion and extension strength to at least 4-/5 MMT in order to demonstrate improved strength for weight bearing and gait 12/15/23: 4-/5 MMT for both, pain free STG Duration 5 weeks MET Jail Goal (LTG) Pt will increase R knee flexion and extension strength to at least 4/5 MMT in order to demonstrate improved strength for weight bearing and gait LTG Duration 10 weeks Five Impairment function Impairment unable to perform squats Short Term Goal (STG) Pt will be able to perform at least 5 bilateral squats with pain <5/10 and without compensation in order to demonstrate improved weight bearing and BLE strength 12/15/23: in prevoius sessions, able to perform 10 squats with BUE support for balance but requires cues for equal WB and to limit compensations, pain free STG Duration 5 weeks PROGRESSING Jail Goal (LTG) Pt will be able to perform at least 10 bilateral squats with pain <5/10 and without compensation in order to demonstrate improved weight bearing and BLE strength LTG Duration 10 weeks Four Impairment mobility Impairment NWB, unable to ambulate Short Term Goal (STG) Pt will be able to ambulate at least 500 ft using LRAD with pain <5/10 in order to demonstrate improved activity tolerance and BLE strength 12/15/23: 445 ft with quad cane , slow savana. States pain free, slightly antalgic gait, cued for heel/toe and normal gait mechanics STG Duration 5 weeks PROGRESSING Jail Goal (LTG) Pt will be able to ambulate community distances using LRAD with pain <2/10 in order to demonstrate improved activity tolerance and BLE strength LTG Duration 10 weeks Three Impairment AROM Impairment R knee extension AROM 3 deg Validation Software Facilitator Goal (LTG) Pt will improve R knee extension to at least 0 deg in order to achieve terminal knee extension during gait 12/15/23: 0 deg extension LTG Duration 10 weeks MET Two Impairment AROM Impairment R knee flexion 105 deg Short Term Goal (STG) Pt will increase R knee flexion to at least 115 deg for improved knee flexion during swing phase of gait and stairs 12/15/23: 125 deg flexion, pain free but demos hip hike compensation with testing STG Duration 5 weeks MET Validation Software Facilitator Goal (LTG) Pt will increase R knee flexion to at least 125 deg for improved knee flexion during swing phase of gait and stairs 12/15/23: 125 deg flexion, pain free but demos hip hike compensation with testing 12/22/23 128 deg AROM right knee flexion LTG Duration 10 weeks One Impairment LEFS Impairment 15/80 Short Term Goal (STG) Pt will increase LEFS score by at least 9 points (1 MCID) in order to demonstrate improved pain management and activity tolerance 12/15/23: 33/80 STG Duration 5 weeks MET Jail Goal (LTG) Pt will increase LEFS score to at least 50/80 in order to demonstrate improved pain management and activity tolerance LTG Duration 10 weeks Assessment Summary Assessment TUG less than 10 seconds this session, possibly due to very limited SLS right LE without UE use. Balance continues to be a problem given limited SLS which impacts functional mobility on uneven surfaces. Physical Therapy Plan Next Visit Focus/Plan Next Note Type Treatment Note Next Visit Plan Next sessions: gait w/o AD, 4-6step up, squat, balance activities, Heel and toe raises, banded eversion if tolerated, trial lunge and leg press in future sessions Manual: scar massage, soft tissue, knee and ankle mobilizations grade II as tolerated,ice massage/ice elevation
--- NOTE | 2024-01-04 11:55 | PT.OTN ---
Current Diagnoses Weakness (01/04/24) Displaced bicondylar fracture of right tibia, subsequent encounter for closed fracture with routine healing (01/04/24) Unspecified fracture of shaft of right fibula, subsequent encounter for closed fracture with routine healing (01/04/24) Physical Therapy Treatment Note PT-OP-A Visit Information Start: 11/08/23 07:24 Freq: Status: Active Protocol: Document 01/04/24 09:47 AB (Rec: 01/04/24 11:55 AB [id number]) Out-Patient Physical Therapy Visit Information Visit Information Visit Type Treatment Note Visit Note 15 visits 01/28 for PN Access Code: [email or web address] Visit Start Time 09:47 Visit Stop Time 10:30 Visit Number 13 Number of [employer]ISHER Visits 4 PT-OP-B Current Condition Start: 11/08/23 07:24 Freq: Status: Active Protocol: Document 11/08/23 08:15 NM (Rec: 11/08/23 09:38 NM [id number]) Current Condition History of Current Condition Onset Date 09/30/23 History of Current Condition Pt presents s/p R ORIF following tibia and fibula fractures. Pt injured on her leg when turning, slipped and had ground level fall in her horse stall. She has been NWB for 6 weeks (until Monday, ). Hx provided by pt and , [facility]. Pt has been performing the HEP provided by hospital since discharge but reports that exercises cause her RLE discomfort and occasionally pain. She has been using a manual w/c for mobility since discharge from hospital. She has follow up with surgeon tomorrow, 11/08, and will have 6 week radiographs; reports that surgeon cleared for flat foot WB for transfers only at 3 week post op follow up. She has a previous R ankle replacement in 2010 along with PMH of R pelvis fracture, L sciatica. She would occasionally use a spc when her ankle flared up, usually walking about 2 blocks-1 mile. No stairs at her home, only at the horse barn. She has vacation planned 11/21-12/03 and will not be able to attend. Prior Functional Status Baseline Function- ADL's Independent Baseline Function- Mobility Independent Baseline Function- Gait 2 blocks to 1 mile, prn spc use Baseline Function- Work/School retired Baseline Function- Recreation/Hobbies horse back riding, swimming 2x /wk Current Functional Impairments (Reported) Functional Limitations- ADL's dressing Functional Limitations- Mobility/Gait w/c for mobility; sleeps in lift chair PT-OP-C Subjective Start: 11/08/23 07:24 Freq: Status: Active Protocol: Document 01/04/24 09:47 AB (Rec: 01/04/24 11:55 AB [id number]) OP-PT Subjective Patient Comments Patient Comments Patient rates right ankle 2/10 . SLS without UE use right LE 3 sec. PT-OP-F Manual Assessment Start: 11/08/23 07:24 Freq: Status: Active Protocol: Document 11/08/23 08:15 NM (Rec: 11/08/23 09:38 NM [id number]) Manual Assessments Soft Tissue Assessment Soft Tissue Mobility Assessment Increased hamstring, hip flexor, heel cord, and hip abductor tightness Joint Mobility Assessment Joint Mobility Assessment Decreased R knee and ankle PROM and AROM. R ankle limited at talocrural joint due to previous fusion PT-OP-G Mobility & Gait Start: 11/08/23 07:24 Freq: Status: Active Protocol: Document 11/08/23 08:15 NM (Rec: 11/08/23 09:38 NM [id number]) OP Mobility Evaluation Bed Mobility Rolling Independent Supine to and from Sit Independent Transfers Sit to Stand w/c <> plinth partial WB with flat foot, stand several steps to sit OP Gait Assessment Comments Gait Comments NWB at this time, did not formally assess gait until pt cleared for WB PT-OP-H Neuro Start: 11/08/23 07:24 Freq: Status: Active Protocol: Document 11/08/23 08:15 NM (Rec: 11/08/23 09:38 NM [id number]) Sensation Evaluation Comments Summary Comments Numbness reported along anterior and sides of RLE post op. PT-OP-J Posture/Palpation/Skin Start: 11/08/23 07:24 Freq: Status: Active Protocol: Document 11/08/23 08:15 NM (Rec: 11/08/23 09:38 NM [id number]) Posture Evaluation Position Sitting Head/C-Spine Posture Forward Head T-Spine Posture Increased Kyphosis L-Spine Posture Increased Lordosis Scapula Posture (L) Protracted,(R) Protracted Arm Posture (L) Internally Rotated,(R) Internally Rotated Pelvis Posture Anteriorly Tilted Hip Posture (L) Externally Rotated,(R) Externally Rotated Knee Posture (L) Genu Valgus,(R) Genu Valgus Patellar Posture (L) Superior,(R) Superior,(R) Laterally Tilted Ankle/Foot Posture (L) Pronated,(R) Pronated Foot Arch (L) Low Arch,(R) Low Arch Palpation Assessment Location RLE Palpation Location knee, ankle Palpation Findings Edema,Soft Tissue Tightness, Tenderness Palpation Details Edema around B malleoli, knee. Tenderness in posterior calf and popliteal fossa. No increased redness except with dependency. Tenderness along medial and lateral knee, calf, ankles. Skin Assessment Circumference Measurement R ankle Location figure 8 Measurement (Centimeters) 53 Comments comparision L 50 cm R knee Location patellar Measurement (Centimeters) 48 Incisional Assessment Incision Appearance/Comments Multiple incision clean, dry, intact. No signs of infection. Decreased scar tissue mobility, particularly at R ankle due to increased swelling Other Assessments Skin Assessment Comments RLE slightly warmer than LLE. Rubor with dependency. Most edema at R malleoli PT-OP-K Range of Motion Start: 11/08/23 07:24 Freq: Status: Active Protocol: Document 12/15/23 08:16 NM (Rec: 12/15/23 09:02 NM [id number]) Knee Goniometric Range of Motion Knee Right Flexion Active (degrees) 105 Extension Active (degrees) 5 Comments IE: anterior and lateral knee pain with flexion AROM 12/15/23: 125 deg flex, 0 deg extension; pain free Ankle and Foot Goniometric Range of Motion Ankle and Foot Right Dorsiflexion with Knee Flexed 3 Plantarflexion 20 Inversion 3 Eversion 3 Comments 12/15/23: 5 deg DF, 20 deg PF; pain free PT-OP-M Strength Start: 11/08/23 07:24 Freq: Status: Active Protocol: Document 12/15/23 08:16 NM (Rec: 12/15/23 09:02 NM [id number]) Hip Strength Hip Manual Muscle Testing Right Flexion (L2) 4- Good- Extension (S1) 3+ Fair+ Abduction 3+ Fair+ Adduction 4- Good- External Rotation 3 Fair Internal Rotation 3 Fair Comments 12/15/23: 4/5 MMT for all, pain free Knee Strength Knee Manual Muscle Testing Right Flexion (S2) 3 Fair Extension (L3) 3 Fair Comments AROM against gravity only, did not provide resistance due to NWB precautions 12/15/23: 4-/5, pain free Ankle/Foot Strength Ankle and Foot Manual Muscle Testing Right Dorsiflexion (L4) 3 Fair Plantarflexion (S1) 3 Fair Inversion 3 Fair Eversion (S1) 3 Fair Comments AROM against gravity only, did not provide resistance due to NWB precautions. Minimal AROM due to previous fusion 12/15/23: 4-/5, pain free with seated resisted testing PT-OP-Q Treatments Start: 11/08/23 07:24 Freq: Status: Active Protocol: Document 01/04/24 09:47 AB (Rec: 01/04/24 11:55 AB [id number]) Gym Equipment Shuttle Balance Red Reps/Duration feet on 4's with visual scanning, head turns and X 10 mini squats, stagger Comments 3 min squats and stagger stance without visual scanning or head turns, CGA to minimal assist throughout Therapeutic Exercises Supine Exercises ankle pumps Reps/Minutes X50 Comments post manual Sitting Exercises seated hip abduction with band Equipment Used level 5 purple latex free band Reps/Minutes one minute hold X1 then without hold X20 Standing Exercises bilateral heel raise Standing Exercise Name with UE use Reps/Minutes 2X15 Manual Therapy Treatment Soft Tissue Mobilization scar tissue right Body Location scar tissue right quad and lower LE Mobilization Type Cross-Friction,Rolling,Other Intensity/Depth Superficial Body Position Hooklying Neuro Re-Education Treatment Balance Activities hurdles Details first sets with UE use Reps/Duration 10 feet X 6 Comments VC to avoid circumduction right LE CGA marching Details on blue cushion with CGA Surface stable Equipment hands hovering over //bars, no UE support Reps/Duration 2x10 ea Comments second set with visual scanning step up taps 8 inch step Details hands above parallel bars Reps/Duration X10 X 3 Comments CGA first set with eyes on step, second with eyes off step, 3rd set with visual scanning tandem stepping Details hands above parallel bars Reps/Duration 10 feet X 8 Comments CGA verbal cues for heel toe pattern, 2rd and 4th rep eyes off feet, 5th and 6th reps with visual scanning, 7th rep with a few head turns PT-OP-T Assessment and Plan Start: 11/08/23 07:24 Freq: Status: Active Protocol: Document 01/04/24 09:47 AB (Rec: 01/04/24 11:55 AB [id number]) Physical Therapy Assessment Goals Seven Impairment strength Impairment R ankle strength 3/5 MMT Short Term Goal (STG) Pt will increase R ankle strength globally to at least 4-/5 MMT in order to demonstrate improved strength for weight bearing and gait 12/15/23: 4-/5 for all, pain free STG Duration 5 weeks MET Floor Framer Goal (LTG) Pt will increase R ankle strength globally to at least 4/5 MMT in order to demonstrate improved strength for weight bearing and gait LTG Duration 10 weeks Six Impairment strength Impairment R knee strength 3/5 MMT Short Term Goal (STG) Pt will increase R knee flexion and extension strength to at least 4-/5 MMT in order to demonstrate improved strength for weight bearing and gait 12/15/23: 4-/5 MMT for both, pain free STG Duration 5 weeks MET Usp Goal (LTG) Pt will increase R knee flexion and extension strength to at least 4/5 MMT in order to demonstrate improved strength for weight bearing and gait LTG Duration 10 weeks Five Impairment function Impairment unable to perform squats Short Term Goal (STG) Pt will be able to perform at least 5 bilateral squats with pain <5/10 and without compensation in order to demonstrate improved weight bearing and BLE strength 12/15/23: in prevoius sessions, able to perform 10 squats with BUE support for balance but requires cues for equal WB and to limit compensations, pain free STG Duration 5 weeks PROGRESSING Usp Goal (LTG) Pt will be able to perform at least 10 bilateral squats with pain <5/10 and without compensation in order to demonstrate improved weight bearing and BLE strength LTG Duration 10 weeks Four Impairment mobility Impairment NWB, unable to ambulate Short Term Goal (STG) Pt will be able to ambulate at least 500 ft using LRAD with pain <5/10 in order to demonstrate improved activity tolerance and BLE strength 12/15/23: 445 ft with quad cane , slow savana. States pain free, slightly antalgic gait, cued for heel/toe and normal gait mechanics STG Duration 5 weeks PROGRESSING Floor Framer Goal (LTG) Pt will be able to ambulate community distances using LRAD with pain <2/10 in order to demonstrate improved activity tolerance and BLE strength LTG Duration 10 weeks Three Impairment AROM Impairment R knee extension AROM 3 deg Floor Framer Goal (LTG) Pt will improve R knee extension to at least 0 deg in order to achieve terminal knee extension during gait 12/15/23: 0 deg extension LTG Duration 10 weeks MET Two Impairment AROM Impairment R knee flexion 105 deg Short Term Goal (STG) Pt will increase R knee flexion to at least 115 deg for improved knee flexion during swing phase of gait and stairs 12/15/23: 125 deg flexion, pain free but demos hip hike compensation with testing STG Duration 5 weeks MET Floor Framer Goal (LTG) Pt will increase R knee flexion to at least 125 deg for improved knee flexion during swing phase of gait and stairs 12/15/23: 125 deg flexion, pain free but demos hip hike compensation with testing 12/22/23 128 deg AROM right knee flexion LTG Duration 10 weeks One Impairment LEFS Impairment 15/80 Short Term Goal (STG) Pt will increase LEFS score by at least 9 points (1 MCID) in order to demonstrate improved pain management and activity tolerance 12/15/23: 33/80 STG Duration 5 weeks MET Usp Goal (LTG) Pt will increase LEFS score to at least 50/80 in order to demonstrate improved pain management and activity tolerance LTG Duration 10 weeks Assessment Summary Assessment Ann rates right ankle 08/30 pain end of session. Ann able to perform hurdles this session with significantly less circumduction right LE, and slightly improved SLS start of session.
--- NOTE | 2024-01-16 13:38 | PT.OTN ---
Current Diagnoses Weakness (01/16/24) Displaced bicondylar fracture of right tibia, subsequent encounter for closed fracture with routine healing (01/16/24) Unspecified fracture of shaft of right fibula, subsequent encounter for closed fracture with routine healing (01/16/24) Physical Therapy Treatment Note PT-OP-A Visit Information Start: 11/08/23 07:24 Freq: Status: Active Protocol: Document 01/16/24 10:34 NM (Rec: 01/16/24 11:19 NM [id number]) Out-Patient Physical Therapy Visit Information Visit Information Visit Type Progress Note Visit Start Time 10:34 Visit Stop Time 11:15 Visit Number 14 Evaluation Information Evaluation Date 11/08/23 PT-OP-B Current Condition Start: 11/08/23 07:24 Freq: Status: Active Protocol: Document 11/08/23 08:15 NM (Rec: 11/08/23 09:38 NM [id number]) Current Condition History of Current Condition Onset Date 09/30/23 History of Current Condition Pt presents s/p R ORIF following tibia and fibula fractures. Pt injured on her leg when turning, slipped and had ground level fall in her horse stall. She has been NWB for 6 weeks (until Monday, ). Hx provided by pt and , [facility]. Pt has been performing the HEP provided by hospital since discharge but reports that exercises cause her RLE discomfort and occasionally pain. She has been using a manual w/c for mobility since discharge from hospital. She has follow up with surgeon tomorrow, 11/08, and will have 6 week radiographs; reports that surgeon cleared for flat foot WB for transfers only at 3 week post op follow up. She has a previous R ankle replacement in 2010 along with PMH of R pelvis fracture, L sciatica. She would occasionally use a spc when her ankle flared up, usually walking about 2 blocks-1 mile. No stairs at her home, only at the horse barn. She has vacation planned 11/21-12/03 and will not be able to attend. Prior Functional Status Baseline Function- ADL's Independent Baseline Function- Mobility Independent Baseline Function- Gait 2 blocks to 1 mile, prn spc use Baseline Function- Work/School retired Baseline Function- Recreation/Hobbies horse back riding, swimming 2x /wk Current Functional Impairments (Reported) Functional Limitations- ADL's dressing Functional Limitations- Mobility/Gait w/c for mobility; sleeps in lift chair PT-OP-C Subjective Start: 11/08/23 07:24 Freq: Status: Active Protocol: Document 01/16/24 10:34 NM (Rec: 01/16/24 11:19 NM [id number]) OP-PT Subjective Patient Comments Patient Comments Pt reports no pain in ankle or knee. She states she only has pain after 2 oclock depending on how much she is on her feet. She ices and rests, which makes the pain go away in 20 minutes, 3/10 (both knee and ankle). No falls, no balance concerns. Pt reports that she can perform all ADLs/ mobility w/o pain or discomfort, except stairs PT-OP-F Manual Assessment Start: 11/08/23 07:24 Freq: Status: Active Protocol: Document 11/08/23 08:15 NM (Rec: 11/08/23 09:38 NM [id number]) Manual Assessments Soft Tissue Assessment Soft Tissue Mobility Assessment Increased hamstring, hip flexor, heel cord, and hip abductor tightness Joint Mobility Assessment Joint Mobility Assessment Decreased R knee and ankle PROM and AROM. R ankle limited at talocrural joint due to previous fusion PT-OP-G Mobility & Gait Start: 11/08/23 07:24 Freq: Status: Active Protocol: Document 11/08/23 08:15 NM (Rec: 11/08/23 09:38 NM [id number]) OP Mobility Evaluation Bed Mobility Rolling Independent Supine to and from Sit Independent Transfers Sit to Stand w/c <> plinth partial WB with flat foot, stand several steps to sit OP Gait Assessment Comments Gait Comments NWB at this time, did not formally assess gait until pt cleared for WB PT-OP-H Neuro Start: 11/08/23 07:24 Freq: Status: Active Protocol: Document 11/08/23 08:15 NM (Rec: 11/08/23 09:38 NM [id number]) Sensation Evaluation Comments Summary Comments Numbness reported along anterior and sides of RLE post op. PT-OP-J Posture/Palpation/Skin Start: 11/08/23 07:24 Freq: Status: Active Protocol: Document 11/08/23 08:15 NM (Rec: 11/08/23 09:38 NM [id number]) Posture Evaluation Position Sitting Head/C-Spine Posture Forward Head T-Spine Posture Increased Kyphosis L-Spine Posture Increased Lordosis Scapula Posture (L) Protracted,(R) Protracted Arm Posture (L) Internally Rotated,(R) Internally Rotated Pelvis Posture Anteriorly Tilted Hip Posture (L) Externally Rotated,(R) Externally Rotated Knee Posture (L) Genu Valgus,(R) Genu Valgus Patellar Posture (L) Superior,(R) Superior,(R) Laterally Tilted Ankle/Foot Posture (L) Pronated,(R) Pronated Foot Arch (L) Low Arch,(R) Low Arch Palpation Assessment Location RLE Palpation Location knee, ankle Palpation Findings Edema,Soft Tissue Tightness, Tenderness Palpation Details Edema around B malleoli, knee. Tenderness in posterior calf and popliteal fossa. No increased redness except with dependency. Tenderness along medial and lateral knee, calf, ankles. Skin Assessment Circumference Measurement R ankle Location figure 8 Measurement (Centimeters) 53 Comments comparision L 50 cm R knee Location patellar Measurement (Centimeters) 48 Incisional Assessment Incision Appearance/Comments Multiple incision clean, dry, intact. No signs of infection. Decreased scar tissue mobility, particularly at R ankle due to increased swelling Other Assessments Skin Assessment Comments RLE slightly warmer than LLE. Rubor with dependency. Most edema at R malleoli PT-OP-K Range of Motion Start: 11/08/23 07:24 Freq: Status: Active Protocol: Document 01/16/24 10:34 NM (Rec: 01/16/24 11:19 NM [id number]) Knee Goniometric Range of Motion Knee Right Flexion Active (degrees) 126 Extension Active (degrees) 0 Comments IE: 105 deg flex, 5 deg lacking extension; anterior and lateral knee pain with flexion AROM 12/15/23: 125 deg flex, 0 deg extension; pain free 01/16/24: 126 deg flex, 0 deg ext Ankle and Foot Goniometric Range of Motion Ankle and Foot Right Dorsiflexion with Knee Flexed 5 Plantarflexion 20 Inversion 20 Eversion 10 Comments IE: 3 deg DF, 20 deg PF, 3 deg inversion, 3 deg eversion 12/15/23: 5 deg DF, 20 deg PF; pain free 01/16/24: 10 def ev, 20 deg inv ; 5 deg DF, 20 deg PF PT-OP-M Strength Start: 11/08/23 07:24 Freq: Status: Active Protocol: Document 01/16/24 10:34 NM (Rec: 01/16/24 11:19 NM [id number]) Hip Strength Hip Manual Muscle Testing Right Flexion (L2) 4 Good Extension (S1) 4 Good Abduction 4 Good Adduction 4+ Good+ External Rotation 4+ Good+ Internal Rotation 4+ Good+ Comments IE:4-/5 for flex/add, 3+/5 for ext/abd/IR/ER 12/15/23: 4/5 MMT for all, pain free 01/16/24: 4/5 flex/ext/abd, 4+/ 5 add/ER/IR Knee Strength Knee Manual Muscle Testing Right Flexion (S2) 4 Good Extension (L3) 4 Good Comments IE: 3/5 MMT; AROM against gravity only, did not provide resistance due to NWB precautions 12/15/23: 4-/5, pain free 01/16/24: 4/5, pain free Ankle/Foot Strength Ankle and Foot Manual Muscle Testing Right Dorsiflexion (L4) 4 Good Plantarflexion (S1) 4 Good Inversion 4 Good Eversion (S1) 4 Good Comments IE: 3/5 MMT for all; AROM against gravity only, did not provide resistance due to NWB precautions. Minimal AROM due to previous fusion 12/15/23: 4-/5, pain free with seated resisted testing 01/16/24: 4/5, pain free PT-OP-Q Treatments Start: 11/08/23 07:24 Freq: Status: Active Protocol: Document 01/16/24 10:34 NM (Rec: 01/16/24 11:19 NM [id number]) Therapeutic Exercises Standing Exercises lunge Standing Exercise Name fwd with step Side bilateral Equipment Used 2 finger support on rail Reps/Minutes 1x10 ea Comments pain free step up Standing Exercise Name 1. fwd, 2. lateral Side right Equipment Used 6, no UE assist on fwd, 2 finger support for balance lateral Reps/Minutes 2x10 ea Comments cued upright trunk, knee behind toe squat Side bilateral Resistance AROM Equipment Used no UE support Reps/Minutes 1x10 Comments slight deviation, minimal depth Gait Training Gait Activity stairs Level of Assistance prn rail use of balance Distance/Duration 3 sets x 4 Treatment Focus form, reciprocal gait, strengthening Comments Demos quick follow through when stepping up or down with RLE, decreased ankle mobility with trunk lean. R foot slightly off of step to assist with ankle mobility Neuro Re-Education Treatment Balance Activities DGI Comments Challenged with stairs, hurdles, turning and stopping Mild gait deviations related to decreased RLE strength, ankle mobility Asencio Comments 53/56 Difficulty with tandem stance and standing on 1 foot R more challenging than L side , increased sway of trunk and decreased ankle mobility Self-Care/Home Management Treatment Education Patient Education Home Exercise Program Other Education HEP: step up with rail as needed, lateral step up with rail as needed, lunge with support PT-OP-T Assessment and Plan Start: 11/08/23 07:24 Freq: Status: Active Protocol: Document 01/16/24 10:34 NM (Rec: 01/16/24 11:19 NM [id number]) Physical Therapy Assessment Goals Eight Impairment stairs Impairment quick reciprocal descent, knee valgus with rail assist Nursing Home Goal (LTG) Pt will be able to ascend and descent at least 12 stairs with or without rail assist with reciprocal descent, no increase in baseline pain with minimal compensations due to decreased R ankle mobility in order to demonstrate safety when descending stairs at [employer] Seven Impairment strength Impairment R ankle strength 3/5 MMT Short Term Goal (STG) Pt will increase R ankle strength globally to at least 4-/5 MMT in order to demonstrate improved strength for weight bearing and gait 12/15/23: 4-/5 for all, pain free STG Duration 5 weeks MET Stonecutter Goal (LTG) Pt will increase R ankle strength globally to at least 4+/5 MMT in order to demonstrate improved strength for weight bearing and gait 01/16/24: 4/5 for all, pain free- GOAL MET, UPDATED TO 4+/ 5 MMT LTG Duration 10 weeks GOAL MET; UPDATED on 01/15 Six Impairment strength Impairment R knee strength 3/5 MMT Short Term Goal (STG) Pt will increase R knee flexion and extension strength to at least 4-/5 MMT in order to demonstrate improved strength for weight bearing and gait 12/15/23: 4-/5 MMT for both, pain free STG Duration 5 weeks MET Stonecutter Goal (LTG) Pt will increase R knee flexion and extension strength to at least 4/5 MMT in order to demonstrate improved strength for weight bearing and gait 01/16/24: 4+/5 for knee flex/ ext LTG Duration 10 weeks MET Five Impairment function Impairment unable to perform squats Short Term Goal (STG) Pt will be able to perform at least 5 bilateral squats with pain <5/10 and without compensation in order to demonstrate improved weight bearing and BLE strength 12/15/23: in prevoius sessions, able to perform 10 squats with BUE support for balance but requires cues for equal WB and to limit compensations, pain free STG Duration 5 weeks PROGRESSING; MET Nursing Home Goal (LTG) Pt will be able to perform at least 10 bilateral squats with pain <5/10 and without compensation in order to demonstrate improved weight bearing and BLE strength 01/16/24: able to perform 10 squats with limited depth, slight compensations with trunk and hip rotation, leans LLE; pain free LTG Duration 10 weeks PROGRESSING, NOT MET Four Impairment mobility Impairment NWB, unable to ambulate Short Term Goal (STG) Pt will be able to ambulate at least 500 ft using LRAD with pain <5/10 in order to demonstrate improved activity tolerance and BLE strength 12/15/23: 445 ft with quad cane , slow savana. States pain free, slightly antalgic gait, cued for heel/toe and normal gait mechanics STG Duration 5 weeks PROGRESSING Nursing Home Goal (LTG) Pt will be able to ambulate community distances using LRAD with pain <2/10 in order to demonstrate improved activity tolerance and BLE strength 01/16/24: reports walking community distances w/o pain or discomfort LTG Duration 10 weeks PROGRESSING Three Impairment AROM Impairment R knee extension AROM 3 deg Stonecutter Goal (LTG) Pt will improve R knee extension to at least 0 deg in order to achieve terminal knee extension during gait 12/15/23: 0 deg extension LTG Duration 10 weeks MET Two Impairment AROM Impairment R knee flexion 105 deg Short Term Goal (STG) Pt will increase R knee flexion to at least 115 deg for improved knee flexion during swing phase of gait and stairs 12/15/23: 125 deg flexion, pain free but demos hip hike compensation with testing STG Duration 5 weeks MET Nursing Home Goal (LTG) Pt will increase R knee flexion to at least 125 deg for improved knee flexion during swing phase of gait and stairs 12/15/23: 125 deg flexion, pain free but demos hip hike compensation with testing 12/22/23 128 deg AROM right knee flexion 01/16/24: 126 deg knee flexion LTG Duration 10 weeks MET One Impairment LEFS Impairment 15/80 Short Term Goal (STG) Pt will increase LEFS score by at least 9 points (1 MCID) in order to demonstrate improved pain management and activity tolerance 12/15/23: 33/80 STG Duration 5 weeks MET Nursing Home Goal (LTG) Pt will increase LEFS score to at least 50/80 in order to demonstrate improved pain management and activity tolerance 01/16/24: 56/80 LTG Duration 10 weeks MET Progress Towards Goals Progress Towards Goals Progressing Toward Goals,Goals Met Progress Comments Updated knee strength goal. Progressing toward squat goals Assessment Summary Assessment Pt tolerated session well, does not have any increased pain during or after session. She reports that her pain management has improved overall, as has her mobility. Improved step up and lunge form, but demonstrates trunk lean due to decreased ROM. During squats, demos decreased depth due to BLE strength, ankle mobility. Pt has Asencio of 53/56 but DGI of 17/24, indicating need to improve dynamic balance. Most limited by single leg balance, narrower WILMA. Pt has been seen x 13 visits since evaluation in October 2023 s/p ORIF for R tibia and fibula fractures. She is progressing well toward goals. Currently, pt has full R knee ROM. She continues to have limitations in R ankle ROM due to previous joint fusions and current surgery. Her gait and ability to perform stairs are limited by decreased ankle mobility. Pt's R hip/knee/ ankle strength is progressing; however, she is functionally weak and would benefit from further strengthening in order to improve ability to perform squats and stairs. Pt reports that she is able to perform most ADLs/IADLs without increased pain or limitation in her knee/ankle with the exception of stairs. Pt's DGI score also 17/24, indicating increased risk of falls with dynamic activities. Pt would benefit from 1-2x/wk for balance and strength training, functional activity training in order to improve activity tolerance and decrease fall risk. Physical Therapy Plan Frequency and Duration Frequency of Treatment 1-2x/wk Duration of treatment (weeks) 8 Plan of Care Start Date 01/16/24 Plan of Care End Date 03/15/24 Therapeutic Interventions Therapeutic Interventions Balance Training,Coordination Training,Gait Training,Home Exercise Program,Joint Mobilizations,Manual Therapy, Neuromuscular Re-education, Orthotic/Prosthetic Management ,Patient/Caregiver Education, Self-Care/Home Management, Sensory Integration,Soft Tissue Mobilization,Taping, Therapeutic Activities, Therapeutic Exercises Modalities Biofeedback,Cold Pack/Ice Massage,Electric Stimulation, Hot Packs,Ultrasound, Vasopneumatic Devices Next Visit Focus/Plan Next Note Type Treatment Note Next Visit Plan Heel raises, calf stretch, step up and down 4-6 stairs, lateral step up, squat, lunges , leg press, balance Manual: scar massage, soft tissue, knee and ankle mobilizations grade II as tolerated,ice massage/ice elevation
--- NOTE | 2024-01-18 12:50 | PT.OTN ---
Current Diagnoses Weakness (01/18/24) Displaced bicondylar fracture of right tibia, subsequent encounter for closed fracture with routine healing (01/18/24) Unspecified fracture of shaft of right fibula, subsequent encounter for closed fracture with routine healing (01/18/24) Physical Therapy Treatment Note PT-OP-A Visit Information Start: 11/08/23 07:24 Freq: Status: Active Protocol: Document 01/18/24 10:34 NM (Rec: 01/18/24 11:20 NM [id number]) Out-Patient Physical Therapy Visit Information Visit Information Visit Type Treatment Note Visit Start Time 10:35 Visit Stop Time 11:15 Visit Number 15 PT-OP-B Current Condition Start: 11/08/23 07:24 Freq: Status: Active Protocol: Document 11/08/23 08:15 NM (Rec: 11/08/23 09:38 NM [id number]) Current Condition History of Current Condition Onset Date 09/30/23 History of Current Condition Pt presents s/p R ORIF following tibia and fibula fractures. Pt injured on her leg when turning, slipped and had ground level fall in her horse stall. She has been NWB for 6 weeks (until Monday, ). Hx provided by pt and , [facility]. Pt has been performing the HEP provided by hospital since discharge but reports that exercises cause her RLE discomfort and occasionally pain. She has been using a manual w/c for mobility since discharge from hospital. She has follow up with surgeon tomorrow, 11/08, and will have 6 week radiographs; reports that surgeon cleared for flat foot WB for transfers only at 3 week post op follow up. She has a previous R ankle replacement in 2010 along with PMH of R pelvis fracture, L sciatica. She would occasionally use a spc when her ankle flared up, usually walking about 2 blocks-1 mile. No stairs at her home, only at the horse barn. She has vacation planned 11/21-12/03 and will not be able to attend. Prior Functional Status Baseline Function- ADL's Independent Baseline Function- Mobility Independent Baseline Function- Gait 2 blocks to 1 mile, prn spc use Baseline Function- Work/School retired Baseline Function- Recreation/Hobbies horse back riding, swimming 2x /wk Current Functional Impairments (Reported) Functional Limitations- ADL's dressing Functional Limitations- Mobility/Gait w/c for mobility; sleeps in lift chair PT-OP-C Subjective Start: 11/08/23 07:24 Freq: Status: Active Protocol: Document 01/18/24 10:34 NM (Rec: 01/18/24 11:20 NM [id number]) OP-PT Subjective Patient Comments Patient Comments Pt reports no ankle or knee pain today. She was not sore after last session. States 2/ 10 in knee after session ends but clarifies it's not pain just muscle soreness PT-OP-F Manual Assessment Start: 11/08/23 07:24 Freq: Status: Active Protocol: Document 11/08/23 08:15 NM (Rec: 11/08/23 09:38 NM [id number]) Manual Assessments Soft Tissue Assessment Soft Tissue Mobility Assessment Increased hamstring, hip flexor, heel cord, and hip abductor tightness Joint Mobility Assessment Joint Mobility Assessment Decreased R knee and ankle PROM and AROM. R ankle limited at talocrural joint due to previous fusion PT-OP-G Mobility & Gait Start: 11/08/23 07:24 Freq: Status: Active Protocol: Document 11/08/23 08:15 NM (Rec: 11/08/23 09:38 NM [id number]) OP Mobility Evaluation Bed Mobility Rolling Independent Supine to and from Sit Independent Transfers Sit to Stand w/c <> plinth partial WB with flat foot, stand several steps to sit OP Gait Assessment Comments Gait Comments NWB at this time, did not formally assess gait until pt cleared for WB PT-OP-H Neuro Start: 11/08/23 07:24 Freq: Status: Active Protocol: Document 11/08/23 08:15 NM (Rec: 11/08/23 09:38 NM [id number]) Sensation Evaluation Comments Summary Comments Numbness reported along anterior and sides of RLE post op. PT-OP-J Posture/Palpation/Skin Start: 11/08/23 07:24 Freq: Status: Active Protocol: Document 11/08/23 08:15 NM (Rec: 11/08/23 09:38 NM [id number]) Posture Evaluation Position Sitting Head/C-Spine Posture Forward Head T-Spine Posture Increased Kyphosis L-Spine Posture Increased Lordosis Scapula Posture (L) Protracted,(R) Protracted Arm Posture (L) Internally Rotated,(R) Internally Rotated Pelvis Posture Anteriorly Tilted Hip Posture (L) Externally Rotated,(R) Externally Rotated Knee Posture (L) Genu Valgus,(R) Genu Valgus Patellar Posture (L) Superior,(R) Superior,(R) Laterally Tilted Ankle/Foot Posture (L) Pronated,(R) Pronated Foot Arch (L) Low Arch,(R) Low Arch Palpation Assessment Location RLE Palpation Location knee, ankle Palpation Findings Edema,Soft Tissue Tightness, Tenderness Palpation Details Edema around B malleoli, knee. Tenderness in posterior calf and popliteal fossa. No increased redness except with dependency. Tenderness along medial and lateral knee, calf, ankles. Skin Assessment Circumference Measurement R ankle Location figure 8 Measurement (Centimeters) 53 Comments comparision L 50 cm R knee Location patellar Measurement (Centimeters) 48 Incisional Assessment Incision Appearance/Comments Multiple incision clean, dry, intact. No signs of infection. Decreased scar tissue mobility, particularly at R ankle due to increased swelling Other Assessments Skin Assessment Comments RLE slightly warmer than LLE. Rubor with dependency. Most edema at R malleoli PT-OP-K Range of Motion Start: 11/08/23 07:24 Freq: Status: Active Protocol: Document 01/16/24 10:34 NM (Rec: 01/16/24 11:19 NM [id number]) Knee Goniometric Range of Motion Knee Right Flexion Active (degrees) 126 Extension Active (degrees) 0 Comments IE: 105 deg flex, 5 deg lacking extension; anterior and lateral knee pain with flexion AROM 12/15/23: 125 deg flex, 0 deg extension; pain free 01/16/24: 126 deg flex, 0 deg ext Ankle and Foot Goniometric Range of Motion Ankle and Foot Right Dorsiflexion with Knee Flexed 5 Plantarflexion 20 Inversion 20 Eversion 10 Comments IE: 3 deg DF, 20 deg PF, 3 deg inversion, 3 deg eversion 12/15/23: 5 deg DF, 20 deg PF; pain free 01/16/24: 10 def ev, 20 deg inv ; 5 deg DF, 20 deg PF PT-OP-M Strength Start: 11/08/23 07:24 Freq: Status: Active Protocol: Document 01/16/24 10:34 NM (Rec: 01/16/24 11:19 NM [id number]) Hip Strength Hip Manual Muscle Testing Right Flexion (L2) 4 Good Extension (S1) 4 Good Abduction 4 Good Adduction 4+ Good+ External Rotation 4+ Good+ Internal Rotation 4+ Good+ Comments IE:4-/5 for flex/add, 3+/5 for ext/abd/IR/ER 12/15/23: 4/5 MMT for all, pain free 01/16/24: 4/5 flex/ext/abd, 4+/ 5 add/ER/IR Knee Strength Knee Manual Muscle Testing Right Flexion (S2) 4 Good Extension (L3) 4 Good Comments IE: 3/5 MMT; AROM against gravity only, did not provide resistance due to NWB precautions 12/15/23: 4-/5, pain free 01/16/24: 4/5, pain free Ankle/Foot Strength Ankle and Foot Manual Muscle Testing Right Dorsiflexion (L4) 4 Good Plantarflexion (S1) 4 Good Inversion 4 Good Eversion (S1) 4 Good Comments IE: 3/5 MMT for all; AROM against gravity only, did not provide resistance due to NWB precautions. Minimal AROM due to previous fusion 12/15/23: 4-/5, pain free with seated resisted testing 01/16/24: 4/5, pain free PT-OP-Q Treatments Start: 11/08/23 07:24 Freq: Status: Active Protocol: Document 01/18/24 10:34 NM (Rec: 01/18/24 11:20 NM [id number]) Therapeutic Exercises Standing Exercises marching Side bilateral Resistance lvl 1 band around toes Reps/Minutes 2x10 ea Comments cued upright posture, slower stance bilateral heel raise Side bilateral Equipment Used ball between ankles Reps/Minutes 2x10 Comments cued for form, ball used for neuromotor control and sequencing hip 3 way Standing Exercise Name hip flex, hip abd, hip ext Side bilateral Resistance lvl 3 band around thighs Equipment Used 1 hand support (flat) Reps/Minutes 2x10 ea Comments pain free, cued for neutral hip/heel taps step up Standing Exercise Name 1. fwd, 2. lateral Side right Equipment Used 6, no UE assist on fwd, 2 finger support for balance lateral Reps/Minutes 1x10 ea Comments cued upright trunk, knee behind toe, strong glute/quad activation squat Standing Exercise Name glute tap Side bilateral Resistance lvl 3 band around thighs Equipment Used no UE support, airex behind in mesh chair Reps/Minutes 1x10, 2x5 Comments improved knee flexion, hip hinge Neuro Re-Education Treatment Balance Activities carioca Details close SBA Surface stable Reps/Duration 2x10 ft Comments Improved coordination w/ reps. Cued upright trunk, form, looking up marching Details blue cushion, close SBA Surface unstable Equipment no UE support Reps/Duration 1x10 ea Comments cued look up, slower LLE lift with R stance, strong core bracing and contraction tandem stepping Details close SBA Equipment no hand assist Reps/Duration 2x10 ft Comments Cued to look up foam pad without UE use Details close SBA Comments 1. tandem stance, 2x30 2. tandem stance w/ head turns , 1x30 ea 3. tandem stance w/ vertical nods, 1x30 ea PT-OP-T Assessment and Plan Start: 11/08/23 07:24 Freq: Status: Active Protocol: Document 01/18/24 10:34 NM (Rec: 01/18/24 11:20 NM [id number]) Physical Therapy Assessment Goals Eight Impairment stairs Impairment quick reciprocal descent, knee valgus with rail assist Airframe Technician Goal (LTG) Pt will be able to ascend and descent at least 12 stairs with or without rail assist with reciprocal descent, no increase in baseline pain with minimal compensations due to decreased R ankle mobility in order to demonstrate safety when descending stairs at [place] Seven Impairment strength Impairment R ankle strength 3/5 MMT Short Term Goal (STG) Pt will increase R ankle strength globally to at least 4-/5 MMT in order to demonstrate improved strength for weight bearing and gait 12/15/23: 4-/5 for all, pain free STG Duration 5 weeks MET Chcf Goal (LTG) Pt will increase R ankle strength globally to at least 4+/5 MMT in order to demonstrate improved strength for weight bearing and gait 01/16/24: 4/5 for all, pain free- GOAL MET, UPDATED TO 4+/ 5 MMT LTG Duration 10 weeks GOAL MET; UPDATED on 01/15 Six Impairment strength Impairment R knee strength 3/5 MMT Short Term Goal (STG) Pt will increase R knee flexion and extension strength to at least 4-/5 MMT in order to demonstrate improved strength for weight bearing and gait 12/15/23: 4-/5 MMT for both, pain free STG Duration 5 weeks MET Airframe Technician Goal (LTG) Pt will increase R knee flexion and extension strength to at least 4/5 MMT in order to demonstrate improved strength for weight bearing and gait 01/16/24: 4+/5 for knee flex/ ext LTG Duration 10 weeks MET Five Impairment function Impairment unable to perform squats Short Term Goal (STG) Pt will be able to perform at least 5 bilateral squats with pain <5/10 and without compensation in order to demonstrate improved weight bearing and BLE strength 12/15/23: in prevoius sessions, able to perform 10 squats with BUE support for balance but requires cues for equal WB and to limit compensations, pain free STG Duration 5 weeks PROGRESSING; MET Airframe Technician Goal (LTG) Pt will be able to perform at least 10 bilateral squats with pain <5/10 and without compensation in order to demonstrate improved weight bearing and BLE strength 01/16/24: able to perform 10 squats with limited depth, slight compensations with trunk and hip rotation, leans LLE; pain free LTG Duration 10 weeks PROGRESSING, NOT MET Four Impairment mobility Impairment NWB, unable to ambulate Short Term Goal (STG) Pt will be able to ambulate at least 500 ft using LRAD with pain <5/10 in order to demonstrate improved activity tolerance and BLE strength 12/15/23: 445 ft with quad cane , slow savana. States pain free, slightly antalgic gait, cued for heel/toe and normal gait mechanics STG Duration 5 weeks PROGRESSING Chcf Goal (LTG) Pt will be able to ambulate community distances using LRAD with pain <2/10 in order to demonstrate improved activity tolerance and BLE strength 01/16/24: reports walking community distances w/o pain or discomfort LTG Duration 10 weeks PROGRESSING Three Impairment AROM Impairment R knee extension AROM 3 deg Chcf Goal (LTG) Pt will improve R knee extension to at least 0 deg in order to achieve terminal knee extension during gait 12/15/23: 0 deg extension LTG Duration 10 weeks MET Two Impairment AROM Impairment R knee flexion 105 deg Short Term Goal (STG) Pt will increase R knee flexion to at least 115 deg for improved knee flexion during swing phase of gait and stairs 12/15/23: 125 deg flexion, pain free but demos hip hike compensation with testing STG Duration 5 weeks MET Airframe Technician Goal (LTG) Pt will increase R knee flexion to at least 125 deg for improved knee flexion during swing phase of gait and stairs 12/15/23: 125 deg flexion, pain free but demos hip hike compensation with testing 12/22/23 128 deg AROM right knee flexion 01/16/24: 126 deg knee flexion LTG Duration 10 weeks MET One Impairment LEFS Impairment 15/80 Short Term Goal (STG) Pt will increase LEFS score by at least 9 points (1 MCID) in order to demonstrate improved pain management and activity tolerance 12/15/23: 33/80 STG Duration 5 weeks MET Chcf Goal (LTG) Pt will increase LEFS score to at least 50/80 in order to demonstrate improved pain management and activity tolerance 01/16/24: 56/80 LTG Duration 10 weeks MET Assessment Summary Assessment Pt tolerated session well and with good effort. Demonstrates improved depth with squat with verbal and tactile cues; however, continues to be limited with hip ext and quad strength. During step ups, pt tries to compensate with opposite leg to assist with ascent, but has improved descent. Continued with balance training. Pt requires several instances for coordination of movement, but demonstrates improved stability in narrow WILMA and unstable surfaces with cueing to look up. Pt would benefit from skilled PT continued BLE strengthening and balance training in order to improve activity tolerance and functional mobility. Physical Therapy Plan Frequency and Duration Frequency of Treatment 1-2x/wk Duration of treatment (weeks) 8 Plan of Care Start Date 01/16/24 Plan of Care End Date 03/15/24 Therapeutic Interventions Therapeutic Interventions Balance Training,Coordination Training,Gait Training,Home Exercise Program,Joint Mobilizations,Manual Therapy, Neuromuscular Re-education, Orthotic/Prosthetic Management ,Patient/Caregiver Education, Self-Care/Home Management, Sensory Integration,Soft Tissue Mobilization,Taping, Therapeutic Activities, Therapeutic Exercises Modalities Biofeedback,Cold Pack/Ice Massage,Electric Stimulation, Hot Packs,Ultrasound, Vasopneumatic Devices Next Visit Focus/Plan Next Note Type Treatment Note Next Visit Plan no band at ankles trial leg press, squat, standing DF, seated inv/ev, Heel raises w/ ball, calf stretch, step up and down 4-6 stairs, lateral step up, squat, lunges, leg press, balance Manual: scar massage, soft tissue, knee and ankle mobilizations grade II as tolerated,ice massage/ice elevation
--- NOTE | 2024-01-23 15:55 | PT.OTN ---
Current Diagnoses Weakness (01/23/24) Displaced bicondylar fracture of right tibia, subsequent encounter for closed fracture with routine healing (01/23/24) Unspecified fracture of shaft of right fibula, subsequent encounter for closed fracture with routine healing (01/23/24) Physical Therapy Treatment Note PT-OP-A Visit Information Start: 11/08/23 07:24 Freq: Status: Active Protocol: Document 01/23/24 09:45 NM (Rec: 01/23/24 13:46 NM [id number]) Out-Patient Physical Therapy Visit Information Visit Information Visit Type Treatment Note Visit Start Time 09:45 Visit Stop Time 10:25 Visit Number 16 Evaluation Information Evaluation Date 11/08/23 PT-OP-B Current Condition Start: 11/08/23 07:24 Freq: Status: Active Protocol: Document 11/08/23 08:15 NM (Rec: 11/08/23 09:38 NM [id number]) Current Condition History of Current Condition Onset Date 09/30/23 History of Current Condition Pt presents s/p R ORIF following tibia and fibula fractures. Pt injured on her leg when turning, slipped and had ground level fall in her horse stall. She has been NWB for 6 weeks (until Monday, ). Hx provided by pt and , [place]. Pt has been performing the HEP provided by hospital since discharge but reports that exercises cause her RLE discomfort and occasionally pain. She has been using a manual w/c for mobility since discharge from hospital. She has follow up with surgeon tomorrow, 11/08, and will have 6 week radiographs; reports that surgeon cleared for flat foot WB for transfers only at 3 week post op follow up. She has a previous R ankle replacement in 2010 along with PMH of R pelvis fracture, L sciatica. She would occasionally use a spc when her ankle flared up, usually walking about 2 blocks-1 mile. No stairs at her home, only at the horse barn. She has vacation planned 11/21-12/03 and will not be able to attend. Prior Functional Status Baseline Function- ADL's Independent Baseline Function- Mobility Independent Baseline Function- Gait 2 blocks to 1 mile, prn spc use Baseline Function- Work/School retired Baseline Function- Recreation/Hobbies horse back riding, swimming 2x /wk Current Functional Impairments (Reported) Functional Limitations- ADL's dressing Functional Limitations- Mobility/Gait w/c for mobility; sleeps in lift chair PT-OP-C Subjective Start: 11/08/23 07:24 Freq: Status: Active Protocol: Document 01/23/24 09:45 NM (Rec: 01/23/24 13:46 NM [id number]) OP-PT Subjective Patient Comments Patient Comments Pt reports no soreness after last session. States she tried step ups at home, which were fatiguing. Pt reports that she was walking over the weekend while in the [place], which caused knee pain that took 48 hrs to calm down. States resolved currently, was on unstable surfaces lots of walking PT-OP-F Manual Assessment Start: 11/08/23 07:24 Freq: Status: Active Protocol: Document 11/08/23 08:15 NM (Rec: 11/08/23 09:38 NM [id number]) Manual Assessments Soft Tissue Assessment Soft Tissue Mobility Assessment Increased hamstring, hip flexor, heel cord, and hip abductor tightness Joint Mobility Assessment Joint Mobility Assessment Decreased R knee and ankle PROM and AROM. R ankle limited at talocrural joint due to previous fusion PT-OP-G Mobility & Gait Start: 11/08/23 07:24 Freq: Status: Active Protocol: Document 11/08/23 08:15 NM (Rec: 11/08/23 09:38 NM [id number]) OP Mobility Evaluation Bed Mobility Rolling Independent Supine to and from Sit Independent Transfers Sit to Stand w/c <> plinth partial WB with flat foot, stand several steps to sit OP Gait Assessment Comments Gait Comments NWB at this time, did not formally assess gait until pt cleared for WB PT-OP-H Neuro Start: 11/08/23 07:24 Freq: Status: Active Protocol: Document 11/08/23 08:15 NM (Rec: 11/08/23 09:38 NM [id number]) Sensation Evaluation Comments Summary Comments Numbness reported along anterior and sides of RLE post op. PT-OP-J Posture/Palpation/Skin Start: 11/08/23 07:24 Freq: Status: Active Protocol: Document 11/08/23 08:15 NM (Rec: 11/08/23 09:38 NM [id number]) Posture Evaluation Position Sitting Head/C-Spine Posture Forward Head T-Spine Posture Increased Kyphosis L-Spine Posture Increased Lordosis Scapula Posture (L) Protracted,(R) Protracted Arm Posture (L) Internally Rotated,(R) Internally Rotated Pelvis Posture Anteriorly Tilted Hip Posture (L) Externally Rotated,(R) Externally Rotated Knee Posture (L) Genu Valgus,(R) Genu Valgus Patellar Posture (L) Superior,(R) Superior,(R) Laterally Tilted Ankle/Foot Posture (L) Pronated,(R) Pronated Foot Arch (L) Low Arch,(R) Low Arch Palpation Assessment Location RLE Palpation Location knee, ankle Palpation Findings Edema,Soft Tissue Tightness, Tenderness Palpation Details Edema around B malleoli, knee. Tenderness in posterior calf and popliteal fossa. No increased redness except with dependency. Tenderness along medial and lateral knee, calf, ankles. Skin Assessment Circumference Measurement R ankle Location figure 8 Measurement (Centimeters) 53 Comments comparision L 50 cm R knee Location patellar Measurement (Centimeters) 48 Incisional Assessment Incision Appearance/Comments Multiple incision clean, dry, intact. No signs of infection. Decreased scar tissue mobility, particularly at R ankle due to increased swelling Other Assessments Skin Assessment Comments RLE slightly warmer than LLE. Rubor with dependency. Most edema at R malleoli PT-OP-K Range of Motion Start: 11/08/23 07:24 Freq: Status: Active Protocol: Document 01/16/24 10:34 NM (Rec: 01/16/24 11:19 NM [id number]) Knee Goniometric Range of Motion Knee Right Flexion Active (degrees) 126 Extension Active (degrees) 0 Comments IE: 105 deg flex, 5 deg lacking extension; anterior and lateral knee pain with flexion AROM 12/15/23: 125 deg flex, 0 deg extension; pain free 01/16/24: 126 deg flex, 0 deg ext Ankle and Foot Goniometric Range of Motion Ankle and Foot Right Dorsiflexion with Knee Flexed 5 Plantarflexion 20 Inversion 20 Eversion 10 Comments IE: 3 deg DF, 20 deg PF, 3 deg inversion, 3 deg eversion 12/15/23: 5 deg DF, 20 deg PF; pain free 01/16/24: 10 def ev, 20 deg inv ; 5 deg DF, 20 deg PF PT-OP-M Strength Start: 11/08/23 07:24 Freq: Status: Active Protocol: Document 01/16/24 10:34 NM (Rec: 01/16/24 11:19 NM [id number]) Hip Strength Hip Manual Muscle Testing Right Flexion (L2) 4 Good Extension (S1) 4 Good Abduction 4 Good Adduction 4+ Good+ External Rotation 4+ Good+ Internal Rotation 4+ Good+ Comments IE:4-/5 for flex/add, 3+/5 for ext/abd/IR/ER 12/15/23: 4/5 MMT for all, pain free 01/16/24: 4/5 flex/ext/abd, 4+/ 5 add/ER/IR Knee Strength Knee Manual Muscle Testing Right Flexion (S2) 4 Good Extension (L3) 4 Good Comments IE: 3/5 MMT; AROM against gravity only, did not provide resistance due to NWB precautions 12/15/23: 4-/5, pain free 01/16/24: 4/5, pain free Ankle/Foot Strength Ankle and Foot Manual Muscle Testing Right Dorsiflexion (L4) 4 Good Plantarflexion (S1) 4 Good Inversion 4 Good Eversion (S1) 4 Good Comments IE: 3/5 MMT for all; AROM against gravity only, did not provide resistance due to NWB precautions. Minimal AROM due to previous fusion 12/15/23: 4-/5, pain free with seated resisted testing 01/16/24: 4/5, pain free PT-OP-Q Treatments Start: 11/08/23 07:24 Freq: Status: Active Protocol: Document 01/23/24 09:45 NM (Rec: 01/23/24 13:46 NM [id number]) Gym Equipment Shuttle Recovery leg press Details B squat Resistance 50# (2 navy) Reps/Time 2x10; requires increased time Shuttle Balance yellow Reps/Duration 5 minutes Comments 2.5 min A/P, 2.5 min M/L With horizontal and vertical head turns. Demos slight ankle strategy, mainly hip strategy to stabilize board. Pain free . M/L more challenging Neuro Re-Education Treatment Balance Activities step ups Details lateral Surface large sethi pillow, unstable Reps/Duration 2x10 ea Comments Cued for neutral trunk and foot placement, foot clearance and larger step on/off Improved stability with reps, close SBA carioca Details close SBA Surface stable Reps/Duration 2x10 ft Comments able to look up with cueing, improved form but challenging to cross leg in front Less stability with RLE in stance hurdles Comments 1. fwd stepping x 5 hurdles, 2x10 ft with 1 foot between, reciprocal gait 2. step overs RLE in stance, LLE stepping Cued for heel>toe during weight acceptance, slower/ longer R stance Difficult to stabilize in R stance 3. lateral stepping with BLE in between ea gayla SLS Details // bars Surface stable Equipment 2 finger support> decrease DEBRA Reps/Duration 2x30 Comments For time. Cued to slowly decrease level of support from BUE > 1 UE > 2 fingers to less as more comfortable. RLE in stance PT-OP-T Assessment and Plan Start: 11/08/23 07:24 Freq: Status: Active Protocol: Document 01/23/24 09:45 NM (Rec: 01/23/24 13:46 NM [id number]) Physical Therapy Assessment Goals Eight Impairment stairs Impairment quick reciprocal descent, knee valgus with rail assist Glass Ribbon Machine Operator Goal (LTG) Pt will be able to ascend and descent at least 12 stairs with or without rail assist with reciprocal descent, no increase in baseline pain with minimal compensations due to decreased R ankle mobility in order to demonstrate safety when descending stairs at [employer] LTG Duration 8 weeks Seven Impairment strength Impairment R ankle strength 3/5 MMT Short Term Goal (STG) Pt will increase R ankle strength globally to at least 4-/5 MMT in order to demonstrate improved strength for weight bearing and gait 12/15/23: 4-/5 for all, pain free STG Duration 5 weeks MET Glass Ribbon Machine Operator Goal (LTG) Pt will increase R ankle strength globally to at least 4+/5 MMT in order to demonstrate improved strength for weight bearing and gait 01/16/24: 4/5 for all, pain free- GOAL MET, UPDATED TO 4+/ 5 MMT LTG Duration 10 weeks GOAL MET; UPDATED on 01/15 Six Impairment strength Impairment R knee strength 3/5 MMT Short Term Goal (STG) Pt will increase R knee flexion and extension strength to at least 4-/5 MMT in order to demonstrate improved strength for weight bearing and gait 12/15/23: 4-/5 MMT for both, pain free STG Duration 5 weeks MET Glass Ribbon Machine Operator Goal (LTG) Pt will increase R knee flexion and extension strength to at least 4/5 MMT in order to demonstrate improved strength for weight bearing and gait 01/16/24: 4+/5 for knee flex/ ext LTG Duration 10 weeks MET Five Impairment function Impairment unable to perform squats Short Term Goal (STG) Pt will be able to perform at least 5 bilateral squats with pain <5/10 and without compensation in order to demonstrate improved weight bearing and BLE strength 12/15/23: in prevoius sessions, able to perform 10 squats with BUE support for balance but requires cues for equal WB and to limit compensations, pain free STG Duration 5 weeks PROGRESSING; MET Shelter Goal (LTG) Pt will be able to perform at least 10 bilateral squats with pain <5/10 and without compensation in order to demonstrate improved weight bearing and BLE strength 01/16/24: able to perform 10 squats with limited depth, slight compensations with trunk and hip rotation, leans LLE; pain free LTG Duration 10 weeks PROGRESSING, NOT MET Four Impairment mobility Impairment NWB, unable to ambulate Short Term Goal (STG) Pt will be able to ambulate at least 500 ft using LRAD with pain <5/10 in order to demonstrate improved activity tolerance and BLE strength 12/15/23: 445 ft with quad cane , slow savana. States pain free, slightly antalgic gait, cued for heel/toe and normal gait mechanics STG Duration 5 weeks PROGRESSING Shelter Goal (LTG) Pt will be able to ambulate community distances using LRAD with pain <2/10 in order to demonstrate improved activity tolerance and BLE strength 01/16/24: reports walking community distances w/o pain or discomfort LTG Duration 10 weeks PROGRESSING Three Impairment AROM Impairment R knee extension AROM 3 deg Shelter Goal (LTG) Pt will improve R knee extension to at least 0 deg in order to achieve terminal knee extension during gait 12/15/23: 0 deg extension LTG Duration 10 weeks MET Two Impairment AROM Impairment R knee flexion 105 deg Short Term Goal (STG) Pt will increase R knee flexion to at least 115 deg for improved knee flexion during swing phase of gait and stairs 12/15/23: 125 deg flexion, pain free but demos hip hike compensation with testing STG Duration 5 weeks MET Shelter Goal (LTG) Pt will increase R knee flexion to at least 125 deg for improved knee flexion during swing phase of gait and stairs 12/15/23: 125 deg flexion, pain free but demos hip hike compensation with testing 12/22/23 128 deg AROM right knee flexion 01/16/24: 126 deg knee flexion LTG Duration 10 weeks MET One Impairment LEFS Impairment 15/80 Short Term Goal (STG) Pt will increase LEFS score by at least 9 points (1 MCID) in order to demonstrate improved pain management and activity tolerance 12/15/23: 33/80 STG Duration 5 weeks MET Shelter Goal (LTG) Pt will increase LEFS score to at least 50/80 in order to demonstrate improved pain management and activity tolerance 01/16/24: 56/80 LTG Duration 10 weeks MET Assessment Summary Assessment Pt demonstrates good effort during session but fatigues quickly. She has no knee or ankle pain with balance or strengthening exercises. Initiated B squat on leg press for greater glute and quad strength, only able to tolerate 50# before fatiguing. Cued for form, particularly for foot placement, full TKE, and to prevent knee valgus. Continued with balance training to improve RLE stability. Pt most challenged with R stance. Educated pt to continue with supported SLS at home, slowly decreasing level of support from UE and increasing time spent in stance to improve stability. Pt demonstrates improved form and ability to maintain upright trunk during dynamic balance exercises on stable and unstable surfaces, although still challenged with ankle strategy. Pt would benefit from skilled PT for progressive BLE strengthening and balance training in order to decrease fall risk and improve activity tolerance. Physical Therapy Plan Frequency and Duration Frequency of Treatment 1-2x/wk Duration of treatment (weeks) 8 Plan of Care Start Date 01/16/24 Plan of Care End Date 03/15/24 Therapeutic Interventions Therapeutic Interventions Balance Training,Coordination Training,Gait Training,Home Exercise Program,Joint Mobilizations,Manual Therapy, Neuromuscular Re-education, Orthotic/Prosthetic Management ,Patient/Caregiver Education, Self-Care/Home Management, Sensory Integration,Soft Tissue Mobilization,Taping, Therapeutic Activities, Therapeutic Exercises Modalities Biofeedback,Cold Pack/Ice Massage,Electric Stimulation, Hot Packs,Ultrasound, Vasopneumatic Devices Next Visit Focus/Plan Next Note Type Treatment Note Next Visit Plan no band at ankles leg press, squat. continue balance, ankle strengthening. standing DF, seated inv/ev, Heel raises w/ ball, calf stretch, step up and down 4-6 stairs, lateral step up, squat, lunges, leg press, balance Manual: scar massage, soft tissue, knee and ankle mobilizations grade II as tolerated,ice massage/ice elevation
--- NOTE | 2024-01-29 12:07 | PT.OTN ---
Current Diagnoses Weakness (01/29/24) Displaced bicondylar fracture of right tibia, subsequent encounter for closed fracture with routine healing (01/29/24) Unspecified fracture of shaft of right fibula, subsequent encounter for closed fracture with routine healing (01/29/24) Physical Therapy Treatment Note PT-OP-A Visit Information Start: 11/08/23 07:24 Freq: Status: Active Protocol: Document 01/29/24 11:23 NM (Rec: 01/29/24 12:06 NM [id number]) Out-Patient Physical Therapy Visit Information Visit Information Visit Type Treatment Note Visit Note latex allergy Visit Start Time 11:22 Visit Stop Time 12:00 Visit Number 17 Evaluation Information Evaluation Date 11/08/23 Precautions Precautions frequent fractures WBAT now PT-OP-B Current Condition Start: 11/08/23 07:24 Freq: Status: Active Protocol: Document 11/08/23 08:15 NM (Rec: 11/08/23 09:38 NM [id number]) Current Condition History of Current Condition Onset Date 09/30/23 History of Current Condition Pt presents s/p R ORIF following tibia and fibula fractures. Pt injured on her leg when turning, slipped and had ground level fall in her horse stall. She has been NWB for 6 weeks (until Monday, ). Hx provided by pt and , [facility]. Pt has been performing the HEP provided by hospital since discharge but reports that exercises cause her RLE discomfort and occasionally pain. She has been using a manual w/c for mobility since discharge from hospital. She has follow up with surgeon tomorrow, 11/08, and will have 6 week radiographs; reports that surgeon cleared for flat foot WB for transfers only at 3 week post op follow up. She has a previous R ankle replacement in 2010 along with PMH of R pelvis fracture, L sciatica. She would occasionally use a spc when her ankle flared up, usually walking about 2 blocks-1 mile. No stairs at her home, only at the horse barn. She has vacation planned 11/21-12/03 and will not be able to attend. Prior Functional Status Baseline Function- ADL's Independent Baseline Function- Mobility Independent Baseline Function- Gait 2 blocks to 1 mile, prn spc use Baseline Function- Work/School retired Baseline Function- Recreation/Hobbies horse back riding, swimming 2x /wk Current Functional Impairments (Reported) Functional Limitations- ADL's dressing Functional Limitations- Mobility/Gait w/c for mobility; sleeps in lift chair PT-OP-C Subjective Start: 11/08/23 07:24 Freq: Status: Active Protocol: Document 01/29/24 11:23 NM (Rec: 01/29/24 12:06 NM [id number]) OP-PT Subjective Patient Comments Patient Comments Pt reports mowing yesterday on uneven surface, which aggravated knee but reports better today. States no knee or ankle pain. Has been compliant with HEP PT-OP-F Manual Assessment Start: 11/08/23 07:24 Freq: Status: Active Protocol: Document 11/08/23 08:15 NM (Rec: 11/08/23 09:38 NM [id number]) Manual Assessments Soft Tissue Assessment Soft Tissue Mobility Assessment Increased hamstring, hip flexor, heel cord, and hip abductor tightness Joint Mobility Assessment Joint Mobility Assessment Decreased R knee and ankle PROM and AROM. R ankle limited at talocrural joint due to previous fusion PT-OP-G Mobility & Gait Start: 11/08/23 07:24 Freq: Status: Active Protocol: Document 11/08/23 08:15 NM (Rec: 11/08/23 09:38 NM [id number]) OP Mobility Evaluation Bed Mobility Rolling Independent Supine to and from Sit Independent Transfers Sit to Stand w/c <> plinth partial WB with flat foot, stand several steps to sit OP Gait Assessment Comments Gait Comments NWB at this time, did not formally assess gait until pt cleared for WB PT-OP-H Neuro Start: 11/08/23 07:24 Freq: Status: Active Protocol: Document 11/08/23 08:15 NM (Rec: 11/08/23 09:38 NM [id number]) Sensation Evaluation Comments Summary Comments Numbness reported along anterior and sides of RLE post op. PT-OP-J Posture/Palpation/Skin Start: 11/08/23 07:24 Freq: Status: Active Protocol: Document 11/08/23 08:15 NM (Rec: 11/08/23 09:38 NM [id number]) Posture Evaluation Position Sitting Head/C-Spine Posture Forward Head T-Spine Posture Increased Kyphosis L-Spine Posture Increased Lordosis Scapula Posture (L) Protracted,(R) Protracted Arm Posture (L) Internally Rotated,(R) Internally Rotated Pelvis Posture Anteriorly Tilted Hip Posture (L) Externally Rotated,(R) Externally Rotated Knee Posture (L) Genu Valgus,(R) Genu Valgus Patellar Posture (L) Superior,(R) Superior,(R) Laterally Tilted Ankle/Foot Posture (L) Pronated,(R) Pronated Foot Arch (L) Low Arch,(R) Low Arch Palpation Assessment Location RLE Palpation Location knee, ankle Palpation Findings Edema,Soft Tissue Tightness, Tenderness Palpation Details Edema around B malleoli, knee. Tenderness in posterior calf and popliteal fossa. No increased redness except with dependency. Tenderness along medial and lateral knee, calf, ankles. Skin Assessment Circumference Measurement R ankle Location figure 8 Measurement (Centimeters) 53 Comments comparision L 50 cm R knee Location patellar Measurement (Centimeters) 48 Incisional Assessment Incision Appearance/Comments Multiple incision clean, dry, intact. No signs of infection. Decreased scar tissue mobility, particularly at R ankle due to increased swelling Other Assessments Skin Assessment Comments RLE slightly warmer than LLE. Rubor with dependency. Most edema at R malleoli PT-OP-K Range of Motion Start: 11/08/23 07:24 Freq: Status: Active Protocol: Document 01/16/24 10:34 NM (Rec: 01/16/24 11:19 NM [id number]) Knee Goniometric Range of Motion Knee Right Flexion Active (degrees) 126 Extension Active (degrees) 0 Comments IE: 105 deg flex, 5 deg lacking extension; anterior and lateral knee pain with flexion AROM 12/15/23: 125 deg flex, 0 deg extension; pain free 01/16/24: 126 deg flex, 0 deg ext Ankle and Foot Goniometric Range of Motion Ankle and Foot Right Dorsiflexion with Knee Flexed 5 Plantarflexion 20 Inversion 20 Eversion 10 Comments IE: 3 deg DF, 20 deg PF, 3 deg inversion, 3 deg eversion 12/15/23: 5 deg DF, 20 deg PF; pain free 01/16/24: 10 def ev, 20 deg inv ; 5 deg DF, 20 deg PF PT-OP-M Strength Start: 11/08/23 07:24 Freq: Status: Active Protocol: Document 01/16/24 10:34 NM (Rec: 01/16/24 11:19 NM [id number]) Hip Strength Hip Manual Muscle Testing Right Flexion (L2) 4 Good Extension (S1) 4 Good Abduction 4 Good Adduction 4+ Good+ External Rotation 4+ Good+ Internal Rotation 4+ Good+ Comments IE:4-/5 for flex/add, 3+/5 for ext/abd/IR/ER 12/15/23: 4/5 MMT for all, pain free 01/16/24: 4/5 flex/ext/abd, 4+/ 5 add/ER/IR Knee Strength Knee Manual Muscle Testing Right Flexion (S2) 4 Good Extension (L3) 4 Good Comments IE: 3/5 MMT; AROM against gravity only, did not provide resistance due to NWB precautions 12/15/23: 4-/5, pain free 01/16/24: 4/5, pain free Ankle/Foot Strength Ankle and Foot Manual Muscle Testing Right Dorsiflexion (L4) 4 Good Plantarflexion (S1) 4 Good Inversion 4 Good Eversion (S1) 4 Good Comments IE: 3/5 MMT for all; AROM against gravity only, did not provide resistance due to NWB precautions. Minimal AROM due to previous fusion 12/15/23: 4-/5, pain free with seated resisted testing 01/16/24: 4/5, pain free PT-OP-Q Treatments Start: 11/08/23 07:24 Freq: Status: Active Protocol: Document 01/29/24 11:23 NM (Rec: 01/29/24 12:06 NM [id number]) Gym Equipment Shuttle Recovery leg press Details B squat Resistance 50# (2 navy) > 63# (2 navy) Reps/Time 3x10 Therapeutic Exercises Standing Exercises ankle dorsiflexion Standing Exercise Name 3 concentric, 3 isometric, 3 eccentric Side bilateral Equipment Used bacl asginst wall Reps/Minutes 10 Comments cued for form eccentric step down Standing Exercise Name 4: 1. fwd, 2. lateral (pain free but hard) Side bilateral Resistance AROM Equipment Used 1 hand support on rail Reps/Minutes 1. 2x10 ea - d/c end 2nd set due to R ankle pain 01/28, 2. 8 ea Comments cued for form, level hips; not full range for form; L kick to bucket marching Side bilateral Resistance lvl 2 band around toes Reps/Minutes 3x10 Comments cued upright posture, neutral foot; watches with eyes, good control side steps Standing Exercise Name fwd/retro/side through staggered cones 3 ft apart Side bilateral Resistance lvl 2 latex free band at ankles > above knees Equipment Used 6 cones Reps/Minutes 2 sets ea Comments challenging; cued for correct form, cued flat foot, no supination calf stretch Standing Exercise Name 1. gastrocnemius, 2. soleus Side bilateral Resistance STIVEN Reps/Minutes 60 ea Self-Care/Home Management Treatment Education Patient Education Home Exercise Program Other Education HEP: tibialis anterior raises at wall with 3, 3, 3 control PT-OP-T Assessment and Plan Start: 11/08/23 07:24 Freq: Status: Active Protocol: Document 01/29/24 11:23 NM (Rec: 01/29/24 12:06 NM [id number]) Physical Therapy Assessment Goals Eight Impairment stairs Impairment quick reciprocal descent, knee valgus with rail assist Director New Product Goal (LTG) Pt will be able to ascend and descent at least 12 stairs with or without rail assist with reciprocal descent, no increase in baseline pain with minimal compensations due to decreased R ankle mobility in order to demonstrate safety when descending stairs at Stance LTG Duration 8 weeks Seven Impairment strength Impairment R ankle strength 3/5 MMT Short Term Goal (STG) Pt will increase R ankle strength globally to at least 4-/5 MMT in order to demonstrate improved strength for weight bearing and gait 12/15/23: 4-/5 for all, pain free STG Duration 5 weeks MET Director New Product Goal (LTG) Pt will increase R ankle strength globally to at least 4+/5 MMT in order to demonstrate improved strength for weight bearing and gait 01/16/24: 4/5 for all, pain free- GOAL MET, UPDATED TO 4+/ 5 MMT LTG Duration 10 weeks GOAL MET; UPDATED on 01/15 Six Impairment strength Impairment R knee strength 3/5 MMT Short Term Goal (STG) Pt will increase R knee flexion and extension strength to at least 4-/5 MMT in order to demonstrate improved strength for weight bearing and gait 12/15/23: 4-/5 MMT for both, pain free STG Duration 5 weeks MET Prison Goal (LTG) Pt will increase R knee flexion and extension strength to at least 4/5 MMT in order to demonstrate improved strength for weight bearing and gait 01/16/24: 4+/5 for knee flex/ ext LTG Duration 10 weeks MET Five Impairment function Impairment unable to perform squats Short Term Goal (STG) Pt will be able to perform at least 5 bilateral squats with pain <5/10 and without compensation in order to demonstrate improved weight bearing and BLE strength 12/15/23: in prevoius sessions, able to perform 10 squats with BUE support for balance but requires cues for equal WB and to limit compensations, pain free STG Duration 5 weeks PROGRESSING; MET Director New Product Goal (LTG) Pt will be able to perform at least 10 bilateral squats with pain <5/10 and without compensation in order to demonstrate improved weight bearing and BLE strength 01/16/24: able to perform 10 squats with limited depth, slight compensations with trunk and hip rotation, leans LLE; pain free LTG Duration 10 weeks PROGRESSING, NOT MET Four Impairment mobility Impairment NWB, unable to ambulate Short Term Goal (STG) Pt will be able to ambulate at least 500 ft using LRAD with pain <5/10 in order to demonstrate improved activity tolerance and BLE strength 12/15/23: 445 ft with quad cane , slow savana. States pain free, slightly antalgic gait, cued for heel/toe and normal gait mechanics STG Duration 5 weeks PROGRESSING Director New Product Goal (LTG) Pt will be able to ambulate community distances using LRAD with pain <2/10 in order to demonstrate improved activity tolerance and BLE strength 01/16/24: reports walking community distances w/o pain or discomfort LTG Duration 10 weeks PROGRESSING Three Impairment AROM Impairment R knee extension AROM 3 deg Prison Goal (LTG) Pt will improve R knee extension to at least 0 deg in order to achieve terminal knee extension during gait 12/15/23: 0 deg extension LTG Duration 10 weeks MET Two Impairment AROM Impairment R knee flexion 105 deg Short Term Goal (STG) Pt will increase R knee flexion to at least 115 deg for improved knee flexion during swing phase of gait and stairs 12/15/23: 125 deg flexion, pain free but demos hip hike compensation with testing STG Duration 5 weeks MET Director New Product Goal (LTG) Pt will increase R knee flexion to at least 125 deg for improved knee flexion during swing phase of gait and stairs 12/15/23: 125 deg flexion, pain free but demos hip hike compensation with testing 12/22/23 128 deg AROM right knee flexion 01/16/24: 126 deg knee flexion LTG Duration 10 weeks MET One Impairment LEFS Impairment 15/80 Short Term Goal (STG) Pt will increase LEFS score by at least 9 points (1 MCID) in order to demonstrate improved pain management and activity tolerance 12/15/23: 33/80 STG Duration 5 weeks MET Prison Goal (LTG) Pt will increase LEFS score to at least 50/80 in order to demonstrate improved pain management and activity tolerance 01/16/24: 56/80 LTG Duration 10 weeks MET Assessment Summary Assessment Pt tolerated session fair, reporting knee and ankle pain with eccentric forward step downs. Continued with hip, quad, and ankle strengthening. Progressed leg press resistance and number of reps. Demos good lower extremity alignment with occasional cues to limit knee valgus. Trialed eccentric 4 inch step downs forward and laterally. Cued maximally for form. Pt demonstrates poor quad control and glute medius strength, unable to stabilize. Progressed resisted stepping to include multidirectional movement. Pt able to perform with cueing for form but very visually dependent. Initiated standing ankle dorsiflexion with neuromuscular control timing to improve foot clearance with gait. She functionally weak despite compliance with HEP. Pt would benefit from skilled PT for progressive balance and strength training in order to reduce fall risk, improve activity tolerance, and increase functional strength for ADLs. Physical Therapy Plan Frequency and Duration Frequency of Treatment 1-2x/wk Duration of treatment (weeks) 8 Plan of Care Start Date 01/16/24 Plan of Care End Date 03/15/24 Therapeutic Interventions Therapeutic Interventions Balance Training,Coordination Training,Gait Training,Home Exercise Program,Joint Mobilizations,Manual Therapy, Neuromuscular Re-education, Orthotic/Prosthetic Management ,Patient/Caregiver Education, Self-Care/Home Management, Sensory Integration,Soft Tissue Mobilization,Taping, Therapeutic Activities, Therapeutic Exercises Modalities Biofeedback,Cold Pack/Ice Massage,Electric Stimulation, Hot Packs,Ultrasound, Vasopneumatic Devices Next Visit Focus/Plan Next Note Type Treatment Note Next Visit Plan no band at ankles leg press, glute med and single leg strength, ankle DF and eversion strength, squat. continue balance, ankle strengthening. standing DF, seated inv/ev, Heel raises w/ ball, calf stretch, step up and down 4-6 stairs, lateral step up, squat, lunges, leg press, balance Manual: scar massage, soft tissue, knee and ankle mobilizations grade II as tolerated,ice massage/ice elevation
--- NOTE | 2024-02-07 12:07 | PT.OTN ---
Current Diagnoses Weakness (02/07/24) Displaced bicondylar fracture of right tibia, subsequent encounter for closed fracture with routine healing (02/07/24) Unspecified fracture of shaft of right fibula, subsequent encounter for closed fracture with routine healing (02/07/24) Physical Therapy Treatment Note PT-OP-A Visit Information Start: 11/08/23 07:24 Freq: Status: Active Protocol: Document 02/07/24 11:20 NM (Rec: 02/07/24 12:07 NM [id number]) Out-Patient Physical Therapy Visit Information Visit Information Visit Type Treatment Note Visit Note latex allergy Visit Start Time 11:20 Visit Stop Time 12:00 Visit Number 18 PT-OP-B Current Condition Start: 11/08/23 07:24 Freq: Status: Active Protocol: Document 11/08/23 08:15 NM (Rec: 11/08/23 09:38 NM [id number]) Current Condition History of Current Condition Onset Date 09/30/23 History of Current Condition Pt presents s/p R ORIF following tibia and fibula fractures. Pt injured on her leg when turning, slipped and had ground level fall in her horse stall. She has been NWB for 6 weeks (until Monday, ). Hx provided by pt and , [facility]. Pt has been performing the HEP provided by hospital since discharge but reports that exercises cause her RLE discomfort and occasionally pain. She has been using a manual w/c for mobility since discharge from hospital. She has follow up with surgeon tomorrow, 11/08, and will have 6 week radiographs; reports that surgeon cleared for flat foot WB for transfers only at 3 week post op follow up. She has a previous R ankle replacement in 2010 along with PMH of R pelvis fracture, L sciatica. She would occasionally use a spc when her ankle flared up, usually walking about 2 blocks-1 mile. No stairs at her home, only at the horse barn. She has vacation planned 11/21-12/03 and will not be able to attend. Prior Functional Status Baseline Function- ADL's Independent Baseline Function- Mobility Independent Baseline Function- Gait 2 blocks to 1 mile, prn spc use Baseline Function- Work/School retired Baseline Function- Recreation/Hobbies horse back riding, swimming 2x /wk Current Functional Impairments (Reported) Functional Limitations- ADL's dressing Functional Limitations- Mobility/Gait w/c for mobility; sleeps in lift chair PT-OP-C Subjective Start: 11/08/23 07:24 Freq: Status: Active Protocol: Document 02/07/24 11:20 NM (Rec: 02/07/24 12:07 NM [id number]) OP-PT Subjective Patient Comments Patient Comments Pt reports slight pain in R knee and ankle after last session but resolved. She rode her trike yesterday, able to get on and off, feels it in medial knee and goes away with rest. PT-OP-F Manual Assessment Start: 11/08/23 07:24 Freq: Status: Active Protocol: Document 11/08/23 08:15 NM (Rec: 11/08/23 09:38 NM [id number]) Manual Assessments Soft Tissue Assessment Soft Tissue Mobility Assessment Increased hamstring, hip flexor, heel cord, and hip abductor tightness Joint Mobility Assessment Joint Mobility Assessment Decreased R knee and ankle PROM and AROM. R ankle limited at talocrural joint due to previous fusion PT-OP-G Mobility & Gait Start: 11/08/23 07:24 Freq: Status: Active Protocol: Document 11/08/23 08:15 NM (Rec: 11/08/23 09:38 NM [id number]) OP Mobility Evaluation Bed Mobility Rolling Independent Supine to and from Sit Independent Transfers Sit to Stand w/c <> plinth partial WB with flat foot, stand several steps to sit OP Gait Assessment Comments Gait Comments NWB at this time, did not formally assess gait until pt cleared for WB PT-OP-H Neuro Start: 11/08/23 07:24 Freq: Status: Active Protocol: Document 11/08/23 08:15 NM (Rec: 11/08/23 09:38 NM [id number]) Sensation Evaluation Comments Summary Comments Numbness reported along anterior and sides of RLE post op. PT-OP-J Posture/Palpation/Skin Start: 11/08/23 07:24 Freq: Status: Active Protocol: Document 11/08/23 08:15 NM (Rec: 11/08/23 09:38 NM [id number]) Posture Evaluation Position Sitting Head/C-Spine Posture Forward Head T-Spine Posture Increased Kyphosis L-Spine Posture Increased Lordosis Scapula Posture (L) Protracted,(R) Protracted Arm Posture (L) Internally Rotated,(R) Internally Rotated Pelvis Posture Anteriorly Tilted Hip Posture (L) Externally Rotated,(R) Externally Rotated Knee Posture (L) Genu Valgus,(R) Genu Valgus Patellar Posture (L) Superior,(R) Superior,(R) Laterally Tilted Ankle/Foot Posture (L) Pronated,(R) Pronated Foot Arch (L) Low Arch,(R) Low Arch Palpation Assessment Location RLE Palpation Location knee, ankle Palpation Findings Edema,Soft Tissue Tightness, Tenderness Palpation Details Edema around B malleoli, knee. Tenderness in posterior calf and popliteal fossa. No increased redness except with dependency. Tenderness along medial and lateral knee, calf, ankles. Skin Assessment Circumference Measurement R ankle Location figure 8 Measurement (Centimeters) 53 Comments comparision L 50 cm R knee Location patellar Measurement (Centimeters) 48 Incisional Assessment Incision Appearance/Comments Multiple incision clean, dry, intact. No signs of infection. Decreased scar tissue mobility, particularly at R ankle due to increased swelling Other Assessments Skin Assessment Comments RLE slightly warmer than LLE. Rubor with dependency. Most edema at R malleoli PT-OP-K Range of Motion Start: 11/08/23 07:24 Freq: Status: Active Protocol: Document 01/16/24 10:34 NM (Rec: 01/16/24 11:19 NM [id number]) Knee Goniometric Range of Motion Knee Right Flexion Active (degrees) 126 Extension Active (degrees) 0 Comments IE: 105 deg flex, 5 deg lacking extension; anterior and lateral knee pain with flexion AROM 12/15/23: 125 deg flex, 0 deg extension; pain free 01/16/24: 126 deg flex, 0 deg ext Ankle and Foot Goniometric Range of Motion Ankle and Foot Right Dorsiflexion with Knee Flexed 5 Plantarflexion 20 Inversion 20 Eversion 10 Comments IE: 3 deg DF, 20 deg PF, 3 deg inversion, 3 deg eversion 12/15/23: 5 deg DF, 20 deg PF; pain free 01/16/24: 10 def ev, 20 deg inv ; 5 deg DF, 20 deg PF PT-OP-M Strength Start: 11/08/23 07:24 Freq: Status: Active Protocol: Document 01/16/24 10:34 NM (Rec: 01/16/24 11:19 NM [id number]) Hip Strength Hip Manual Muscle Testing Right Flexion (L2) 4 Good Extension (S1) 4 Good Abduction 4 Good Adduction 4+ Good+ External Rotation 4+ Good+ Internal Rotation 4+ Good+ Comments IE:4-/5 for flex/add, 3+/5 for ext/abd/IR/ER 12/15/23: 4/5 MMT for all, pain free 01/16/24: 4/5 flex/ext/abd, 4+/ 5 add/ER/IR Knee Strength Knee Manual Muscle Testing Right Flexion (S2) 4 Good Extension (L3) 4 Good Comments IE: 3/5 MMT; AROM against gravity only, did not provide resistance due to NWB precautions 12/15/23: 4-/5, pain free 01/16/24: 4/5, pain free Ankle/Foot Strength Ankle and Foot Manual Muscle Testing Right Dorsiflexion (L4) 4 Good Plantarflexion (S1) 4 Good Inversion 4 Good Eversion (S1) 4 Good Comments IE: 3/5 MMT for all; AROM against gravity only, did not provide resistance due to NWB precautions. Minimal AROM due to previous fusion 12/15/23: 4-/5, pain free with seated resisted testing 01/16/24: 4/5, pain free PT-OP-Q Treatments Start: 11/08/23 07:24 Freq: Status: Active Protocol: Document 02/07/24 11:20 NM (Rec: 02/07/24 12:07 NM [id number]) Gym Equipment Shuttle Recovery leg press Details B squat Resistance 63# (2 navy) > 75# (3 navy); cued no knee valgus Reps/Time 3x10, 1x10 at 75# Therapeutic Exercises Sitting Exercises ankle inversion/eversion Side right Resistance level 1 band Reps/Minutes 2x10 with 3x1x3 for neuromuscular control Comments cued for form Standing Exercises ankle dorsiflexion Standing Exercise Name 3 concentric, 3 isometric, 3 eccentric Side bilateral Equipment Used back against wall Reps/Minutes 15 Comments medium hard eccentric step down Standing Exercise Name 4: 1. fwd, 2. lateral Side right Resistance AROM Equipment Used 1 hand support on rail Reps/Minutes 2x10 ea Comments cued for knee alignment over ankle; limits ankle mobility, improved form step up Standing Exercise Name 8 fwd Side bilateral Equipment Used no hand support Reps/Minutes 2x10 calf stretch Standing Exercise Name 1. gastrocnemius, 2. soleus Side bilateral Resistance STIVEN Reps/Minutes 60 ea Neuro Re-Education Treatment Balance Activities unstable surface Surface gravel outside Equipment close SBA, gait belt Comments 1. ramp incline and decline, 4x5 ft ea Cued for control w/ descent, slight lean fwd vs posterior lean 2. fwd ambulation with obstacle avoidance, 2x25 ft ea Pain free at ankle, demos slight ankle pronation 3. side steps on gravel, 2x20 ft ea Cued for form, ankle stability . pain free foam pad without UE use Surface ea foot on foam pad Comments 1. fwd ball toss on trampoline , 10 ea direction 2. lateral ball toss on trampoline, 10 ea direction Self-Care/Home Management Treatment Education Patient Education Home Exercise Program Other Education HEP: ankle inversion and eversion with level 1 band PT-OP-T Assessment and Plan Start: 11/08/23 07:24 Freq: Status: Active Protocol: Document 02/07/24 11:20 NM (Rec: 02/07/24 12:07 NM [id number]) Physical Therapy Assessment Goals Eight Impairment stairs Impairment quick reciprocal descent, knee valgus with rail assist Care Home Goal (LTG) Pt will be able to ascend and descent at least 12 stairs with or without rail assist with reciprocal descent, no increase in baseline pain with minimal compensations due to decreased R ankle mobility in order to demonstrate safety when descending stairs at [email or web address] LTG Duration 8 weeks Seven Impairment strength Impairment R ankle strength 3/5 MMT Short Term Goal (STG) Pt will increase R ankle strength globally to at least 4-/5 MMT in order to demonstrate improved strength for weight bearing and gait 12/15/23: 4-/5 for all, pain free STG Duration 5 weeks MET [employer] Director Goal (LTG) Pt will increase R ankle strength globally to at least 4+/5 MMT in order to demonstrate improved strength for weight bearing and gait 01/16/24: 4/5 for all, pain free- GOAL MET, UPDATED TO 4+/ 5 MMT LTG Duration 10 weeks GOAL MET; UPDATED on 01/15 Six Impairment strength Impairment R knee strength 3/5 MMT Short Term Goal (STG) Pt will increase R knee flexion and extension strength to at least 4-/5 MMT in order to demonstrate improved strength for weight bearing and gait 12/15/23: 4-/5 MMT for both, pain free STG Duration 5 weeks MET [employer] Director Goal (LTG) Pt will increase R knee flexion and extension strength to at least 4/5 MMT in order to demonstrate improved strength for weight bearing and gait 01/16/24: 4+/5 for knee flex/ ext LTG Duration 10 weeks MET Five Impairment function Impairment unable to perform squats Short Term Goal (STG) Pt will be able to perform at least 5 bilateral squats with pain <5/10 and without compensation in order to demonstrate improved weight bearing and BLE strength 12/15/23: in prevoius sessions, able to perform 10 squats with BUE support for balance but requires cues for equal WB and to limit compensations, pain free STG Duration 5 weeks PROGRESSING; MET [employer] Director Goal (LTG) Pt will be able to perform at least 10 bilateral squats with pain <5/10 and without compensation in order to demonstrate improved weight bearing and BLE strength 01/16/24: able to perform 10 squats with limited depth, slight compensations with trunk and hip rotation, leans LLE; pain free LTG Duration 10 weeks PROGRESSING, NOT MET Four Impairment mobility Impairment NWB, unable to ambulate Short Term Goal (STG) Pt will be able to ambulate at least 500 ft using LRAD with pain <5/10 in order to demonstrate improved activity tolerance and BLE strength 12/15/23: 445 ft with quad cane , slow savana. States pain free, slightly antalgic gait, cued for heel/toe and normal gait mechanics STG Duration 5 weeks PROGRESSING Care Home Goal (LTG) Pt will be able to ambulate community distances using LRAD with pain <2/10 in order to demonstrate improved activity tolerance and BLE strength 01/16/24: reports walking community distances w/o pain or discomfort LTG Duration 10 weeks PROGRESSING Three Impairment AROM Impairment R knee extension AROM 3 deg State [employer] Director Goal (LTG) Pt will improve R knee extension to at least 0 deg in order to achieve terminal knee extension during gait 12/15/23: 0 deg extension LTG Duration 10 weeks MET Two Impairment AROM Impairment R knee flexion 105 deg Short Term Goal (STG) Pt will increase R knee flexion to at least 115 deg for improved knee flexion during swing phase of gait and stairs 12/15/23: 125 deg flexion, pain free but demos hip hike compensation with testing STG Duration 5 weeks MET Care Home Goal (LTG) Pt will increase R knee flexion to at least 125 deg for improved knee flexion during swing phase of gait and stairs 12/15/23: 125 deg flexion, pain free but demos hip hike compensation with testing 12/22/23 128 deg AROM right knee flexion 01/16/24: 126 deg knee flexion LTG Duration 10 weeks MET One Impairment LEFS Impairment 15/80 Short Term Goal (STG) Pt will increase LEFS score by at least 9 points (1 MCID) in order to demonstrate improved pain management and activity tolerance 12/15/23: 33/80 STG Duration 5 weeks MET Care Home Goal (LTG) Pt will increase LEFS score to at least 50/80 in order to demonstrate improved pain management and activity tolerance 01/16/24: 56/80 LTG Duration 10 weeks MET Assessment Summary Assessment Pt tolerated session well. Demonstrates improved hip and knee control with eccentric step downs, no pain today. Initiated banded ankle inversion and eversion for strengthening and ankle stability with gait. Continued with balance training on unstable surfaces, especially outside to simulate pt ADL and recreational requirements. Pt still has difficulty with single leg stability activities and is very reliant on hip strategy for stability due to poor ankle mobility and strength. Pt would benefit from skilled PT for RLE strengthening and mobility in order to improve balance, stability and activity tolerance. Physical Therapy Plan Frequency and Duration Frequency of Treatment 1-2x/wk Duration of treatment (weeks) 8 Plan of Care Start Date 01/16/24 Plan of Care End Date 03/15/24 Therapeutic Interventions Therapeutic Interventions Balance Training,Coordination Training,Gait Training,Home Exercise Program,Joint Mobilizations,Manual Therapy, Neuromuscular Re-education, Orthotic/Prosthetic Management ,Patient/Caregiver Education, Self-Care/Home Management, Sensory Integration,Soft Tissue Mobilization,Taping, Therapeutic Activities, Therapeutic Exercises Modalities Biofeedback,Cold Pack/Ice Massage,Electric Stimulation, Hot Packs,Ultrasound, Vasopneumatic Devices Next Visit Focus/Plan Next Note Type Treatment Note Next Visit Plan no band at ankles leg press, glute med and single leg strength, ankle DF and eversion strength, squat. continue balance, ankle strengthening. standing DF, seated inv/ev, Heel raises w/ ball, calf stretch, step up and down 4-6 stairs, lateral step up, squat, lunges, leg press, balance Manual: scar massage, soft tissue, knee and ankle mobilizations grade II as tolerated,ice massage/ice elevation
--- NOTE | 2024-02-13 17:00 | PT.OTN ---
Current Diagnoses Weakness (02/13/24) Displaced bicondylar fracture of right tibia, subsequent encounter for closed fracture with routine healing (02/13/24) Unspecified fracture of shaft of right fibula, subsequent encounter for closed fracture with routine healing (02/13/24) Physical Therapy Treatment Note PT-OP-A Visit Information Start: 11/08/23 07:24 Freq: Status: Active Protocol: Document 02/13/24 14:38 SW (Rec: 02/13/24 15:21 SW [id number]) Out-Patient Physical Therapy Visit Information Visit Information Visit Type Treatment Note Visit Note latex allergy Visit Start Time 14:35 Visit Stop Time 14:15 Visit Number 19 Number of ATTENDANT ARCADE Visits 1 Precautions Precautions frequent fractures WBAT now PT-OP-B Current Condition Start: 11/08/23 07:24 Freq: Status: Active Protocol: Document 11/08/23 08:15 NM (Rec: 11/08/23 09:38 NM [id number]) Current Condition History of Current Condition Onset Date 09/30/23 History of Current Condition Pt presents s/p R ORIF following tibia and fibula fractures. Pt injured on her leg when turning, slipped and had ground level fall in her horse stall. She has been NWB for 6 weeks (until Monday, ). Hx provided by pt and , [facility]. Pt has been performing the HEP provided by hospital since discharge but reports that exercises cause her RLE discomfort and occasionally pain. She has been using a manual w/c for mobility since discharge from hospital. She has follow up with surgeon tomorrow, 11/08, and will have 6 week radiographs; reports that surgeon cleared for flat foot WB for transfers only at 3 week post op follow up. She has a previous R ankle replacement in 2010 along with PMH of R pelvis fracture, L sciatica. She would occasionally use a spc when her ankle flared up, usually walking about 2 blocks-1 mile. No stairs at her home, only at the horse barn. She has vacation planned 11/21-12/03 and will not be able to attend. Prior Functional Status Baseline Function- ADL's Independent Baseline Function- Mobility Independent Baseline Function- Gait 2 blocks to 1 mile, prn spc use Baseline Function- Work/School retired Baseline Function- Recreation/Hobbies horse back riding, swimming 2x /wk Current Functional Impairments (Reported) Functional Limitations- ADL's dressing Functional Limitations- Mobility/Gait w/c for mobility; sleeps in lift chair PT-OP-C Subjective Start: 11/08/23 07:24 Freq: Status: Active Protocol: Document 02/13/24 14:38 SW (Rec: 02/13/24 15:21 SW [id number]) OP-PT Subjective Patient Comments Patient Comments Pt reports pain level 1/10, PT-OP-F Manual Assessment Start: 11/08/23 07:24 Freq: Status: Active Protocol: Document 11/08/23 08:15 NM (Rec: 11/08/23 09:38 NM [id number]) Manual Assessments Soft Tissue Assessment Soft Tissue Mobility Assessment Increased hamstring, hip flexor, heel cord, and hip abductor tightness Joint Mobility Assessment Joint Mobility Assessment Decreased R knee and ankle PROM and AROM. R ankle limited at talocrural joint due to previous fusion PT-OP-G Mobility & Gait Start: 11/08/23 07:24 Freq: Status: Active Protocol: Document 11/08/23 08:15 NM (Rec: 11/08/23 09:38 NM [id number]) OP Mobility Evaluation Bed Mobility Rolling Independent Supine to and from Sit Independent Transfers Sit to Stand w/c <> plinth partial WB with flat foot, stand several steps to sit OP Gait Assessment Comments Gait Comments NWB at this time, did not formally assess gait until pt cleared for WB PT-OP-H Neuro Start: 11/08/23 07:24 Freq: Status: Active Protocol: Document 11/08/23 08:15 NM (Rec: 11/08/23 09:38 NM [id number]) Sensation Evaluation Comments Summary Comments Numbness reported along anterior and sides of RLE post op. PT-OP-J Posture/Palpation/Skin Start: 11/08/23 07:24 Freq: Status: Active Protocol: Document 11/08/23 08:15 NM (Rec: 11/08/23 09:38 NM [id number]) Posture Evaluation Position Sitting Head/C-Spine Posture Forward Head T-Spine Posture Increased Kyphosis L-Spine Posture Increased Lordosis Scapula Posture (L) Protracted,(R) Protracted Arm Posture (L) Internally Rotated,(R) Internally Rotated Pelvis Posture Anteriorly Tilted Hip Posture (L) Externally Rotated,(R) Externally Rotated Knee Posture (L) Genu Valgus,(R) Genu Valgus Patellar Posture (L) Superior,(R) Superior,(R) Laterally Tilted Ankle/Foot Posture (L) Pronated,(R) Pronated Foot Arch (L) Low Arch,(R) Low Arch Palpation Assessment Location RLE Palpation Location knee, ankle Palpation Findings Edema,Soft Tissue Tightness, Tenderness Palpation Details Edema around B malleoli, knee. Tenderness in posterior calf and popliteal fossa. No increased redness except with dependency. Tenderness along medial and lateral knee, calf, ankles. Skin Assessment Circumference Measurement R ankle Location figure 8 Measurement (Centimeters) 53 Comments comparision L 50 cm R knee Location patellar Measurement (Centimeters) 48 Incisional Assessment Incision Appearance/Comments Multiple incision clean, dry, intact. No signs of infection. Decreased scar tissue mobility, particularly at R ankle due to increased swelling Other Assessments Skin Assessment Comments RLE slightly warmer than LLE. Rubor with dependency. Most edema at R malleoli PT-OP-K Range of Motion Start: 11/08/23 07:24 Freq: Status: Active Protocol: Document 01/16/24 10:34 NM (Rec: 01/16/24 11:19 NM [id number]) Knee Goniometric Range of Motion Knee Right Flexion Active (degrees) 126 Extension Active (degrees) 0 Comments IE: 105 deg flex, 5 deg lacking extension; anterior and lateral knee pain with flexion AROM 12/15/23: 125 deg flex, 0 deg extension; pain free 01/16/24: 126 deg flex, 0 deg ext Ankle and Foot Goniometric Range of Motion Ankle and Foot Right Dorsiflexion with Knee Flexed 5 Plantarflexion 20 Inversion 20 Eversion 10 Comments IE: 3 deg DF, 20 deg PF, 3 deg inversion, 3 deg eversion 12/15/23: 5 deg DF, 20 deg PF; pain free 01/16/24: 10 def ev, 20 deg inv ; 5 deg DF, 20 deg PF PT-OP-M Strength Start: 11/08/23 07:24 Freq: Status: Active Protocol: Document 01/16/24 10:34 NM (Rec: 01/16/24 11:19 NM [id number]) Hip Strength Hip Manual Muscle Testing Right Flexion (L2) 4 Good Extension (S1) 4 Good Abduction 4 Good Adduction 4+ Good+ External Rotation 4+ Good+ Internal Rotation 4+ Good+ Comments IE:4-/5 for flex/add, 3+/5 for ext/abd/IR/ER 12/15/23: 4/5 MMT for all, pain free 01/16/24: 4/5 flex/ext/abd, 4+/ 5 add/ER/IR Knee Strength Knee Manual Muscle Testing Right Flexion (S2) 4 Good Extension (L3) 4 Good Comments IE: 3/5 MMT; AROM against gravity only, did not provide resistance due to NWB precautions 12/15/23: 4-/5, pain free 01/16/24: 4/5, pain free Ankle/Foot Strength Ankle and Foot Manual Muscle Testing Right Dorsiflexion (L4) 4 Good Plantarflexion (S1) 4 Good Inversion 4 Good Eversion (S1) 4 Good Comments IE: 3/5 MMT for all; AROM against gravity only, did not provide resistance due to NWB precautions. Minimal AROM due to previous fusion 12/15/23: 4-/5, pain free with seated resisted testing 01/16/24: 4/5, pain free PT-OP-Q Treatments Start: 11/08/23 07:24 Freq: Status: Active Protocol: Document 02/13/24 14:38 SW (Rec: 02/13/24 15:21 SW [id number]) Gym Equipment Shuttle Recovery leg press Details B squat Resistance 75# (3 navy); cued no knee valgus Reps/Time 3 x 10 Therapeutic Exercises Sitting Exercises ankle inversion/eversion Side right Resistance level 1 band Reps/Minutes 2x10 with 3x1x3 for neuromuscular control Comments cued for form Standing Exercises ankle dorsiflexion Standing Exercise Name 3 concentric, 3 isometric, 3 eccentric Side bilateral Equipment Used back against wall Reps/Minutes 15 Comments medium hard eccentric step down Standing Exercise Name 4: 1. fwd, 2. lateral Side right Resistance AROM Equipment Used 1 hand support on rail Reps/Minutes 2x10 ea Comments cued for knee alignment over ankle; limits ankle mobility, improved form bilateral heel raise Side bilateral Equipment Used ball between ankles Reps/Minutes 2x10 Comments cued for form, ball used for neuromotor control and sequencing Neuro Re-Education Treatment Balance Activities Retro Ambulation Details Retro ambulation Surface carpet Equipment // bars Reps/Duration 6 x 8 ft Comments light touch prn unstable surface Surface foam, 4 step Equipment Close SBA, gait belt Comments Step up onto blue foam, cued for ankle stabilization, controlled descend step ups Details lateral Surface 4 step Reps/Duration 2x10 ea Comments Cued for neutral trunk and foot placement, foot clearance and larger step on/off Improved stability with reps, close SBA PT-OP-T Assessment and Plan Start: 11/08/23 07:24 Freq: Status: Active Protocol: Document 02/13/24 14:38 SW (Rec: 02/13/24 16:54 [id number]) Physical Therapy Assessment Goals Eight Impairment stairs Impairment quick reciprocal descent, knee valgus with rail assist Extension Edger Goal (LTG) Pt will be able to ascend and descent at least 12 stairs with or without rail assist with reciprocal descent, no increase in baseline pain with minimal compensations due to decreased R ankle mobility in order to demonstrate safety when descending stairs [place] LTG Duration 8 weeks Seven Impairment strength Impairment R ankle strength 3/5 MMT Short Term Goal (STG) Pt will increase R ankle strength globally to at least 4-/5 MMT in order to demonstrate improved strength for weight bearing and gait 12/15/23: 4-/5 for all, pain free STG Duration 5 weeks MET Extension Edger Goal (LTG) Pt will increase R ankle strength globally to at least 4+/5 MMT in order to demonstrate improved strength for weight bearing and gait 01/16/24: 4/5 for all, pain free- GOAL MET, UPDATED TO 4+/ 5 MMT LTG Duration 10 weeks GOAL MET; UPDATED on 01/15 Six Impairment strength Impairment R knee strength 3/5 MMT Short Term Goal (STG) Pt will increase R knee flexion and extension strength to at least 4-/5 MMT in order to demonstrate improved strength for weight bearing and gait 12/15/23: 4-/5 MMT for both, pain free STG Duration 5 weeks MET Longterm Goal (LTG) Pt will increase R knee flexion and extension strength to at least 4/5 MMT in order to demonstrate improved strength for weight bearing and gait 01/16/24: 4+/5 for knee flex/ ext LTG Duration 10 weeks MET Five Impairment function Impairment unable to perform squats Short Term Goal (STG) Pt will be able to perform at least 5 bilateral squats with pain <5/10 and without compensation in order to demonstrate improved weight bearing and BLE strength 12/15/23: in prevoius sessions, able to perform 10 squats with BUE support for balance but requires cues for equal WB and to limit compensations, pain free STG Duration 5 weeks PROGRESSING; MET Extension Edger Goal (LTG) Pt will be able to perform at least 10 bilateral squats with pain <5/10 and without compensation in order to demonstrate improved weight bearing and BLE strength 01/16/24: able to perform 10 squats with limited depth, slight compensations with trunk and hip rotation, leans LLE; pain free LTG Duration 10 weeks PROGRESSING, NOT MET Four Impairment mobility Impairment NWB, unable to ambulate Short Term Goal (STG) Pt will be able to ambulate at least 500 ft using LRAD with pain <5/10 in order to demonstrate improved activity tolerance and BLE strength 12/15/23: 445 ft with quad cane , slow savana. States pain free, slightly antalgic gait, cued for heel/toe and normal gait mechanics STG Duration 5 weeks PROGRESSING Extension Edger Goal (LTG) Pt will be able to ambulate community distances using LRAD with pain <2/10 in order to demonstrate improved activity tolerance and BLE strength 01/16/24: reports walking community distances w/o pain or discomfort LTG Duration 10 weeks PROGRESSING Three Impairment AROM Impairment R knee extension AROM 3 deg Longterm Goal (LTG) Pt will improve R knee extension to at least 0 deg in order to achieve terminal knee extension during gait 12/15/23: 0 deg extension LTG Duration 10 weeks MET Two Impairment AROM Impairment R knee flexion 105 deg Short Term Goal (STG) Pt will increase R knee flexion to at least 115 deg for improved knee flexion during swing phase of gait and stairs 12/15/23: 125 deg flexion, pain free but demos hip hike compensation with testing STG Duration 5 weeks MET Longterm Goal (LTG) Pt will increase R knee flexion to at least 125 deg for improved knee flexion during swing phase of gait and stairs 12/15/23: 125 deg flexion, pain free but demos hip hike compensation with testing 12/22/23 128 deg AROM right knee flexion 01/16/24: 126 deg knee flexion LTG Duration 10 weeks MET One Impairment LEFS Impairment 15/80 Short Term Goal (STG) Pt will increase LEFS score by at least 9 points (1 MCID) in order to demonstrate improved pain management and activity tolerance 12/15/23: 33/80 STG Duration 5 weeks MET Extension Edger Goal (LTG) Pt will increase LEFS score to at least 50/80 in order to demonstrate improved pain management and activity tolerance 01/16/24: 56/80 LTG Duration 10 weeks MET Assessment Summary Assessment Pt tolerated session well. Session focused on strength and balance this session. progressed pt with step up onto unstable surface with 4 step, pt challenged with minimal ankle strategy engaged d/t decreased range, cued patient for slower control. Pt reported knee pain with SLS on unstable surface, cued for foot alignment, relieved post. Pt required less [employer] this session for SLS, though ankle in increased ankle inversion with limited eversion ROM. Physical Therapy Plan Frequency and Duration Frequency of Treatment 1-2x/wk Duration of treatment (weeks) 8 Plan of Care Start Date 01/16/24 Plan of Care End Date 03/15/24 Therapeutic Interventions Therapeutic Interventions Balance Training,Coordination Training,Gait Training,Home Exercise Program,Joint Mobilizations,Manual Therapy, Neuromuscular Re-education, Orthotic/Prosthetic Management ,Patient/Caregiver Education, Self-Care/Home Management, Sensory Integration,Soft Tissue Mobilization,Taping, Therapeutic Activities, Therapeutic Exercises Modalities Biofeedback,Cold Pack/Ice Massage,Electric Stimulation, Hot Packs,Ultrasound, Vasopneumatic Devices Next Visit Focus/Plan Next Note Type Treatment Note Next Visit Plan no band at ankles leg press, glute med and single leg strength, ankle DF and eversion strength, squat. continue balance, ankle strengthening. standing DF, seated inv/ev, Heel raises w/ ball, calf stretch, step up and down 4-6 stairs, lateral step up, squat, lunges, leg press, balance Manual: scar massage, soft tissue, knee and ankle mobilizations grade II as tolerated,ice massage/ice elevation
--- NOTE | 2024-02-20 16:34 | PT.OTN ---
Current Diagnoses Weakness (02/20/24) Displaced bicondylar fracture of right tibia, subsequent encounter for closed fracture with routine healing (02/20/24) Unspecified fracture of shaft of right fibula, subsequent encounter for closed fracture with routine healing (02/20/24) Physical Therapy Treatment Note PT-OP-A Visit Information Start: 11/08/23 07:24 Freq: Status: Active Protocol: Document 02/20/24 14:13 AB (Rec: 02/20/24 16:25 AB [id number]) Out-Patient Physical Therapy Visit Information Visit Information Visit Type Treatment Note Visit Note latex allergy [email or web address] Access Code: [email or web address] Visit Start Time 14:28 Visit Stop Time 15:17 Visit Number 20 Number of ICE MAKER Visits 2 Evaluation Information Evaluation Date 11/08/23 Precautions Precautions frequent fractures WBAT now PT-OP-B Current Condition Start: 11/08/23 07:24 Freq: Status: Active Protocol: Document 11/08/23 08:15 NM (Rec: 11/08/23 09:38 NM [id number]) Current Condition History of Current Condition Onset Date 09/30/23 History of Current Condition Pt presents s/p R ORIF following tibia and fibula fractures. Pt injured on her leg when turning, slipped and had ground level fall in her horse stall. She has been NWB for 6 weeks (until Monday, ). Hx provided by pt and , [facility]. Pt has been performing the HEP provided by hospital since discharge but reports that exercises cause her RLE discomfort and occasionally pain. She has been using a manual w/c for mobility since discharge from hospital. She has follow up with surgeon tomorrow, 11/08, and will have 6 week radiographs; reports that surgeon cleared for flat foot WB for transfers only at 3 week post op follow up. She has a previous R ankle replacement in 2010 along with PMH of R pelvis fracture, L sciatica. She would occasionally use a spc when her ankle flared up, usually walking about 2 blocks-1 mile. No stairs at her home, only at the horse barn. She has vacation planned 11/21-12/03 and will not be able to attend. Prior Functional Status Baseline Function- ADL's Independent Baseline Function- Mobility Independent Baseline Function- Gait 2 blocks to 1 mile, prn spc use Baseline Function- Work/School retired Baseline Function- Recreation/Hobbies horse back riding, swimming 2x /wk Current Functional Impairments (Reported) Functional Limitations- ADL's dressing Functional Limitations- Mobility/Gait w/c for mobility; sleeps in lift chair PT-OP-C Subjective Start: 11/08/23 07:24 Freq: Status: Active Protocol: Document 02/20/24 14:13 AB (Rec: 02/20/24 16:25 AB [id number]) OP-PT Subjective Patient Comments Patient Comments Patient reports she is tired has been pushing wheelbarrel up and down hill, cleaning out barn. Patient comments she is still walking on the outside of her foot. PT-OP-F Manual Assessment Start: 11/08/23 07:24 Freq: Status: Active Protocol: Document 11/08/23 08:15 NM (Rec: 11/08/23 09:38 NM [id number]) Manual Assessments Soft Tissue Assessment Soft Tissue Mobility Assessment Increased hamstring, hip flexor, heel cord, and hip abductor tightness Joint Mobility Assessment Joint Mobility Assessment Decreased R knee and ankle PROM and AROM. R ankle limited at talocrural joint due to previous fusion PT-OP-G Mobility & Gait Start: 11/08/23 07:24 Freq: Status: Active Protocol: Document 11/08/23 08:15 NM (Rec: 11/08/23 09:38 NM [id number]) OP Mobility Evaluation Bed Mobility Rolling Independent Supine to and from Sit Independent Transfers Sit to Stand w/c <> plinth partial WB with flat foot, stand several steps to sit OP Gait Assessment Comments Gait Comments NWB at this time, did not formally assess gait until pt cleared for WB PT-OP-H Neuro Start: 11/08/23 07:24 Freq: Status: Active Protocol: Document 11/08/23 08:15 NM (Rec: 11/08/23 09:38 NM [id number]) Sensation Evaluation Comments Summary Comments Numbness reported along anterior and sides of RLE post op. PT-OP-J Posture/Palpation/Skin Start: 11/08/23 07:24 Freq: Status: Active Protocol: Document 11/08/23 08:15 NM (Rec: 11/08/23 09:38 NM [id number]) Posture Evaluation Position Sitting Head/C-Spine Posture Forward Head T-Spine Posture Increased Kyphosis L-Spine Posture Increased Lordosis Scapula Posture (L) Protracted,(R) Protracted Arm Posture (L) Internally Rotated,(R) Internally Rotated Pelvis Posture Anteriorly Tilted Hip Posture (L) Externally Rotated,(R) Externally Rotated Knee Posture (L) Genu Valgus,(R) Genu Valgus Patellar Posture (L) Superior,(R) Superior,(R) Laterally Tilted Ankle/Foot Posture (L) Pronated,(R) Pronated Foot Arch (L) Low Arch,(R) Low Arch Palpation Assessment Location RLE Palpation Location knee, ankle Palpation Findings Edema,Soft Tissue Tightness, Tenderness Palpation Details Edema around B malleoli, knee. Tenderness in posterior calf and popliteal fossa. No increased redness except with dependency. Tenderness along medial and lateral knee, calf, ankles. Skin Assessment Circumference Measurement R ankle Location figure 8 Measurement (Centimeters) 53 Comments comparision L 50 cm R knee Location patellar Measurement (Centimeters) 48 Incisional Assessment Incision Appearance/Comments Multiple incision clean, dry, intact. No signs of infection. Decreased scar tissue mobility, particularly at R ankle due to increased swelling Other Assessments Skin Assessment Comments RLE slightly warmer than LLE. Rubor with dependency. Most edema at R malleoli PT-OP-K Range of Motion Start: 11/08/23 07:24 Freq: Status: Active Protocol: Document 01/16/24 10:34 NM (Rec: 01/16/24 11:19 NM [id number]) Knee Goniometric Range of Motion Knee Right Flexion Active (degrees) 126 Extension Active (degrees) 0 Comments IE: 105 deg flex, 5 deg lacking extension; anterior and lateral knee pain with flexion AROM 12/15/23: 125 deg flex, 0 deg extension; pain free 01/16/24: 126 deg flex, 0 deg ext Ankle and Foot Goniometric Range of Motion Ankle and Foot Right Dorsiflexion with Knee Flexed 5 Plantarflexion 20 Inversion 20 Eversion 10 Comments IE: 3 deg DF, 20 deg PF, 3 deg inversion, 3 deg eversion 12/15/23: 5 deg DF, 20 deg PF; pain free 01/16/24: 10 def ev, 20 deg inv ; 5 deg DF, 20 deg PF PT-OP-M Strength Start: 11/08/23 07:24 Freq: Status: Active Protocol: Document 01/16/24 10:34 NM (Rec: 01/16/24 11:19 NM [id number]) Hip Strength Hip Manual Muscle Testing Right Flexion (L2) 4 Good Extension (S1) 4 Good Abduction 4 Good Adduction 4+ Good+ External Rotation 4+ Good+ Internal Rotation 4+ Good+ Comments IE:4-/5 for flex/add, 3+/5 for ext/abd/IR/ER 12/15/23: 4/5 MMT for all, pain free 01/16/24: 4/5 flex/ext/abd, 4+/ 5 add/ER/IR Knee Strength Knee Manual Muscle Testing Right Flexion (S2) 4 Good Extension (L3) 4 Good Comments IE: 3/5 MMT; AROM against gravity only, did not provide resistance due to NWB precautions 12/15/23: 4-/5, pain free 01/16/24: 4/5, pain free Ankle/Foot Strength Ankle and Foot Manual Muscle Testing Right Dorsiflexion (L4) 4 Good Plantarflexion (S1) 4 Good Inversion 4 Good Eversion (S1) 4 Good Comments IE: 3/5 MMT for all; AROM against gravity only, did not provide resistance due to NWB precautions. Minimal AROM due to previous fusion 12/15/23: 4-/5, pain free with seated resisted testing 01/16/24: 4/5, pain free PT-OP-Q Treatments Start: 11/08/23 07:24 Freq: Status: Active Protocol: Document 02/20/24 14:13 AB (Rec: 02/20/24 16:25 AB [id number]) Therapeutic Exercises Standing Exercises glute med isometric Side bilateral Reps/Minutes one minute each LE Comments verbal and visual cues ankle dorsiflexion Standing Exercise Name isometric Side right Equipment Used edge of table near floor Reps/Minutes X5 standing and also X 5 seated 5 sec hold step up Standing Exercise Name lateral step down and step up step back Side bilateral Resistance 6 inch step Equipment Used with UE support Reps/Minutes X15 each LE and each exercise Comments monitored for pain calf stretch Standing Exercise Name 1. gastrocnemius, 2. soleus Side bilateral Resistance STIVEN Reps/Minutes X2 Manual Therapy Treatment Soft Tissue Mobilization calf and hamstring muscles Body Location right calf Mobilization Type Cross-Friction,Rolling Intensity/Depth Moderate Body Position Hooklying Comments prior to stretch scar tissue right Body Location scar tissue right ankle Mobilization Type Cross-Friction,Rolling,Other Intensity/Depth Superficial Body Position Hooklying Joint Mobilizations AP TC right ankle Joint Mulligan with movement Direction AP Grade II Reps/Duration X10 Comments I to II very gentle PT-OP-T Assessment and Plan Start: 11/08/23 07:24 Freq: Status: Active Protocol: Document 02/20/24 14:13 AB (Rec: 02/20/24 16:25 AB [id number]) Physical Therapy Assessment Goals Eight Impairment stairs Impairment quick reciprocal descent, knee valgus with rail assist Correction Goal (LTG) Pt will be able to ascend and descent at least 12 stairs with or without rail assist with reciprocal descent, no increase in baseline pain with minimal compensations due to decreased R ankle mobility in order to demonstrate safety when descending stairs at horse IdenIve LTG Duration 8 weeks Seven Impairment strength Impairment R ankle strength 3/5 MMT Short Term Goal (STG) Pt will increase R ankle strength globally to at least 4-/5 MMT in order to demonstrate improved strength for weight bearing and gait 12/15/23: 4-/5 for all, pain free STG Duration 5 weeks MET Ditch Cleaner Goal (LTG) Pt will increase R ankle strength globally to at least 4+/5 MMT in order to demonstrate improved strength for weight bearing and gait 01/16/24: 4/5 for all, pain free- GOAL MET, UPDATED TO 4+/ 5 MMT LTG Duration 10 weeks GOAL MET; UPDATED on 01/15 Six Impairment strength Impairment R knee strength 3/5 MMT Short Term Goal (STG) Pt will increase R knee flexion and extension strength to at least 4-/5 MMT in order to demonstrate improved strength for weight bearing and gait 12/15/23: 4-/5 MMT for both, pain free STG Duration 5 weeks MET Ditch Cleaner Goal (LTG) Pt will increase R knee flexion and extension strength to at least 4/5 MMT in order to demonstrate improved strength for weight bearing and gait 01/16/24: 4+/5 for knee flex/ ext LTG Duration 10 weeks MET Five Impairment function Impairment unable to perform squats Short Term Goal (STG) Pt will be able to perform at least 5 bilateral squats with pain <5/10 and without compensation in order to demonstrate improved weight bearing and BLE strength 12/15/23: in prevoius sessions, able to perform 10 squats with BUE support for balance but requires cues for equal WB and to limit compensations, pain free STG Duration 5 weeks PROGRESSING; MET Correction Goal (LTG) Pt will be able to perform at least 10 bilateral squats with pain <5/10 and without compensation in order to demonstrate improved weight bearing and BLE strength 01/16/24: able to perform 10 squats with limited depth, slight compensations with trunk and hip rotation, leans LLE; pain free LTG Duration 10 weeks PROGRESSING, NOT MET Four Impairment mobility Impairment NWB, unable to ambulate Short Term Goal (STG) Pt will be able to ambulate at least 500 ft using LRAD with pain <5/10 in order to demonstrate improved activity tolerance and BLE strength 12/15/23: 445 ft with quad cane , slow savana. States pain free, slightly antalgic gait, cued for heel/toe and normal gait mechanics STG Duration 5 weeks PROGRESSING Correction Goal (LTG) Pt will be able to ambulate community distances using LRAD with pain <2/10 in order to demonstrate improved activity tolerance and BLE strength 01/16/24: reports walking community distances w/o pain or discomfort LTG Duration 10 weeks PROGRESSING Three Impairment AROM Impairment R knee extension AROM 3 deg Ditch Cleaner Goal (LTG) Pt will improve R knee extension to at least 0 deg in order to achieve terminal knee extension during gait 12/15/23: 0 deg extension LTG Duration 10 weeks MET Two Impairment AROM Impairment R knee flexion 105 deg Short Term Goal (STG) Pt will increase R knee flexion to at least 115 deg for improved knee flexion during swing phase of gait and stairs 12/15/23: 125 deg flexion, pain free but demos hip hike compensation with testing STG Duration 5 weeks MET Ditch Cleaner Goal (LTG) Pt will increase R knee flexion to at least 125 deg for improved knee flexion during swing phase of gait and stairs 12/15/23: 125 deg flexion, pain free but demos hip hike compensation with testing 12/22/23 128 deg AROM right knee flexion 01/16/24: 126 deg knee flexion LTG Duration 10 weeks MET One Impairment LEFS Impairment 1580 Short Term Goal (STG) Pt will increase LEFS score by at least 9 points (1 MCID) in order to demonstrate improved pain management and activity tolerance 12/15/23: 33/80 STG Duration 5 weeks MET Ditch Cleaner Goal (LTG) Pt will increase LEFS score to at least 50/80 in order to demonstrate improved pain management and activity tolerance 01/16/24: 56/80 LTG Duration 10 weeks MET Assessment Summary Assessment SLS right LE up to 4 seconds post glute med isometric, compared to 2-3 seconds pre glute med isometric and trunk appears more stable. Physical Therapy Plan Frequency and Duration Frequency of Treatment 1-2x/wk Duration of treatment (weeks) 8 Plan of Care Start Date 01/16/24 Plan of Care End Date 03/15/24 Next Visit Focus/Plan Next Note Type Treatment Note Next Visit Plan no band at ankles leg press, glute med and single leg strength, ankle DF and eversion strength, squat. Focus/continue balance, ankle strengthening. standing DF, seated inv/ev, Heel raises w/ ball, calf stretch, step up and down 4-6 stairs, lateral step up, squat, lunges, leg press, balance Manual: scar massage, soft tissue, knee and ankle mobilizations grade II as tolerated,ice massage/ice elevation
--- NOTE | 2024-02-20 16:35 | PT.OTN ---
Current Diagnoses Weakness (02/20/24) Displaced bicondylar fracture of right tibia, subsequent encounter for closed fracture with routine healing (02/20/24) Unspecified fracture of shaft of right fibula, subsequent encounter for closed fracture with routine healing (02/20/24) Physical Therapy Treatment Note PT-OP-A Visit Information Start: 11/08/23 07:24 Freq: Status: Active Protocol: Document 02/20/24 14:13 AB (Rec: 02/20/24 16:25 AB [id number]) Out-Patient Physical Therapy Visit Information Visit Information Visit Type Treatment Note Visit Note latex allergy [email or web address] Access Code: [email or web address] Visit Start Time 14:28 Visit Stop Time 15:17 Visit Number 20 Number of GLUTEN SETTLING TENDER Visits 2 Evaluation Information Evaluation Date 11/08/23 Precautions Precautions frequent fractures WBAT now PT-OP-B Current Condition Start: 11/08/23 07:24 Freq: Status: Active Protocol: Document 11/08/23 08:15 NM (Rec: 11/08/23 09:38 NM [id number]) Current Condition History of Current Condition Onset Date 09/30/23 History of Current Condition Pt presents s/p R ORIF following tibia and fibula fractures. Pt injured on her leg when turning, slipped and had ground level fall in her horse stall. She has been NWB for 6 weeks (until Monday, ). Hx provided by pt and , [facility]. Pt has been performing the HEP provided by hospital since discharge but reports that exercises cause her RLE discomfort and occasionally pain. She has been using a manual w/c for mobility since discharge from hospital. She has follow up with surgeon tomorrow, 11/08, and will have 6 week radiographs; reports that surgeon cleared for flat foot WB for transfers only at 3 week post op follow up. She has a previous R ankle replacement in 2010 along with PMH of R pelvis fracture, L sciatica. She would occasionally use a spc when her ankle flared up, usually walking about 2 blocks-1 mile. No stairs at her home, only at the horse barn. She has vacation planned 11/21-12/03 and will not be able to attend. Prior Functional Status Baseline Function- ADL's Independent Baseline Function- Mobility Independent Baseline Function- Gait 2 blocks to 1 mile, prn spc use Baseline Function- Work/School retired Baseline Function- Recreation/Hobbies horse back riding, swimming 2x /wk Current Functional Impairments (Reported) Functional Limitations- ADL's dressing Functional Limitations- Mobility/Gait w/c for mobility; sleeps in lift chair PT-OP-C Subjective Start: 11/08/23 07:24 Freq: Status: Active Protocol: Document 02/20/24 14:13 AB (Rec: 02/20/24 16:25 AB [id number]) OP-PT Subjective Patient Comments Patient Comments Patient reports she is tired has been pushing wheelbarrel up and down hill, cleaning out barn. Patient comments she is still walking on the outside of her foot. PT-OP-F Manual Assessment Start: 11/08/23 07:24 Freq: Status: Active Protocol: Document 11/08/23 08:15 NM (Rec: 11/08/23 09:38 NM [id number]) Manual Assessments Soft Tissue Assessment Soft Tissue Mobility Assessment Increased hamstring, hip flexor, heel cord, and hip abductor tightness Joint Mobility Assessment Joint Mobility Assessment Decreased R knee and ankle PROM and AROM. R ankle limited at talocrural joint due to previous fusion PT-OP-G Mobility & Gait Start: 11/08/23 07:24 Freq: Status: Active Protocol: Document 11/08/23 08:15 NM (Rec: 11/08/23 09:38 NM [id number]) OP Mobility Evaluation Bed Mobility Rolling Independent Supine to and from Sit Independent Transfers Sit to Stand w/c <> plinth partial WB with flat foot, stand several steps to sit OP Gait Assessment Comments Gait Comments NWB at this time, did not formally assess gait until pt cleared for WB PT-OP-H Neuro Start: 11/08/23 07:24 Freq: Status: Active Protocol: Document 11/08/23 08:15 NM (Rec: 11/08/23 09:38 NM [id number]) Sensation Evaluation Comments Summary Comments Numbness reported along anterior and sides of RLE post op. PT-OP-J Posture/Palpation/Skin Start: 11/08/23 07:24 Freq: Status: Active Protocol: Document 11/08/23 08:15 NM (Rec: 11/08/23 09:38 NM [id number]) Posture Evaluation Position Sitting Head/C-Spine Posture Forward Head T-Spine Posture Increased Kyphosis L-Spine Posture Increased Lordosis Scapula Posture (L) Protracted,(R) Protracted Arm Posture (L) Internally Rotated,(R) Internally Rotated Pelvis Posture Anteriorly Tilted Hip Posture (L) Externally Rotated,(R) Externally Rotated Knee Posture (L) Genu Valgus,(R) Genu Valgus Patellar Posture (L) Superior,(R) Superior,(R) Laterally Tilted Ankle/Foot Posture (L) Pronated,(R) Pronated Foot Arch (L) Low Arch,(R) Low Arch Palpation Assessment Location RLE Palpation Location knee, ankle Palpation Findings Edema,Soft Tissue Tightness, Tenderness Palpation Details Edema around B malleoli, knee. Tenderness in posterior calf and popliteal fossa. No increased redness except with dependency. Tenderness along medial and lateral knee, calf, ankles. Skin Assessment Circumference Measurement R ankle Location figure 8 Measurement (Centimeters) 53 Comments comparision L 50 cm R knee Location patellar Measurement (Centimeters) 48 Incisional Assessment Incision Appearance/Comments Multiple incision clean, dry, intact. No signs of infection. Decreased scar tissue mobility, particularly at R ankle due to increased swelling Other Assessments Skin Assessment Comments RLE slightly warmer than LLE. Rubor with dependency. Most edema at R malleoli PT-OP-K Range of Motion Start: 11/08/23 07:24 Freq: Status: Active Protocol: Document 01/16/24 10:34 NM (Rec: 01/16/24 11:19 NM [id number]) Knee Goniometric Range of Motion Knee Right Flexion Active (degrees) 126 Extension Active (degrees) 0 Comments IE: 105 deg flex, 5 deg lacking extension; anterior and lateral knee pain with flexion AROM 12/15/23: 125 deg flex, 0 deg extension; pain free 01/16/24: 126 deg flex, 0 deg ext Ankle and Foot Goniometric Range of Motion Ankle and Foot Right Dorsiflexion with Knee Flexed 5 Plantarflexion 20 Inversion 20 Eversion 10 Comments IE: 3 deg DF, 20 deg PF, 3 deg inversion, 3 deg eversion 12/15/23: 5 deg DF, 20 deg PF; pain free 01/16/24: 10 def ev, 20 deg inv ; 5 deg DF, 20 deg PF PT-OP-M Strength Start: 11/08/23 07:24 Freq: Status: Active Protocol: Document 01/16/24 10:34 NM (Rec: 01/16/24 11:19 NM [id number]) Hip Strength Hip Manual Muscle Testing Right Flexion (L2) 4 Good Extension (S1) 4 Good Abduction 4 Good Adduction 4+ Good+ External Rotation 4+ Good+ Internal Rotation 4+ Good+ Comments IE:4-/5 for flex/add, 3+/5 for ext/abd/IR/ER 12/15/23: 4/5 MMT for all, pain free 01/16/24: 4/5 flex/ext/abd, 4+/ 5 add/ER/IR Knee Strength Knee Manual Muscle Testing Right Flexion (S2) 4 Good Extension (L3) 4 Good Comments IE: 3/5 MMT; AROM against gravity only, did not provide resistance due to NWB precautions 12/15/23: 4-/5, pain free 01/16/24: 4/5, pain free Ankle/Foot Strength Ankle and Foot Manual Muscle Testing Right Dorsiflexion (L4) 4 Good Plantarflexion (S1) 4 Good Inversion 4 Good Eversion (S1) 4 Good Comments IE: 3/5 MMT for all; AROM against gravity only, did not provide resistance due to NWB precautions. Minimal AROM due to previous fusion 12/15/23: 4-/5, pain free with seated resisted testing 01/16/24: 4/5, pain free PT-OP-Q Treatments Start: 11/08/23 07:24 Freq: Status: Active Protocol: Document 02/20/24 14:13 AB (Rec: 02/20/24 16:25 AB [id number]) Therapeutic Exercises Standing Exercises glute med isometric Side bilateral Reps/Minutes one minute each LE Comments verbal and visual cues ankle dorsiflexion Standing Exercise Name isometric Side right Equipment Used edge of table near floor Reps/Minutes X5 standing and also X 5 seated 5 sec hold step up Standing Exercise Name lateral step down and step up step back Side bilateral Resistance 6 inch step Equipment Used with UE support Reps/Minutes X15 each LE and each exercise Comments monitored for pain calf stretch Standing Exercise Name 1. gastrocnemius, 2. soleus Side bilateral Resistance STIVEN Reps/Minutes X2 Manual Therapy Treatment Soft Tissue Mobilization calf and hamstring muscles Body Location right calf Mobilization Type Cross-Friction,Rolling Intensity/Depth Moderate Body Position Hooklying Comments prior to stretch scar tissue right Body Location scar tissue right ankle Mobilization Type Cross-Friction,Rolling,Other Intensity/Depth Superficial Body Position Hooklying Joint Mobilizations AP TC right ankle Joint Mulligan with movement Direction AP Grade II Reps/Duration X10 Comments I to II very gentle PT-OP-T Assessment and Plan Start: 11/08/23 07:24 Freq: Status: Active Protocol: Document 02/20/24 14:13 AB (Rec: 02/20/24 16:25 AB [id number]) Physical Therapy Assessment Goals Eight Impairment stairs Impairment quick reciprocal descent, knee valgus with rail assist Fpc Goal (LTG) Pt will be able to ascend and descent at least 12 stairs with or without rail assist with reciprocal descent, no increase in baseline pain with minimal compensations due to decreased R ankle mobility in order to demonstrate safety when descending stairs at horse [facility] LTG Duration 8 weeks Seven Impairment strength Impairment R ankle strength 3/5 MMT Short Term Goal (STG) Pt will increase R ankle strength globally to at least 4-/5 MMT in order to demonstrate improved strength for weight bearing and gait 12/15/23: 4-/5 for all, pain free STG Duration 5 weeks MET Machine Operator Slitter Technician Goal (LTG) Pt will increase R ankle strength globally to at least 4+/5 MMT in order to demonstrate improved strength for weight bearing and gait 01/16/24: 4/5 for all, pain free- GOAL MET, UPDATED TO 4+/ 5 MMT LTG Duration 10 weeks GOAL MET; UPDATED on 01/15 Six Impairment strength Impairment R knee strength 3/5 MMT Short Term Goal (STG) Pt will increase R knee flexion and extension strength to at least 4-/5 MMT in order to demonstrate improved strength for weight bearing and gait 12/15/23: 4-/5 MMT for both, pain free STG Duration 5 weeks MET Machine Operator Slitter Technician Goal (LTG) Pt will increase R knee flexion and extension strength to at least 4/5 MMT in order to demonstrate improved strength for weight bearing and gait 01/16/24: 4+/5 for knee flex/ ext LTG Duration 10 weeks MET Five Impairment function Impairment unable to perform squats Short Term Goal (STG) Pt will be able to perform at least 5 bilateral squats with pain <5/10 and without compensation in order to demonstrate improved weight bearing and BLE strength 12/15/23: in prevoius sessions, able to perform 10 squats with BUE support for balance but requires cues for equal WB and to limit compensations, pain free STG Duration 5 weeks PROGRESSING; MET Fpc Goal (LTG) Pt will be able to perform at least 10 bilateral squats with pain <5/10 and without compensation in order to demonstrate improved weight bearing and BLE strength 01/16/24: able to perform 10 squats with limited depth, slight compensations with trunk and hip rotation, leans LLE; pain free LTG Duration 10 weeks PROGRESSING, NOT MET Four Impairment mobility Impairment NWB, unable to ambulate Short Term Goal (STG) Pt will be able to ambulate at least 500 ft using LRAD with pain <5/10 in order to demonstrate improved activity tolerance and BLE strength 12/15/23: 445 ft with quad cane , slow savana. States pain free, slightly antalgic gait, cued for heel/toe and normal gait mechanics STG Duration 5 weeks PROGRESSING Fpc Goal (LTG) Pt will be able to ambulate community distances using LRAD with pain <2/10 in order to demonstrate improved activity tolerance and BLE strength 01/16/24: reports walking community distances w/o pain or discomfort LTG Duration 10 weeks PROGRESSING Three Impairment AROM Impairment R knee extension AROM 3 deg Machine Operator Slitter Technician Goal (LTG) Pt will improve R knee extension to at least 0 deg in order to achieve terminal knee extension during gait 12/15/23: 0 deg extension LTG Duration 10 weeks MET Two Impairment AROM Impairment R knee flexion 105 deg Short Term Goal (STG) Pt will increase R knee flexion to at least 115 deg for improved knee flexion during swing phase of gait and stairs 12/15/23: 125 deg flexion, pain free but demos hip hike compensation with testing STG Duration 5 weeks MET Machine Operator Slitter Technician Goal (LTG) Pt will increase R knee flexion to at least 125 deg for improved knee flexion during swing phase of gait and stairs 12/15/23: 125 deg flexion, pain free but demos hip hike compensation with testing 12/22/23 128 deg AROM right knee flexion 01/16/24: 126 deg knee flexion LTG Duration 10 weeks MET One Impairment LEFS Impairment 1580 Short Term Goal (STG) Pt will increase LEFS score by at least 9 points (1 MCID) in order to demonstrate improved pain management and activity tolerance 12/15/23: 33/80 STG Duration 5 weeks MET Machine Operator Slitter Technician Goal (LTG) Pt will increase LEFS score to at least 50/80 in order to demonstrate improved pain management and activity tolerance 01/16/24: 56/80 LTG Duration 10 weeks MET Assessment Summary Assessment SLS right LE up to 4 seconds post glute med isometric, compared to 2-3 seconds pre glute med isometric and trunk appears more stable. Physical Therapy Plan Frequency and Duration Frequency of Treatment 1-2x/wk Duration of treatment (weeks) 8 Plan of Care Start Date 01/16/24 Plan of Care End Date 03/15/24 Next Visit Focus/Plan Next Note Type Treatment Note Next Visit Plan no band at ankles leg press, glute med and single leg strength, ankle DF and eversion strength, squat. Focus/continue balance, ankle strengthening. standing DF, seated inv/ev, Heel raises w/ ball, calf stretch, step up and down 4-6 stairs, lateral step up, squat, lunges, leg press, balance Manual: scar massage, soft tissue, knee and ankle mobilizations grade II as tolerated,ice massage/ice elevation
--- NOTE | 2024-02-27 10:36 | PT.OTN ---
Current Diagnoses Weakness (02/27/24) Displaced bicondylar fracture of right tibia, subsequent encounter for closed fracture with routine healing (02/27/24) Unspecified fracture of shaft of right fibula, subsequent encounter for closed fracture with routine healing (02/27/24) Physical Therapy Treatment Note PT-OP-A Visit Information Start: 11/08/23 07:24 Freq: Status: Active Protocol: Document 02/27/24 09:51 SP (Rec: 02/27/24 10:38 SP [id number]) Out-Patient Physical Therapy Visit Information Visit Information Visit Type Treatment Note Visit Start Time 09:51 Visit Stop Time 10:36 Visit Number 21 Number of TOBACCO FLAVORER Visits 3 Evaluation Information Evaluation Date 11/08/23 Precautions Precautions frequent fractures WBAT now * LATEX ALLERGY. PT-OP-B Current Condition Start: 11/08/23 07:24 Freq: Status: Active Protocol: Document 11/08/23 08:15 NM (Rec: 11/08/23 09:38 NM [id number]) Current Condition History of Current Condition Onset Date 09/30/23 History of Current Condition Pt presents s/p R ORIF following tibia and fibula fractures. Pt injured on her leg when turning, slipped and had ground level fall in her horse stall. She has been NWB for 6 weeks (until Monday, ). Hx provided by pt and , [facility]. Pt has been performing the HEP provided by hospital since discharge but reports that exercises cause her RLE discomfort and occasionally pain. She has been using a manual w/c for mobility since discharge from hospital. She has follow up with surgeon tomorrow, 11/08, and will have 6 week radiographs; reports that surgeon cleared for flat foot WB for transfers only at 3 week post op follow up. She has a previous R ankle replacement in 2010 along with PMH of R pelvis fracture, L sciatica. She would occasionally use a spc when her ankle flared up, usually walking about 2 blocks-1 mile. No stairs at her home, only at the horse barn. She has vacation planned 11/21-12/03 and will not be able to attend. Prior Functional Status Baseline Function- ADL's Independent Baseline Function- Mobility Independent Baseline Function- Gait 2 blocks to 1 mile, prn spc use Baseline Function- Work/School retired Baseline Function- Recreation/Hobbies horse back riding, swimming 2x /wk Current Functional Impairments (Reported) Functional Limitations- ADL's dressing Functional Limitations- Mobility/Gait w/c for mobility; sleeps in lift chair PT-OP-C Subjective Start: 11/08/23 07:24 Freq: Status: Active Protocol: Document 02/27/24 09:51 SP (Rec: 02/27/24 10:38 SP [id number]) OP-PT Subjective Patient Comments Patient Comments Pt report doing well with HEP. Has been busy helping restack hay bails, dragging vs carrying due to to heavy for her. PT-OP-F Manual Assessment Start: 11/08/23 07:24 Freq: Status: Active Protocol: Document 11/08/23 08:15 NM (Rec: 11/08/23 09:38 NM [id number]) Manual Assessments Soft Tissue Assessment Soft Tissue Mobility Assessment Increased hamstring, hip flexor, heel cord, and hip abductor tightness Joint Mobility Assessment Joint Mobility Assessment Decreased R knee and ankle PROM and AROM. R ankle limited at talocrural joint due to previous fusion PT-OP-G Mobility & Gait Start: 11/08/23 07:24 Freq: Status: Active Protocol: Document 11/08/23 08:15 NM (Rec: 11/08/23 09:38 NM [id number]) OP Mobility Evaluation Bed Mobility Rolling Independent Supine to and from Sit Independent Transfers Sit to Stand w/c <> plinth partial WB with flat foot, stand several steps to sit OP Gait Assessment Comments Gait Comments NWB at this time, did not formally assess gait until pt cleared for WB PT-OP-H Neuro Start: 11/08/23 07:24 Freq: Status: Active Protocol: Document 11/08/23 08:15 NM (Rec: 11/08/23 09:38 NM [id number]) Sensation Evaluation Comments Summary Comments Numbness reported along anterior and sides of RLE post op. PT-OP-J Posture/Palpation/Skin Start: 11/08/23 07:24 Freq: Status: Active Protocol: Document 11/08/23 08:15 NM (Rec: 11/08/23 09:38 NM [id number]) Posture Evaluation Position Sitting Head/C-Spine Posture Forward Head T-Spine Posture Increased Kyphosis L-Spine Posture Increased Lordosis Scapula Posture (L) Protracted,(R) Protracted Arm Posture (L) Internally Rotated,(R) Internally Rotated Pelvis Posture Anteriorly Tilted Hip Posture (L) Externally Rotated,(R) Externally Rotated Knee Posture (L) Genu Valgus,(R) Genu Valgus Patellar Posture (L) Superior,(R) Superior,(R) Laterally Tilted Ankle/Foot Posture (L) Pronated,(R) Pronated Foot Arch (L) Low Arch,(R) Low Arch Palpation Assessment Location RLE Palpation Location knee, ankle Palpation Findings Edema,Soft Tissue Tightness, Tenderness Palpation Details Edema around B malleoli, knee. Tenderness in posterior calf and popliteal fossa. No increased redness except with dependency. Tenderness along medial and lateral knee, calf, ankles. Skin Assessment Circumference Measurement R ankle Location figure 8 Measurement (Centimeters) 53 Comments comparision L 50 cm R knee Location patellar Measurement (Centimeters) 48 Incisional Assessment Incision Appearance/Comments Multiple incision clean, dry, intact. No signs of infection. Decreased scar tissue mobility, particularly at R ankle due to increased swelling Other Assessments Skin Assessment Comments RLE slightly warmer than LLE. Rubor with dependency. Most edema at R malleoli PT-OP-K Range of Motion Start: 11/08/23 07:24 Freq: Status: Active Protocol: Document 01/16/24 10:34 NM (Rec: 01/16/24 11:19 NM [id number]) Knee Goniometric Range of Motion Knee Right Flexion Active (degrees) 126 Extension Active (degrees) 0 Comments IE: 105 deg flex, 5 deg lacking extension; anterior and lateral knee pain with flexion AROM 12/15/23: 125 deg flex, 0 deg extension; pain free 01/16/24: 126 deg flex, 0 deg ext Ankle and Foot Goniometric Range of Motion Ankle and Foot Right Dorsiflexion with Knee Flexed 5 Plantarflexion 20 Inversion 20 Eversion 10 Comments IE: 3 deg DF, 20 deg PF, 3 deg inversion, 3 deg eversion 12/15/23: 5 deg DF, 20 deg PF; pain free 01/16/24: 10 def ev, 20 deg inv ; 5 deg DF, 20 deg PF PT-OP-M Strength Start: 11/08/23 07:24 Freq: Status: Active Protocol: Document 01/16/24 10:34 NM (Rec: 01/16/24 11:19 NM [id number]) Hip Strength Hip Manual Muscle Testing Right Flexion (L2) 4 Good Extension (S1) 4 Good Abduction 4 Good Adduction 4+ Good+ External Rotation 4+ Good+ Internal Rotation 4+ Good+ Comments IE:4-/5 for flex/add, 3+/5 for ext/abd/IR/ER 12/15/23: 4/5 MMT for all, pain free 01/16/24: 4/5 flex/ext/abd, 4+/ 5 add/ER/IR Knee Strength Knee Manual Muscle Testing Right Flexion (S2) 4 Good Extension (L3) 4 Good Comments IE: 3/5 MMT; AROM against gravity only, did not provide resistance due to NWB precautions 12/15/23: 4-/5, pain free 01/16/24: 4/5, pain free Ankle/Foot Strength Ankle and Foot Manual Muscle Testing Right Dorsiflexion (L4) 4 Good Plantarflexion (S1) 4 Good Inversion 4 Good Eversion (S1) 4 Good Comments IE: 3/5 MMT for all; AROM against gravity only, did not provide resistance due to NWB precautions. Minimal AROM due to previous fusion 12/15/23: 4-/5, pain free with seated resisted testing 01/16/24: 4/5, pain free PT-OP-Q Treatments Start: 11/08/23 07:24 Freq: Status: Active Protocol: Document 02/27/24 09:51 SP (Rec: 02/27/24 10:38 SP [id number]) Therapeutic Exercises Standing Exercises glute med isometric Standing Exercise Name HEP reviewed: SLS side to wall (bent knee press out into wall) Side bilateral Reps/Minutes one minute each LE Comments cued stance LE closer to wall under trunk, muscle tiring ankle dorsiflexion Standing Exercise Name toe raises Side right Equipment Used contact wall Reps/Minutes x15 Comments cued level feet (med/lat), no pelvic sway back, incorporates into her day. step up Standing Exercise Name eccentric step back down and lateral down taps- HEP reviewed Side bilateral Resistance 6 inch step Equipment Used with UE support Reps/Minutes X15 each LE and each exercise Comments monitored for pain, cl squat Standing Exercise Name glute tap Side bilateral Resistance lvl 3 band around thighs Equipment Used no UE support, airex behind in mesh chair Reps/Minutes 1x10, 2x5 Comments improved knee flexion, hip hinge Therapeutic Activity Therapeutic Activity body mechanics Name hip hinge squat mechanics ( chair taps>air squat from mirror, pk up scooter) Reps/Minutes 3 reps x2 Comments cued buttocks back, lessen knee range (behind toes)- reports less tension above patella. 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 PT-OP-T Assessment and Plan Start: 11/08/23 07:24 Freq: Status: Active Protocol: Document 02/27/24 09:51 SP (Rec: 02/27/24 10:38 SP [id number]) Physical Therapy Assessment Goals Eight Impairment stairs Impairment quick reciprocal descent, knee valgus with rail assist Jail Goal (LTG) Pt will be able to ascend and descent at least 12 stairs with or without rail assist with reciprocal descent, no increase in baseline pain with minimal compensations due to decreased R ankle mobility in order to demonstrate safety when descending stairs at horse [employer] 02/27/24: PRogressing: able ascend/descend 1 HR receprocal but limited DF in R ankle LLE leading but able to complete. LTG Duration 8 weeks progressing. Seven Impairment strength Impairment R ankle strength 3/5 MMT Short Term Goal (STG) Pt will increase R ankle strength globally to at least 4-/5 MMT in order to demonstrate improved strength for weight bearing and gait 12/15/23: 4-/5 for all, pain free STG Duration 5 weeks MET Installation Engineer Goal (LTG) Pt will increase R ankle strength globally to at least 4+/5 MMT in order to demonstrate improved strength for weight bearing and gait 01/16/24: 4/5 for all, pain free- GOAL MET, UPDATED TO 4+/ 5 MMT LTG Duration 10 weeks GOAL MET; UPDATED on 01/15 Six Impairment strength Impairment R knee strength 3/5 MMT Short Term Goal (STG) Pt will increase R knee flexion and extension strength to at least 4-/5 MMT in order to demonstrate improved strength for weight bearing and gait 12/15/23: 4-/5 MMT for both, pain free STG Duration 5 weeks MET Jail Goal (LTG) Pt will increase R knee flexion and extension strength to at least 4/5 MMT in order to demonstrate improved strength for weight bearing and gait 01/16/24: 4+/5 for knee flex/ ext LTG Duration 10 weeks MET Five Impairment function Impairment unable to perform squats Short Term Goal (STG) Pt will be able to perform at least 5 bilateral squats with pain <5/10 and without compensation in order to demonstrate improved weight bearing and BLE strength 12/15/23: in prevoius sessions, able to perform 10 squats with BUE support for balance but requires cues for equal WB and to limit compensations, pain free STG Duration 5 weeks PROGRESSING; MET Jail Goal (LTG) Pt will be able to perform at least 10 bilateral squats with pain <5/10 and without compensation in order to demonstrate improved weight bearing and BLE strength 01/16/24: able to perform 10 squats with limited depth, slight compensations with trunk and hip rotation, leans LLE; pain free LTG Duration 10 weeks PROGRESSING, NOT MET Four Impairment mobility Impairment NWB, unable to ambulate Short Term Goal (STG) Pt will be able to ambulate at least 500 ft using LRAD with pain <5/10 in order to demonstrate improved activity tolerance and BLE strength 12/15/23: 445 ft with quad cane , slow savana. States pain free, slightly antalgic gait, cued for heel/toe and normal gait mechanics STG Duration 5 weeks PROGRESSING Installation Engineer Goal (LTG) Pt will be able to ambulate community distances using LRAD with pain <2/10 in order to demonstrate improved activity tolerance and BLE strength 01/16/24: reports walking community distances w/o pain or discomfort LTG Duration 10 weeks PROGRESSING Three Impairment AROM Impairment R knee extension AROM 3 deg Jail Goal (LTG) Pt will improve R knee extension to at least 0 deg in order to achieve terminal knee extension during gait 12/15/23: 0 deg extension LTG Duration 10 weeks MET Two Impairment AROM Impairment R knee flexion 105 deg Short Term Goal (STG) Pt will increase R knee flexion to at least 115 deg for improved knee flexion during swing phase of gait and stairs 12/15/23: 125 deg flexion, pain free but demos hip hike compensation with testing STG Duration 5 weeks MET Jail Goal (LTG) Pt will increase R knee flexion to at least 125 deg for improved knee flexion during swing phase of gait and stairs 12/15/23: 125 deg flexion, pain free but demos hip hike compensation with testing 12/22/23 128 deg AROM right knee flexion 01/16/24: 126 deg knee flexion LTG Duration 10 weeks MET One Impairment LEFS Impairment 15/80 Short Term Goal (STG) Pt will increase LEFS score by at least 9 points (1 MCID) in order to demonstrate improved pain management and activity tolerance 12/15/23: 33/80 STG Duration 5 weeks MET Installation Engineer Goal (LTG) Pt will increase LEFS score to at least 50/80 in order to demonstrate improved pain management and activity tolerance 01/16/24: 56/80 LTG Duration 10 weeks MET Assessment Summary Assessment Pt responded well muscle tiring during ther ex, cues for set up and proper form. Improved body mechanics hip hinge during squat trial and carryover for farm work for back, knee, ankles. Pt states she feels is doing well and can continue on her own. She feels has gained the ROM in ankle is going to get. Recheck is still interested in continuing on her own. Physical Therapy Plan Frequency and Duration Frequency of Treatment 1-2x/wk Duration of treatment (weeks) 8 Plan of Care Start Date 01/16/24 Plan of Care End Date 03/15/24 Therapeutic Interventions Therapeutic Interventions Balance Training,Coordination Training,Gait Training,Home Exercise Program,Joint Mobilizations,Manual Therapy, Neuromuscular Re-education, Orthotic/Prosthetic Management ,Patient/Caregiver Education, Self-Care/Home Management, Sensory Integration,Soft Tissue Mobilization,Taping, Therapeutic Activities, Therapeutic Exercises Modalities Biofeedback,Cold Pack/Ice Massage,Electric Stimulation, Hot Packs,Ultrasound, Vasopneumatic Devices Next Visit Focus/Plan Next Note Type Discharge Summary Next Visit Plan Pt feel DC to HEP next tx. no band at ankles Recheck step downs retro/lateral for HEP /c HO POC: leg press, glute med and single leg strength, ankle DF and eversion strength, squat. Focus/continue balance, ankle strengthening. standing DF, seated inv/ev, Heel raises w/ ball, calf stretch, squat, lunges, leg press, balance Manual: scar massage, soft tissue, knee and ankle mobilizations grade II as tolerated,ice massage/ice elevation
--- NOTE | 2024-03-05 13:25 | PT.OTN ---
Current Diagnoses Weakness (03/05/24) Displaced bicondylar fracture of right tibia, subsequent encounter for closed fracture with routine healing (03/05/24) Unspecified fracture of shaft of right fibula, subsequent encounter for closed fracture with routine healing (03/05/24) Physical Therapy Treatment Note PT-OP-A Visit Information Start: 11/08/23 07:24 Freq: Status: Active Protocol: Document 03/05/24 09:45 NM (Rec: 03/05/24 10:28 NM [id number]) Out-Patient Physical Therapy Visit Information Visit Information Visit Type Discharge Summary Visit Start Time 09:47 Visit Stop Time 10:30 Visit Number 22 Evaluation Information Evaluation Date 11/08/23 Precautions Precautions frequent fractures WBAT now * LATEX ALLERGY. PT-OP-B Current Condition Start: 11/08/23 07:24 Freq: Status: Active Protocol: Document 11/08/23 08:15 NM (Rec: 11/08/23 09:38 NM [id number]) Current Condition History of Current Condition Onset Date 09/30/23 History of Current Condition Pt presents s/p R ORIF following tibia and fibula fractures. Pt injured on her leg when turning, slipped and had ground level fall in her horse stall. She has been NWB for 6 weeks (until Monday, ). Hx provided by pt and , [facility]. Pt has been performing the HEP provided by hospital since discharge but reports that exercises cause her RLE discomfort and occasionally pain. She has been using a manual w/c for mobility since discharge from hospital. She has follow up with surgeon tomorrow, 11/08, and will have 6 week radiographs; reports that surgeon cleared for flat foot WB for transfers only at 3 week post op follow up. She has a previous R ankle replacement in 2010 along with PMH of R pelvis fracture, L sciatica. She would occasionally use a spc when her ankle flared up, usually walking about 2 blocks-1 mile. No stairs at her home, only at the horse barn. She has vacation planned 11/21-12/03 and will not be able to attend. Prior Functional Status Baseline Function- ADL's Independent Baseline Function- Mobility Independent Baseline Function- Gait 2 blocks to 1 mile, prn spc use Baseline Function- Work/School retired Baseline Function- Recreation/Hobbies horse back riding, swimming 2x /wk Current Functional Impairments (Reported) Functional Limitations- ADL's dressing Functional Limitations- Mobility/Gait w/c for mobility; sleeps in lift chair PT-OP-C Subjective Start: 11/08/23 07:24 Freq: Status: Active Protocol: Document 03/05/24 09:45 NM (Rec: 03/05/24 10:28 NM [id number]) OP-PT Subjective Patient Comments Patient Comments Pt reports ready for discharge today. Reports only aching at break site but no pain. States no limitations with ambulation, ADLs/IADLS. She will seeing eye doctor later today to assist with vision deficits. PT-OP-F Manual Assessment Start: 11/08/23 07:24 Freq: Status: Active Protocol: Document 11/08/23 08:15 NM (Rec: 11/08/23 09:38 NM [id number]) Manual Assessments Soft Tissue Assessment Soft Tissue Mobility Assessment Increased hamstring, hip flexor, heel cord, and hip abductor tightness Joint Mobility Assessment Joint Mobility Assessment Decreased R knee and ankle PROM and AROM. R ankle limited at talocrural joint due to previous fusion PT-OP-G Mobility & Gait Start: 11/08/23 07:24 Freq: Status: Active Protocol: Document 11/08/23 08:15 NM (Rec: 11/08/23 09:38 NM [id number]) OP Mobility Evaluation Bed Mobility Rolling Independent Supine to and from Sit Independent Transfers Sit to Stand w/c <> plinth partial WB with flat foot, stand several steps to sit OP Gait Assessment Comments Gait Comments NWB at this time, did not formally assess gait until pt cleared for WB PT-OP-H Neuro Start: 11/08/23 07:24 Freq: Status: Active Protocol: Document 11/08/23 08:15 NM (Rec: 11/08/23 09:38 NM [id number]) Sensation Evaluation Comments Summary Comments Numbness reported along anterior and sides of RLE post op. PT-OP-J Posture/Palpation/Skin Start: 11/08/23 07:24 Freq: Status: Active Protocol: Document 11/08/23 08:15 NM (Rec: 11/08/23 09:38 NM [id number]) Posture Evaluation Position Sitting Head/C-Spine Posture Forward Head T-Spine Posture Increased Kyphosis L-Spine Posture Increased Lordosis Scapula Posture (L) Protracted,(R) Protracted Arm Posture (L) Internally Rotated,(R) Internally Rotated Pelvis Posture Anteriorly Tilted Hip Posture (L) Externally Rotated,(R) Externally Rotated Knee Posture (L) Genu Valgus,(R) Genu Valgus Patellar Posture (L) Superior,(R) Superior,(R) Laterally Tilted Ankle/Foot Posture (L) Pronated,(R) Pronated Foot Arch (L) Low Arch,(R) Low Arch Palpation Assessment Location RLE Palpation Location knee, ankle Palpation Findings Edema,Soft Tissue Tightness, Tenderness Palpation Details Edema around B malleoli, knee. Tenderness in posterior calf and popliteal fossa. No increased redness except with dependency. Tenderness along medial and lateral knee, calf, ankles. Skin Assessment Circumference Measurement R ankle Location figure 8 Measurement (Centimeters) 53 Comments comparision L 50 cm R knee Location patellar Measurement (Centimeters) 48 Incisional Assessment Incision Appearance/Comments Multiple incision clean, dry, intact. No signs of infection. Decreased scar tissue mobility, particularly at R ankle due to increased swelling Other Assessments Skin Assessment Comments RLE slightly warmer than LLE. Rubor with dependency. Most edema at R malleoli PT-OP-K Range of Motion Start: 11/08/23 07:24 Freq: Status: Active Protocol: Document 03/05/24 09:45 NM (Rec: 03/05/24 10:28 NM [id number]) Knee Goniometric Range of Motion Knee Right Flexion Active (degrees) 126 Extension Active (degrees) 0 Comments IE: 105 deg flex, 5 deg lacking extension; anterior and lateral knee pain with flexion AROM 12/15/23: 125 deg flex, 0 deg extension; pain free 01/16/24: 126 deg flex, 0 deg ext Left Flexion Active (degrees) 128 Extension Active (degrees) 0 Hyper-Extension Active 3 Ankle and Foot Goniometric Range of Motion Ankle and Foot Right Dorsiflexion with Knee Flexed 5 Plantarflexion 20 Inversion 20 Eversion 10 Comments IE: 3 deg DF, 20 deg PF, 3 deg inversion, 3 deg eversion 12/15/23: 5 deg DF, 20 deg PF; pain free 01/16/24: 10 def ev, 20 deg inv ; 5 deg DF, 20 deg PF 03/05/24: 7 deg DF Left Dorsiflexion with Knee Flexed 12 Plantarflexion 35 Inversion 25 Eversion 15 PT-OP-M Strength Start: 11/08/23 07:24 Freq: Status: Active Protocol: Document 03/05/24 09:45 NM (Rec: 03/05/24 10:28 NM [id number]) Hip Strength Hip Manual Muscle Testing Right Flexion (L2) 4+ Good+ Extension (S1) 4+ Good+ Abduction 4+ Good+ Adduction 4+ Good+ External Rotation 4+ Good+ Internal Rotation 4+ Good+ Comments IE:4-/5 for flex/add, 3+/5 for ext/abd/IR/ER 12/15/23: 4/5 MMT for all, pain free 01/16/24: 4/5 flex/ext/abd, 4+/ 5 add/ER/IR 03/05/24: 4+/5 for all, pain free Knee Strength Knee Manual Muscle Testing Right Flexion (S2) 4+ Good+ Extension (L3) 4+ Good+ Comments IE: 3/5 MMT; AROM against gravity only, did not provide resistance due to NWB precautions 12/15/23: 4-/5, pain free 01/16/24: 4/5, pain free 03/05/24: 4+/5 for all, pain free Ankle/Foot Strength Ankle and Foot Manual Muscle Testing Right Dorsiflexion (L4) 4 Good Plantarflexion (S1) 4 Good Inversion 4 Good Eversion (S1) 4 Good Comments IE: 3/5 MMT for all; AROM against gravity only, did not provide resistance due to NWB precautions. Minimal AROM due to previous fusion 12/15/23: 4-/5, pain free with seated resisted testing 01/16/24: 4/5, pain free 03/05/24: 4+/5 all, pain free; PF in sitting 4/ (tested with B heel raise as pt unable to do single leg heel raise) PT-OP-Q Treatments Start: 11/08/23 07:24 Freq: Status: Active Protocol: Document 03/05/24 09:45 NM (Rec: 03/05/24 10:28 NM [id number]) Therapeutic Exercises Standing Exercises heel raise Side bilateral Resistance AROM Equipment Used hand support for balance Reps/Minutes 2x10 Comments unable to perform single leg glute med isometric Standing Exercise Name SLS side to wall (bent knee press out into wall) Side bilateral Reps/Minutes one minute each LE Comments cued stance LE closer to wall under trunk, muscle tiring hip 3 way Standing Exercise Name hip flex, hip abd, hip ext Side bilateral Resistance level 4 band around thighs Equipment Used 1 hand support (flat) Reps/Minutes 2x10 ea side steps Standing Exercise Name monster walk: fwd and retro Side bilateral Resistance level 4 band above knees Equipment Used squat position, prn hand support for balance Reps/Minutes 4x10 ft ea direction Comments pain free, good form step up Standing Exercise Name stairs Side bilateral Resistance 6 Equipment Used 1 UE support for balace Reps/Minutes [id number] Comments painfree, still quick descent due to limitations in ankle ROM squat Standing Exercise Name glute tap Side bilateral Equipment Used no UE support, airex behind in mesh chair Reps/Minutes 2x10 Comments improved knee flexion, hip hinge; cued chest up Neuro Re-Education Treatment Balance Activities SLS Details // bars Surface stable Equipment 2 finger support> decrease DEBRA Reps/Duration 2x30 Comments For time. Cued to slowly decrease level of support from BUE > 1 UE > 2 fingers to less as more comfortable. RLE in stance PT-OP-T Assessment and Plan Start: 11/08/23 07:24 Freq: Status: Active Protocol: Document 03/05/24 09:45 NM (Rec: 03/05/24 10:28 NM [id number]) Physical Therapy Assessment Goals Eight Impairment stairs Impairment quick reciprocal descent, knee valgus with rail assist [facility]ci Goal (LTG) Pt will be able to ascend and descent at least 12 stairs with or without rail assist with reciprocal descent, no increase in baseline pain with minimal compensations due to decreased R ankle mobility in order to demonstrate safety when descending stairs at [employer] 02/27/24: PRogressing: able ascend/descend 1 HR receprocal but limited DF in R ankle LLE leading but able to complete. 03/05/24: able to perform with 1 hand rail assist for balance x12 steps, step over steps LTG Duration 8 weeks MET Seven Impairment strength Impairment R ankle strength 3/5 MMT Short Term Goal (STG) Pt will increase R ankle strength globally to at least 4-/5 MMT in order to demonstrate improved strength for weight bearing and gait 12/15/23: 4-/5 for all, pain free STG Duration 5 weeks MET Rehabilitation Assistant Goal (LTG) Pt will increase R ankle strength globally to at least 4+/5 MMT in order to demonstrate improved strength for weight bearing and gait 01/16/24: 4/5 for all, pain free- GOAL MET, UPDATED TO 4+/ 5 MMT 03/05/24: 4+/5 for all, 4/5 for PF in sitting LTG Duration 10 weeks GOAL MET; UPDATED on 01/15- PARTIALLY MET 03/05/24 Six Impairment strength Impairment R knee strength 3/5 MMT Short Term Goal (STG) Pt will increase R knee flexion and extension strength to at least 4-/5 MMT in order to demonstrate improved strength for weight bearing and gait 12/15/23: 4-/5 MMT for both, pain free STG Duration 5 weeks MET Rehabilitation Assistant Goal (LTG) Pt will increase R knee flexion and extension strength to at least 4/5 MMT in order to demonstrate improved strength for weight bearing and gait 01/16/24: 4+/5 for knee flex/ ext LTG Duration 10 weeks MET Five Impairment function Impairment unable to perform squats Short Term Goal (STG) Pt will be able to perform at least 5 bilateral squats with pain <5/10 and without compensation in order to demonstrate improved weight bearing and BLE strength 12/15/23: in prevoius sessions, able to perform 10 squats with BUE support for balance but requires cues for equal WB and to limit compensations, pain free STG Duration 5 weeks PROGRESSING; MET Rehabilitation Assistant Goal (LTG) Pt will be able to perform at least 10 bilateral squats with pain <5/10 and without compensation in order to demonstrate improved weight bearing and BLE strength 01/16/24: able to perform 10 squats with limited depth, slight compensations with trunk and hip rotation, leans LLE; pain free 03/05/24: 2x10 squats without limitation, no pain, minimal compensations LTG Duration 10 weeks MET Four Impairment mobility Impairment NWB, unable to ambulate Short Term Goal (STG) Pt will be able to ambulate at least 500 ft using LRAD with pain <5/10 in order to demonstrate improved activity tolerance and BLE strength 12/15/23: 445 ft with quad cane , slow savana. States pain free, slightly antalgic gait, cued for heel/toe and normal gait mechanics STG Duration 5 weeks PROGRESSING [facility]ci Goal (LTG) Pt will be able to ambulate community distances using LRAD with pain <2/10 in order to demonstrate improved activity tolerance and BLE strength 01/16/24: reports walking community distances w/o pain or discomfort 03/05/24: reports able to ambulate all community distances without limitation orpain LTG Duration 10 weeks MET Three Impairment AROM Impairment R knee extension AROM 3 deg Rehabilitation Assistant Goal (LTG) Pt will improve R knee extension to at least 0 deg in order to achieve terminal knee extension during gait 12/15/23: 0 deg extension LTG Duration 10 weeks MET Two Impairment AROM Impairment R knee flexion 105 deg Short Term Goal (STG) Pt will increase R knee flexion to at least 115 deg for improved knee flexion during swing phase of gait and stairs 12/15/23: 125 deg flexion, pain free but demos hip hike compensation with testing STG Duration 5 weeks MET [facility]ci Goal (LTG) Pt will increase R knee flexion to at least 125 deg for improved knee flexion during swing phase of gait and stairs 12/15/23: 125 deg flexion, pain free but demos hip hike compensation with testing 12/22/23 128 deg AROM right knee flexion 01/16/24: 126 deg knee flexion LTG Duration 10 weeks MET One Impairment LEFS Impairment 15/80 Short Term Goal (STG) Pt will increase LEFS score by at least 9 points (1 MCID) in order to demonstrate improved pain management and activity tolerance 12/15/23: 33/80 STG Duration 5 weeks MET Fci Goal (LTG) Pt will increase LEFS score to at least 50/80 in order to demonstrate improved pain management and activity tolerance 01/16/24: 56/80 LTG Duration 10 weeks MET Progress Towards Goals Progress Towards Goals Goals Met Assessment Summary Assessment Pt tolerated session well. She has no reports of pain or discomfort in RLE with exercises. Reviewed HEP and condensed for maintenance program. Pt still challenged with B heel raises, unable to perform single leg. Requires cueing still for correct execution and demonstrates decreased ROM bilaterally. Improved balance with hip 3 way, glute medius isometric, and SLS. Pt able to progress band with hip 3 way and monster walks. No LOB with increased resistance or during backward stepping; pt demonstrates improved ability to shift weight and maintain centered WILMA. Physical Therapy Plan Frequency and Duration Frequency of Treatment 1-2x/wk Duration of treatment (weeks) 8 Plan of Care Start Date 01/16/24 Plan of Care End Date 03/15/24 Therapeutic Interventions Therapeutic Interventions Balance Training,Coordination Training,Gait Training,Home Exercise Program,Joint Mobilizations,Manual Therapy, Neuromuscular Re-education, Orthotic/Prosthetic Management ,Patient/Caregiver Education, Self-Care/Home Management, Sensory Integration,Soft Tissue Mobilization,Taping, Therapeutic Activities, Therapeutic Exercises Modalities Biofeedback,Cold Pack/Ice Massage,Electric Stimulation, Hot Packs,Ultrasound, Vasopneumatic Devices Discharge Physical Therapy Discharge Reasons Goals Met Next Visit Focus/Plan Next Visit Plan Discharge from PT
== END 2024-03-06 13:31 | disposition home or self-care (01) ==
LOC: PHYS 09:45
PROVIDERS: Family Provider Internal Medicine; PCP Internal Medicine; Referring Provider Internal Medicine; Visit Provider Internal Medicine
DX: S82.141D Displaced bicondylar fracture of right tibia, subsequent encounter for closed fracture with routine healing (principal); S82.401D Unspecified fracture of shaft of right fibula, subsequent encounter for closed fracture with routine healing; R53.1 Weakness
CPT/HCPCS: 97110; 97112; 97116; 97140; 97161; 97530; 97535

== ENCOUNTER → 2024-04-19 11:05 | Outpatient (CLI) | payer OTHER, SELFPAY ==
--- NOTE | 2024-04-19 11:06 | DI.RAD.S_ITS ---
PROCEDURE: XR DEXA AXIAL SKELETON INDICATIONS: osteoporosis COMPARISON: [facility], CR, XR DEXA AXIAL SKELETON, 10/29/2018, 13:02. FINDINGS: Lumbar Spine: Bone mineral density 0.846 g/cm2, T score -1.8. There is interval 7.6% increase in total lumbar spine bone mineral density. Left Hip: Bone mineral density 0.801 g/cm2, T score -1.2. There is interval 7.2% increase in total left hip bone mineral density. Left Femoral Neck: Bone mineral density 0.659 g/cm2, T score -1.7. There is interval 11.9% increase in left femoral neck bone mineral density. Right Hip: Bone mineral density 0.774 g/cm2, T score -1.4. There is interval 3.6% increase in total right hip bone mineral density. Right Femoral Neck: Bone mineral density 0.6 x 6 g/cm2, T score -1.7. There is interval 8% increase in right femoral neck bone mineral density. Fracture Risk Calculation (when applicable): 10-year fracture risk of a major osteoporotic fracture 8.8% and of a hip fracture 1.1%. (T score greater or equal to -1.0 to: NORMAL) (T score from -1.1 to -2.4: OSTEOPENIA) (T score less than or equal to -2.5: OSTEOPOROSIS) IMPRESSION: Osteopenia with increased 10 year fracture risk. There is interval increase in bilateral hip and lumbar spine bone mineral density. Follow-up guidelines as follows: Osteoporosis: Consider a repeat DEXA and Vertebral Fracture Assessment (VFA) exam in 2 years or sooner if medically necessary, to reassess this patient's status. Osteopenia: Consider a repeat DEXA in 2-3 years to reassess this patient's status, or if there is a new clinical indication. Normal: Consider a repeat DEXA in 5 years or sooner, or if there is a new clinical indication. All treatment decisions require clinical judgment and consideration of individual patient factors, including patient preferences, comorbidities, previous drug use, risk factors not captured in the FRAX model (e.g., frailty, falls, vitamin D deficiency, increased bone turnover, interval significant decline in bone density ) and possible under- or over-estimation of fracture risk by FRAX. In addition, the NOF Guide recommends that FDA-approved medical therapies be considered in postmenopausal women and men age >= 50 years with a: * Hip or vertebral (clinical or morphometric) fracture * T-score of <=-2.5 at the spine or hip * Ten-year fracture probability by FRAX of >= 3% for hip fracture or >=20% for major osteoporotic fracture. People with diagnosed cases of osteoporosis or at high risk for fracture should have regular bone mineral density tests. For patients eligible for Medicare, routine testing is allowed once every 2 years. The testing frequency can be increased to one year for patients who have rapidly progressing disease, those who are receiving or discontinuing medical therapy to restore bone mass, or have additional risk factors. Dictated by: Arturo Meraz M.D. on 04/19/2024 at 14:07 Approved by: Arturo Meraz M.D. on 04/19/2024 at 14:09
== END ==
PROVIDERS: Family Provider Internal Medicine; PCP Internal Medicine; Referring Provider Internal Medicine; Visit Provider Internal Medicine
DX: M85.89 Other specified disorders of bone density and structure, multiple sites (principal)
CPT/HCPCS: 77080

== ENCOUNTER → 2025-06-20 15:06 | Outpatient (CLI) | payer OTHER, SELFPAY ==
--- NOTE | 2025-06-20 15:09 | DI.MG.S_ITS ---
MM screening mammo BI: 06/20/2025. BI-RADS: 1 CLINICAL: 70-year old female for bilateral screening mammogram. Tyrer-Cuzick lifetime risk of 6.4%. No personal or first-degree family history of breast cancer. The patient had a prior left breast biopsy. PRIOR EXAMS 08/25/2023, 08/16/2022, 07/13/2021, 10/29/2018. MAMMOGRAPHY TECHNIQUE: 2D and 3D (tomosynthesis) digital mammographic views obtained, with additional images as needed for full coverage. Current study was also evaluated with a Computer Aided Detection (CAD) system. DENSITY B. There are scattered areas of fibroglandular density. MAMMOGRAPHY FINDINGS Bilateral: No suspicious mass, asymmetry, microcalcification, or other abnormality seen. IMPRESSION: * No evidence of malignancy. RECOMMENDATIONS Bilateral * Annual screening mammography. OVERALL ASSESSMENT CATEGORY BI-RADS-1: Negative. The [employer] recommends annual screening mammography beginning at age 40 for women with average risk of breast cancer. ELECTRONICALLY SIGNED: Tiffanie Wallace M.D. on 06/23/2025 at 08:55:17 AM PT Interpreting Station ID: [id number]
== END ==
LOC: MAMMO 15:09
PROVIDERS: Family Provider Internal Medicine; PCP Internal Medicine; Referring Provider Internal Medicine; Visit Provider Internal Medicine
DX: Z12.31 Encounter for screening mammogram for malignant neoplasm of breast (principal)
CPT/HCPCS: 77063; 77067

== ENCOUNTER → 2025-07-01 10:46 | Outpatient (CLI) | payer OTHER, SELFPAY ==
[2025-07-01 12:42] LABS: Albumin 4.2 g/dL (3.5-5.0); Albumin Globulin Ratio 1.6 (1.0-2.8); Alkaline Phosphatase 76 U/L (38-126); Blood Urea Nitrogen 13 mg/dL (7-17); Carbon Dioxide 25 mmol/L (22-32); Chloride 106 mmol/L (98-107); Estimated Glomerular Filt Rate > 60 mL/min (>60); Globulin 2.7 g/dL (1.7-4.1); HEMOLYSIS < 15 (0-50); Potassium 5.0 mmol/L (3.4-5.1); Sodium 140 mmol/L (137-145); Total Protein 6.9 g/dL (6.3-8.2)
[2025-07-01 12:43] LABS: Alanine Aminotransferase 33 IU/L (<35); Calcium 9.6 mg/dL (8.4-10.2); Glucose 94 mg/dL (70-99)
== END ==
PROVIDERS: PCP Internal Medicine; Referring Provider Internal Medicine; Visit Provider Internal Medicine
DX: I10 Essential (primary) hypertension (principal); E78.2 Mixed hyperlipidemia
CPT/HCPCS: 36415; 80053